=== PATIENT | female | born 1970 | race Caucasian/White ===

== ENCOUNTER 2016-06-16 21:54 | Emergency (ER) | payer OTHER ==
[2016-06-16 22:30] VITALS: BP 103/74
--- NOTE | 2016-06-17 00:24 | EDM.PDOC ---
ED HPI EYE COMPLAINT - General Chief Complaint: Eye Problems Stated Complaint: POSS EYE INFECTION Time Seen by Provider: 06/16/16 23:54 Source: Reports: Patient History Limitations: Reports: No limitations - History of Present Illness INITIAL COMMENTS - FREE TEXT/NARRATIVE: Patient presents for evaluation and treatment of bilateral eye pain, headaches and abnormal pupils. Patient reports the pain started in the right eye one week ago. Patient was seen by optometry on Saturday this week. She was started on several eye drops for the symptoms. She was told she has infection of the eye. Patient report today she noticed that her right pupil was now irregularly shaped. Today, she also developed severe decreased vision in the right eye. She states she is nearly blind in the right eye. Her left eye has now also become painful and the left pupil is dilated. Patient reports both eyes are painful to touch. She reports associated symptoms of photophobia, headaches and nausea. Denies any vomiting. She is unsure if she has had any fevers. No contacts. Patient wears bifocals on occasion. Patient has a past medial history of MS. She wsa previous on medication for the MS bit is no longer on meds. Patient also reports about 1 year ago she fractured her right orbit. Patient is a resident of the [facility]. Timing/Duration: Reports: Getting worse Location: both - Related Data Allergies/ADRs: Allergies acyclovir Allergy (Verified 06/16/16 22:36) Other codeine Allergy (Verified 06/16/16 22:36) Other morphine Allergy (Verified 06/16/16 22:36) Nausea Home Meds: Ambulatory Orders Medication Instructions Recorded Confirmed Dubxetine 90 mg PO DAILY 06/16/16 06/16/16 Homatropine HBr [Homatropaire] 1 drop TOP BID 06/16/16 06/16/16 Hydrochlorothiazide 25 mg PO DAILY 06/16/16 06/16/16 Iron 325 mg PO DAILY 06/16/16 06/16/16 Metoprolol Succinate 200 mg PO DAILY 06/16/16 06/16/16 Montelukast Sodium [Singulair] 10 mg PO DAILY 06/16/16 06/16/16 Naproxen 500 mg PO BID 06/16/16 06/16/16 Pramipexole [Mirapex] 0.125 mg PO BEDTIME 06/16/16 06/16/16 Prednisolone Eye Gtt 1 drop TOP ASDIRECTED 06/16/16 06/16/16 Ranitidine [Zantac] 75 mg PO BID 06/16/16 06/16/16 hydrOXYzine HCl [Atarax] 25 mg PO BID 06/16/16 06/16/16 levETIRAcetam [Levetiracetam] 500 mg PO DAILY 06/16/16 06/16/16 Past Medical History Cardiovascular History: Reports: Hypertension Neurological History: Reports: Migraines, MS Psychiatric History: Reports: Mood swings - Infectious Disease History Infectious Disease History: Reports: Hepatitis C - Past Surgical History HEENT Surgical History: Reports: Other (see below) Other HEENT Surgeries/Procedures: infection in eye Social & Family History - Tobacco Use Smoking Status *Q: Former Smoker - Caffeine Use Caffeine Use: Reports: Coffee - Recreational Drug Use Recreational Drug Type: Reports: Methamphetamine Other Recreational Drug Type: last used december 2015 ED ROS GENERAL - Review of Systems Review Of Systems: See Below HEENT: Reports: Eye pain. Denies: Eye discharge GI/Abdominal: Reports: Nausea. Denies: Vomiting Neurological: Reports: Headache ED EXAM GENERAL W FULL EYE - Physical Exam Exam: See Below Exam Limited By: No limitations General Appearance: alert, WD/WN, no apparent distress Visual acuity (R) 20/: 200 Visual acuity (L) 20/: 40 With Correction: No IOP (R) in mmH IOP (L) in mmH IOP measure with (equipment): Tonopen Eyelids: bilateral: normal appearance, lid everted for exam Conjunctiva & Sclera: bilateral: normal appearance Cornea Exam: bilateral: normal appearance Extraocular Movements: bilateral: intact Pupils: irregular (right), unequal, mydriatic (left) Pupillary Size: right: 5 mm, left: 9 mm Pupillary Reaction: bilateral: absent Anterior Chamber: bilateral: narrow angle Ears: normal external exam Throat/Mouth: Normal inspection, Normal voice, No airway compromise Respiratory/Chest: no respiratory distress, lungs clear, normal breath sounds Cardiovascular: normal peripheral pulses, regular rate, rhythm, no murmur Neurological: alert, oriented, normal cognition Psychiatric: normal affect, normal mood Skin Exam: Warm, Dry Course - Vital Signs Last Recorded V/S: Last Vital Signs Temp 37.1 C 06/16/16 22:28 Pulse 49 L 06/16/16 22:28 Resp 20 06/16/16 22:28 BP 103/74 06/16/16 22:28 Pulse Ox 100 06/16/16 22:28 - Orders/Labs/Meds Meds: Medications Discontinued Medications Generic Name Dose Route Start Last Admin Trade Name Phil PRN Reason Stop Dose Admin Ketorolac Tromethamine 60 mg 06/17/16 00:40 06/17/16 01:12 Toradol IM 06/17/16 00:41 60 mg ONETIME ONE Administration - Re-Assessments/Exams Free Text/Narrative Re-Assessment/Exam: 06/17/16 01:36 Pain improved slightly after proparacaie eye drops. Examined with slit lamp. No additional abnormalities were found. Called Irwin Gus. Gave phone number for [facility], . I was able to get ahold of Dr. Fonseca, postpartum nurse. Discussed case with him. Unlikely glaumcoma with normal IOPs. Lane she likely had iritis in the right eye. He felt she likely got some of the homoatropire drop in the left eye. This medication can cause pupillary dilation up to one week. Recommended increasing prednisone gtts to 4xs a day and follow-up with optometry this week. Departure - Departure Time of Disposition: 01:44 Disposition: Home, Self-Care 01 Condition: fair Clinical Impression: Iritis Instructions: Uveitis, [id number] Referrals: Mayra Ornelas PA-C [Primary Care Provider] - Forms: ED Department Discharge Additional Instructions: Increase the prednisone eyedrops to 4 times a day while awake. Followup with Dr. Boswell next week. If you are unable to see Dr. Boswell. You may see the providers at [facility] in [place]. I spoke with Dr. fonseca regarding her case. Call [phone] to schedule with [facility]. OTC ibuprofen 600mg every 8 hours for headache and pain relief. Continue with current eye drops. Please return to the ER should your symptoms change or worsen.
[2016-06-17] MEDS ORDERED: Ketorolac 60 MG/2 ML SDV IM ONE (00:40)
== END 2016-06-17 02:03 | disposition home or self-care (01) ==
LOC: EEVIPCON 21:54 → MERGE 21:54 → SUPCPDRO 21:54 → JD.ED 21:54
DX: H20.9 Unspecified iridocyclitis (principal); I10 Essential (primary) hypertension; G35 Multiple sclerosis; Z87.891 Personal history of nicotine dependence; Z79.899 Other long term (current) drug therapy; Z88.5 Allergy status to narcotic agent; Z88.8 Allergy status to other drugs, medicaments and biological substances
CPT/HCPCS: 96372; 99282; J1885; 99283; 99283-25

== ENCOUNTER 2018-12-06 19:42 | Emergency (ER) | payer MEDICAID, OTHER ==
[2018-12-06 20:02] VITALS: BP 134/96; PULSE 85
[2018-12-06] MEDS ORDERED: Proparacaine 0.5% Ophth Soln 15 ML Bottle EYEBOTH STA (20:22)
[2018-12-06] MEDS ORDERED: Erythromycin Base 0.5% Ophth Oint 1 GM Tube EYELF STA (20:22)
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
== END 2018-12-06 20:42 | disposition home or self-care (01) ==
LOC: JD.ED 19:42
DX: B30.9 Viral conjunctivitis, unspecified (principal); I10 Essential (primary) hypertension; F17.210 Nicotine dependence, cigarettes, uncomplicated; Z88.8 Allergy status to other drugs, medicaments and biological substances; Z88.5 Allergy status to narcotic agent; Z79.899 Other long term (current) drug therapy
CPT/HCPCS: 99282; A9270; 99283

== ENCOUNTER 2019-02-07 09:42 | Emergency (ER) | payer MEDICAID ==
[2019-02-07 09:54] VITALS: BP 139/96; PULSE 81
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
[2019-02-07] MEDS ORDERED: Lactated Ringers 1,000 ML IV ONE ×2 (10:07→11:46)
[2019-02-07] MEDS ORDERED: Ondansetron 4 MG/2 ML SDV IVPUSH ONE ×2 (10:08→12:46)
[2019-02-07] MEDS ORDERED: FLU Vacc QS2019-20(6MOS+)/PF 60 MCG/0.5 ML SYRINGE IM ONE (10:15)
[2019-02-07] MEDS ORDERED: Lactated Ringers 1,000 ML IV SCH (10:15)
[2019-02-07] MEDS ORDERED: fentaNYL 100 MCG/2 ML SDV IVPUSH ONE (11:05)
[2019-02-07] MEDS ORDERED: HYDROmorphone 0.5 MG/0.5 ML Syringe IVPUSH ONE ×2 (11:44→12:45)
[2019-02-07] MEDS ORDERED: Diatrizoate Meglumine/Diatrizoate Sodium 37% 120 ML Bottle PO ONE (13:36)
[2019-02-07] MEDS ORDERED: Iopamidol 612 MG/ML 100 ML Bottle IVPUSH ONE (13:36)
[2019-02-07] MEDS ORDERED: Sodium Chloride 0.9% 10 ML Syringe FLUSH ONE (13:36)
--- NOTE | 2019-02-07 14:36 | CT ---
CT abdomen and pelvis Technique: Multiple axial sections were obtained from above the dome of the diaphragm inferiorly through the pubic symphysis. Intravenous and oral contrast was given. Delayed images were also obtained through the bladder. Visualized lung bases show nothing acute. Partially visualized bilateral breast prosthesis are incidentally noted. Liver contains no focal parenchymal abnormality. Stomach shows evidence of prior surgery. Spleen appears within normal limits. Adrenal glands show no nodule. Previous cholecystectomy is noted. Common bile duct mildly prominent in size most likely residual from previous cholecystectomy. Pancreas shows no discrete abnormality. Kidneys show symmetric contrast enhancement without hydronephrosis or mass. Inferior right kidney shows a cyst measuring 1.4 cm. Aorta shows no aneurysm. No retroperitoneal adenopathy or mesenteric abnormalities are seen. Delayed images shows contrast within the bladder. Diffuse bowel wall thickening is noted within the colon most prominent within the descending and sigmoid regions. Appendix is not definitely visualized. No free fluid or inflammatory change is seen. Bone window settings were reviewed which appear within normal limits for the patient's age. Impression: 1. Diffuse bowel wall thickening within the colon. Findings are compatible with a nonspecific colitis. 2. No other acute abnormality is appreciated CT study of the abdomen and pelvis. Diagnostic code #3
--- NOTE | 2019-02-08 16:01 | CR ---
Abdomen: Supine and upright views of the abdomen were obtained. Comparison: No previous study. Surgical clips are seen within the upper abdomen. Scattered gas within small bowel and colon is seen which appears within normal limits. Calcifications are noted within the pelvis which are most likely due to phleboliths. No free air is seen. Bony structures are within normal limits for the patient's age. Impression: 1. Nothing acute is appreciated on two-view abdominal x-ray. Diagnostic code #2
== END 2019-02-07 16:45 | disposition home or self-care (01) ==
LOC: JD.ED 09:42
DX: K52.9 Noninfective gastroenteritis and colitis, unspecified (principal); I10 Essential (primary) hypertension; Z88.3 Allergy status to other anti-infective agents; Z88.5 Allergy status to narcotic agent; Z79.899 Other long term (current) drug therapy
CPT/HCPCS: 36415; 74019; 74177; 80053; 81001; 83690; 85007; 85027; 90471; 90686; 96361; 96374; 96375; 96376; 99285; J1170; J2405; J3010; J7120; Q9963; Q9967

== ENCOUNTER 2019-02-27 10:41 | Observation (INO) | payer MEDICAID ==
[2019-02-27] MEDS ORDERED: Ondansetron 4 MG/2 ML SDV IVPUSH ONE (11:06)
[2019-02-27] MEDS ORDERED: Sodium Chloride 0.9% 1,000 ML IV STA (11:06)
[2019-02-27] MEDS ORDERED: HYDROmorphone 1 MG/ML Syringe IVPUSH ONE ×2 (11:07→12:53)
[2019-02-27] MEDS: Sodium Chloride 0.9% 10 ML Syringe FLUSH PRN ×2 (11:18→12:46)
--- NOTE | 2019-02-27 11:21 | EDM.PDOC ---
ED HPI GENERAL MEDICAL PROBLEM - General Chief Complaint: Gastrointestinal Problem Stated Complaint: [facility] Time Seen by Provider: 02/27/19 10:56 Source of Information: Reports: Patient, EMS, Family History Limitations: Reports: No Limitations - History of Present Illness INITIAL COMMENTS - FREE TEXT/NARRATIVE: The patient presents with abdominal pain, nausea, vomiting and diarrhea. This has been going for about 3 days. She was seen here on 02/07 and had labs and a CT done. She was put on antibiotics. She was seen again on 02/16 and found to have a UTI. She was put on antibiotics again. She got better and not for the past 3 days she has more abdominal pain, nausea, vomiting and diarrhea. She has no fever but she has chills. She has generalized abdominal pain. She has no dysuria. She says back in 1999 she had gastric bypass for weight loss by Dr Goldsmith. She has had no troubles with that. She has no chest pain or shortness of breath. Onset: Gradual Duration: Day(s): (3) Location: Reports: Abdomen Quality: Reports: Sharp Severity: Moderate Improves with: Reports: None Worsens with: Reports: None Associated Symptoms: Reports: Fever/Chills, Nausea/Vomiting. Denies: Chest Pain , Cough, Headaches, Shortness of Breath Lower Abdomen Pain Score (Numeric/FACES): 8 - Related Data Allergies Allergy/AdvReac Type Severity Reaction Status Date / Time acyclovir Allergy Other Verified 02/27/19 10:47 codeine Allergy Other Verified 02/27/19 10:47 morphine Allergy Nausea Verified 02/27/19 10:47 Home Meds: Home Meds Hydrochlorothiazide 25 mg PO DAILY 06/16/16 [History] Iron 325 mg PO DAILY 06/16/16 [History] Metoprolol Succinate 200 mg PO DAILY 06/16/16 [History] Montelukast Sodium [Singulair] 10 mg PO DAILY 06/16/16 [History] Pramipexole [Mirapex] 0.125 mg PO BEDTIME 06/16/16 [History] Ranitidine [Zantac] 75 mg PO BID 06/16/16 [History] hydrOXYzine HCl [Atarax] 25 mg PO BID 06/16/16 [History] levETIRAcetam [Levetiracetam] 500 mg PO DAILY 06/16/16 [History] DULoxetine [Cymbalta] 90 mg PO DAILY 02/07/19 [History] Gabapentin [Neurontin] 100 mg PO TID 02/07/19 [History] Ondansetron [Zofran ODT] 4 mg PO Q6H PRN #10 tab.dis 02/07/19 [Rx] QUEtiapine [SEROquel] 100 mg PO BEDTIME 02/07/19 [History] Promethazine [Phenergan] 25 mg PO Q4H PRN #8 tab 02/16/19 [Rx] QUEtiapine [SEROquel] 25 mg PO DAILY 02/27/19 [History] Past Medical History Cardiovascular History: Reports: Hypertension Respiratory History: Reports: Asthma Gastrointestinal History: Reports: Pancreatitis, Other (See Below) Other Gastrointestinal History: collitis Genitourinary History: Reports: Urinary Incontinence [employer]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: Other (See Below) Musculoskeletal History: Reports: Arthritis, Fracture Neurological History: Reports: Migraines, MS, Seizure Psychiatric History: Reports: Depression, Mood Swings, PTSD - Infectious Disease History Infectious Disease History: Reports: Chicken Pox, Hepatitis A, Hepatitis C - Past Surgical History HEENT Surgical History: Reports: Oral Surgery, Tonsillectomy GI Surgical History: Reports: Appendectomy, Bariatric Procedure, Cholecystectomy , Hernia, Abdominal Female Surgical History: Reports: Breast Reduction, Section, Hysterectomy, Other (See Below) Dermatological Surgical History: Reports: Plastic Surgical Reconstruction/Repair Social & Family History - Family History Family Medical History: Noncontributory - Tobacco Use Smoking Status *Q: Current Every Day Smoker Years of Tobacco use: 10 Packs/Tins Daily: 0.3 - Caffeine Use Caffeine Use: Reports: Soda - Recreational Drug Use Recreational Drug Use: No - Living Situation & Occupation Living situation: Reports: , with Significant Other (Boyfriend) Occupation: Unemployed ED ROS GENERAL - Review of Systems Review Of Systems: See Below Constitutional: Reports: Chills. Denies: Fever HEENT: Reports: No Symptoms Respiratory: Reports: No Symptoms Cardiovascular: Reports: No Symptoms Endocrine: Reports: No Symptoms GI/Abdominal: Reports: Abdominal Pain, Diarrhea, Nausea, Vomiting : Reports: No Symptoms Musculoskeletal: Reports: No Symptoms ED EXAM, GI/ABD - Physical Exam Exam: See Below Exam Limited By: No Limitations General Appearance: Alert, No Apparent Distress Ears: Normal External Exam Nose: Normal Inspection Head: Atraumatic, Normocephalic Neck: Normal Inspection Respiratory/Chest: No Respiratory Distress, Lungs Clear, Normal Breath Sounds Cardiovascular: Regular Rate, Rhythm, No Edema, No Murmur GI/Abdominal Exam: Soft, No Organomegaly, No Mass, Tender (Moderate generalized tenderness) Course - Vital Signs Last Recorded V/S: Last Vital Signs Temp 98.0 F 02/27/19 10:47 Pulse 140 H 02/27/19 10:47 Resp 18 02/27/19 10:47 BP 133/99 H 02/27/19 10:47 Pulse Ox 100 02/27/19 10:47 - Orders/Labs/Meds Orders: Active Orders 24 hr Category Date Time Status Peripheral IV Care [RC] . DIRECTED Care 02/27/19 11:06 Active C DIFFICILE PCR W/REFLEX [MOLEC] Stat Lab 02/27/19 11:08 Ordered CULTURE STOOL + SHIGATOX [RM] Stat Lab 02/27/19 11:08 Ordered MAGNESIUM [CHEM] Stat Lab 02/27/19 14:46 Ordered PHOSPHORUS [CHEM] Stat Lab 02/27/19 14:46 Ordered WBC, STOOL [OP] Stat Lab 02/27/19 11:08 Ordered Lactated Ringers [Ringers, Lactated] 1,000 ml Med 02/27/19 13:45 Active IV ASDIRECTED Potassium Chloride [KCl 10 MEQ in Water 100 ML] 10 meq Med 02/27/19 12:15 Active Premix Bag 1 bag IV ASDIRECTED Sodium Chloride 0.9% [Saline Flush] Med 02/27/19 11:06 Active 10 ml FLUSH ASDIRECTED PRN Sodium Chloride 0.9% [Saline Flush] Med 02/27/19 11:25 Active 10 ml FLUSH ONETIME PRN ED Antiemetic Medication Reflex [OM.PC] Stat Oth 02/27/19 11:06 Ordered Peripheral IV Insertion Adult [OM.PC] Stat Oth 02/27/19 11:06 Ordered Medication Orders Potassium Chloride 10 meq/ (Premix) 100 mls @ 100 mls/hr IV ASDIRECTED EDILIA Last Admin: 02/27/19 12:12 Dose: 100 mls/hr Lactated Ringer's (Ringers, Lactated) 1,000 mls @ 150 mls/hr IV ASDIRECTED EDILIA Last Admin: 02/27/19 14:39 Dose: 150 mls/hr Sodium Chloride (Saline Flush) 10 ml FLUSH ASDIRECTED PRN PRN Reason: Keep Vein Open Last Admin: 02/27/19 12:46 Dose: 10 ml Admin: 02/27/19 11:18 Dose: 10 ml Sodium Chloride (Saline Flush) 10 ml FLUSH ONETIME PRN PRN Reason: IV FLUSH Last Admin: 02/27/19 13:02 Dose: 10 ml Labs: Laboratory Tests 02/27/19 02/27/19 02/27/19 Range/Units 11:22 11:22 13:30 WBC 6.04 (3.98-10.04) K/mm3 RBC 4.84 (3.98-5.22) M/mm3 Hgb 15.3 D (11.2-15.7) gm/dl Hct 44.1 (34.1-44.9) % MCV 91.1 (79.4-94.8) fl MCH 31.6 (25.6-32.2) pg MCHC 34.7 (32.2-35.5) g/dl RDW Std Deviation 49.4 H (36.4-46.3) fL Plt Count 418 H (182-369) K/mm3 MPV 9.3 L (9.4-12.3) fl Neut % (Auto) 52.6 (34.0-71.1) % Lymph % (Auto) 37.3 (19.3-51.7) % [place] % (Auto) 8.6 (4.7-12.5) % Eos % (Auto) 0.8 (0.7-5.8) Baso % (Auto) 0.5 (0.1-1.2) % Neut # (Auto) 3.18 (1.56-6.13) K/mm3 Lymph # (Auto) 2.25 (1.18-3.74) K/mm3 [place] # (Auto) 0.52 H (0.24-0.36) K/mm3 Eos # (Auto) 0.05 (0.04-0.36) K/mm3 Baso # (Auto) 0.03 (0.01-0.08) K/mm3 Sodium 138 (136-145) mEq/L Potassium 2.5 L (3.5-5.1) mEq/L Chloride 100 (98-107) mEq/L Carbon Dioxide 15 L (21-32) mEq/L Anion Gap 25.5 H (5-15) BUN 4 L (7-18) mg/dL Creatinine 1.1 H (0.55-1.02) mg/dL Est Cr Clr Drug Dosing 52.84 mL/min Estimated GFR (MDRD) 53 (>60) mL/min BUN/Creatinine Ratio 3.6 L (14-18) Glucose 159 H (74-106) mg/dL Calcium 9.3 (8.5-10.1) mg/dL Total Bilirubin 0.3 (0.2-1.0) mg/dL AST 87 H (15-37) U/L ALT 47 (14-59) U/L Alkaline Phosphatase 166 H (46-116) U/L Total Protein 8.2 (6.4-8.2) g/dl Albumin 3.9 (3.4-5.0) g/dl Globulin 4.3 gm/dL Albumin/Globulin Ratio 0.9 L (1-2) Lipase 1230 H (73-393) U/L Urine Color Yellow (Yellow) Urine Appearance Clear (Clear) Urine pH 7.0 (5.0-8.0) Ur Specific [place] 1.015 (1.005-1.030) Urine Protein 1+ H (Negative) Urine Glucose (UA) Negative (Negative) Urine Ketones Negative (Negative) Urine Occult Blood Negative (Negative) Urine Nitrite Negative (Negative) Urine Bilirubin Negative (Negative) Urine Urobilinogen 0.2 (0.2-1.0) Ur Leukocyte Esterase Negative (Negative) Urine RBC Not seen (0-5) /hpf Urine WBC Not seen (0-5) /hpf Ur Epithelial Cells 5-10 H (0-5) /hpf Urine Bacteria Few (FEW) /hpf Urine Mucus Not seen (FEW) /hpf Meds: Medications Generic Name Dose Route Start Last Admin Trade Name Freq PRN Reason Stop Dose Admin Potassium Chloride 10 meq/ 100 mls @ 100 mls/hr 02/27/19 12:15 02/27/19 12:12 Premix IV 100 mls/hr ASDIRECTED EDILIA Administration Lactated Ringer's 1,000 mls @ 150 mls/hr 02/27/19 13:45 02/27/19 14:39 Ringers, Lactated IV 150 mls/hr ASDIRECTED EDILIA Administration Sodium Chloride 10 ml 02/27/19 11:06 02/27/19 12:46 Saline Flush FLUSH 10 ml ASDIRECTED PRN Administration Keep Vein Open Sodium Chloride 10 ml 02/27/19 11:25 02/27/19 13:02 Saline Flush FLUSH 10 ml ONETIME PRN Administration IV FLUSH Discontinued Medications Generic Name Dose Route Start Last Admin Trade Name Freq PRN Reason Stop Dose Admin Diatrizoate Meglum/Diatrizoate Sod 120 ml 02/27/19 11:25 02/27/19 12:45 Gastrografin 37% PO 02/27/19 11:26 90 ml ONETIME ONE Administration Hydromorphone HCl 1 mg 02/27/19 11:07 02/27/19 11:23 Dilaudid IVPUSH 02/27/19 11:08 1 mg ONETIME ONE Administration Hydromorphone HCl 1 mg 02/27/19 12:53 02/27/19 13:01 Dilaudid IVPUSH 02/27/19 12:54 1 mg ONETIME ONE Administration Sodium Chloride 1,000 mls @ 1,000 mls/hr 02/27/19 11:06 02/27/19 11:26 Normal Saline IV 02/27/19 12:05 1,000 mls/hr .BOLUS STA Administration Iopamidol 100 ml 02/27/19 11:25 02/27/19 12:46 Isovue-300 (61%) IVPUSH 02/27/19 11:26 100 ml ONETIME ONE Administration Metoclopramide HCl 10 mg 02/27/19 12:53 02/27/19 13:01 Reglan IVPUSH 02/27/19 12:54 10 mg ONETIME ONE Administration Ondansetron HCl 4 mg 02/27/19 11:06 02/27/19 11:19 Zofran IVPUSH 02/27/19 11:07 4 mg ONETIME ONE Administration - Re-Assessments/Exams Free Text/Narrative Re-Assessment/Exam: 02/27/19 11:21 I ordered an IV NS 1L bolus, zofran 4mg IV, dilaudid 1mg IV, labs, UA, CT of her abdomen and pelvis and stool for C-dif, culture and WBCs. 02/27/19 14:49 Her CBC looks good. Her K is low at 2.5. I have ordered a potassium rider. Her anion gap is elevated at 25.5. Her creatinine is elevated at 1.1. Her glucose is elevated at 159. His AST is elevated at 87. Her alk phos is elevated at 166. Her lipase is elevated at 1230. Her CT shows diffuse bowel wall thickening throughout this colon. Findings are compatible with nonspecific colitis. Prior gastric surgery and other findings believed to be incidental as noted above. She had more vomiting and pain. I ordered more dilaudid 1mg IV and reglan 10mg IV. I feel she needs to be admitted. I am worried she has colitis c-dif but she cannot give me a stool sample yet. I feel she needs to be admitted. I called Dr Chu and she agreed to the admission. Departure - Departure Time of Disposition: 15:00 Disposition: Admitted As Inpatient 65 Condition: Fair Clinical Impression: Colitis, Hypokalemia, Dehydration Pancreatitis Qualifiers: Chronicity: acute Pancreatitis type: other Acute pancreatitis complication: no infection or necrosis Qualified Code(s): K85.80 - Other acute pancreatitis without necrosis or infection - Discharge Information Forms: ED Department Discharge - My Orders Last 24 Hours: My Active Orders 02/27/19 11:06 Peripheral IV Care [RC] . DIRECTED Sodium Chloride 0.9% [Saline Flush] 10 ml FLUSH ASDIRECTED PRN ED Antiemetic Medication Reflex [OM.PC] Stat Peripheral IV Insertion Adult [OM.PC] Stat 02/27/19 11:08 C DIFFICILE PCR W/REFLEX [MOLEC] Stat CULTURE STOOL + SHIGATOX [RM] Stat WBC, STOOL [OP] Stat 02/27/19 11:25 Sodium Chloride 0.9% [Saline Flush] 10 ml FLUSH ONETIME PRN 02/27/19 12:15 Potassium Chloride [KCl 10 MEQ in Water 100 ML] 10 meq Premix Bag 1 bag IV ASDIRECTED 02/27/19 13:45 Lactated Ringers [Ringers, Lactated] 1,000 ml IV ASDIRECTED 02/27/19 14:46 MAGNESIUM [CHEM] Stat PHOSPHORUS [CHEM] Stat - Assessment/Plan Last 24 Hours: My Active Orders 02/27/19 11:06 Peripheral IV Care [RC] . DIRECTED Sodium Chloride 0.9% [Saline Flush] 10 ml FLUSH ASDIRECTED PRN ED Antiemetic Medication Reflex [OM.PC] Stat Peripheral IV Insertion Adult [OM.PC] Stat 02/27/19 11:08 C DIFFICILE PCR W/REFLEX [MOLEC] Stat CULTURE STOOL + SHIGATOX [RM] Stat WBC, STOOL [OP] Stat 02/27/19 11:25 Sodium Chloride 0.9% [Saline Flush] 10 ml FLUSH ONETIME PRN 02/27/19 12:15 Potassium Chloride [KCl 10 MEQ in Water 100 ML] 10 meq Premix Bag 1 bag IV ASDIRECTED 02/27/19 13:45 Lactated Ringers [Ringers, Lactated] 1,000 ml IV ASDIRECTED 02/27/19 14:46 MAGNESIUM [CHEM] Stat PHOSPHORUS [CHEM] Stat
[2019-02-27] MEDS ORDERED: Iopamidol 612 MG/ML 100 ML Bottle IVPUSH ONE (11:25)
[2019-02-27] MEDS ORDERED: Diatrizoate Meglumine/Diatrizoate Sodium 37% 120 ML Bottle PO ONE (11:25)
[2019-02-27] MEDS ORDERED: Sodium Chloride 0.9% 10 ML Syringe FLUSH PRN (11:25)
[2019-02-27] MEDS: Potassium Chloride 10 MEQ in Premix Bag 1 BAG IV SCH ×2 (12:12→15:05)
[2019-02-27] MEDS ORDERED: Metoclopramide 10 MG/2 ML SDV IVPUSH ONE (12:53)
--- NOTE | 2019-02-27 13:21 | CT ---
CT abdomen and pelvis Technique: Multiple axial sections were obtained from above the dome of the diaphragm inferiorly through the pubic symphysis. Intravenous contrast was utilized. There is some oral contrast also being seen. Findings: Diffuse bowel wall thickening is seen throughout the colon. Visualized lung bases showed nothing acute. Liver contains no focal abnormality. Spleen appears within normal limits. Previous gastric surgery is noted. Adrenal glands show no nodule. Kidneys show symmetric contrast enhancement. 3 cortical cysts are seen within the right kidney. Largest cyst measures approximately 1.4 cm. Left kidney is unremarkable. Pancreas appears within normal limits. Common bile duct is mildly prominent which is most likely due to residual change from previous cholecystectomy. Aorta shows no aneurysm. No retroperitoneal adenopathy or mesenteric abnormalities are seen. No pelvic mass or adenopathy is seen. No free fluid or inflammatory change is seen. Appendix not seen with certainty. Delayed images shows contrast within the distal ureters and within the bladder. Bone window settings were reviewed which appear within normal limits for the patient's age. Impression: 1. Diffuse bowel wall thickening throughout this colon. Findings are compatible with nonspecific colitis. 2. Prior gastric surgery and other findings believed to be incidental as noted above. Diagnostic code #3 This report was dictated in [place] Standard Time
[2019-02-27] MEDS: Lactated Ringers 1,000 ML IV SCH ×2 (14:39→20:06)
[2019-02-27] MEDS ORDERED: Ondansetron 4 MG Tab.DIS PO PRN (15:16)
[2019-02-27] MEDS ORDERED: Ketorolac 30 MG/ML SDV IV PRN (15:16)
[2019-02-27] MEDS ORDERED: Promethazine 12.5 MG in Sodium Chloride 0.9% 50 ML IV PRN (15:16)
[2019-02-27] MEDS ORDERED: Nicotine 7 MG/24 Hr Patch TRDERM PRN (15:16)
--- NOTE | 2019-02-27 15:31 | PCM.HP.2 ---
H&P History of Present Illness - General Date of Service: 02/27/19 Admit Problem/Dx: Admission Diagnosis/Problem Admission Diagnosis/Problem Colitis - History of Present Illness Initial Comments - Free Text/Narative: This is a 49 year old female with past medical history of hypertension and PTSD who comes to the ED complaining of worsening abdominal pain, diarrhea and vomiting for the past 3 days. As per patient symptoms have been intermittent for the past month without any clear resolution. She came to the ED on the of this month and was diagnosed with colitis and discharged of ciprofloxacin and flagyl. She came back in on 02/16 with similar complaints, at that time they found a pathologic UA for which she was prescribed ciprofloxacin upon discharge. She returns today complaining of worsening nausea, vomiting, diarrhea and abdominal pain x 3 days. Pain is located in lower abdomen without radiation, graded 8/10 at its peak, described as crampy. Associated with bloating, diarrhea x3-4/day and vomiting x3-4/day, fevers, chills, dizziness, fatigue, malaise, weakness with minimal avail when taking pepto bismol. She denies any palpitations, shortness of breath, chest pain, headaches, urinary symptoms. Once she noted she was unable to tolerate oral intake, she decided to come in to the ED for further evaluation. Of note she denies any sick contacts or recent travel, nobody else sick at home. Lower Abdomen Pain Score (Numeric/FACES): 8 - Related Data Allergies/Adverse Reactions: Allergies Allergy/AdvReac Type Severity Reaction Status Date / Time acyclovir Allergy Other Verified 02/27/19 10:47 codeine Allergy Other Verified 02/27/19 10:47 morphine Allergy Nausea Verified 02/27/19 10:47 Home Medications: Home Meds Hydrochlorothiazide 25 mg PO DAILY 06/16/16 [History] Iron 325 mg PO DAILY 06/16/16 [History] Metoprolol Succinate 200 mg PO DAILY 06/16/16 [History] Montelukast Sodium [Singulair] 10 mg PO DAILY 06/16/16 [History] Pramipexole [Mirapex] 0.125 mg PO BEDTIME 06/16/16 [History] Ranitidine [Zantac] 75 mg PO BID 06/16/16 [History] hydrOXYzine HCl [Atarax] 25 mg PO BID 06/16/16 [History] levETIRAcetam [Levetiracetam] 500 mg PO DAILY 06/16/16 [History] DULoxetine [Cymbalta] 90 mg PO DAILY 02/07/19 [History] Gabapentin [Neurontin] 100 mg PO TID 02/07/19 [History] Ondansetron [Zofran ODT] 4 mg PO Q6H PRN #10 tab.dis 02/07/19 [Rx] QUEtiapine [SEROquel] 100 mg PO BEDTIME 02/07/19 [History] Promethazine [Phenergan] 25 mg PO Q4H PRN #8 tab 02/16/19 [Rx] QUEtiapine [SEROquel] 25 mg PO DAILY 02/27/19 [History] Past Medical History Cardiovascular History: Reports: Hypertension Respiratory History: Reports: Asthma Gastrointestinal History: Reports: Pancreatitis, Other (See Below) Other Gastrointestinal History: collitis Genitourinary History: Reports: Urinary 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) Musculoskeletal History: Reports: Arthritis, Fracture Neurological History: Reports: Migraines, MS, Seizure Psychiatric History: Reports: Depression, Mood Swings, PTSD - Infectious Disease History Infectious Disease History: Reports: Chicken Pox, Hepatitis A, Hepatitis C - Past Surgical History HEENT Surgical History: Reports: Oral Surgery, Tonsillectomy GI Surgical History: Reports: Appendectomy, Bariatric Procedure, Cholecystectomy , Hernia, Abdominal Female Surgical History: Reports: Breast Reduction, Section, Hysterectomy, Other (See Below) Dermatological Surgical History: Reports: Plastic Surgical Reconstruction/Repair Social & Family History - Family History Family Medical History: Noncontributory - Tobacco Use Smoking Status *Q: Current Every Day Smoker Years of Tobacco use: 10 Packs/Tins Daily: 0.3 - Caffeine Use Caffeine Use: Reports: Soda - Recreational Drug Use Recreational Drug Use: No - Living Situation & Occupation Living situation: Reports: , with Significant Other (Boyfriend) Occupation: Unemployed H&P Review of Systems - Review of Systems: Review Of Systems: See Below General: Reports: Fever, Chills, Malaise, Weakness, Fatigue, Decreased Appetite. Denies: Night Sweats, Diaphoresis HEENT: Denies: Ear Pain, Headaches, Rhinitis, Post Nasal Drip, Sinus Congestion , Sore Throat, Vertigo, Visual Changes Pulmonary: Denies: Shortness of Breath, Wheezing, Pleuritic Chest Pain, Cough, Sputum, Hemoptysis Cardiovascular: Reports: Lightheadedness. Denies: Chest Pain, Palpitations, Dyspnea on Exertion, Orthopnea, PND, Edema, Syncope, Claudication Gastrointestinal: Reports: Abdominal Pain, Anorexia, Diarrhea, Decreased Appetite, Distension, Nausea, Vomiting. Denies: Black Stool, Bloody Stool, Constipation, Difficulty Swallowing, Flatus, Hematemesis, Hematochezia, Melena, Mucous in Stool, Stool Incontinence Genitourinary: Denies: Dysuria, Frequency, Burning, Pain, Urgency, Incontinence , Hematuria, Retention, Discharge Musculoskeletal: Denies: Joint Pain, Joint Swelling, Muscle Pain, Muscle Stiffness Skin: Denies: Cyanosis, Jaundice, Mottled, Pallor, Diaphoresis, Dryness Psychiatric: Denies: Confusion, Depression, Mood Lability, Anxiety Neurological: Denies: Confusion, Dizziness, Headache, Numbness Exam - Exam Exam: See Below - Vital Signs Vital Signs: Last Vital Signs Temp 98.0 F 02/27/19 10:47 Pulse 140 H 02/27/19 10:47 Resp 18 02/27/19 10:47 BP 133/99 H 02/27/19 10:47 Pulse Ox 100 02/27/19 10:47 Orthostatic Blood Pressure [ 117/100 Standing] Orthostatic Blood Pressure [ 129/89 Supine] Weight: 65.771 kg - Exam General: Alert, Oriented, Cooperative, Mild Distress HEENT: Conjunctiva Clear, EACs Clear, EOMI, Pupils Equal, Pupils Reactive. No: Mucosa Moist & [place] (oral mucosa is dry) Neck: Supple, Trachea Midline, Full Range of Motion. No: Lymphadenopathy Lungs: Clear to Auscultation, Normal Respiratory Effort. No: Crackles, Rales, Rhonchi, Rub, Wheezing Cardiovascular: Regular Rhythm, Tachycardia. No: Systolic Murmur, Diastolic Murmur, Rubs, Gallop/S3, Gallop/S4 GI/Abdominal Exam: Normal Bowel Sounds, Soft, No Organomegaly, Tender. No: Distended, Guarding, Rigid, Rebound Back Exam: Normal Inspection Extremities: Normal Inspection, Non-Tender, No Pedal Edema Skin: Warm, Dry Neuro Extensive - Mental Status: Alert, Oriented x3, Normal Cognition Psychiatric: Alert, Anxious - Patient Data Result Diagrams: 02/27/19 11:22 02/27/19 11:22 *Q Meaningful Use (ADM) - VTE Risk Assess *Q Each Risk Factor Represents 1 Point: Age 41 - 59 years Total Score 1 Point Risk Factors: 1 - Problem List (1) Volume depletion, gastrointestinal loss SNOMED Code(s): 90841669 ICD Code: E86.9 - VOLUME DEPLETION, UNSPECIFIED Status: Acute Current Visit: Yes (2) Metabolic acidosis SNOMED Code(s): 04953083 ICD Code: E87.2 - ACIDOSIS Status: Acute Current Visit: Yes (3) High anion gap metabolic acidosis SNOMED Code(s): 03844741 ICD Code: E87.2 - ACIDOSIS Status: Acute Current Visit: Yes (4) Tachycardia SNOMED Code(s): 1689123 ICD Code: R00.0 - TACHYCARDIA, UNSPECIFIED Status: Acute Current Visit: Yes (5) Multiple sclerosis SNOMED Code(s): 36356327 ICD Code: G35 - MULTIPLE SCLEROSIS Status: Acute Current Visit: Yes (6) Hypertension SNOMED Code(s): 47247717 ICD Code: I10 - ESSENTIAL (PRIMARY) HYPERTENSION Status: Acute Current Visit: Yes (7) Post traumatic stress disorder SNOMED Code(s): 19940298 ICD Code: F43.10 - POST-TRAUMATIC STRESS DISORDER, UNSPECIFIED Status: Acute Current Visit: Yes (8) Colitis SNOMED Code(s): 32824375 ICD Code: K52.9 - NONINFECTIVE GASTROENTERITIS AND COLITIS, UNSPECIFIED Status: Acute Current Visit: Yes (9) Hypokalemia SNOMED Code(s): 59902260 ICD Code: E87.6 - HYPOKALEMIA Status: Acute Current Visit: Yes (10) Smoker SNOMED Code(s): 30941834 ICD Code: F17.200 - NICOTINE DEPENDENCE, UNSPECIFIED, UNCOMPLICATED Status : Acute Current Visit: Yes Problem List Initiated/Reviewed/Updated: Yes Orders Last 24hrs: Colitis Volume depletion, gastrointestinal loss with tachycardia High anion gap metabolic acidosis, AG-23 Hypokalemia Patient came in complaining of vomiting and diarrhea as well as inability to tolerate PO 2 full antibiotic courses in the past month-->Worsening symptoms Concern for c. diff colitis Labs compatible with GI loss PLAN - Orthostatic vital signs - Lactic acid - ABG - IV fluid repletion with LR at 250ml/hr - NPO for now advance diet as requested by patient when symptom free - Scheduled Zofran Hypertension Unknown home trend BP on admission, 133/90, 125/90 upon my evaluation Unknown home meds PLAN - Hold home medications Post traumatic stress disorder No acute issues No current SI or HI Home management pending to reconcile PLAN - Continue home medications once available Multiple sclerosis Working on disability social security penit[facility] management PLAN - Ambulate with assistance Active smoker 1/ ppd x 10 years Does not want Nicotine patch PLAN - Nicotine patch ordered PRN - Smoking cessation counseling during admission PROPHYLAXIS DVT- encourage ambulation GI- not indicated CODE STATUS: FULL CODE DISPOSITION: Patient will be admitted under observation for IV fluid repletion and monitorization as well as symptomatic treatment and work up for diarrhea.
[2019-02-27 15:39] LABS: HEMOGLOBIN A1C 4.9 % (4.50-6.20)
[2019-02-27] MEDS: Ondansetron 4 MG/2 ML SDV IV SCH ×2 (16:57→23:31)
[2019-02-27] MEDS: Ketorolac 15 MG/ML SDV IVPUSH PRN (17:10)
[2019-02-27] MEDS: Morphine 2 MG/ML Syringe IVPUSH PRN (20:35)
[2019-02-27] MEDS: Pramipexole 0.25 MG Tab PO SCH (20:50)
[2019-02-27] MEDS: Gabapentin 100 MG Cap PO SCH (20:50)
[2019-02-27] MEDS: QUEtiapine 100 MG Tab PO SCH (20:52)
[2019-02-27] MEDS: hydrOXYzine HCl 25 MG Tab PO SCH (20:52)
[2019-02-28] MEDS: Lactated Ringers 1,000 ML IV SCH ×5 (00:10→20:49)
[2019-02-28] MEDS: Ketorolac 15 MG/ML SDV IVPUSH PRN ×3 (00:11→14:55)
[2019-02-28] MEDS: Morphine 2 MG/ML Syringe IVPUSH PRN ×3 (03:35→18:11)
[2019-02-28] MEDS: Ondansetron 4 MG/2 ML SDV IV SCH ×5 (03:39→20:40)
[2019-02-28] MEDS: QUEtiapine 25 MG Tab PO SCH (08:33)
[2019-02-28] MEDS: levETIRAcetam 500 MG Tab PO SCH (08:33)
[2019-02-28] MEDS: Gabapentin 100 MG Cap PO SCH ×3 (08:33→20:38)
[2019-02-28] MEDS: hydrOXYzine HCl 25 MG Tab PO SCH ×2 (08:33→20:38)
[2019-02-28] MEDS: DULoxetine 30 MG Cap PO SCH (08:33)
[2019-02-28] MEDS: Potassium Chloride 10 MEQ in Premix Bag 1 BAG IV SCH ×5 (11:22→14:55)
[2019-02-28] MEDS ORDERED: Magnesium Sulfate/Water 50 ML IV ONE (13:30)
[2019-02-28] MEDS: QUEtiapine 100 MG Tab PO SCH (20:38)
[2019-03-01] MEDS: Pramipexole 0.25 MG Tab PO SCH (00:16)
[2019-03-01] MEDS: Morphine 2 MG/ML Syringe IVPUSH PRN ×2 (00:22→04:47)
[2019-03-01] MEDS: Lactated Ringers 1,000 ML IV SCH ×2 (00:45→04:46)
[2019-03-01] MEDS: Ketorolac 15 MG/ML SDV IVPUSH PRN (02:22)
[2019-03-01] MEDS: Ondansetron 4 MG/2 ML SDV IV SCH ×2 (02:30→08:34)
[2019-03-01] MEDS ORDERED: Acetaminophen 325 MG Tab PO PRN (06:09)
[2019-03-01 08:11] VITALS: BP 137/91; PULSE 75
[2019-03-01] MEDS: hydrOXYzine HCl 25 MG Tab PO SCH (08:35)
[2019-03-01] MEDS: DULoxetine 30 MG Cap PO SCH (08:35)
[2019-03-01] MEDS: QUEtiapine 25 MG Tab PO SCH (08:35)
[2019-03-01] MEDS: Gabapentin 100 MG Cap PO SCH (08:35)
[2019-03-01] MEDS: levETIRAcetam 500 MG Tab PO SCH (08:35)
[2019-03-01] MEDS: Acetaminophen/Codeine 300-30 MG Tab PO PRN ×2 (08:35→12:43)
--- NOTE | 2019-03-01 11:18 | PCM.PN ---
- General Info Date of Service: 02/28/19 Subjective Update: Still having abdominal pain and nausea No fever Slept ok - Patient Data Weight - Most Recent: 71.35 kg - Exam Physical Findings Comments:: General: Alert, Oriented, Cooperative, Mild Distress HEENT: Conjunctiva Clear, EACs Clear, EOMI, Pupils Equal, Pupils Reactive. No: Mucosa Moist & [place] (oral mucosa is dry) Neck: Supple, Trachea Midline, Full Range of Motion. No: Lymphadenopathy Lungs: Clear to Auscultation, Normal Respiratory Effort. No: Crackles, Rales, Rhonchi, Rub, Wheezing Cardiovascular: Regular Rhythm, Tachycardia. No: Systolic Murmur, Diastolic Murmur, Rubs, Gallop/S3, Gallop/S4 GI/Abdominal Exam: Normal Bowel Sounds, Soft, No Organomegaly, Tender. No: Distended, Guarding, Rigid, Rebound Back Exam: Normal Inspection Extremities: Normal Inspection, Non-Tender, No Pedal Edema Skin: Warm, Dry Neuro Extensive - Mental Status: Alert, Oriented x3, Normal Cognition Psychiatric: Alert, Anxious - Problem List & Annotations (1) Volume depletion, gastrointestinal loss SNOMED Code(s): 82986494 Code(s): E86.9 - VOLUME DEPLETION, UNSPECIFIED Status: Acute Current Visit: Yes (2) Metabolic acidosis SNOMED Code(s): 96394514 Code(s): E87.2 - ACIDOSIS Status: Resolved Current Visit: Yes (3) High anion gap metabolic acidosis SNOMED Code(s): 57711404 Code(s): E87.2 - ACIDOSIS Status: Resolved Current Visit: Yes (4) Tachycardia SNOMED Code(s): 5855319 Code(s): R00.0 - TACHYCARDIA, UNSPECIFIED Status: Resolved Current Visit : Yes (5) Multiple sclerosis SNOMED Code(s): 56614864 Code(s): G35 - MULTIPLE SCLEROSIS Status: Acute Current Visit: Yes (6) Hypertension SNOMED Code(s): 95369070 Code(s): I10 - ESSENTIAL (PRIMARY) HYPERTENSION Status: Acute Current Visit: Yes (7) Post traumatic stress disorder SNOMED Code(s): 49645212 Code(s): F43.10 - POST-TRAUMATIC STRESS DISORDER, UNSPECIFIED Status: Acute Current Visit: Yes (8) Colitis SNOMED Code(s): 74909413 Code(s): K52.9 - NONINFECTIVE GASTROENTERITIS AND COLITIS, UNSPECIFIED Status: Resolved Current Visit: Yes (9) Hypokalemia SNOMED Code(s): 32442581 Code(s): E87.6 - HYPOKALEMIA Status: Acute Current Visit: Yes (10) Smoker SNOMED Code(s): 83636683 Code(s): F17.200 - NICOTINE DEPENDENCE, UNSPECIFIED, UNCOMPLICATED Status: Acute Current Visit: Yes - Problem List Review Problem List Initiated/Reviewed/Updated: Yes - Plan Plan:: Colitis Volume depletion, gastrointestinal loss with tachycardia High anion gap metabolic acidosis, AG-23 Hypokalemia Patient came in complaining of vomiting and diarrhea as well as inability to tolerate PO 2 full antibiotic courses in the past month-->Worsening symptoms Concern for c. diff colitis Labs compatible with GI loss Lactic acid continues to be elevated will continue IV fluids until negative PLAN - IV fluid repletion with LR at 250ml/hr - Advance diet as requested by patient when symptom free - Scheduled Zofran Hypertension Unknown home trend BP on admission, 133/90, 125/90 upon my evaluation Unknown home meds PLAN - Hold home medications Post traumatic stress disorder No acute issues No current SI or HI Home management pending to reconcile PLAN - Continue home medications once available Multiple sclerosis Working on disability social security prison management PLAN - Ambulate with assistance Active smoker 1/4 ppd x 10 years Does not want Nicotine patch PLAN - Nicotine patch ordered PRN - Smoking cessation counseling during admission PROPHYLAXIS DVT- encourage ambulation GI- not indicated CODE STATUS: FULL CODE DISPOSITION: Patient admitted under observation for IV fluid repletion and monitorization, no etiology for GI symptoms but they are improving with symptomatic management. Patient will remain admitted for IV fluid repletion until she tolerates diet.
--- NOTE | 2019-03-01 11:23 | PCM.DCSUM1 ---
Discharge Summary - Hospital Course HPI Initial Comments: This is a 49 year old female with past medical history of hypertension and PTSD who comes to the ED complaining of worsening abdominal pain, diarrhea and vomiting for the past 3 days. As per patient symptoms have been intermittent for the past month without any clear resolution. She came to the ED on the of this month and was diagnosed with colitis and discharged of ciprofloxacin and flagyl. She came back in on 02/16 with similar complaints, at that time they found a pathologic UA for which she was prescribed ciprofloxacin upon discharge. She returns today complaining of worsening nausea, vomiting, diarrhea and abdominal pain x 3 days. Pain is located in lower abdomen without radiation, graded 8/10 at its peak, described as crampy. Associated with bloating, diarrhea x3-4/day and vomiting x3-4/day, fevers, chills, dizziness, fatigue, malaise, weakness with minimal avail when taking Pepto Bismol. She denies any palpitations, shortness of breath, chest pain, headaches, urinary symptoms. Once she noted she was unable to tolerate oral intake, she decided to come in to the ED for further evaluation. Of note she denies any sick contacts or recent travel, nobody else sick at home. Diagnosis: Stroke: No - Discharge Data Discharge Date: 03/01/19 Discharge Disposition: Home, Self-Care 01 Condition: Good - Referral to Home Health Primary Care Physician: Lopez Hood MD - Discharge Diagnosis/Problem(s) (1) Volume depletion, gastrointestinal loss SNOMED Code(s): 66309274 ICD Code: E86.9 - VOLUME DEPLETION, UNSPECIFIED Status: Acute Current Visit: Yes (2) Metabolic acidosis SNOMED Code(s): 63517427 ICD Code: E87.2 - ACIDOSIS Status: Resolved Current Visit: Yes (3) High anion gap metabolic acidosis SNOMED Code(s): 93784332 ICD Code: E87.2 - ACIDOSIS Status: Resolved Current Visit: Yes (4) Tachycardia SNOMED Code(s): 6758630 ICD Code: R00.0 - TACHYCARDIA, UNSPECIFIED Status: Resolved Current Visit : Yes (5) Multiple sclerosis SNOMED Code(s): 39204748 ICD Code: G35 - MULTIPLE SCLEROSIS Status: Acute Current Visit: Yes (6) Hypertension SNOMED Code(s): 94803405 ICD Code: I10 - ESSENTIAL (PRIMARY) HYPERTENSION Status: Acute Current Visit: Yes (7) Post traumatic stress disorder SNOMED Code(s): 60066736 ICD Code: F43.10 - POST-TRAUMATIC STRESS DISORDER, UNSPECIFIED Status: Acute Current Visit: Yes (8) Colitis SNOMED Code(s): 36354476 ICD Code: K52.9 - NONINFECTIVE GASTROENTERITIS AND COLITIS, UNSPECIFIED Status: Resolved Current Visit: Yes (9) Hypokalemia SNOMED Code(s): 83721977 ICD Code: E87.6 - HYPOKALEMIA Status: Acute Current Visit: Yes (10) Smoker SNOMED Code(s): 39881917 ICD Code: F17.200 - NICOTINE DEPENDENCE, UNSPECIFIED, UNCOMPLICATED Status : Acute Current Visit: Yes - Patient Instructions Diet: Clear Liquid Diet ([place] diet) Activity: As Tolerated Driving: May Drive Today Notify Provider of: Fever - Discharge Plan Prescriptions/Med Rec: Acetaminophen/Codeine [Tylenol with Codeine No.3 300MG/30MG] 1 tab PO Q8HR PRN # 9 tablet PRN Reason: Pain (Severe 7-10) Bismuth Subsalicylate [Pepto-Bismol] 262 mg PO Q6H #12 tab.chew DULoxetine [Cymbalta] 90 mg PO DAILY #21 cap Gabapentin [Neurontin] 100 mg PO TID #21 cap levETIRAcetam [Levetiracetam] 500 mg PO DAILY #14 tablet Ondansetron [Zofran ODT] 4 mg PO Q12H PRN #6 tab.dis PRN Reason: nausea, able to take PO QUEtiapine [SEROquel] 100 mg PO BEDTIME #7 tablet QUEtiapine [SEROquel] 25 mg PO DAILY #7 tablet Home Medications: Home Meds Interferon Beta-1a [Avonex] 1 injection SQ WEEKLY 02/27/19 [History] Acetaminophen/Codeine [Tylenol with Codeine No.3 300MG/30MG] 1 tab PO Q8HR PRN # 9 tablet 03/01/19 [Rx] Bismuth Subsalicylate [Pepto-Bismol] 262 mg PO Q6H #12 tab.chew 03/01/19 [Rx] DULoxetine [Cymbalta] 90 mg PO DAILY #21 cap 03/01/19 [Rx] Gabapentin [Neurontin] 100 mg PO TID #21 cap 03/01/19 [Rx] Ondansetron [Zofran ODT] 4 mg PO Q12H PRN #6 tab.dis 03/01/19 [Rx] QUEtiapine [SEROquel] 25 mg PO DAILY #7 tablet 03/01/19 [Rx] QUEtiapine [SEROquel] 100 mg PO BEDTIME #7 tablet 03/01/19 [Rx] levETIRAcetam [Levetiracetam] 500 mg PO DAILY #14 tablet 03/01/19 [Rx] Forms: ED Department Discharge Referrals: Lopez Hood MD [Primary Care Provider] - - Discharge Summary/Plan Comment DC Time >30 min.: Yes - General Info Date of Service: 03/01/19 Subjective Update: Feeling ok Ambulating Voiding urine ok 1 BM in past 24h - Patient Data Vitals - Most Recent: Last Vital Signs Temp 98.2 F 03/01/19 08:04 Pulse 75 03/01/19 08:04 Resp 20 03/01/19 08:04 BP 137/91 H 03/01/19 08:04 Pulse Ox 96 03/01/19 08:04 Orthostatic Blood Pressure [ 147/100 Sitting] Orthostatic Blood Pressure [ 136/99 Standing] Orthostatic Blood Pressure [ 136/95 Supine] Weight - Most Recent: 71.35 kg - Exam General: Reports: Alert, Oriented, Cooperative, No Acute Distress HEENT: Reports: Pupils Equal, Pupils Reactive, EOMI, Mucous Membr. Moist/[place] Neck: Reports: Supple, Trachea Midline, No JVD, No Thyromegaly Lungs: Reports: Clear to Auscultation, Normal Respiratory Effort. Denies: Crackles, Rales, Rhonchi, Rub, Wheezing Cardiovascular: Reports: Regular Rate, Regular Rhythm. Denies: Murmurs, Gallops , Rubs GI/Abdominal Exam: Normal Bowel Sounds, Soft, Non-Tender. No: Distended, Guarding, Rigid, Rebound Back Exam: Reports: Normal Inspection Extremities: Normal Inspection, Normal Range of Motion Skin: Reports: Warm, Dry, Intact Neurological: Reports: No New Focal Deficit Psy/Mental Status: Reports: Alert, Normal Affect, Normal Mood
== END 2019-03-01 12:30 | disposition home or self-care (01) ==
LOC: JD.ED 10:41 → JD.MS 15:16
PROVIDERS: ADMIT Internal Medicine; ATTEND Internal Medicine
DX: E86.9 Volume depletion, unspecified (principal); E87.2 Acidosis; E87.6 Hypokalemia; G35 Multiple sclerosis; I10 Essential (primary) hypertension; F43.10 Post-traumatic stress disorder, unspecified; F32.9 Major depressive disorder, single episode, unspecified; K52.9 Noninfective gastroenteritis and colitis, unspecified; J45.909 Unspecified asthma, uncomplicated; G43.909 Migraine, unspecified, not intractable, without status migrainosus; M19.90 Unspecified osteoarthritis, unspecified site; F17.210 Nicotine dependence, cigarettes, uncomplicated; Z88.8 Allergy status to other drugs, medicaments and biological substances; Z88.5 Allergy status to narcotic agent; Z79.899 Other long term (current) drug therapy; Z98.84 Bariatric surgery status
CPT/HCPCS: 36415; 36600; 74177; 80048; 80053; 81001; 82803; 83036; 83605; 83690; 83735; 84075; 84100; 85025; 87046; 87427; 87493; 89055; 96361; 96374; 96375; 96376; 99285; A9270; J1170; J1885; J2270; J2405; J2765; J3475; J3480; J7040; J7120; Q9963; Q9967; 99284; J7030

== ENCOUNTER 2019-03-13 06:33 | Emergency (ER) | payer MEDICAID ==
[2019-03-13 06:51] VITALS: BP 157/106; PULSE 102
[2019-03-13] MEDS ORDERED: Ondansetron 4 MG/2 ML SDV IVPUSH ONE (07:09)
[2019-03-13] MEDS ORDERED: Famotidine 20 MG/2 ML SDV IVPUSH ONE (07:09)
[2019-03-13] MEDS ORDERED: Sodium Chloride 0.9% 10 ML Syringe FLUSH PRN (07:09)
[2019-03-13] MEDS ORDERED: Sodium Chloride 0.9% 1,000 ML IV SCH ×2 (07:15→09:00)
[2019-03-13] MEDS ORDERED: HYDROmorphone 1 MG/ML Syringe IVPUSH ONE (07:19)
--- NOTE | 2019-03-13 07:21 | EDM.PDOC ---
ED HPI GENERAL MEDICAL PROBLEM - General Chief Complaint: Abdominal Pain Stated Complaint: COLITIS FLARE UP Time Seen by Provider: 03/13/19 06:58 Source of Information: Reports: Patient, RN Notes Reviewed - History of Present Illness INITIAL COMMENTS - FREE TEXT/NARRATIVE: 49 yr old female comes in with abd pain, nausea, vomiting and diarrhea. This started 3 days ago. Eating and drinking makes it all worse. Hx of colitis and pancreatitis. Has had chills, no obvious fever. Mouth feels very dry, also weak and dizzy. Appendix and GB are gone. Abdomen Pain Score (Numeric/FACES): 9 - Related Data Allergies Allergy/AdvReac Type Severity Reaction Status Date / Time acyclovir Allergy Other Verified 03/13/19 06:51 Home Meds: Home Meds Interferon Beta-1a [Avonex] 1 injection SQ WEEKLY 02/27/19 [History] Acetaminophen/Codeine [Tylenol with Codeine No.3 300MG/30MG] 1 tab PO Q8HR PRN # 9 tablet 03/01/19 [Rx] Bismuth Subsalicylate [Pepto-Bismol] 262 mg PO Q6H #12 tab.chew 03/01/19 [Rx] DULoxetine [Cymbalta] 90 mg PO DAILY #21 cap 03/01/19 [Rx] Gabapentin [Neurontin] 100 mg PO TID #21 cap 03/01/19 [Rx] Ondansetron [Zofran ODT] 4 mg PO Q12H PRN #6 tab.dis 03/01/19 [Rx] QUEtiapine [SEROquel] 25 mg PO DAILY #7 tablet 03/01/19 [Rx] QUEtiapine [SEROquel] 100 mg PO BEDTIME #7 tablet 03/01/19 [Rx] levETIRAcetam [Levetiracetam] 500 mg PO DAILY #14 tablet 03/01/19 [Rx] Hydrocodone/Acetaminophen [[place] 5-325 Tablet] 1 each PO Q6HR PRN #10 tablet [Rx] Ondansetron [Zofran ODT] 4 mg PO Q6H PRN #7 tab.dis 03/13/19 [Rx] Past Medical History Other HEENT History: cornea transplant L eye Cardiovascular History: Reports: Hypertension Other Cardiovascular History: heart murmur Respiratory History: Reports: None Gastrointestinal History: Reports: Pancreatitis, Other (See Below) Other Gastrointestinal History: collitis Genitourinary History: Reports: Urinary Incontinence 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 [employer]CHER History: Reports: Other (See Below) Musculoskeletal History: Reports: Arthritis, Fracture Other Musculoskeletal History: Neck and back- Neurological History: Reports: Migraines, MS, Seizure Psychiatric History: Reports: Anxiety, Depression, Mood Swings, PTSD - Infectious Disease History Infectious Disease History: Reports: Chicken Pox, Hepatitis A, Hepatitis C - Past Surgical History HEENT Surgical History: Reports: Oral Surgery, Tonsillectomy GI Surgical History: Reports: Appendectomy, Bariatric Procedure, Cholecystectomy , Hernia, Abdominal Female Surgical History: Reports: Section, Hysterectomy, Other (See Below) Other Female Surgeries/Procedures: Breast implants Dermatological Surgical History: Reports: Plastic Surgical Reconstruction/Repair Social & Family History - Family History Family Medical History: Noncontributory - Tobacco Use Smoking Status *Q: Current Every Day Smoker Years of Tobacco use: 30 Packs/Tins Daily: 1 - Caffeine Use Caffeine Use: Reports: None Other Caffeine Use: 3/day - Living Situation & Occupation Living situation: Reports: , with Significant Other (Boyfriend) Occupation: Unemployed ED ROS GENERAL - Review of Systems Review Of Systems: See Below Constitutional: Reports: Chills. Denies: Fever HEENT: Reports: No Symptoms Respiratory: Denies: Shortness of Breath Cardiovascular: Denies: Chest Pain GI/Abdominal: Reports: Abdominal Pain, Diarrhea (watery, frequent), Nausea, Vomiting. Denies: Hematemesis, Hematochezia, Melena : Reports: No Symptoms Musculoskeletal: Reports: No Symptoms Skin: Reports: No Symptoms Neurological: Reports: Dizziness ED EXAM, GI/ABD - Physical Exam Exam: See Below General Appearance: Alert, Moderate Distress Throat/Mouth: Other (oral mucosa is moist) Head: Atraumatic Neck: Supple Respiratory/Chest: No Respiratory Distress, Lungs Clear, Normal Breath Sounds Cardiovascular: Regular Rate, Rhythm GI/Abdominal Exam: Soft, Tender (moderate tenderness lower abd diffusely) Back Exam: No: CVA Tenderness (L), CVA Tenderness (R) Extremities: Normal Inspection, Normal Range of Motion Neurological: Alert, Oriented, No Motor/Sensory Deficits Skin Exam: Warm, Dry, Normal Color Course - Vital Signs Last Recorded V/S: Last Vital Signs Temp 96.0 F 03/13/19 06:48 Pulse 102 H 03/13/19 06:48 Resp 16 03/13/19 06:48 BP 157/106 H 03/13/19 06:48 Pulse Ox 100 03/13/19 06:48 - Orders/Labs/Meds Orders: Active Orders 24 hr Category Date Time Status Peripheral IV Care [RC] . DIRECTED Care 03/13/19 07:09 Active Peripheral IV Insertion Adult [OM.PC] Stat Oth 03/13/19 07:09 Ordered Labs: Laboratory Tests 03/13/19 03/13/19 Range/Units 07:40 07:40 WBC 4.85 (3.98-10.04) K/mm3 RBC 4.27 (3.98-5.22) M/mm3 Hgb 13.5 D (11.2-15.7) gm/dl Hct 40.7 (34.1-44.9) % MCV 95.3 H (79.4-94.8) fl MCH 31.6 (25.6-32.2) pg MCHC 33.2 (32.2-35.5) g/dl RDW Std Deviation 55.5 H (36.4-46.3) fL Plt Count 424 H D (182-369) K/mm3 MPV 8.7 L (9.4-12.3) fl Neut % (Auto) 61.1 (34.0-71.1) % Lymph % (Auto) 31.1 (19.3-51.7) % [place] % (Auto) 5.6 (4.7-12.5) % Eos % (Auto) 1.4 (0.7-5.8) Baso % (Auto) 0.6 (0.1-1.2) % Neut # (Auto) 2.96 (1.56-6.13) K/mm3 Lymph # (Auto) 1.51 (1.18-3.74) K/mm3 [place] # (Auto) 0.27 (0.24-0.36) K/mm3 Eos # (Auto) 0.07 (0.04-0.36) K/mm3 Baso # (Auto) 0.03 (0.01-0.08) K/mm3 Manual Slide Review Normal smear Sodium 143 (136-145) mEq/L Potassium 3.1 L (3.5-5.1) mEq/L Chloride 104 (98-107) mEq/L Carbon Dioxide 25 (21-32) mEq/L Anion Gap 17.1 H (5-15) BUN 7 (7-18) mg/dL Creatinine 0.9 (0.55-1.02) mg/dL Est Cr Clr Drug Dosing 64.58 mL/min Estimated GFR (MDRD) > 60 (>60) mL/min BUN/Creatinine Ratio 7.8 L (14-18) Glucose 86 (74-106) mg/dL Calcium 9.2 (8.5-10.1) mg/dL Total Bilirubin 0.3 (0.2-1.0) mg/dL AST 109 H (15-37) U/L ALT 56 (14-59) U/L Alkaline Phosphatase 147 H (46-116) U/L Total Protein 7.7 (6.4-8.2) g/dl Albumin 3.6 (3.4-5.0) g/dl Globulin 4.1 gm/dL Albumin/Globulin Ratio 0.9 L (1-2) Lipase 707 H (73-393) U/L Meds: Medications Discontinued Medications Generic Name Dose Route Start Last Admin Trade Name Freq PRN Reason Stop Dose Admin Famotidine 20 mg 03/13/19 07:09 03/13/19 07:44 Pepcid IVPUSH 03/13/19 07:10 20 mg ONETIME ONE Administration Hydromorphone HCl 1 mg 03/13/19 07:19 03/13/19 07:47 Dilaudid IVPUSH 03/13/19 07:20 1 mg ONETIME ONE Administration Hydromorphone HCl 0.5 mg 03/13/19 08:47 03/13/19 09:01 Dilaudid IVPUSH 03/13/19 08:48 0.5 mg ONETIME ONE Administration Sodium Chloride 1,000 mls @ 999 mls/hr 03/13/19 07:15 03/13/19 07:44 Normal Saline IV 999 mls/hr ONETIME EDILIA Administration Sodium Chloride 1,000 mls @ 999 mls/hr 03/13/19 09:00 03/13/19 09:08 Normal Saline IV 999 mls/hr ONETIME EDILIA Administration Potassium Chloride 10 meq/ 100 mls @ 50 mls/hr 03/13/19 08:47 03/13/19 09:02 Premix IV 03/13/19 10:46 50 mls/hr ASDIRECTED ONE Administration Ondansetron HCl 4 mg 03/13/19 07:09 03/13/19 07:42 Zofran IVPUSH 03/13/19 07:10 4 mg ONETIME ONE Administration Sodium Chloride 10 ml 03/13/19 07:09 03/13/19 07:44 Saline Flush FLUSH 10 ml ASDIRECTED PRN Administration Keep Vein Open - Re-Assessments/Exams Free Text/Narrative Re-Assessment/Exam: 03/13/19 11:08 Feeling much better. Still having some lower abdominal pain. She has had 1-1/2 L of normal saline, Zofran, Dilaudid and Pepcid IV. CO2 was normal, anion gap mildly elevated. White blood count normal, lipase mildly elevated at just over 700. I really do believe this is more of a colitis type problem for her with the symptoms of frequent watery diarrhea more so than flare of her chronic pancreatitis. I'm planning to discharge her after IV fluid and IV potassium has infused on clear liquids. Discharge instructions as documented. Departure - Departure Time of Disposition: 11:10 Disposition: Home, Self-Care 01 Condition: Fair Clinical Impression: Abdominal pain, Diarrhea, Vomiting Pancreatitis Qualifiers: Chronicity: acute Pancreatitis type: other Acute pancreatitis complication: no infection or necrosis Qualified Code(s): K85.80 - Other acute pancreatitis without necrosis or infection - Discharge Information Prescriptions: Hydrocodone/Acetaminophen [[place] 5-325 Tablet] 1 each PO Q6HR PRN #10 tablet PRN Reason: Pain Ondansetron [Zofran ODT] 4 mg PO Q6H PRN #7 tab.dis PRN Reason: Nausea/Vomiting Instructions: Diarrhea, Adult, Abdominal Pain, Adult, [id number], Vomiting, Adult Referrals: Lopez Hood MD [Primary Care Provider] - Forms: ED Department Discharge Additional Instructions: Clear liquids until this evening, than very careful bland diet as tolerated. Zofran if needed for further nausea or cramping. Tylenol every 6-8 hours for mild to moderate discomfort or hydrocodone if needed for severe pain. Do not take Tylenol and hydrocodone at the same time. See one of our [facility] clinic providers early next week for recheck. Call [phone] for appointment. Return to ED as needed if symptoms worsening in any way. Sepsis Event Note - Evaluation Sepsis Screening Result: No Definite Risk - Focused Exam Vital Signs: Vital Signs Temp Pulse Resp BP Pulse Ox 03/13/19 06:48 96.0 F 102 H 16 157/106 H 100 Date Exam was Performed: 03/13/19 Time Exam was Performed: 16:13 - My Orders Last 24 Hours: My Active Orders 03/13/19 07:09 Peripheral IV Care [RC] . DIRECTED Peripheral IV Insertion Adult [OM.PC] Stat - Assessment/Plan Last 24 Hours: My Active Orders 03/13/19 07:09 Peripheral IV Care [RC] . DIRECTED Peripheral IV Insertion Adult [OM.PC] Stat
[2019-03-13] MEDS ORDERED: Potassium Chloride 10 MEQ in Premix Bag 1 BAG IV ONE (08:47)
[2019-03-13] MEDS ORDERED: HYDROmorphone 0.5 MG/0.5 ML Syringe IVPUSH ONE (08:47)
== END 2019-03-13 11:40 | disposition home or self-care (01) ==
LOC: JD.ED 06:33
DX: K85.80 Other acute pancreatitis without necrosis or infection (principal); I10 Essential (primary) hypertension; F32.9 Major depressive disorder, single episode, unspecified; F41.9 Anxiety disorder, unspecified; F17.210 Nicotine dependence, cigarettes, uncomplicated; Z79.899 Other long term (current) drug therapy; Z88.1 Allergy status to other antibiotic agents
CPT/HCPCS: 36415; 80053; 83690; 85025; 96361; 96374; 96375; 96376; 99284; J1170; J2405; J3480; J3490; J7030

== ENCOUNTER 2019-03-15 07:12 | Emergency (ER) | payer MEDICAID ==
[2019-03-15] MEDS ORDERED: Sodium Chloride 0.9% 10 ML Syringe FLUSH PRN (07:58)
[2019-03-15] MEDS ORDERED: Sodium Chloride 0.9% 1,000 ML IV STA (07:58)
[2019-03-15] MEDS ORDERED: Ondansetron 4 MG/2 ML SDV IVPUSH ONE (07:58)
[2019-03-15] MEDS ORDERED: HYDROmorphone 1 MG/ML Syringe IVPUSH ONE ×2 (08:00→09:47)
[2019-03-15] MEDS ORDERED: methylPREDNISolone Sodium Succinate 125 MG/2 ML SDV IVPUSH ONE (08:00)
--- NOTE | 2019-03-15 08:05 | EDM.PDOC ---
ED HPI GENERAL MEDICAL PROBLEM - General Chief Complaint: Gastrointestinal Problem Stated Complaint: DIARRHEA NOT BETTER Time Seen by Provider: 03/15/19 07:53 Source of Information: Reports: Patient History Limitations: Reports: No Limitations - History of Present Illness INITIAL COMMENTS - FREE TEXT/NARRATIVE: The patient presents with nausea, vomiting, diarrhea and abdominal pain. She was here a couple days ago for the same and given fluids and something for nausea and pain. She recently moved her in January and she has been here multiple times. She was admitted to the hospital once. 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 She has no gallbladder or appendix. She has no fever, chills, cough, chest pain or shortness of breath. Onset: Gradual Duration: Day(s): Location: Reports: Abdomen Quality: Reports: Sharp Severity: Severe Improves with: Reports: None Worsens with: Reports: None Associated Symptoms: Reports: Nausea/Vomiting. Denies: Chest Pain, Cough, Fever /Chills, Headaches, Shortness of Breath Abdominal Pain Score (Numeric/FACES): 8 - Related Data Allergies Allergy/AdvReac Type Severity Reaction Status Date / Time acyclovir Allergy Other Verified 03/15/19 11:19 Home Meds: Home Meds Interferon Beta-1a [Avonex] 1 injection SQ WEEKLY 02/27/19 [History] Bismuth Subsalicylate [Pepto-Bismol] 262 mg PO Q6H #12 tab.chew 03/01/19 [Rx] DULoxetine [Cymbalta] 90 mg PO DAILY #21 cap 03/01/19 [Rx] Gabapentin [Neurontin] 100 mg PO TID #21 cap 03/01/19 [Rx] Ondansetron [Zofran ODT] 4 mg PO Q12H PRN #6 tab.dis 03/01/19 [Rx] QUEtiapine [SEROquel] 25 mg PO DAILY #7 tablet 03/01/19 [Rx] QUEtiapine [SEROquel] 100 mg PO BEDTIME #7 tablet 03/01/19 [Rx] levETIRAcetam [Levetiracetam] 500 mg PO DAILY #14 tablet 03/01/19 [Rx] Hydrocodone/Acetaminophen [[place] 5-325 Tablet] 1 each PO Q6HR PRN #10 tablet [Rx] Ondansetron [Zofran ODT] 4 mg PO Q6H PRN #7 tab.dis 03/13/19 [Rx] Hydrocodone/Acetaminophen [Hydrocodon-Acetaminophen 5-325] 1 - 2 each PO Q6HR PRN #20 tablet 03/15/19 [Rx] Hydrocodone/Acetaminophen [Hydrocodon-Acetaminophen 5-325] 1 - 2 each PO Q6HR PRN #20 tablet 03/15/19 [Rx] predniSONE [Prednisone] 40 mg PO DAILY #10 tablet 03/15/19 [Rx] predniSONE [Prednisone] 40 mg PO DAILY #10 tablet 03/15/19 [Rx] Past Medical History Other HEENT History: cornea transplant L eye Cardiovascular History: Reports: Hypertension Other Cardiovascular History: heart murmur Respiratory History: Reports: None Gastrointestinal History: Reports: Pancreatitis, Other (See Below) Other Gastrointestinal History: collitis Genitourinary History: Reports: Urinary Incontinence 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) Musculoskeletal History: Reports: Arthritis, Fracture Other Musculoskeletal History: Neck and back- Neurological History: Reports: Migraines, MS, Seizure Psychiatric History: Reports: Anxiety, Depression, Mood Swings, PTSD - Infectious Disease History Infectious Disease History: Reports: Chicken Pox, Hepatitis A, Hepatitis C - Past Surgical History HEENT Surgical History: Reports: Oral Surgery, Tonsillectomy GI Surgical History: Reports: Appendectomy, Bariatric Procedure, Cholecystectomy , Hernia, Abdominal Female Surgical History: Reports: Section, Hysterectomy, Other (See Below) Other Female Surgeries/Procedures: Breast implants Dermatological Surgical History: Reports: Plastic Surgical Reconstruction/Repair Social & Family History - Family History Family Medical History: Noncontributory - Tobacco Use Smoking Status *Q: Current Every Day Smoker Years of Tobacco use: 10 Packs/Tins Daily: 0.2 - Caffeine Use Caffeine Use: Reports: Soda Other Caffeine Use: 3/day - Recreational Drug Use Recreational Drug Use: No - Living Situation & Occupation Living situation: Reports: , with Significant Other (Boyfriend) Occupation: Unemployed ED ROS GENERAL - Review of Systems Review Of Systems: See Below Constitutional: Reports: No Symptoms HEENT: Reports: No Symptoms Respiratory: Reports: No Symptoms Cardiovascular: Reports: No Symptoms Endocrine: Reports: No Symptoms GI/Abdominal: Reports: Abdominal Pain, Diarrhea, Nausea, Vomiting : Reports: No Symptoms Musculoskeletal: Reports: No Symptoms ED EXAM, GI/ABD - Physical Exam Exam: See Below Exam Limited By: No Limitations General Appearance: Alert, Mild Distress Ears: Normal External Exam Nose: Normal Inspection Head: Atraumatic, Normocephalic Neck: Normal Inspection, Supple, Non-Tender Respiratory/Chest: No Respiratory Distress, Lungs Clear, Normal Breath Sounds Cardiovascular: Regular Rate, Rhythm, No Edema, No Murmur GI/Abdominal Exam: Soft, No Organomegaly, No Mass, Tender (Generalized tenderness) Course - Vital Signs Last Recorded V/S: Last Vital Signs Temp 97.5 F 03/15/19 07:43 Pulse 82 03/15/19 07:43 Resp 18 03/15/19 07:43 BP 144/105 H 03/15/19 07:43 Pulse Ox 100 03/15/19 07:43 - Orders/Labs/Meds Orders: Active Orders 24 hr Category Date Time Status Peripheral IV Care [RC] . DIRECTED Care 03/15/19 07:59 Active Sodium Chloride 0.9% [Saline Flush] Med 03/15/19 07:58 Active 10 ml FLUSH ASDIRECTED PRN ED Antiemetic Medication Reflex [OM.PC] Stat Oth 03/15/19 07:59 Ordered Peripheral IV Insertion Adult [OM.PC] Stat Oth 03/15/19 07:58 Ordered Medication Orders Sodium Chloride (Saline Flush) 10 ml FLUSH ASDIRECTED PRN PRN Reason: Keep Vein Open Last Admin: 03/15/19 08:44 Dose: 10 ml Labs: Laboratory Tests 03/15/19 03/15/19 Range/Units 08:30 08:30 WBC 6.09 (3.98-10.04) K/mm3 RBC 4.39 (3.98-5.22) M/mm3 Hgb 13.9 (11.2-15.7) gm/dl Hct 41.4 (34.1-44.9) % MCV 94.3 (79.4-94.8) fl MCH 31.7 (25.6-32.2) pg MCHC 33.6 (32.2-35.5) g/dl RDW Std Deviation 53.7 H (36.4-46.3) fL Plt Count 438 H (182-369) K/mm3 MPV 8.7 L (9.4-12.3) fl Neut % (Auto) 73.4 H (34.0-71.1) % Lymph % (Auto) 21.5 (19.3-51.7) % [place] % (Auto) 4.3 L (4.7-12.5) % Eos % (Auto) 0.3 L (0.7-5.8) Baso % (Auto) 0.3 (0.1-1.2) % Neut # (Auto) 4.47 (1.56-6.13) K/mm3 Lymph # (Auto) 1.31 (1.18-3.74) K/mm3 [place] # (Auto) 0.26 (0.24-0.36) K/mm3 Eos # (Auto) 0.02 L (0.04-0.36) K/mm3 Baso # (Auto) 0.02 (0.01-0.08) K/mm3 Sodium 139 (136-145) mEq/L Potassium 3.1 L (3.5-5.1) mEq/L Chloride 103 (98-107) mEq/L Carbon Dioxide 22 (21-32) mEq/L Anion Gap 17.1 H (5-15) BUN 7 (7-18) mg/dL Creatinine 0.8 (0.55-1.02) mg/dL Est Cr Clr Drug Dosing 72.65 mL/min Estimated GFR (MDRD) > 60 (>60) mL/min BUN/Creatinine Ratio 8.8 L (14-18) Glucose 114 H (74-106) mg/dL Calcium 8.8 (8.5-10.1) mg/dL Total Bilirubin 0.3 (0.2-1.0) mg/dL AST 109 H (15-37) U/L ALT 59 (14-59) U/L Alkaline Phosphatase 193 H (46-116) U/L Total Protein 7.2 (6.4-8.2) g/dl Albumin 3.4 (3.4-5.0) g/dl Globulin 3.8 gm/dL Albumin/Globulin Ratio 0.9 L (1-2) Lipase 797 H (73-393) U/L Meds: Medications Generic Name Dose Route Start Last Admin Trade Name Freq PRN Reason Stop Dose Admin Sodium Chloride 10 ml 03/15/19 07:58 03/15/19 08:44 Saline Flush FLUSH 10 ml ASDIRECTED PRN Administration Keep Vein Open Discontinued Medications Generic Name Dose Route Start Last Admin Trade Name Phil PRN Reason Stop Dose Admin Fentanyl 100 mcg 03/15/19 10:51 03/15/19 11:11 Sublimaze IVPUSH 03/15/19 10:52 100 mcg ONETIME ONE Administration Hydromorphone HCl 1 mg 03/15/19 08:00 03/15/19 08:45 Dilaudid IVPUSH 03/15/19 08:01 1 mg ONETIME ONE Administration Hydromorphone HCl 1 mg 03/15/19 09:47 03/15/19 09:54 Dilaudid IVPUSH 03/15/19 09:48 1 mg ONETIME ONE Administration Sodium Chloride 1,000 mls @ 1,000 mls/hr 03/15/19 07:58 03/15/19 08:43 Normal Saline IV 03/15/19 08:57 1,000 mls/hr .BOLUS STA Administration Sodium Chloride 1,000 mls @ 1,000 mls/hr 03/15/19 09:46 03/15/19 09:54 Normal Saline IV 03/15/19 10:45 1,000 mls/hr ONETIME ONE Administration Methylprednisolone Sodium Succinate 125 mg 03/15/19 08:00 03/15/19 08:44 Solu-Medrol IVPUSH 03/15/19 08:01 125 mg ONETIME ONE Administration Metoclopramide HCl 10 mg 03/15/19 12:18 03/15/19 12:23 Reglan IVPUSH 03/15/19 12:19 10 mg ONETIME ONE Administration Ondansetron HCl 4 mg 03/15/19 07:58 03/15/19 08:43 Zofran IVPUSH 03/15/19 07:59 4 mg ONETIME ONE Administration - Re-Assessments/Exams Free Text/Narrative Re-Assessment/Exam: 03/15/19 08:05 I ordered an IV NS 1L bolus, zofran 4mg IV, dilaudid 1mg IV, labs and UA. 03/15/19 10:14 Her CBC looks good. Her K was low at 3.1. Her anion gap was elevated at 17.1. Her AST was elevated at 109. Her alk phos is elevated at 193. Her lipase elevated at 797. Her lipase 2 days ago was 707. I have ordered another liter of fluid and some more dilaudid 1mg IV. 03/15/19 12:52 She had more nausea. I gave her some reglan. I will discharge her home. 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 Departure - Departure Time of Disposition: 12:55 Disposition: Home, Self-Care 01 Condition: Good Clinical Impression: Abdominal pain Qualifiers: Abdominal location: generalized Qualified Code(s): R10.84 - Generalized abdominal pain Vomiting Qualifiers: Vomiting type: unspecified Vomiting Intractability: non-intractable Nausea presence: with nausea Qualified Code(s): R11.2 - Nausea with vomiting, unspecified Diarrhea Qualifiers: Diarrhea type: unspecified type Qualified Code(s): R19.7 - Diarrhea, unspecified - Discharge Information *PRESCRIPTION DRUG MONITORING PROGRAM REVIEWED*: No *COPY OF PRESCRIPTION DRUG MONITORING REPORT IN PATIENT JAKOB: No Prescriptions: Hydrocodone/Acetaminophen [Hydrocodon-Acetaminophen 5-325] 1 - 2 each PO Q6HR PRN #20 tablet PRN Reason: Pain Hydrocodone/Acetaminophen [Hydrocodon-Acetaminophen 5-325] 1 - 2 each PO Q6HR PRN #20 tablet PRN Reason: Pain predniSONE [Prednisone] 40 mg PO DAILY #10 tablet predniSONE [Prednisone] 40 mg PO DAILY #10 tablet Referrals: PCP,Not In Area [Primary Care Provider] - Brendan Dejesus MD [Ordering Only Provider] - 1 Week Forms: ED Department Discharge Additional Instructions: Drink plenty of clear fluids and advance your diet as tolerated. Take hydrocodone as needed for pain. Take zofran as needed for nausea and vomiting. Take the prednisone daily for 5 days. Follow up with Dr Dejesus or one of his partners at [facility]. He is a GI specialist. Please return if you are worse. Sepsis Event Note - Evaluation Sepsis Screening Result: No Definite Risk - Focused Exam Vital Signs: Vital Signs Temp Pulse Resp BP Pulse Ox 03/15/19 07:43 97.5 F 82 18 144/105 H 100 Date Exam was Performed: 03/15/19 Time Exam was Performed: 12:52 - My Orders Last 24 Hours: My Active Orders 03/15/19 07:58 Sodium Chloride 0.9% [Saline Flush] 10 ml FLUSH ASDIRECTED PRN Peripheral IV Insertion Adult [OM.PC] Stat 03/15/19 07:59 Peripheral IV Care [RC] . DIRECTED ED Antiemetic Medication Reflex [OM.PC] Stat - Assessment/Plan Last 24 Hours: My Active Orders 03/15/19 07:58 Sodium Chloride 0.9% [Saline Flush] 10 ml FLUSH ASDIRECTED PRN Peripheral IV Insertion Adult [OM.PC] Stat 03/15/19 07:59 Peripheral IV Care [RC] . DIRECTED ED Antiemetic Medication Reflex [OM.PC] Stat
[2019-03-15] MEDS ORDERED: Sodium Chloride 0.9% 1,000 ML IV ONE (09:46)
[2019-03-15] MEDS ORDERED: fentaNYL 100 MCG/2 ML SDV IVPUSH ONE (10:51)
[2019-03-15] MEDS ORDERED: Metoclopramide 10 MG/2 ML SDV IVPUSH ONE (12:18)
[2019-03-15 13:28] VITALS: BP 140/76; PULSE 76
== END 2019-03-15 13:28 | disposition home or self-care (01) ==
LOC: JD.ED 07:12
DX: R19.7 Diarrhea, unspecified (principal); R11.2 Nausea with vomiting, unspecified; R10.84 Generalized abdominal pain; I10 Essential (primary) hypertension; F32.9 Major depressive disorder, single episode, unspecified; G40.909 Epilepsy, unspecified, not intractable, without status epilepticus; F17.210 Nicotine dependence, cigarettes, uncomplicated; Z79.899 Other long term (current) drug therapy
CPT/HCPCS: 36415; 80053; 83690; 85025; 96361; 96374; 96375; 96376; 99284; J1170; J2405; J2765; J2930; J3010; J7030

== ENCOUNTER 2019-03-16 11:13 | Emergency (ER) | payer MEDICAID ==
[2019-03-16] MEDS ORDERED: Ondansetron 4 MG/2 ML SDV IVPUSH ONE (11:24)
[2019-03-16] MEDS ORDERED: Sodium Chloride 0.9% 1,000 ML IV ONE (11:24)
[2019-03-16] MEDS ORDERED: Morphine 4 MG/ML Syringe IVPUSH ONE (11:24)
[2019-03-16] MEDS ORDERED: Sodium Chloride 0.9% 10 ML Syringe FLUSH PRN (11:24)
--- NOTE | 2019-03-16 11:29 | EDM.PDOC ---
ED HPI GENERAL MEDICAL PROBLEM - General Chief Complaint: Abdominal Pain Stated Complaint: STILL HAVING ABODOMEN PAIN Time Seen by Provider: 03/16/19 11:19 Source of Information: Reports: Patient History Limitations: Reports: No Limitations - History of Present Illness INITIAL COMMENTS - FREE TEXT/NARRATIVE: She has unfortunate 49-year-old female who presents emergency Department today with complaint of epigastric abdominal pain. Patient reports she was seen here yesterday diagnosed with pancreatitis and was sent home. At that time She had labs yesterday which showed a lipase at 797, AST 109, alkaline phosphatase 193. Patient is an alcoholic and has known alcoholic pancreatitis. Patient reports that when she was home today she was hurting so she went to a neighbor's house and got a fifth of vodka and drank it and since that time she's having increasing epigastric pain. Positive nausea no vomiting no fevers no chills no shortness of breath Lower Abdomen Pain Score (Numeric/FACES): 8 - Related Data Allergies Allergy/AdvReac Type Severity Reaction Status Date / Time acyclovir Allergy Other Verified 03/15/19 11:19 Home Meds: Home Meds Interferon Beta-1a [Avonex] 1 injection SQ WEEKLY 02/27/19 [History] Bismuth Subsalicylate [Pepto-Bismol] 262 mg PO Q6H #12 tab.chew 03/01/19 [Rx] DULoxetine [Cymbalta] 90 mg PO DAILY #21 cap 03/01/19 [Rx] Gabapentin [Neurontin] 100 mg PO TID #21 cap 03/01/19 [Rx] QUEtiapine [SEROquel] 25 mg PO DAILY #7 tablet 03/01/19 [Rx] QUEtiapine [SEROquel] 100 mg PO BEDTIME #7 tablet 03/01/19 [Rx] levETIRAcetam [Levetiracetam] 500 mg PO DAILY #14 tablet 03/01/19 [Rx] Ondansetron [Zofran ODT] 4 mg PO Q6H PRN #7 tab.dis 03/13/19 [Rx] Hydrocodone/Acetaminophen [Hydrocodon-Acetaminophen 5-325] 1 - 2 each PO Q6HR PRN #20 tablet 03/15/19 [Rx] predniSONE [Prednisone] 40 mg PO DAILY #10 tablet 03/15/19 [Rx] Metoprolol Succinate 200 mg PO DAILY 03/16/19 [History] cephALEXin [Keflex] 500 mg PO QID #28 cap 03/16/19 [Rx] Past Medical History Other HEENT History: cornea transplant L eye Cardiovascular History: Reports: Hypertension Other Cardiovascular History: heart murmur Respiratory History: Reports: None Gastrointestinal History: Reports: Pancreatitis, Other (See Below) Other Gastrointestinal History: collitis Genitourinary History: Reports: Urinary Incontinence 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) Musculoskeletal History: Reports: Arthritis, Fracture Other Musculoskeletal History: Neck and back- Neurological History: Reports: Migraines, MS, Seizure Psychiatric History: Reports: Anxiety, Depression, Mood Swings, PTSD - Infectious Disease History Infectious Disease History: Reports: Chicken Pox, Hepatitis A, Hepatitis C - Past Surgical History HEENT Surgical History: Reports: Oral Surgery, Tonsillectomy GI Surgical History: Reports: Appendectomy, Bariatric Procedure, Cholecystectomy , Hernia, Abdominal Female Surgical History: Reports: Section, Hysterectomy, Other (See Below) Other Female Surgeries/Procedures: Breast implants Dermatological Surgical History: Reports: Plastic Surgical Reconstruction/Repair Social & Family History - Family History Family Medical History: Noncontributory - Caffeine Use Caffeine Use: Reports: Soda Other Caffeine Use: 3/day - Living Situation & Occupation Living situation: Reports: , with Significant Other (Boyfriend) Occupation: Unemployed ED ROS GENERAL - Review of Systems Review Of Systems: See Below Constitutional: Denies: Fever, Chills GI/Abdominal: Reports: Abdominal Pain, Nausea. Denies: Hematemesis, Hematochezia, Melena, Vomiting ED EXAM, GI/ABD - Physical Exam Exam: See Below Exam Limited By: No Limitations General Appearance: Alert, WD/WN, Moderate Distress Throat/Mouth: Normal Inspection, Normal Lips, Normal Teeth, Normal Gums, Normal Oropharynx, Normal Voice, No Airway Compromise Head: Atraumatic, Normocephalic Neck: Normal Inspection, Supple, Non-Tender, Full Range of Motion Respiratory/Chest: No Respiratory Distress, Lungs Clear, Normal Breath Sounds, No Accessory Muscle Use, Chest Non-Tender Cardiovascular: Normal Peripheral Pulses, Regular Rate, Rhythm, No Edema, No Gallop, No JVD, No Murmur, No Rub GI/Abdominal Exam: Normal Bowel Sounds, Soft, Tender (Epigastrium and left lower quadrant moderate tenderness) Extremities: Normal Inspection, Normal Range of Motion, Non-Tender, Normal Capillary Refill, No Pedal Edema Neurological: Alert, Oriented Skin Exam: Warm, Dry, No Rash Course - Vital Signs Last Recorded V/S: Last Vital Signs Temp 98.3 F 03/16/19 11:32 Pulse 114 H 03/16/19 11:32 Resp 20 03/16/19 11:32 BP 135/109 H 03/16/19 11:32 Pulse Ox 100 03/16/19 11:32 - Orders/Labs/Meds Orders: Active Orders 24 hr Category Date Time Status CULTURE URINE [RM] Stat Lab 03/16/19 13:30 Received Sodium Chloride 0.9% [Saline Flush] Med 03/16/19 11:24 Active 10 ml FLUSH ASDIRECTED PRN Saline Lock Insert [OM.PC] Stat Oth 03/16/19 11:23 Ordered Medication Orders Sodium Chloride (Saline Flush) 10 ml FLUSH ASDIRECTED PRN PRN Reason: Keep Vein Open Last Admin: 03/16/19 12:43 Dose: 10 ml Labs: Laboratory Tests 03/16/19 03/16/19 03/16/19 Range/Units 12:15 12:15 13:30 WBC 9.30 (3.98-10.04) K/mm3 RBC 4.33 (3.98-5.22) M/mm3 Hgb 13.6 (11.2-15.7) gm/dl Hct 41.2 (34.1-44.9) % MCV 95.2 H (79.4-94.8) fl MCH 31.4 (25.6-32.2) pg MCHC 33.0 (32.2-35.5) g/dl RDW Std Deviation 54.7 H (36.4-46.3) fL Plt Count 445 H (182-369) K/mm3 MPV 8.7 L (9.4-12.3) fl Neut % (Auto) 80.2 H (34.0-71.1) % Lymph % (Auto) 14.9 L (19.3-51.7) % [place] % (Auto) 4.8 (4.7-12.5) % Eos % (Auto) 0 L (0.7-5.8) Baso % (Auto) 0.0 L (0.1-1.2) % Neut # (Auto) 7.45 H (1.56-6.13) K/mm3 Lymph # (Auto) 1.39 (1.18-3.74) K/mm3 [place] # (Auto) 0.45 H (0.24-0.36) K/mm3 Eos # (Auto) 0.00 L (0.04-0.36) K/mm3 Baso # (Auto) 0.00 L (0.01-0.08) K/mm3 Sodium 144 (136-145) mEq/L Potassium 3.4 L (3.5-5.1) mEq/L Chloride 106 (98-107) mEq/L Carbon Dioxide 22 (21-32) mEq/L Anion Gap 19.4 H (5-15) BUN 10 (7-18) mg/dL Creatinine 1.0 (0.55-1.02) mg/dL Est Cr Clr Drug Dosing 58.12 mL/min Estimated GFR (MDRD) 59 (>60) mL/min BUN/Creatinine Ratio 10.0 L (14-18) Glucose 108 H (74-106) mg/dL Calcium 8.8 (8.5-10.1) mg/dL Total Bilirubin 0.3 (0.2-1.0) mg/dL AST 96 H (15-37) U/L ALT 57 (14-59) U/L Alkaline Phosphatase 205 H (46-116) U/L Total Protein 7.4 (6.4-8.2) g/dl Albumin 3.5 (3.4-5.0) g/dl Globulin 3.9 gm/dL Albumin/Globulin Ratio 0.9 L (1-2) Lipase 884 H (73-393) U/L Urine Color Light yellow (Yellow) Urine Appearance Slt cloudy H (Clear) Urine pH 7.0 (5.0-8.0) Ur Specific [place] 1.020 (1.005-1.030) Urine Protein Negative (Negative) Urine Glucose (UA) Negative (Negative) Urine Ketones Negative (Negative) Urine Occult Blood Negative (Negative) Urine Nitrite Negative (Negative) Urine Bilirubin Negative (Negative) Urine Urobilinogen 0.2 (0.2-1.0) Ur Leukocyte Esterase Trace H (Negative) Urine RBC 0-5 (0-5) /hpf Urine WBC 10-20 H (0-5) /hpf Ur Squamous Epith Cells 0-5 (0-5) /hpf Amorphous Sediment Few H (NOT SEEN) /hpf Urine Bacteria Many H (FEW) /hpf Urine Mucus Rare (FEW) /hpf Ethyl Alcohol 0.23 (0.00) gm% Meds: Medications Generic Name Dose Route Start Last Admin Trade Name Freq PRN Reason Stop Dose Admin Sodium Chloride 10 ml 03/16/19 11:24 03/16/19 12:43 Saline Flush FLUSH 10 ml ASDIRECTED PRN Administration Keep Vein Open Discontinued Medications Generic Name Dose Route Start Last Admin Trade Name Freq PRN Reason Stop Dose Admin Al Hydroxide/Mg Hydroxide 30 0 ml 03/16/19 13:02 03/16/19 13:10 ml/ Lidocaine HCl 15 ml PO 03/16/19 13:03 45 ml ONETIME ONE Administration Sodium Chloride 1,000 mls @ 1,000 mls/hr 03/16/19 11:24 03/16/19 12:17 Normal Saline IV 03/16/19 12:23 1,000 mls/hr ONETIME ONE Administration Morphine Sulfate 4 mg 03/16/19 11:24 03/16/19 12:19 Morphine IVPUSH 03/16/19 11:25 4 mg ONETIME ONE Administration Ondansetron HCl 4 mg 03/16/19 11:24 03/16/19 12:15 Zofran IVPUSH 03/16/19 11:25 4 mg ONETIME ONE Administration - Re-Assessments/Exams Free Text/Narrative Re-Assessment/Exam: 03/16/19 13:11 Lipase 884 alcohol 230, patient is in no vomiting no indication for admission for alcoholic pancreatitis at this time we will recommend stop drinking and clear liquid diet for the next 24 hours and outpatient follow-up with PCP as an outpatient Departure - Departure Time of Disposition: 14:13 Disposition: Home, Self-Care 01 Clinical Impression: Alcoholic pancreatitis Qualifiers: Chronicity: acute Acute pancreatitis complication: unspecified Qualified Code(s ): K85.20 - Alcohol induced acute pancreatitis without necrosis or infection UTI (urinary tract infection) Qualifiers: Urinary tract infection type: site unspecified Hematuria presence: without hematuria Qualified Code(s): N39.0 - Urinary tract infection, site not specified - Discharge Information Prescriptions: cephALEXin [Keflex] 500 mg PO QID #28 cap Instructions: Urinary Tract Infection, Adult, [id number] Referrals: Lopez Hood MD [Primary Care Provider] - Forms: ED Department Discharge Additional Instructions: Home, rest, adequate fluids, clear liquid diet for 24 hours, you need to stop abusing alcohol, return as needed for worsening condition Sepsis Event Note - Focused Exam Vital Signs: Vital Signs Temp Pulse Resp BP Pulse Ox 03/16/19 11:32 98.3 F 114 H 20 135/109 H 100 Date Exam was Performed: 03/16/19 Time Exam was Performed: 14:12 - My Orders Last 24 Hours: My Active Orders 03/16/19 11:23 Saline Lock Insert [OM.PC] Stat 03/16/19 11:24 Sodium Chloride 0.9% [Saline Flush] 10 ml FLUSH ASDIRECTED PRN 03/16/19 13:30 CULTURE URINE [RM] Stat - Assessment/Plan Last 24 Hours: My Active Orders 03/16/19 11:23 Saline Lock Insert [OM.PC] Stat 03/16/19 11:24 Sodium Chloride 0.9% [Saline Flush] 10 ml FLUSH ASDIRECTED PRN 03/16/19 13:30 CULTURE URINE [RM] Stat
[2019-03-16] MEDS ORDERED: Alum Hydrox/Mag Hydrox/Simeth 30 ML, Lidocaine 2% 15 ML PO ONE ×2 (13:02)
--- NOTE | 2019-03-16 16:31 | PCM.HP.2 ---
H&P History of Present Illness - General Date of Service: 03/16/19 - History of Present Illness Initial Comments - Free Text/Narative: This is a 49 year old female who comes to the Ed complaining of severe abdominal pain and alcohol intoxication. As per patient she started having abdominal pain yesterday and [facility] so she decided to go across the street to neighbors asked for a bottle of vodka and drank it. After that she started having intractable nausea and vomiting for which she decided to come in to be evaluated. Lower Abdomen Pain Score (Numeric/FACES): 8 - Related Data Allergies/Adverse Reactions: Allergies Allergy/AdvReac Type Severity Reaction Status Date / Time acyclovir Allergy Other Verified 03/15/19 11:19 Home Medications: Home Meds Interferon Beta-1a [Avonex] 1 injection SQ WEEKLY 02/27/19 [History] Bismuth Subsalicylate [Pepto-Bismol] 262 mg PO Q6H #12 tab.chew 03/01/19 [Rx] DULoxetine [Cymbalta] 90 mg PO DAILY #21 cap 03/01/19 [Rx] Gabapentin [Neurontin] 100 mg PO TID #21 cap 03/01/19 [Rx] QUEtiapine [SEROquel] 25 mg PO DAILY #7 tablet 03/01/19 [Rx] QUEtiapine [SEROquel] 100 mg PO BEDTIME #7 tablet 03/01/19 [Rx] levETIRAcetam [Levetiracetam] 500 mg PO DAILY #14 tablet 03/01/19 [Rx] Ondansetron [Zofran ODT] 4 mg PO Q6H PRN #7 tab.dis 03/13/19 [Rx] Hydrocodone/Acetaminophen [Hydrocodon-Acetaminophen 5-325] 1 - 2 each PO Q6HR PRN #20 tablet 03/15/19 [Rx] predniSONE [Prednisone] 40 mg PO DAILY #10 tablet 03/15/19 [Rx] Metoprolol Succinate 200 mg PO DAILY 03/16/19 [History] cephALEXin [Keflex] 500 mg PO QID #28 cap 03/16/19 [Rx] Past Medical History Other HEENT History: cornea transplant L eye Cardiovascular History: Reports: Hypertension Other Cardiovascular History: heart murmur Respiratory History: Reports: None Gastrointestinal History: Reports: Pancreatitis, Other (See Below) Other Gastrointestinal History: collitis Genitourinary History: Reports: Urinary Incontinence 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) Musculoskeletal History: Reports: Arthritis, Fracture Other Musculoskeletal History: Neck and back- Neurological History: Reports: Migraines, MS, Seizure Psychiatric History: Reports: Anxiety, Depression, Mood Swings, PTSD - Infectious Disease History Infectious Disease History: Reports: Chicken Pox, Hepatitis A, Hepatitis C - Past Surgical History HEENT Surgical History: Reports: Oral Surgery, Tonsillectomy GI Surgical History: Reports: Appendectomy, Bariatric Procedure, Cholecystectomy , Hernia, Abdominal Female Surgical History: Reports: Section, Hysterectomy, Other (See Below) Other Female Surgeries/Procedures: Breast implants Dermatological Surgical History: Reports: Plastic Surgical Reconstruction/Repair Social & Family History - Family History Family Medical History: Noncontributory - Tobacco Use Smoking Status *Q: Current Every Day Smoker Years of Tobacco use: 10 Packs/Tins Daily: 0.1 - Caffeine Use Caffeine Use: Reports: Soda Other Caffeine Use: 3/day - Recreational Drug Use Recreational Drug Type: Reports: Methamphetamine Other Recreational Drug Type: clean for 6 years - Living Situation & Occupation Living situation: Reports: , with Significant Other (Boyfriend) Occupation: Unemployed H&P Review of Systems - Review of Systems: Review Of Systems: See Below General: Denies: Fever, Chills, Malaise, Weakness, Fatigue, Night Sweats, Diaphoresis, Decreased Appetite, Weight Loss, Weight Gain HEENT: Denies: Headaches, Rhinitis, Sinus Congestion, Sore Throat, Vertigo, Visual Changes Pulmonary: Denies: Shortness of Breath, Wheezing, Pleuritic Chest Pain, Cough, Sputum Cardiovascular: Denies: Chest Pain, Palpitations, Dyspnea on Exertion, Orthopnea , PND, Edema, Lightheadedness, Syncope, Claudication Gastrointestinal: Reports: Abdominal Pain, Anorexia, Diarrhea, Decreased Appetite, Nausea, Vomiting. Denies: Black Stool, Constipation, Difficulty Swallowing, Distension, Flatus, Hematemesis Genitourinary: Denies: Dysuria, Frequency, Burning, Pain, Urgency Musculoskeletal: Denies: Joint Pain, Joint Swelling, Muscle Pain, Muscle Stiffness Skin: Denies: Cyanosis, Jaundice, Mottled, Pallor, Diaphoresis, Rash, Erythema, Wound, Burn(s) Exam - Exam Exam: See Below - Vital Signs Vital Signs: Last Vital Signs Temp 98.9 F 03/16/19 15:10 Pulse 109 H 03/16/19 15:10 Resp 18 03/16/19 15:10 BP 145/107 H 03/16/19 15:10 Pulse Ox 100 03/16/19 15:10 Weight: 63.503 kg - Exam General: Alert, Oriented, Cooperative, Mild Distress HEENT: Conjunctiva Clear, EACs Clear, EOMI. No: Mucosa Moist & [place] Neck: Supple, Trachea Midline, +2 Carotid Pulse wo Bruit, Full Range of Motion Lungs: Clear to Auscultation, Normal Respiratory Effort. No: Crackles, Rales, Rub, Stridor, Wheezing Cardiovascular: Regular Rate, Regular Rhythm. No: Systolic Murmur, Diastolic Murmur, Rubs, Gallop/S3, Gallop/S4 GI/Abdominal Exam: Normal Bowel Sounds, Soft, No Organomegaly, Distended, Tender Back Exam: Normal Inspection Psychiatric: Alert, Normal Affect, Normal Mood - Patient Data Result Diagrams: 03/16/19 12:15 03/16/19 12:15 Sepsis Event Note - Evaluation Sepsis Screening Result: No Definite Risk - Focused Exam Vital Signs: Vital Signs Temp Pulse Resp BP Pulse Ox 03/16/19 15:10 98.9 F 109 H 18 145/107 H 100 03/16/19 11:32 98.3 F 114 H 20 135/109 H 100 Date Exam was Performed: 03/16/19 Time Exam was Performed: 16:54 - Problem List (1) Volume depletion SNOMED Code(s): 05003143 ICD Code: E86.9 - VOLUME DEPLETION, UNSPECIFIED Status: Acute Current Visit: Yes (2) Intractable nausea and vomiting SNOMED Code(s): 120924190 ICD Code: R11.2 - NAUSEA WITH VOMITING, UNSPECIFIED Status: Acute Current Visit: Yes (3) Alcohol abuse SNOMED Code(s): 89745473 ICD Code: F10.10 - ALCOHOL ABUSE, UNCOMPLICATED Status: Acute Current Visit: Yes (4) Abdominal pain SNOMED Code(s): 80062181 ICD Code: R10.9 - UNSPECIFIED ABDOMINAL PAIN Status: Acute Current Visit : No Qualifiers: Abdominal location: generalized Qualified Code(s): R10.84 - Generalized abdominal pain (5) Post traumatic stress disorder SNOMED Code(s): 17893572 ICD Code: F43.10 - POST-TRAUMATIC STRESS DISORDER, UNSPECIFIED Status: Acute Current Visit: No (6) Smoker SNOMED Code(s): 32298504 ICD Code: F17.200 - NICOTINE DEPENDENCE, UNSPECIFIED, UNCOMPLICATED Status : Acute Current Visit: No (7) Depression SNOMED Code(s): 93256703 ICD Code: F32.9 - MAJOR DEPRESSIVE DISORDER, SINGLE EPISODE, UNSPECIFIED Status: Acute Current Visit: Yes (8) Anxiety SNOMED Code(s): 66772024 ICD Code: F41.9 - ANXIETY DISORDER, UNSPECIFIED Status: Acute Current Visit: Yes (9) Hypertension SNOMED Code(s): 86597180 ICD Code: I10 - ESSENTIAL (PRIMARY) HYPERTENSION Status: Acute Current Visit: No (10) Hypokalemia SNOMED Code(s): 66428668 ICD Code: E87.6 - HYPOKALEMIA Status: Acute Current Visit: No (11) Multiple sclerosis SNOMED Code(s): 99073525 ICD Code: G35 - MULTIPLE SCLEROSIS Status: Acute Current Visit: No Problem List Initiated/Reviewed/Updated: Yes Assessment/Plan Comment:: Volume depletion Intractable nausea and vomiting Abdominal pain Hypokalemia Chronic abdominal pain acutely worsened yesterday Intractable nausea and vomiting for a couple of days Lipase x2 upper limit PLAN - NPO - Scheduled Zofran - LR at 150 - Replace potassium with 40 mEq IV Alcohol abuse disorder Last drink this morning at 8AM PLAN - IVF - Banana bag - CIWA protocol - Transfer to [facility] once stable Hypertension Home management with metoprolol BP 134/97 PLAN - Hold home metoprolol - Start lisinopril once able to tolerate po Multiple sclerosis Weekly Avonex + daily gabapentin PLAN - Continue gabapentin once able to tolerate po Smoker Smoked for 10 years, 1ppd currently down to 1 cigarette a day PLAN - Nicotine patch - Smoking cessation counseling Depression Anxiety Post traumatic stress disorder Home management with Cymbalta, hydroxyzine, clonopin, Seroquel PLAN - Continue home meds once able to tolerate po PROPHYLAXIS DVT- Lovenox GI- Pantoprazole CODE STATUS: FULL CODE DISPOSITION: Patient will be admitted for observation with IV fluids and symptomatic treatment. Will transfer to [facility] once stable. Case management is Liliam Nuno for F[facility] ([phone]) - Mortality Measure Prognosis:: Good
[2019-03-16] MEDS ORDERED: LORazepam 2 MG/ML SDV IVPUSH PRN ×2 (16:46→18:21)
[2019-03-16] MEDS ORDERED: Thiamine 200 MG/2 ML MDV PO PRN (16:46)
[2019-03-16] MEDS ORDERED: Lactated Ringers 1,000 ML IV SCH (17:00)
[2019-03-16] MEDS ORDERED: Ondansetron 4 MG/2 ML SDV IV SCH (17:00)
[2019-03-16] MEDS ORDERED: Thiamine 1,000 MG, Magnesium Sulfate 4 GM, Folic Acid 1 MG in Dextrose 5%-0.9% NaCl 1,0... IV SCH (17:00)
[2019-03-16] MEDS ORDERED: Nicotine 14 MG/24 Hr Patch TRDERM SCH (17:00)
[2019-03-16] MEDS: Thiamine 1,000 MG, Magnesium Sulfate 4 GM, Folic Acid 1 MG in Dextrose 5%-0.9% NaCl 1,0... IV SCH ×2 (17:40→17:46)
[2019-03-16] MEDS ORDERED: Morphine 4 MG/ML Syringe IVPUSH PRN (18:22)
[2019-03-16] MEDS ORDERED: Pantoprazole 40 MG Vial IVPUSH ONE (18:23)
[2019-03-16] MEDS: Ondansetron 4 MG/2 ML SDV IVPUSH PRN (23:20)
[2019-03-17] MEDS ORDERED: Calcium Carbonate 500 MG Tab.Chew PO ONE (06:41)
[2019-03-17] MEDS: Ondansetron 4 MG/2 ML SDV IVPUSH PRN (07:23)
[2019-03-17 08:12] VITALS: BP 161/119; PULSE 119
== END 2019-03-17 08:15 | disposition home or self-care (01) ==
LOC: JD.ED 11:13
DX: K85.20 Alcohol induced acute pancreatitis without necrosis or infection (principal); N39.0 Urinary tract infection, site not specified; I10 Essential (primary) hypertension; Z88.8 Allergy status to other drugs, medicaments and biological substances; Z79.899 Other long term (current) drug therapy
CPT/HCPCS: 36415; 80053; 80320; 81001; 83690; 85025; 87086; 87186; 96361; 96365; 96366; 96375; 96376; 99284; A9270; C9113; J2270; J2405; J3411; J7030; J7042; 99283; G0480; J3475

== ENCOUNTER 2019-04-07 13:17 | Emergency (ER) | payer MEDICAID ==
[2019-04-07 13:43] VITALS: BP 144/98; PULSE 68
[2019-04-07] MEDS ORDERED: Sodium Chloride 0.9% 10 ML Syringe FLUSH PRN (14:14)
[2019-04-07] MEDS ORDERED: Sodium Chloride 0.9% 1,000 ML IV STA (14:14)
[2019-04-07] MEDS ORDERED: Ondansetron 4 MG/2 ML SDV IVPUSH ONE (14:14)
[2019-04-07] MEDS ORDERED: HYDROmorphone 1 MG/ML Syringe IVPUSH ONE ×2 (14:16→17:19)
--- NOTE | 2019-04-07 14:55 | EDM.PDOC ---
<Maggie Eaton - Last Filed: 04/07/19 14:42> ED HPI GENERAL MEDICAL PROBLEM - General Chief Complaint: Gastrointestinal Problem Stated Complaint: Nausea, Vomiting, Diarrhea Time Seen by Provider: 04/07/19 13:40 Source of Information: Reports: Patient History Limitations: Reports: No Limitations - History of Present Illness INITIAL COMMENTS - FREE TEXT/NARRATIVE: 49-year-old female presents with nausea, vomiting, and diarrhea that started at midnight last night. She states that she has had over 10 boughts of vomiting and diarrhea since the onset of symptoms. She has tried drinking water and eating red popsicles but has had difficulty keeping them down, as well as difficulty keeping down zofran for nausea. She denies blood in her emesis and stool, although she notes it has been a bit darker and maybe a bit red but felt that may be due to the popsicle. She has a regular history of colitis with her last episode being approximately one month ago. The last episode of colitis was triggered by alcohol use but she states she has not used alcohol since that episode. She does not recall eating any spoiled food or being exposed to anyone else with similar symptoms. The patient also has pain located throughout below her umbilicus. She describes this pain as an 8/10 and also notes a bloated sensation. She denies any chest pain or respiratory symptoms, but does state she has had fever, chills, and diaphoresis. During her past episode of colitis, she notes she was treated with fluids, zofran, and pain medication. She also thinks she was treated with prednisone. She tried completing a colonoscopy years ago but they were unable to obtain clear pictures as her bowels were not properly cleaned out. 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(s) (Zofran (may not have been able to get into her system)) Lower Abdomen Pain Score (Numeric/FACES): 8 - Related Data Allergies Allergy/AdvReac Type Severity Reaction Status Date / Time acyclovir Allergy Other Verified 03/15/19 11:19 Home Meds: Home Meds Interferon Beta-1a [Avonex] 1 injection SQ WEEKLY 02/27/19 [History] Bismuth Subsalicylate [Pepto-Bismol] 262 mg PO Q6H #12 tab.chew 03/01/19 [Rx] DULoxetine [Cymbalta] 90 mg PO DAILY #21 cap 03/01/19 [Rx] Gabapentin [Neurontin] 100 mg PO TID #21 cap 03/01/19 [Rx] QUEtiapine [SEROquel] 25 mg PO DAILY #7 tablet 03/01/19 [Rx] QUEtiapine [SEROquel] 100 mg PO BEDTIME #7 tablet 03/01/19 [Rx] levETIRAcetam [Levetiracetam] 500 mg PO DAILY #14 tablet 03/01/19 [Rx] Ondansetron [Zofran ODT] 4 mg PO Q6H PRN #7 tab.dis 03/13/19 [Rx] Metoprolol Succinate 200 mg PO DAILY 03/16/19 [History] Hydrocodone/Acetaminophen [Hydrocodon-Acetaminophen 5-325] 1 - 2 each PO Q6HR PRN #20 tablet 04/07/19 [Rx] Ondansetron [Zofran ODT] 4 mg PO Q6H PRN #20 tab.dis 04/07/19 [Rx] Potassium Chloride 20 meq PO DAILY #30 tablet.er 04/07/19 [Rx] Past Medical History Other HEENT History: cornea transplant L eye Cardiovascular History: Reports: Hypertension Other Cardiovascular History: heart murmur Respiratory History: Reports: None Gastrointestinal History: Reports: Pancreatitis, Other (See Below) Other Gastrointestinal History: collitis Genitourinary History: Reports: Urinary Incontinence 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) Musculoskeletal History: Reports: Arthritis, Fracture Other Musculoskeletal History: Neck and back- Neurological History: Reports: Migraines, MS, Seizure Psychiatric History: Reports: Anxiety, Depression, Mood Swings, PTSD - Infectious Disease History Infectious Disease History: Reports: Chicken Pox, Hepatitis A, Hepatitis C - Past Surgical History HEENT Surgical History: Reports: Oral Surgery, Tonsillectomy GI Surgical History: Reports: Appendectomy, Bariatric Procedure, Cholecystectomy , Hernia, Abdominal Female Surgical History: Reports: Section, Hysterectomy, Other (See Below) Other Female Surgeries/Procedures: Breast implants Dermatological Surgical History: Reports: Plastic Surgical Reconstruction/Repair Social & Family History - Family History Family Medical History: Noncontributory - Tobacco Use Smoking Status *Q: Current Every Day Smoker Years of Tobacco use: 10 Packs/Tins Daily: 0.1 - Caffeine Use Caffeine Use: Reports: Soda Other Caffeine Use: 3/day - Recreational Drug Use Recreational Drug Use: No - Living Situation & Occupation Living situation: Reports: , with Significant Other (Boyfriend) Occupation: Unemployed ED ROS GENERAL - Review of Systems Review Of Systems: See Below Constitutional: Reports: Fever, Chills, Fatigue, Diaphoresis HEENT: Reports: No Symptoms Respiratory: Reports: No Symptoms Cardiovascular: Reports: No Symptoms Endocrine: Reports: No Symptoms GI/Abdominal: Reports: Abdominal Pain (generalized throughout pelvic region and lower abdomen), Diarrhea, Nausea, Vomiting, Other (bloated sensation). Denies: Bloody Stool : Reports: No Symptoms Musculoskeletal: Reports: No Symptoms Skin: Reports: No Symptoms Neurological: Reports: No Symptoms ED EXAM, GI/ABD - Physical Exam Exam: See Below Exam Limited By: No Limitations General Appearance: Alert, Mild Distress Respiratory/Chest: No Respiratory Distress, Lungs Clear, Normal Breath Sounds, No Accessory Muscle Use, Chest Non-Tender Cardiovascular: Regular Rate, Rhythm, No Murmur GI/Abdominal Exam: Normal Bowel Sounds, Soft, No Organomegaly, No Distention, No Mass, Tender (RLQ and LLQ) Neurological: Alert, Oriented, Normal Cognition Psychiatric: Normal Affect, Normal Mood, Other (rushed speech) Skin Exam: Warm, Dry, Intact, Normal Color, No Rash Course - Vital Signs Last Recorded V/S: Last Vital Signs Temp 98.1 F 04/07/19 13:40 Pulse 68 04/07/19 13:40 Resp 20 04/07/19 13:40 BP 144/98 H 04/07/19 13:40 Pulse Ox 100 04/07/19 13:40 - Orders/Labs/Meds Orders: Active Orders 24 hr Category Date Time Status Peripheral IV Care [RC] . DIRECTED Care 04/07/19 14:15 Active UA W/MICROSCOPIC [URIN] Stat Lab 04/07/19 14:14 Ordered HYDROmorphone [Dilaudid] Med 04/07/19 17:19 Once 1 mg IVPUSH ONETIME ONE Potassium Chloride [KCl 10 MEQ in Water 100 ML] 10 meq Med 04/07/19 15:15 Active Premix Bag 1 bag IV ASDIRECTED Potassium Chloride [KCl 10 MEQ in Water 100 ML] 10 meq Med 04/07/19 17:18 Active Premix Bag 1 bag IV ONETIME Sodium Chloride 0.9% [Normal Saline] 1,000 ml Med 04/07/19 15:45 Active IV ASDIRECTED Sodium Chloride 0.9% [Saline Flush] Med 04/07/19 14:14 Active 10 ml FLUSH ASDIRECTED PRN ED Antiemetic Medication Reflex [OM.PC] Stat Oth 04/07/19 14:15 Ordered Peripheral IV Insertion Adult [OM.PC] Stat Oth 04/07/19 14:14 Ordered Medication Orders Hydromorphone HCl (Dilaudid) 1 mg IVPUSH ONETIME ONE Stop: 04/07/19 17:20 Potassium Chloride 10 meq/ (Premix) 100 mls @ 100 mls/hr IV ASDIRECTED EDILIA Last Admin: 04/07/19 15:39 Dose: 100 mls/hr Sodium Chloride (Normal Saline) 1,000 mls @ 125 mls/hr IV ASDIRECTED EDILIA Last Admin: 04/07/19 15:39 Dose: 125 mls/hr Potassium Chloride 10 meq/ (Premix) 100 mls @ 100 mls/hr IV ONETIME ONE Stop: 04/07/19 18:17 Sodium Chloride (Saline Flush) 10 ml FLUSH ASDIRECTED PRN PRN Reason: Keep Vein Open Last Admin: 04/07/19 14:23 Dose: 10 ml Labs: Laboratory Tests 04/07/19 04/07/19 Range/Units 13:50 13:50 WBC 11.58 H (3.98-10.04) K/mm3 RBC 4.22 (3.98-5.22) M/mm3 Hgb 13.3 (11.2-15.7) gm/dl Hct 40.7 (34.1-44.9) % MCV 96.4 H (79.4-94.8) fl MCH 31.5 (25.6-32.2) pg MCHC 32.7 (32.2-35.5) g/dl RDW Std Deviation 49.4 H (36.4-46.3) fL Plt Count 472 H (182-369) K/mm3 MPV 10.0 (9.4-12.3) fl Neut % (Auto) 71.8 H (34.0-71.1) % Lymph % (Auto) 21.5 (19.3-51.7) % [place] % (Auto) 6.0 (4.7-12.5) % Eos % (Auto) 0.3 L (0.7-5.8) Baso % (Auto) 0.2 (0.1-1.2) % Neut # (Auto) 8.33 H (1.56-6.13) K/mm3 Lymph # (Auto) 2.49 (1.18-3.74) K/mm3 [place] # (Auto) 0.69 H (0.24-0.36) K/mm3 Eos # (Auto) 0.03 L (0.04-0.36) K/mm3 Baso # (Auto) 0.02 (0.01-0.08) K/mm3 Manual Slide Review Abnormal smear Sodium 139 (136-145) mEq/L Potassium 2.5 L (3.5-5.1) mEq/L Chloride 99 (98-107) mEq/L Carbon Dioxide 22 (21-32) mEq/L Anion Gap 20.5 H (5-15) BUN 4 L (7-18) mg/dL Creatinine 0.9 (0.55-1.02) mg/dL Est Cr Clr Drug Dosing 64.58 mL/min Estimated GFR (MDRD) > 60 (>60) mL/min BUN/Creatinine Ratio 4.4 L (14-18) Glucose 94 (74-106) mg/dL Calcium 9.2 (8.5-10.1) mg/dL Total Bilirubin 0.7 (0.2-1.0) mg/dL AST 41 H (15-37) U/L ALT 32 (14-59) U/L Alkaline Phosphatase 178 H (46-116) U/L Total Protein 8.1 (6.4-8.2) g/dl Albumin 3.8 (3.4-5.0) g/dl Globulin 4.3 gm/dL Albumin/Globulin Ratio 0.9 L (1-2) Lipase 1523 H (73-393) U/L Meds: Medications Generic Name Dose Route Start Last Admin Trade Name Freq PRN Reason Stop Dose Admin Hydromorphone HCl 1 mg 04/07/19 17:19 Dilaudid IVPUSH 04/07/19 17:20 ONETIME ONE Potassium Chloride 10 meq/ 100 mls @ 100 mls/hr 04/07/19 15:15 04/07/19 15:39 Premix IV 100 mls/hr ASDIRECTED EDILIA Administration Sodium Chloride 1,000 mls @ 125 mls/hr 04/07/19 15:45 04/07/19 15:39 Normal Saline IV 125 mls/hr ASDIRECTED EDILIA Administration Potassium Chloride 10 meq/ 100 mls @ 100 mls/hr 04/07/19 17:18 Premix IV 04/07/19 18:17 ONETIME ONE Sodium Chloride 10 ml 04/07/19 14:14 04/07/19 14:23 Saline Flush FLUSH 10 ml ASDIRECTED PRN Administration Keep Vein Open Discontinued Medications Generic Name Dose Route Start Last Admin Trade Name Freq PRN Reason Stop Dose Admin Hydromorphone HCl 1 mg 04/07/19 14:16 04/07/19 14:23 Dilaudid IVPUSH 04/07/19 14:17 1 mg ONETIME ONE Administration Sodium Chloride 1,000 mls @ 1,000 mls/hr 04/07/19 14:14 04/07/19 14:22 Normal Saline IV 04/07/19 15:13 1,000 mls/hr .BOLUS STA Administration Ondansetron HCl 4 mg 04/07/19 14:14 04/07/19 14:22 Zofran IVPUSH 04/07/19 14:15 4 mg ONETIME ONE Administration Departure - Departure Disposition: Home, Self-Care 01 Clinical Impression: Hypokalemia Pancreatitis Qualifiers: Chronicity: acute Pancreatitis type: other Acute pancreatitis complication: no infection or necrosis Qualified Code(s): K85.80 - Other acute pancreatitis without necrosis or infection - Discharge Information Prescriptions: Hydrocodone/Acetaminophen [Hydrocodon-Acetaminophen 5-325] 1 - 2 each PO Q6HR PRN #20 tablet PRN Reason: Pain Ondansetron [Zofran ODT] 4 mg PO Q6H PRN #20 tab.dis PRN Reason: Nausea\vomiting Potassium Chloride 20 meq PO DAILY #30 tablet.er Referrals: Lopez Hood MD [Primary Care Provider] - 1 Week John Bradshaw MD [Ordering Only Provider] - Forms: ED Department Discharge Additional Instructions: Drink only clear liquids for 24 hours and advance your diet as tolerated. Take the hydrocodone as needed for pain. Take the zofran as needed for nausea and vomiting. Take the potassium daily. Please return if you are worse. Sepsis Event Note - Evaluation Sepsis Screening Result: No Definite Risk - Focused Exam Vital Signs: Vital Signs Temp Pulse Resp BP Pulse Ox 04/07/19 13:40 98.1 F 68 20 144/98 H 100 Date Exam was Performed: 04/07/19 Time Exam was Performed: 14:42 - My Orders Last 24 Hours: My Active Orders 04/07/19 14:14 UA W/MICROSCOPIC [URIN] Stat Sodium Chloride 0.9% [Saline Flush] 10 ml FLUSH ASDIRECTED PRN Peripheral IV Insertion Adult [OM.PC] Stat 04/07/19 14:15 Peripheral IV Care [RC] . DIRECTED ED Antiemetic Medication Reflex [OM.PC] Stat 04/07/19 15:15 Potassium Chloride [KCl 10 MEQ in Water 100 ML] 10 meq Premix Bag 1 bag IV ASDIRECTED 04/07/19 15:45 Sodium Chloride 0.9% [Normal Saline] 1,000 ml IV ASDIRECTED 04/07/19 17:18 Potassium Chloride [KCl 10 MEQ in Water 100 ML] 10 meq Premix Bag 1 bag IV ONETIME 04/07/19 17:19 HYDROmorphone [Dilaudid] 1 mg IVPUSH ONETIME ONE - Assessment/Plan Last 24 Hours: My Active Orders 04/07/19 14:14 UA W/MICROSCOPIC [URIN] Stat Sodium Chloride 0.9% [Saline Flush] 10 ml FLUSH ASDIRECTED PRN Peripheral IV Insertion Adult [OM.PC] Stat 04/07/19 14:15 Peripheral IV Care [RC] . DIRECTED ED Antiemetic Medication Reflex [OM.PC] Stat 04/07/19 15:15 Potassium Chloride [KCl 10 MEQ in Water 100 ML] 10 meq Premix Bag 1 bag IV ASDIRECTED 04/07/19 15:45 Sodium Chloride 0.9% [Normal Saline] 1,000 ml IV ASDIRECTED 04/07/19 17:18 Potassium Chloride [KCl 10 MEQ in Water 100 ML] 10 meq Premix Bag 1 bag IV ONETIME 04/07/19 17:19 HYDROmorphone [Dilaudid] 1 mg IVPUSH ONETIME ONE <Delano Ko - Last Filed: 04/07/19 17:27> Course - Re-Assessments/Exams Free Text/Narrative Re-Assessment/Exam: 04/07/19 17:20 I examined the patient myself and I agree with Maggie's assessment and plan. I ordered an IV NS 1L bolus, zofran 4mg IV, dilaudid 1mg IV, labs and UA. Her WBC was slightly elevated at 11.58. Her K was low at 2.5. I ordered 20meq of potassium. Her anion gap is elevated at 20.5. Her AST is elevated at 41. Her alk phos is elevated at 176. Her lipase is elevated at 1523. She feels better. The pain is starting to come back. I ordered dilaudid 1mg IV. She wants to try this at home. I will discharge her home. Departure - Departure Time of Disposition: 17:25 Condition: Good - Discharge Information *PRESCRIPTION DRUG MONITORING PROGRAM REVIEWED*: No *COPY OF PRESCRIPTION DRUG MONITORING REPORT IN PATIENT JAKOB: No Sepsis Event Note - Focused Exam Date Exam was Performed: 04/07/19 Time Exam was Performed: 17:20
[2019-04-07] MEDS ORDERED: Potassium Chloride 10 MEQ in Premix Bag 1 BAG IV SCH (15:15)
[2019-04-07] MEDS ORDERED: Sodium Chloride 0.9% 1,000 ML IV SCH (15:45)
[2019-04-07] MEDS ORDERED: Potassium Chloride 10 MEQ in Premix Bag 1 BAG IV ONE (17:18)
== END 2019-04-07 18:45 | disposition home or self-care (01) ==
LOC: JD.ED 13:17 → SUPCPDRO 13:17 → JD.ED 18:45
DX: K85.80 Other acute pancreatitis without necrosis or infection (principal); E87.6 Hypokalemia; F17.210 Nicotine dependence, cigarettes, uncomplicated; Z88.8 Allergy status to other drugs, medicaments and biological substances; Z79.899 Other long term (current) drug therapy
CPT/HCPCS: 36415; 80053; 83690; 85025; 96361; 96365; 96366; 96375; 96376; 99284; J1170; J2405; J3480; J7030

== ENCOUNTER 2019-04-13 06:28 | Emergency (ER) | payer MEDICAID ==
[2019-04-13 06:35] VITALS: BP 118/78; PULSE 89
[2019-04-13] MEDS ORDERED: Sodium Chloride 0.9% 10 ML Syringe FLUSH PRN (07:03)
[2019-04-13] MEDS ORDERED: Ondansetron 4 MG/2 ML SDV IVPUSH ONE (07:03)
[2019-04-13] MEDS ORDERED: Sodium Chloride 0.9% 1,000 ML IV STA (07:03)
[2019-04-13] MEDS ORDERED: HYDROmorphone 1 MG/ML Syringe IVPUSH ONE ×2 (07:04→08:54)
[2019-04-13] MEDS ORDERED: Potassium Chloride 10 MEQ in Premix Bag 1 BAG IV SCH (08:30)
--- NOTE | 2019-04-13 09:04 | EDM.PDOC ---
ED HPI GENERAL MEDICAL PROBLEM - General Chief Complaint: Gastrointestinal Problem Stated Complaint: [facility] Time Seen by Provider: 04/13/19 06:54 Source of Information: Reports: Patient History Limitations: Reports: No Limitations - History of Present Illness INITIAL COMMENTS - FREE TEXT/NARRATIVE: The patient returns with nausea, vomiting, and abdominal pain. She was seen here last week for the same and diagnosed with pancreatitis and hypokalemia. She went home with something for pain and nausea. She still has the pain and vomiting and now she has some diarrhea. She has a history of colitis and pancreatitis. She has never got in to see a GI specialist. She has no fever, chills, cough, chest pain or shortness of breath. Onset: Gradual Duration: Day(s): Location: Reports: Abdomen Quality: Reports: Sharp Severity: Severe Improves with: Reports: None Worsens with: Reports: None Associated Symptoms: Reports: Nausea/Vomiting. Denies: Chest Pain, Cough, Fever /Chills, Headaches, Shortness of Breath Lower Abdominal Pain Score (Numeric/FACES): 6 - Related Data Allergies Allergy/AdvReac Type Severity Reaction Status Date / Time acyclovir Allergy Other Verified 04/13/19 06:34 Home Meds: Home Meds Interferon Beta-1a [Avonex] 1 injection SQ WEEKLY 02/27/19 [History] Bismuth Subsalicylate [Pepto-Bismol] 262 mg PO Q6H #12 tab.chew 03/01/19 [Rx] DULoxetine [Cymbalta] 90 mg PO DAILY #21 cap 03/01/19 [Rx] Gabapentin [Neurontin] 100 mg PO TID #21 cap 03/01/19 [Rx] QUEtiapine [SEROquel] 25 mg PO DAILY #7 tablet 03/01/19 [Rx] QUEtiapine [SEROquel] 100 mg PO BEDTIME #7 tablet 03/01/19 [Rx] levETIRAcetam [Levetiracetam] 500 mg PO DAILY #14 tablet 03/01/19 [Rx] Metoprolol Succinate 200 mg PO DAILY 03/16/19 [History] Hydrocodone/Acetaminophen [Hydrocodon-Acetaminophen 5-325] 1 - 2 each PO Q6HR PRN #20 tablet 04/07/19 [Rx] Ondansetron [Zofran ODT] 4 mg PO Q6H PRN #20 tab.dis 04/07/19 [Rx] Potassium Chloride 20 meq PO DAILY #30 tablet.er 04/07/19 [Rx] Hydrocodone/Acetaminophen [Hydrocodon-Acetaminophen 5-325] 1 - 2 each PO Q6HR PRN #20 tablet 04/13/19 [Rx] Ondansetron [Zofran ODT] 4 mg PO Q6H PRN #20 tab.dis 04/13/19 [Rx] Past Medical History Other HEENT History: cornea transplant L eye Cardiovascular History: Reports: Hypertension Other Cardiovascular History: heart murmur Respiratory History: Reports: None Gastrointestinal History: Reports: Pancreatitis, Other (See Below) Other Gastrointestinal History: collitis Genitourinary History: Reports: Urinary Incontinence [employer]ST CONTROL 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: Other (See Below) Musculoskeletal History: Reports: Arthritis, Fracture Other Musculoskeletal History: Neck and back- Neurological History: Reports: Migraines, MS, Seizure Psychiatric History: Reports: Anxiety, Depression, Mood Swings, PTSD - Infectious Disease History Infectious Disease History: Reports: Chicken Pox, Hepatitis A, Hepatitis C - Past Surgical History HEENT Surgical History: Reports: Oral Surgery, Tonsillectomy GI Surgical History: Reports: Appendectomy, Bariatric Procedure, Cholecystectomy , Hernia, Abdominal Female Surgical History: Reports: Section, Hysterectomy, Other (See Below) Other Female Surgeries/Procedures: Breast implants Dermatological Surgical History: Reports: Plastic Surgical Reconstruction/Repair Social & Family History - Family History Family Medical History: Noncontributory - Tobacco Use Smoking Status *Q: Current Status Unknown - Caffeine Use Caffeine Use: Reports: Soda Other Caffeine Use: 3/day - Living Situation & Occupation Living situation: Reports: , with Significant Other (Boyfriend) Occupation: Unemployed ED ROS GENERAL - Review of Systems Review Of Systems: See Below Constitutional: Reports: No Symptoms HEENT: Reports: No Symptoms Respiratory: Reports: No Symptoms Cardiovascular: Reports: No Symptoms Endocrine: Reports: No Symptoms GI/Abdominal: Reports: Abdominal Pain, Diarrhea, Nausea, Vomiting : Reports: No Symptoms Musculoskeletal: Reports: No Symptoms ED EXAM, GI/ABD - Physical Exam Exam: See Below Exam Limited By: No Limitations General Appearance: Alert, No Apparent Distress Eyes: Right: Nystagmus Ears: Normal External Exam Nose: Normal Inspection Head: Atraumatic, Normocephalic Neck: Normal Inspection Respiratory/Chest: No Respiratory Distress, Lungs Clear, Normal Breath Sounds Cardiovascular: Regular Rate, Rhythm, No Edema, No Murmur GI/Abdominal Exam: Soft, No Organomegaly, No Mass, Tender (Moderate generalized tenderness) Course - Vital Signs Last Recorded V/S: Last Vital Signs Temp 98.8 F 04/13/19 06:32 Pulse 89 04/13/19 06:32 Resp 16 04/13/19 06:32 BP 118/78 04/13/19 06:32 Pulse Ox 99 04/13/19 06:32 - Orders/Labs/Meds Orders: Active Orders 24 hr Category Date Time Status Peripheral IV Care [RC] . DIRECTED Care 04/13/19 07:03 Active UA W/MICROSCOPIC [URIN] Stat Lab 04/13/19 07:03 Ordered Potassium Chloride [KCl 10 MEQ in Water 100 ML] 10 meq Med 04/13/19 08:30 Active Premix Bag 1 bag IV ASDIRECTED Sodium Chloride 0.9% [Saline Flush] Med 04/13/19 07:03 Active 10 ml FLUSH ASDIRECTED PRN ED Antiemetic Medication Reflex [OM.PC] Stat Oth 04/13/19 07:03 Ordered Peripheral IV Insertion Adult [OM.PC] Stat Oth 04/13/19 07:03 Ordered Medication Orders Potassium Chloride 10 meq/ (Premix) 100 mls @ 100 mls/hr IV ASDIRECTED EDILIA Last Admin: 04/13/19 08:43 Dose: 100 mls/hr Sodium Chloride (Saline Flush) 10 ml FLUSH ASDIRECTED PRN PRN Reason: Keep Vein Open Last Admin: 04/13/19 07:30 Dose: 10 ml Labs: Laboratory Tests 04/13/19 04/13/19 Range/Units 07:28 07:28 WBC 8.45 (3.98-10.04) K/mm3 RBC 3.42 L (3.98-5.22) M/mm3 Hgb 11.1 L D (11.2-15.7) gm/dl Hct 33.8 L (34.1-44.9) % MCV 98.8 H (79.4-94.8) fl MCH 32.5 H (25.6-32.2) pg MCHC 32.8 (32.2-35.5) g/dl RDW Std Deviation 53.7 H (36.4-46.3) fL Plt Count 300 D (182-369) K/mm3 MPV 9.4 (9.4-12.3) fl Neut % (Auto) 64.3 (34.0-71.1) % Lymph % (Auto) 27.3 (19.3-51.7) % [place] % (Auto) 7.6 (4.7-12.5) % Eos % (Auto) 0.5 L (0.7-5.8) Baso % (Auto) 0.2 (0.1-1.2) % Neut # (Auto) 5.43 (1.56-6.13) K/mm3 Lymph # (Auto) 2.31 (1.18-3.74) K/mm3 [place] # (Auto) 0.64 H (0.24-0.36) K/mm3 Eos # (Auto) 0.04 (0.04-0.36) K/mm3 Baso # (Auto) 0.02 (0.01-0.08) K/mm3 Manual Slide Review Normal smear Sodium 145 (136-145) mEq/L Potassium 2.5 L (3.5-5.1) mEq/L Chloride 110 H (98-107) mEq/L Carbon Dioxide 21 (21-32) mEq/L Anion Gap 16.5 H (5-15) BUN 6 L (7-18) mg/dL Creatinine 0.8 (0.55-1.02) mg/dL Est Cr Clr Drug Dosing TNP Estimated GFR (MDRD) > 60 (>60) mL/min BUN/Creatinine Ratio 7.5 L (14-18) Glucose 104 (74-106) mg/dL Calcium 7.8 L (8.5-10.1) mg/dL Total Bilirubin 0.3 (0.2-1.0) mg/dL AST 28 (15-37) U/L ALT 19 (14-59) U/L Alkaline Phosphatase 136 H (46-116) U/L Total Protein 6.1 L (6.4-8.2) g/dl Albumin 3.1 L (3.4-5.0) g/dl Globulin 3.0 gm/dL Albumin/Globulin Ratio 1.0 (1-2) Lipase 1200 H (73-393) U/L Meds: Medications Generic Name Dose Route Start Last Admin Trade Name Freq PRN Reason Stop Dose Admin Potassium Chloride 10 meq/ 100 mls @ 100 mls/hr 04/13/19 08:30 04/13/19 08:43 Premix IV 100 mls/hr ASDIRECTED EDILIA Administration Sodium Chloride 10 ml 04/13/19 07:03 04/13/19 07:30 Saline Flush FLUSH 10 ml ASDIRECTED PRN Administration Keep Vein Open Discontinued Medications Generic Name Dose Route Start Last Admin Trade Name Freq PRN Reason Stop Dose Admin Hydromorphone HCl 1 mg 04/13/19 07:04 04/13/19 07:28 Dilaudid IVPUSH 04/13/19 07:05 1 mg ONETIME ONE Administration Hydromorphone HCl 1 mg 04/13/19 08:54 Dilaudid IVPUSH 04/13/19 08:55 ONETIME ONE Sodium Chloride 1,000 mls @ 1,000 mls/hr 04/13/19 07:03 04/13/19 07:28 Normal Saline IV 04/13/19 08:02 1,000 mls/hr .BOLUS STA Administration Ondansetron HCl 4 mg 04/13/19 07:03 04/13/19 07:29 Zofran IVPUSH 04/13/19 07:04 4 mg ONETIME ONE Administration - Re-Assessments/Exams Free Text/Narrative Re-Assessment/Exam: 04/13/19 09:01 I ordered an IV NS 1L bolus, zofran 4mg IV, dilaudid 1mg IV, labs and UA. Her WBC was normal today at 8.45. Her Hgb was low at 11.1. Her K was low at 2.5. That was where she was at last week. Her anion gap has improved to 16.5. Her alk phos is elevated at 136. Her lipase has improved to 1200. She feels a little better and she did get an appointment to see a GI specialist. I will give her some more dilaudid before she goes and some potassium IV. Departure - Departure Time of Disposition: 09:20 Disposition: Home, Self-Care 01 Condition: Good Clinical Impression: Hypokalemia Pancreatitis Qualifiers: Chronicity: acute Pancreatitis type: other Acute pancreatitis complication: no infection or necrosis Qualified Code(s): K85.80 - Other acute pancreatitis without necrosis or infection - Discharge Information *PRESCRIPTION DRUG MONITORING PROGRAM REVIEWED*: No *COPY OF PRESCRIPTION DRUG MONITORING REPORT IN PATIENT JAKOB: No Prescriptions: Hydrocodone/Acetaminophen [Hydrocodon-Acetaminophen 5-325] 1 - 2 each PO Q6HR PRN #20 tablet PRN Reason: Pain Ondansetron [Zofran ODT] 4 mg PO Q6H PRN #20 tab.dis PRN Reason: Nausea\vomiting Referrals: Lopez Hood MD [Primary Care Provider] - 1 Week Forms: ED Department Discharge Additional Instructions: Drink plenty of fluids. Advance your diet as tolerated. Follow up with your doctor and the pediatrician managing partner. Take the medication as prescribed. Please return if you are worse. Sepsis Event Note - Evaluation Sepsis Screening Result: No Definite Risk - Focused Exam Vital Signs: Vital Signs Temp Pulse Resp BP Pulse Ox 04/13/19 06:32 98.8 F 89 16 118/78 99 Date Exam was Performed: 04/13/19 Time Exam was Performed: 09:05 - My Orders Last 24 Hours: My Active Orders 04/13/19 07:03 Peripheral IV Care [RC] . DIRECTED UA W/MICROSCOPIC [URIN] Stat Sodium Chloride 0.9% [Saline Flush] 10 ml FLUSH ASDIRECTED PRN ED Antiemetic Medication Reflex [OM.PC] Stat Peripheral IV Insertion Adult [OM.PC] Stat 04/13/19 08:30 Potassium Chloride [KCl 10 MEQ in Water 100 ML] 10 meq Premix Bag 1 bag IV ASDIRECTED - Assessment/Plan Last 24 Hours: My Active Orders 04/13/19 07:03 Peripheral IV Care [RC] . DIRECTED UA W/MICROSCOPIC [URIN] Stat Sodium Chloride 0.9% [Saline Flush] 10 ml FLUSH ASDIRECTED PRN ED Antiemetic Medication Reflex [OM.PC] Stat Peripheral IV Insertion Adult [OM.PC] Stat 04/13/19 08:30 Potassium Chloride [KCl 10 MEQ in Water 100 ML] 10 meq Premix Bag 1 bag IV ASDIRECTED
== END 2019-04-13 10:23 | disposition home or self-care (01) ==
LOC: JD.ED 06:28
DX: K85.80 Other acute pancreatitis without necrosis or infection (principal); E87.6 Hypokalemia; I10 Essential (primary) hypertension; F41.9 Anxiety disorder, unspecified; F32.9 Major depressive disorder, single episode, unspecified; M19.90 Unspecified osteoarthritis, unspecified site; Z88.8 Allergy status to other drugs, medicaments and biological substances; Z79.899 Other long term (current) drug therapy
CPT/HCPCS: 36415; 80053; 83690; 85025; 96361; 96365; 96366; 96375; 96376; 99284; J1170; J2405; J3480; J7030; 99283

== ENCOUNTER 2019-04-16 08:15 | Inpatient (IN) | payer MEDICAID ==
[2019-04-16] MEDS ORDERED: Famotidine 20 MG/2 ML SDV IVPUSH ONE (08:46)
[2019-04-16] MEDS ORDERED: Ondansetron 4 MG/2 ML SDV IVPUSH ONE (08:46)
[2019-04-16] MEDS ORDERED: Sodium Chloride 0.9% 10 ML Syringe FLUSH PRN (08:46)
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
[2019-04-16] MEDS ORDERED: HYDROmorphone 1 MG/ML Syringe IVPUSH ONE (08:52)
[2019-04-16] MEDS ORDERED: Sodium Chloride 0.9% 1,000 ML IV SCH (09:00)
[2019-04-16] MEDS ORDERED: Potassium Chloride 10 MEQ in Premix Bag 1 BAG IV ONE ×2 (09:35→11:26)
[2019-04-16] MEDS ORDERED: HYDROmorphone 0.5 MG/0.5 ML Syringe IVPUSH ONE (11:26)
[2019-04-16] MEDS ORDERED: Lactated Ringers 1,000 ML IV ONE (11:30)
[2019-04-16] MEDS ORDERED: LORazepam 2 MG/ML SDV IVPUSH ONE (11:30)
[2019-04-16] MEDS ORDERED: Ondansetron 4 MG/2 ML SDV IV PRN (13:50)
[2019-04-16] MEDS ORDERED: Ketorolac 30 MG/ML SDV IM PRN (13:50)
[2019-04-16] MEDS ORDERED: LORazepam 1 MG Tab PO PRN (13:58)
[2019-04-16] MEDS: Potassium Chloride 10 MEQ in Premix Bag 1 BAG IV SCH ×4 (14:22→17:48)
[2019-04-16] MEDS: Enoxaparin 40 MG/0.4 ML Syringe SUBCUT SCH (14:23)
[2019-04-16] MEDS: Thiamine 200 MG/2 ML MDV IVPUSH SCH ×2 (14:23→22:07)
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
[2019-04-16] MEDS: Folic Acid 1 MG Tab PO SCH (14:24)
[2019-04-16] MEDS: Gabapentin 100 MG Cap PO SCH ×2 (14:24→20:55)
[2019-04-16] MEDS: HYDROmorphone 0.5 MG/0.5 ML Syringe IVPUSH PRN ×4 (14:25→20:56)
[2019-04-16] MEDS: Pantoprazole 40 MG Vial IVPUSH SCH (16:08)
[2019-04-16] MEDS: Lactated Ringers 1,000 ML IV SCH ×2 (16:45→23:20)
[2019-04-16] MEDS ORDERED: Magnesium Sulfate/Water 4 GM in Premix Bag 1 BAG IV ONE (20:29)
[2019-04-16] MEDS: LORazepam 2 MG/ML SDV IVPUSH PRN (20:55)
[2019-04-16] MEDS: Metoprolol Succinate 50 MG Tab.ER PO SCH (20:55)
[2019-04-16] MEDS ORDERED: QUEtiapine 100 MG Tab PO SCH (21:00)
[2019-04-17] MEDS: Pantoprazole 40 MG Vial IVPUSH SCH (03:57)
[2019-04-17] MEDS: Lactated Ringers 1,000 ML IV SCH ×4 (03:58→23:11)
[2019-04-17] MEDS: HYDROmorphone 0.5 MG/0.5 ML Syringe IVPUSH PRN ×2 (06:03→09:11)
[2019-04-17] MEDS: Thiamine 200 MG/2 ML MDV IVPUSH SCH ×2 (06:03→14:38)
[2019-04-17] MEDS: Potassium Chloride 10 MEQ in Premix Bag 1 BAG IV SCH ×2 (08:57→10:05)
[2019-04-17] MEDS: levETIRAcetam 500 MG Tab PO SCH (08:58)
[2019-04-17] MEDS: QUEtiapine 25 MG Tab PO SCH (08:58)
[2019-04-17] MEDS: DULoxetine 30 MG Cap PO SCH (08:58)
[2019-04-17] MEDS: Potassium Chloride 20 MEQ Tab.ER PO SCH (08:58)
[2019-04-17] MEDS: Folic Acid 1 MG Tab PO SCH (08:59)
[2019-04-17] MEDS: Gabapentin 100 MG Cap PO SCH ×4 (08:59→19:59)
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
[2019-04-17] MEDS ORDERED: QUEtiapine 100 MG Tab PO SCH (10:56)
[2019-04-17] MEDS: Enoxaparin 40 MG/0.4 ML Syringe SUBCUT SCH (14:38)
[2019-04-17] MEDS: Pantoprazole 40 MG Tab.CR PO SCH (19:59)
[2019-04-17] MEDS: QUEtiapine 100 MG Tab PO SCH (19:59)
[2019-04-17] MEDS: Metoprolol Succinate 50 MG Tab.ER PO SCH (19:59)
[2019-04-18] MEDS: Lactated Ringers 1,000 ML IV SCH (07:53)
[2019-04-18] MEDS: DULoxetine 30 MG Cap PO SCH (07:59)
[2019-04-18] MEDS: Folic Acid 1 MG Tab PO SCH (07:59)
[2019-04-18] MEDS: Potassium Chloride 20 MEQ Tab.ER PO SCH (07:59)
[2019-04-18] MEDS: Thiamine 100 MG Tab PO SCH (07:59)
[2019-04-18] MEDS: Pantoprazole 40 MG Tab.CR PO SCH ×2 (07:59→19:59)
[2019-04-18] MEDS: levETIRAcetam 500 MG Tab PO SCH (08:00)
[2019-04-18] MEDS: Gabapentin 100 MG Cap PO SCH ×3 (08:00→19:59)
[2019-04-18] MEDS: QUEtiapine 25 MG Tab PO SCH ×2 (08:01→08:18)
[2019-04-18] MEDS ORDERED: hydrOXYzine HCl 25 MG Tab PO ONE (08:49)
[2019-04-18] MEDS: LORazepam 2 MG/ML SDV IVPUSH PRN ×6 (08:56→23:11)
[2019-04-18] MEDS ORDERED: Magnesium Sulfate/Water 4 GM in Premix Bag 1 BAG IV ONE (09:02)
[2019-04-18] MEDS ORDERED: Sodium Chloride 0.9% 250 ML IV SCH (11:37)
[2019-04-18] MEDS ORDERED: Sodium Chloride 0.9% 250 ML ONE (11:37)
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
[2019-04-18] MEDS: Nicotine 7 MG/24 Hr Patch TRDERM SCH (13:16)
[2019-04-18] MEDS ORDERED: chlordiazePOXIDE 25 MG Cap PO ONE (14:14)
[2019-04-18] MEDS: Enoxaparin 40 MG/0.4 ML Syringe SUBCUT SCH (14:25)
[2019-04-18] MEDS: chlordiazePOXIDE 25 MG Cap PO SCH ×4 (17:04→20:48)
[2019-04-18] MEDS ORDERED: chlordiazePOXIDE 25 MG Cap PO PRN (18:30)
[2019-04-18] MEDS: Metoprolol Succinate 50 MG Tab.ER PO SCH (19:59)
[2019-04-18] MEDS: QUEtiapine 100 MG Tab PO SCH (20:01)
[2019-04-18] MEDS ORDERED: LORazepam 2 MG/ML SDV IVPUSH PRN (20:34)
[2019-04-18] MEDS ORDERED: QUEtiapine 100 MG Tab PO ONE (20:34)
[2019-04-19] MEDS: chlordiazePOXIDE 25 MG Cap PO SCH ×6 (01:12→21:59)
[2019-04-19] MEDS: LORazepam 2 MG/ML SDV IVPUSH PRN ×2 (03:58→11:43)
[2019-04-19] MEDS: DULoxetine 30 MG Cap PO SCH (08:03)
[2019-04-19] MEDS: levETIRAcetam 500 MG Tab PO SCH (08:04)
[2019-04-19] MEDS: Gabapentin 100 MG Cap PO SCH ×3 (08:04→20:01)
[2019-04-19] MEDS: Thiamine 100 MG Tab PO SCH (08:04)
[2019-04-19] MEDS: QUEtiapine 25 MG Tab PO SCH (08:04)
[2019-04-19] MEDS: Potassium Chloride 20 MEQ Tab.ER PO SCH (08:04)
[2019-04-19] MEDS: Nicotine 7 MG/24 Hr Patch TRDERM SCH (08:04)
[2019-04-19] MEDS: Folic Acid 1 MG Tab PO SCH (08:04)
[2019-04-19] MEDS: Remove Patch*NICOTINE TRDERM SCH (08:05)
[2019-04-19] MEDS: Pantoprazole 40 MG Tab.CR PO SCH ×2 (08:05→20:01)
[2019-04-19] MEDS ORDERED: Sodium Chloride 0.9% 1,000 ML IV SCH (12:30)
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
[2019-04-19] MEDS: Acetaminophen/HYDROcodone 325-5 MG Tab PO PRN (14:24)
[2019-04-19] MEDS: Enoxaparin 40 MG/0.4 ML Syringe SUBCUT SCH (14:24)
[2019-04-19] MEDS ORDERED: Sodium Chloride 0.9% 1,000 ML IV ONE (16:15)
[2019-04-19] MEDS ORDERED: oxyCODONE 5 MG Tab PO ONE (17:26)
[2019-04-19] MEDS: Lactated Ringers 1,000 ML IV SCH ×2 (18:06→23:04)
[2019-04-19] MEDS: Metoprolol Succinate 50 MG Tab.ER PO SCH (20:00)
[2019-04-19] MEDS: QUEtiapine 100 MG Tab PO SCH (20:01)
[2019-04-20] MEDS: chlordiazePOXIDE 25 MG Cap PO SCH ×4 (03:59→20:01)
[2019-04-20] MEDS: Lactated Ringers 1,000 ML IV SCH ×3 (03:59→20:04)
[2019-04-20] MEDS: Folic Acid 1 MG Tab PO SCH (08:13)
[2019-04-20] MEDS: Potassium Chloride 20 MEQ Tab.ER PO SCH (08:13)
[2019-04-20] MEDS: levETIRAcetam 500 MG Tab PO SCH (08:13)
[2019-04-20] MEDS: Gabapentin 100 MG Cap PO SCH ×3 (08:14→20:01)
[2019-04-20] MEDS: DULoxetine 30 MG Cap PO SCH (08:14)
[2019-04-20] MEDS: Thiamine 100 MG Tab PO SCH (08:14)
[2019-04-20] MEDS: QUEtiapine 25 MG Tab PO SCH (08:14)
[2019-04-20] MEDS: Pantoprazole 40 MG Tab.CR PO SCH ×2 (08:14→20:01)
[2019-04-20] MEDS: Nicotine 7 MG/24 Hr Patch TRDERM SCH (08:16)
[2019-04-20] MEDS: Acetaminophen/HYDROcodone 325-5 MG Tab PO PRN ×3 (08:20→20:00)
[2019-04-20] MEDS: Remove Patch*NICOTINE TRDERM SCH (09:16)
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
[2019-04-20] MEDS: Enoxaparin 40 MG/0.4 ML Syringe SUBCUT SCH (14:29)
[2019-04-20] MEDS ORDERED: Acetaminophen 325 MG Tab PO ONE (16:30)
[2019-04-20] MEDS: QUEtiapine 100 MG Tab PO SCH (20:01)
[2019-04-20] MEDS: Metoprolol Succinate 50 MG Tab.ER PO SCH ×3 (20:01→21:08)
[2019-04-21] MEDS: chlordiazePOXIDE 25 MG Cap PO SCH ×5 (00:13→12:58)
[2019-04-21] MEDS: Acetaminophen/HYDROcodone 325-5 MG Tab PO PRN ×2 (00:13→08:50)
[2019-04-21] MEDS: Lactated Ringers 1,000 ML IV SCH (02:59)
[2019-04-21] MEDS: QUEtiapine 25 MG Tab PO SCH (08:42)
[2019-04-21] MEDS: Pantoprazole 40 MG Tab.CR PO SCH ×2 (08:42→20:12)
[2019-04-21] MEDS: Nicotine 7 MG/24 Hr Patch TRDERM SCH (08:42)
[2019-04-21] MEDS: levETIRAcetam 500 MG Tab PO SCH (08:42)
[2019-04-21] MEDS: Gabapentin 100 MG Cap PO SCH ×3 (08:42→20:20)
[2019-04-21] MEDS: Thiamine 100 MG Tab PO SCH (08:42)
[2019-04-21] MEDS: Potassium Chloride 20 MEQ Tab.ER PO SCH (08:42)
[2019-04-21] MEDS: DULoxetine 30 MG Cap PO SCH (08:42)
[2019-04-21] MEDS: Folic Acid 1 MG Tab PO SCH (08:42)
[2019-04-21] MEDS: Remove Patch*NICOTINE TRDERM SCH (08:43)
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
[2019-04-21] MEDS ORDERED: Magnesium Sulfate/Water 2 GM in Premix Bag 1 BAG IV ONE (13:30)
[2019-04-21] MEDS ORDERED: Iopamidol 612 MG/ML 100 ML Bottle IVPUSH ONE (13:51)
[2019-04-21] MEDS ORDERED: Sodium Chloride 0.9% 10 ML Syringe FLUSH ONE (13:51)
[2019-04-21] MEDS ORDERED: Diatrizoate Meglumine/Diatrizoate Sodium 37% 120 ML Bottle PO ONE (13:51)
--- NOTE | 2019-04-21 15:11 | CT ---
CT abdomen and pelvis Technique: Multiple axial sections were obtained from above the dome of the diaphragm inferiorly through the pubic symphysis. Intravenous contrast was utilized. There is oral contrast also being seen. Delayed images were also obtained through the abdomen and pelvis. Comparison: Prior CT abdomen and pelvis exam of 02/27/19. Findings: Very minimal pleural effusions are seen bilaterally. Bibasilar atelectasis is also noted. Liver contains no focal abnormality. Previous cholecystectomy is seen. Common bile duct remains dilated up to 1.3 cm. This appears similar to previous exam and most likely is residual from prior cholecystectomy. Pancreas appears within normal limits. No inflammatory change is seen around the pancreas. Prior gastric surgery is noted. Adrenal glands show no nodule. Kidneys show symmetric contrast enhancement. Two small cortical cysts noted within the right kidney. Delayed images show contrast excretion into both ureters. Small amount of air is noted within the bladder. This presumably is from previous instrumentation, please correlate. Aorta shows no aneurysm. No retroperitoneal adenopathy is seen. No mesenteric abnormalities are noted. No pelvic mass or adenopathy is seen. No free fluid or inflammatory change is seen. Mild bowel wall thickening is seen within the sigmoid colon. Other bowel wall thickening seen on previous study within the colon has resolved. There is a small amount of fluid within the pelvis which is most likely physiologic. Incidental finding of bilateral breast prosthesis. Appendix not seen with certainty. Bone window settings were reviewed which appear within normal limits for the patient's age. Previous hysterectomy is noted. Impression: 1. Dilated CBD of 1.3 cm which is stable from prior exam and most likely residual from prior cholecystectomy. 2. Pancreas has a normal CT appearance. No findings on CT exam to indicate pancreatitis. 3. Small amount of free fluid within the pelvis most likely physiologic. 4. Bowel wall thickening within the sigmoid colon, bowel wall thickening seen on prior study has resolved within other portions of the colon. 5. Small bilateral pleural effusions and bibasilar atelectasis. 6. Other findings as noted above believed to be incidental. Diagnostic code #3 This report was dictated in [place] Standard Time
[2019-04-21] MEDS: Enoxaparin 40 MG/0.4 ML Syringe SUBCUT SCH (15:13)
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
[2019-04-21] MEDS: metroNIDAZOLE/Normal Saline 500 MG in Premix Bag 1 BAG IV SCH (16:14)
[2019-04-21] MEDS ORDERED: chlordiazePOXIDE 25 MG Cap PO SCH (17:00)
[2019-04-21] MEDS: QUEtiapine 100 MG Tab PO SCH (20:12)
[2019-04-21] MEDS: Metoprolol Succinate 50 MG Tab.ER PO SCH (20:12)
[2019-04-21] MEDS: amLODIPine 5 MG Tab PO SCH (20:20)
[2019-04-22] MEDS: metroNIDAZOLE/Normal Saline 500 MG in Premix Bag 1 BAG IV SCH ×2 (01:10→07:59)
[2019-04-22] MEDS: DULoxetine 30 MG Cap PO SCH (08:31)
[2019-04-22] MEDS: Potassium Chloride 20 MEQ Tab.ER PO SCH (08:31)
[2019-04-22] MEDS: QUEtiapine 25 MG Tab PO SCH (08:31)
[2019-04-22] MEDS: Pantoprazole 40 MG Tab.CR PO SCH ×2 (08:31→20:03)
[2019-04-22] MEDS: Folic Acid 1 MG Tab PO SCH (08:31)
[2019-04-22] MEDS: Thiamine 100 MG Tab PO SCH (08:31)
[2019-04-22] MEDS: Nicotine 7 MG/24 Hr Patch TRDERM SCH (08:31)
[2019-04-22] MEDS: Gabapentin 100 MG Cap PO SCH ×3 (08:31→20:03)
[2019-04-22] MEDS: levETIRAcetam 500 MG Tab PO SCH (08:31)
[2019-04-22] MEDS: Remove Patch*NICOTINE TRDERM SCH (08:32)
[2019-04-22] MEDS ORDERED: QUEtiapine 100 MG Tab PO SCH (13:06)
[2019-04-22] MEDS: Enoxaparin 40 MG/0.4 ML Syringe SUBCUT SCH (15:08)
[2019-04-22] MEDS: Metoprolol Succinate 50 MG Tab.ER PO SCH (20:06)
[2019-04-22] MEDS: amLODIPine 5 MG Tab PO SCH (20:06)
[2019-04-22] MEDS ORDERED: hydrOXYzine HCl 50 MG Tab PO SCH (21:00)
[2019-04-23] MEDS ORDERED: Acetaminophen 325 MG Tab PO PRN (02:16)
[2019-04-23 05:27] VITALS: PULSE 57
[2019-04-23] MEDS: Potassium Chloride 20 MEQ Tab.ER PO SCH (08:00)
[2019-04-23] MEDS: QUEtiapine 25 MG Tab PO SCH (08:01)
[2019-04-23] MEDS: Gabapentin 100 MG Cap PO SCH ×2 (08:01→15:44)
[2019-04-23] MEDS: Folic Acid 1 MG Tab PO SCH (08:01)
[2019-04-23] MEDS: Thiamine 100 MG Tab PO SCH (08:01)
[2019-04-23] MEDS: Pantoprazole 40 MG Tab.CR PO SCH (08:01)
[2019-04-23] MEDS: levETIRAcetam 500 MG Tab PO SCH (08:01)
[2019-04-23] MEDS: DULoxetine 30 MG Cap PO SCH (08:02)
[2019-04-23] MEDS: Nicotine 7 MG/24 Hr Patch TRDERM SCH (08:02)
[2019-04-23] MEDS: Remove Patch*NICOTINE TRDERM SCH (08:08)
[2019-04-23] MEDS: Enoxaparin 40 MG/0.4 ML Syringe SUBCUT SCH (15:44)
[2019-04-23 16:33] VITALS: BP 136/82
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
== END 2019-04-23 17:52 | disposition home or self-care (01) | DRG 439 ==
LOC: JD.ED 08:15 → JD.ICU 12:32
PROVIDERS: ADMIT Family Medicine; ATTEND Family Medicine
DX: K86.1 Other chronic pancreatitis (principal); F10.288 Alcohol dependence with other alcohol-induced disorder; F10.239 Alcohol dependence with withdrawal, unspecified; N17.9 Acute kidney failure, unspecified; F31.9 Bipolar disorder, unspecified; Y90.8 Blood alcohol level of 240 mg/100 ml or more; E87.6 Hypokalemia; G35 Multiple sclerosis; G89.29 Other chronic pain; R74.8 Abnormal levels of other serum enzymes; M54.9 Dorsalgia, unspecified; G43.909 Migraine, unspecified, not intractable, without status migrainosus; F41.9 Anxiety disorder, unspecified; F43.10 Post-traumatic stress disorder, unspecified; Z79.899 Other long term (current) drug therapy; Z88.1 Allergy status to other antibiotic agents
CPT/HCPCS: 36415; 51702; 51798; 74177; 74177-26; 80053; 80306; 82607; 82746; 83690; 83735; 84443; 85025; 85610; 85730; 96361; 96365; 96366; 96375; 96376; 99222; 99231; 99239; 99284; 99285-25; A9270-GY; C9113; G0480; J1170; J1650; J1885; J2060; J2405; J3411; J3475; J3480; J3490; J7030; J7050; J7120; Q3014; Q9967

== ENCOUNTER 2019-05-22 19:17 | Emergency (ER) | payer MEDICAID ==
[2019-05-22 19:36] VITALS: BP 130/95; PULSE 62
[2019-05-22] MEDS ORDERED: Lactated Ringers 1,000 ML IV SCH (20:45)
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
[2019-05-22] MEDS ORDERED: Potassium Chloride 20 MEQ Tab.ER PO ONE (22:29)
[2019-05-23] MEDS ORDERED: Ibuprofen 600 MG Tab PO ONE (03:25)
[2019-05-23] MEDS ORDERED: Potassium Chloride 20 MEQ Tab.ER PO ONE (03:26)
[2019-05-23] MEDS ORDERED: Nitrofurantoin Monohydrate/Macrocrystalline 100 MG Cap PO STA (07:18)
== END 2019-05-23 07:39 | disposition home or self-care (01) ==
LOC: JD.ED 19:17 → SUPCPDRO 19:17 → JD.ED 05-23 07:39
DX: S00.33XA Contusion of nose, initial encounter (principal); S80.01XA Contusion of right knee, initial encounter; F10.220 Alcohol dependence with intoxication, uncomplicated; F15.10 Other stimulant abuse, uncomplicated; I10 Essential (primary) hypertension; F32.9 Major depressive disorder, single episode, unspecified; F17.210 Nicotine dependence, cigarettes, uncomplicated; G40.909 Epilepsy, unspecified, not intractable, without status epilepticus; Y90.7 Blood alcohol level of 200-239 mg/100 ml; Z88.8 Allergy status to other drugs, medicaments and biological substances; Z79.899 Other long term (current) drug therapy; Y04.2XXA Assault by strike against or bumped into by another person, initial encounter
CPT/HCPCS: 36415; 80053; 80306; 80307; 81001; 81025; 83690; 83735; 85007; 85027; 87086; 87088; 87186; 96360; 96361; 99284; A9270; J7120; 99283

== ENCOUNTER 2019-05-23 08:54 | Emergency (ER) | payer MEDICAID ==
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
[2019-05-23 09:05] VITALS: BP 140/107; PULSE 80
[2019-05-23] MEDS ORDERED: Lactated Ringers 1,000 ML IV ONE (09:20)
[2019-05-23] MEDS ORDERED: Magnesium Sulfate/Water 2 GM in Premix Bag 1 BAG IV ONE (09:22)
[2019-05-23] MEDS ORDERED: Acetaminophen/HYDROcodone 325-5 MG Tab PO ONE (13:28)
== END 2019-05-23 17:38 | disposition home or self-care (01) ==
LOC: JD.ED 08:54
DX: K52.9 Noninfective gastroenteritis and colitis, unspecified (principal); I10 Essential (primary) hypertension; F32.9 Major depressive disorder, single episode, unspecified; R56.9 Unspecified convulsions; Z88.8 Allergy status to other drugs, medicaments and biological substances; Z79.899 Other long term (current) drug therapy
CPT/HCPCS: 36415; 80048; 83690; 85025; 96365; 96366; 99284; A9270; J3475; J7120; 99283

== ENCOUNTER 2019-07-10 14:44 | Emergency (ER) | payer OTHER ==
[2019-07-10] MEDS ORDERED: Sodium Chloride 0.9% 10 ML Syringe FLUSH PRN (15:04)
[2019-07-10] MEDS ORDERED: HYDROmorphone 0.5 MG/0.5 ML Syringe IVPUSH ONE (15:04)
[2019-07-10] MEDS ORDERED: Sodium Chloride 0.9% 1,000 ML IV SCH (15:15)
--- NOTE | 2019-07-10 15:43 | EDM.PDOCBH ---
ED HPI GENERAL MEDICAL PROBLEM - General Chief Complaint: Drug or Alcohol Abuse Stated Complaint: [facility] Time Seen by Provider: 07/10/19 14:51 Source of Information: Reports: Patient History Limitations: Reports: No Limitations - History of Present Illness INITIAL COMMENTS - FREE TEXT/NARRATIVE: The patient presents by [facility] for alcohol intoxication, abdominal pain, nausea and vomiting. She has a history of alcoholism, pancreatitis and colitis. She was getting outpatient help by [facility] but with the COVID 19 pandemic they have suspended services. She says her step daughter was killed 2 weeks ago in [place]. She is having a hard time dealing with the grief and she has been drinking very heavy the past 3 days. She has been drinking mostly vodka. Onset: Gradual Duration: Day(s): Location: Reports: Abdomen Quality: Reports: Sharp Severity: Moderate Improves with: Reports: None Worsens with: Reports: None Associated Symptoms: Reports: Nausea/Vomiting. Denies: Chest Pain, Cough, Fever /Chills, Headaches, Shortness of Breath Abdomen Pain Score (Numeric/FACES): 7 - Related Data Allergies Allergy/AdvReac Type Severity Reaction Status Date / Time acyclovir Allergy Other Verified 04/16/19 13:38 Home Meds: Home Meds Interferon Beta-1a [Avonex] 1 injection SQ WEEKLY 02/27/19 [History] QUEtiapine [SEROquel] 25 mg PO DAILY #7 tablet 03/01/19 [Rx] levETIRAcetam [Levetiracetam] 500 mg PO DAILY #14 tablet 03/01/19 [Rx] Metoprolol Succinate 200 mg PO DAILY 03/16/19 [History] Potassium Chloride 20 meq PO DAILY #30 tablet.er 04/07/19 [Rx] QUEtiapine [SEROquel] 200 mg PO BEDTIME 04/16/19 [History] Gabapentin [Neurontin] 300 mg PO TID 04/22/19 [History] Omeprazole 20 mg PO QAM 04/22/19 [History] hydrOXYzine pamoate [Hydroxyzine Pamoate] 50 mg PO BEDTIME 04/22/19 [History] Ondansetron [Zofran ODT] 4 mg PO Q6H PRN #8 tab.dis 05/23/19 [Rx] DULoxetine [Cymbalta] 30 mg PO BEDTIME 07/10/19 [History] DULoxetine [Cymbalta] 60 mg PO DAILY 07/10/19 [History] LORazepam [Ativan] 1 mg PO DAILY #18 tablet 07/10/19 [Rx] Ondansetron [Zofran ODT] 4 mg PO Q6H PRN #20 tab.dis 07/10/19 [Rx] Past Medical History HEENT History: Reports: Impaired Vision Other HEENT History: cornea transplant L eye Cardiovascular History: Reports: Hypertension Other Cardiovascular History: heart murmur Respiratory History: Reports: None Gastrointestinal History: Reports: Pancreatitis Other Gastrointestinal History: collitis Genitourinary History: Reports: Urinary Incontinence Other Genitourinary History: straight caths at times from [place] [employer] History: Reports: Fibroids Musculoskeletal History: Reports: Arthritis, Fracture Other Musculoskeletal History: Neck and back- Neurological History: Reports: Migraines, MS, Seizure Psychiatric History: Reports: Addiction, Depression, Mood Swings, PTSD Hematologic History: Reports: Other (See Below) Other Hematologic History: Hep A and C Oncologic (Cancer) History: Reports: None - Infectious Disease History Infectious Disease History: Reports: Chicken Pox, Hepatitis A, Hepatitis C - Past Surgical History Head Surgeries/Procedures: Reports: None HEENT Surgical History: Reports: Eye Surgery, Oral Surgery, Tonsillectomy, Other (See Below) GI Surgical History: Reports: Appendectomy, Bariatric Procedure, Cholecystectomy , Hernia, Abdominal Female Surgical History: Reports: Breast Reduction, Section, Hysterectomy, Other (See Below) Musculoskeletal Surgical History: Reports: Other (See Below) Dermatological Surgical History: Reports: Plastic Surgical Reconstruction/Repair Social & Family History - Family History Family Medical History: Noncontributory Cardiac: Reports: Hypertension Neurological: Reports: MS Psychiatric: Reports: Anxiety, Depression Endocrine/Metabolic: Reports: Diabetes, type II Oncologic: Reports: Breast - Tobacco Use Smoking Status *Q: Current Every Day Smoker Years of Tobacco use: 20 Packs/Tins Daily: 1 - Caffeine Use Caffeine Use: Reports: Coffee Other Caffeine Use: 3/day - Recreational Drug Use Recreational Drug Use: No - Living Situation & Occupation Living situation: Reports: , with Significant Other (Boyfriend) Occupation: Unemployed ED ROS GENERAL - Review of Systems Review Of Systems: See Below Constitutional: Reports: No Symptoms HEENT: Reports: No Symptoms Respiratory: Reports: No Symptoms Cardiovascular: Reports: No Symptoms Endocrine: Reports: No Symptoms GI/Abdominal: Reports: Abdominal Pain, Nausea, Vomiting : Reports: No Symptoms Musculoskeletal: Reports: No Symptoms ED EXAM, BEHAVIORAL HEALTH - Physical Exam Exam: See Below Exam Limited By: No Limitations General Appearance: Alert, No Apparent Distress Ears: Normal External Exam Nose: Normal Inspection Head: Atraumatic, Normocephalic Neck: Normal Inspection Respiratory/Chest: No Respiratory Distress, Lungs Clear, Normal Breath Sounds Cardiovascular: Regular Rate, Rhythm, No Edema, No Murmur GI/Abdominal: Soft, No Organomegaly, No Mass, Tender (Moderate tenderness to the upper abdomen) COURSE, BEHAVIORAL HEALTH COMP - Course Vital Signs: Last Vital Signs Temp 98.2 F 07/10/19 16:29 Pulse 62 07/10/19 16:29 Resp 20 07/10/19 16:29 BP 149/92 H 07/10/19 16:29 Pulse Ox 98 07/10/19 16:29 Orders, Labs, Meds: Active Orders 24 hr Category Date Time Status Cardiac Monitoring [RC] . DIRECTED Care 07/10/19 15:04 Active Peripheral IV Care [RC] . DIRECTED Care 07/10/19 15:04 Active Sodium Chloride 0.9% [Normal Saline] 1,000 ml Med 07/10/19 15:15 Active IV .BOLUS Sodium Chloride 0.9% [Saline Flush] Med 07/10/19 15:04 Active 10 ml FLUSH ASDIRECTED PRN Peripheral IV Insertion Adult [OM.PC] Stat Oth 07/10/19 15:04 Ordered Medication Orders Sodium Chloride (Normal Saline) 1,000 mls @ 1,000 mls/hr IV .BOLUS EDILIA Last Admin: 07/10/19 15:26 Dose: 1,000 mls/hr Sodium Chloride (Saline Flush) 10 ml FLUSH ASDIRECTED PRN PRN Reason: Keep Vein Open Last Admin: 07/10/19 15:23 Dose: 10 ml Laboratory Tests 07/10/19 07/10/19 Range/Units 15:17 15:17 WBC 9.96 (3.98-10.04) K/mm3 RBC 4.22 (3.98-5.22) M/mm3 Hgb 12.6 (11.2-15.7) gm/dl Hct 38.5 (34.1-44.9) % MCV 91.2 D (79.4-94.8) fl MCH 29.9 (25.6-32.2) pg MCHC 32.7 (32.2-35.5) g/dl RDW Std Deviation 45.9 (36.4-46.3) fL Plt Count 453 H D (182-369) K/mm3 MPV 9.3 L (9.4-12.3) fl Neut % (Auto) 66.3 (34.0-71.1) % Lymph % (Auto) 27.3 (19.3-51.7) % [place] % (Auto) 6.0 (4.7-12.5) % Eos % (Auto) 0.2 L (0.7-5.8) Baso % (Auto) 0.1 (0.1-1.2) % Neut # (Auto) 6.60 H (1.56-6.13) K/mm3 Lymph # (Auto) 2.72 (1.18-3.74) K/mm3 [place] # (Auto) 0.60 H (0.24-0.36) K/mm3 Eos # (Auto) 0.02 L (0.04-0.36) K/mm3 Baso # (Auto) 0.01 (0.01-0.08) K/mm3 Sodium 139 (136-145) mEq/L Potassium 3.2 L (3.5-5.1) mEq/L Chloride 102 (98-107) mEq/L Carbon Dioxide 22 (21-32) mEq/L Anion Gap 18.2 H (5-15) BUN 10 (7-18) mg/dL Creatinine 0.9 (0.55-1.02) mg/dL Est Cr Clr Drug Dosing 64.58 mL/min Estimated GFR (MDRD) > 60 (>60) mL/min BUN/Creatinine Ratio 11.1 L (14-18) Glucose 106 (74-106) mg/dL Calcium 8.8 (8.5-10.1) mg/dL Magnesium 1.8 (1.8-2.4) mg/dl Total Bilirubin 0.3 (0.2-1.0) mg/dL AST 49 H (15-37) U/L ALT 61 H (14-59) U/L Alkaline Phosphatase 146 H (46-116) U/L Total Protein 8.5 H (6.4-8.2) g/dl Albumin 3.4 (3.4-5.0) g/dl Globulin 5.1 gm/dL Albumin/Globulin Ratio 0.7 L (1-2) Lipase 443 H (73-393) U/L Ethyl Alcohol 0.12 (0.00) gm% Medications Generic Name Dose Route Start Last Admin Trade Name Freq PRN Reason Stop Dose Admin Sodium Chloride 1,000 mls @ 1,000 mls/hr 07/10/19 15:15 07/10/19 15:26 Normal Saline IV 1,000 mls/hr .BOLUS EDILIA Administration Sodium Chloride 10 ml 07/10/19 15:04 07/10/19 15:23 Saline Flush FLUSH 10 ml ASDIRECTED PRN Administration Keep Vein Open Discontinued Medications Generic Name Dose Route Start Last Admin Trade Name Freq PRN Reason Stop Dose Admin Al Hydroxide/Mg Hydroxide 30 0 ml 07/10/19 17:03 07/10/19 17:08 ml/ Lidocaine HCl 15 ml PO 07/10/19 17:04 45 ml ONETIME ONE Administration Hydromorphone HCl 0.5 mg 07/10/19 15:04 07/10/19 15:24 Dilaudid IVPUSH 07/10/19 15:05 0.5 mg ONETIME ONE Administration Re-Assessment/Re-Exam: I ordered an IV NS 1L bolus, dilaudid 0.5mg IV, and labs. Her CBC looks good. Her potassium is low at 3.2. Her anion gap is elevated at 18.2. Her AST is elevated at 49. Her ALT is elevated at 61. Her alk phos is elevated at 146. Her lipase is elevated slightly at 443. Her ETOH is 0.12. She has some gastritis going on so I ordered a GI cocktail. She feels better. I will discharge her home. Departure - Departure Time of Disposition: 17:30 Disposition: Home, Self-Care 01 Condition: Good Clinical Impression: Abdominal pain Qualifiers: Abdominal location: generalized Qualified Code(s): R10.84 - Generalized abdominal pain Alcohol intoxication Qualifiers: Complication of substance-induced condition: uncomplicated Qualified Code(s): F10.920 - Alcohol use, unspecified with intoxication, uncomplicated - Discharge Information *PRESCRIPTION DRUG MONITORING PROGRAM REVIEWED*: Not Applicable *COPY OF PRESCRIPTION DRUG MONITORING REPORT IN PATIENT JAKOB: Not Applicable Prescriptions: LORazepam [Ativan] 1 mg PO DAILY #18 tablet Ondansetron [Zofran ODT] 4 mg PO Q6H PRN #20 tab.dis PRN Reason: Nausea\vomiting Additional Instructions: Stop drinking alcohol. Drink plenty of water and powerade. Take the zofran every 6 hours as needed for nausea and vomiting. Take the ativan as prescribed for any withdrawal symptoms. Do not take them with alcohol they both can slow down your breathing and stop you from breathing. Take motrin as needed for pain. Please return if you are worse. Sepsis Event Note - Evaluation Sepsis Screening Result: No Definite Risk - Focused Exam Vital Signs: Vital Signs Temp Pulse Resp BP Pulse Ox 07/10/19 16:29 98.2 F 62 20 149/92 H 98 07/10/19 14:56 98.3 F 65 18 125/91 H 96 Date Exam was Performed: 07/10/19 Time Exam was Performed: 17:17 - My Orders Last 24 Hours: My Active Orders 07/10/19 15:04 Cardiac Monitoring [RC] . DIRECTED Peripheral IV Care [RC] . DIRECTED Sodium Chloride 0.9% [Saline Flush] 10 ml FLUSH ASDIRECTED PRN Peripheral IV Insertion Adult [OM.PC] Stat 07/10/19 15:15 Sodium Chloride 0.9% [Normal Saline] 1,000 ml IV .BOLUS - Assessment/Plan Last 24 Hours: My Active Orders 07/10/19 15:04 Cardiac Monitoring [RC] . DIRECTED Peripheral IV Care [RC] . DIRECTED Sodium Chloride 0.9% [Saline Flush] 10 ml FLUSH ASDIRECTED PRN Peripheral IV Insertion Adult [OM.PC] Stat 07/10/19 15:15 Sodium Chloride 0.9% [Normal Saline] 1,000 ml IV .BOLUS
[2019-07-10] MEDS ORDERED: Alum Hydrox/Mag Hydrox/Simeth 30 ML, Lidocaine 2% 15 ML PO ONE ×2 (17:03)
[2019-07-10 18:10] VITALS: BP 147/62; PULSE 64
== END 2019-07-10 17:45 | disposition home or self-care (01) ==
LOC: JD.ED 14:44
DX: R10.84 Generalized abdominal pain (principal); F10.229 Alcohol dependence with intoxication, unspecified; I10 Essential (primary) hypertension; G35 Multiple sclerosis; R56.9 Unspecified convulsions; F32.9 Major depressive disorder, single episode, unspecified; F17.210 Nicotine dependence, cigarettes, uncomplicated; Z79.899 Other long term (current) drug therapy; Z88.8 Allergy status to other drugs, medicaments and biological substances
CPT/HCPCS: 36415; 80053; 80307; 83690; 83735; 85025; 96361; 96374; 99284; A9270; J1170; J7030

== ENCOUNTER 2019-07-11 19:33 | Emergency (ER) | payer MEDICAID, OTHER ==
[2019-07-11 19:38] VITALS: BP 113/98; PULSE 90
[2019-07-11] MEDS ORDERED: Ondansetron 4 MG/2 ML SDV IVPUSH ONE (19:39)
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
[2019-07-11] MEDS ORDERED: Sodium Chloride 0.9% 1,000 ML IV SCH (19:45)
[2019-07-11 20:33] LABS: ACETAMINOPHEN 0 ug/mL (10-30)
[2019-07-11] MEDS ORDERED: cefTRIAXone 1 GM in Sodium Chloride 0.9% 100 ML IV ONE (21:30)
--- NOTE | 2019-07-12 10:48 | CR ---
Chest and left ribs: Frontal view of the chest was obtained as well as 3 views left ribs. Comparison: No prior chest or rib exam. Heart size is felt to be within normal limits for AP technique. Tortuous thoracic aorta is seen. Lungs are clear with no acute parenchymal change. Surgical clips are seen within the left upper abdomen. No discrete left-sided rib abnormality is appreciated. Nondisplaced fracture could be missed. Impression: 1. Findings as noted above. 2. Nothing acute is definitely appreciated. Diagnostic code #2 Study was dictated in MDT
== END 2019-07-12 02:02 | disposition home or self-care (01) ==
LOC: JD.ED 19:33
DX: S22.32XA Fracture of one rib, left side, initial encounter for closed fracture (principal); S20.212A Contusion of left front wall of thorax, initial encounter; E87.6 Hypokalemia; F10.220 Alcohol dependence with intoxication, uncomplicated; K85.20 Alcohol induced acute pancreatitis without necrosis or infection; K29.20 Alcoholic gastritis without bleeding; I10 Essential (primary) hypertension; G35 Multiple sclerosis; R56.9 Unspecified convulsions; F32.9 Major depressive disorder, single episode, unspecified; Z79.899 Other long term (current) drug therapy; Z88.8 Allergy status to other drugs, medicaments and biological substances; W22.8XXA Striking against or struck by other objects, initial encounter
CPT/HCPCS: 36415; 71101; 80053; 80306; 80307; 81001; 83690; 85025; 96361; 96365; 96375; 99284; J0696; J2405; J7030; J7050

== ENCOUNTER 2019-08-03 08:50 | Emergency (ER) | payer MEDICAID ==
[2019-08-03 08:54] VITALS: BP 145/103
[2019-08-03] MEDS ORDERED: Sodium Chloride 0.9% 10 ML Syringe FLUSH PRN (09:03)
[2019-08-03] MEDS ORDERED: Ondansetron 4 MG/2 ML SDV IVPUSH ONE (09:04)
[2019-08-03] MEDS ORDERED: Famotidine 20 MG/2 ML SDV IVPUSH ONE (09:04)
[2019-08-03] MEDS ORDERED: Sodium Chloride 0.9% 1,000 ML IV SCH ×2 (09:15→10:30)
[2019-08-03] MEDS ORDERED: HYDROmorphone 0.5 MG/0.5 ML Syringe IVPUSH ONE ×2 (09:22→12:03)
--- NOTE | 2019-08-03 09:23 | EDM.PDOC ---
ED HPI GENERAL MEDICAL PROBLEM - General Chief Complaint: Drug or Alcohol Abuse Stated Complaint: [facility] Time Seen by Provider: 08/03/19 08:59 Source of Information: Reports: Patient, EMS, RN Notes Reviewed - History of Present Illness INITIAL COMMENTS - FREE TEXT/NARRATIVE: 49 yr old female comes in with generalized abd pain that became worse last evening, had some vomiting last evening. Feels weak, lightheaded, dizzy. No chest pain, cough, fever or chills. Hx of chronic alcohol abuse, pancreatitis, last vodka ingestion several hrs ago. Abdomen Pain Score (Numeric/FACES): 9 - Related Data Allergies Allergy/AdvReac Type Severity Reaction Status Date / Time acyclovir Allergy Severe Other Verified 08/03/19 08:54 Home Meds: Home Meds Interferon Beta-1a [Avonex] 1 injection SQ FR 02/27/19 [History] QUEtiapine [SEROquel] 25 mg PO DAILY #7 tablet 03/01/19 [Rx] levETIRAcetam [Levetiracetam] 500 mg PO DAILY #14 tablet 03/01/19 [Rx] Metoprolol Succinate 200 mg PO DAILY 03/16/19 [History] Potassium Chloride 20 meq PO DAILY #30 tablet.er 04/07/19 [Rx] QUEtiapine [SEROquel] 200 mg PO BEDTIME 04/16/19 [History] Gabapentin [Neurontin] 300 mg PO TID 04/22/19 [History] Omeprazole 20 mg PO QAM 04/22/19 [History] hydrOXYzine pamoate [Hydroxyzine Pamoate] 50 mg PO BEDTIME 04/22/19 [History] DULoxetine [Cymbalta] 30 mg PO BEDTIME 07/10/19 [History] DULoxetine [Cymbalta] 60 mg PO DAILY 07/10/19 [History] LORazepam [Ativan] 1 mg PO DAILY #18 tablet 07/10/19 [Rx] Ondansetron [Zofran ODT] 4 mg PO Q6H PRN #20 tab.dis 07/10/19 [Rx] Past Medical History HEENT History: Reports: Impaired Vision Other HEENT History: cornea transplant L eye Cardiovascular History: Reports: Hypertension Other Cardiovascular History: heart murmur Respiratory History: Reports: None Gastrointestinal History: Reports: Pancreatitis Other Gastrointestinal History: collitis Genitourinary History: Reports: Urinary Incontinence Other Genitourinary History: straight caths at times from [place] [employer] History: Reports: Fibroids Musculoskeletal History: Reports: Arthritis, Fracture Other Musculoskeletal History: Neck and back- Neurological History: Reports: Migraines, MS, Seizure Psychiatric History: Reports: Addiction, Depression, Mood Swings, PTSD Hematologic History: Reports: Other (See Below) Other Hematologic History: Hep A and C Oncologic (Cancer) History: Reports: None - Infectious Disease History Infectious Disease History: Reports: Chicken Pox, Hepatitis A, Hepatitis C - Past Surgical History Head Surgeries/Procedures: Reports: None HEENT Surgical History: Reports: Eye Surgery, Oral Surgery, Tonsillectomy, Other (See Below) GI Surgical History: Reports: Appendectomy, Bariatric Procedure, Cholecystectomy , Hernia, Abdominal Female Surgical History: Reports: Breast Reduction, Section, Hysterectomy, Other (See Below) Musculoskeletal Surgical History: Reports: Other (See Below) Dermatological Surgical History: Reports: Plastic Surgical Reconstruction/Repair Social & Family History - Family History Family Medical History: Noncontributory Cardiac: Reports: Hypertension Neurological: Reports: MS Psychiatric: Reports: Anxiety, Depression Endocrine/Metabolic: Reports: Diabetes, type II Oncologic: Reports: Breast - Tobacco Use Smoking Status *Q: Current Every Day Smoker Years of Tobacco use: 25 Packs/Tins Daily: 0.2 - Caffeine Use Caffeine Use: Reports: Coffee Other Caffeine Use: 3/day - Recreational Drug Use Recreational Drug Use: No - Living Situation & Occupation Living situation: Reports: , with Significant Other (Boyfriend) Occupation: Unemployed ED ROS GENERAL - Review of Systems Review Of Systems: See Below Constitutional: Denies: Fever, Chills, Diaphoresis HEENT: Reports: Other (mouth feels dry). Denies: Throat Pain Respiratory: Denies: Shortness of Breath Cardiovascular: Denies: Chest Pain GI/Abdominal: Reports: Abdominal Pain, Nausea, Vomiting. Denies: Diarrhea Musculoskeletal: Reports: No Symptoms Skin: Reports: No Symptoms Neurological: Reports: Dizziness ED EXAM, GI/ABD - Physical Exam Exam: See Below General Appearance: Alert, Mild Distress Throat/Mouth: Other (oral mucosa dry) Head: Atraumatic Neck: Supple Respiratory/Chest: No Respiratory Distress, Lungs Clear, Normal Breath Sounds Cardiovascular: Tachycardia GI/Abdominal Exam: Tender (mild diffuse). No: Guarding, Rebound Extremities: Normal Inspection, Normal Range of Motion Neurological: Alert, Oriented, No Motor/Sensory Deficits Skin Exam: Warm, Dry, Normal Color Course - Vital Signs Last Recorded V/S: Last Vital Signs Temp 97.6 F 08/03/19 08:52 Pulse 112 H 08/03/19 08:52 Resp 16 08/03/19 08:52 BP 145/103 H 08/03/19 08:52 Pulse Ox 96 08/03/19 08:52 - Orders/Labs/Meds Orders: Active Orders 24 hr Category Date Time Status Peripheral IV Care [RC] . DIRECTED Care 08/03/19 09:03 Active DRUG SCREEN, URINE [URCHEM] Stat Lab 08/03/19 09:02 Ordered Dextrose 5%-Lactated Ringers 1,000 ml Med 08/03/19 11:30 Active IV ASDIRECTED Sodium Chloride 0.9% [Normal Saline] 1,000 ml Med 08/03/19 09:15 Active IV ONETIME Sodium Chloride 0.9% [Normal Saline] 1,000 ml Med 08/03/19 10:30 Active IV ONETIME Sodium Chloride 0.9% [Saline Flush] Med 08/03/19 09:03 Active 10 ml FLUSH ASDIRECTED PRN Peripheral IV Insertion Adult [OM.PC] Stat Oth 08/03/19 09:03 Ordered Medication Orders Sodium Chloride (Normal Saline) 1,000 mls @ 999 mls/hr IV ONETIME EDILIA Last Admin: 08/03/19 09:13 Dose: 999 mls/hr Sodium Chloride (Normal Saline) 1,000 mls @ 999 mls/hr IV ONETIME EDILIA Last Admin: 08/03/19 10:22 Dose: 999 mls/hr Dextrose/Lactated Ringer's (Dextrose 5%-Lactated Ringers) 1,000 mls @ 500 mls/ hr IV ASDIRECTED EDILIA Last Admin: 08/03/19 11:28 Dose: 500 mls/hr Sodium Chloride (Saline Flush) 10 ml FLUSH ASDIRECTED PRN PRN Reason: Keep Vein Open Last Admin: 08/03/19 09:14 Dose: 10 ml Labs: Laboratory Tests 08/03/19 08/03/19 Range/Units 09:10 09:10 WBC 9.87 (3.98-10.04) K/mm3 RBC 4.56 (3.98-5.22) M/mm3 Hgb 13.6 D (11.2-15.7) gm/dl Hct 41.3 (34.1-44.9) % MCV 90.6 (79.4-94.8) fl MCH 29.8 (25.6-32.2) pg MCHC 32.9 (32.2-35.5) g/dl RDW Std Deviation 50.4 H (36.4-46.3) fL Plt Count 417 H (182-369) K/mm3 MPV 8.8 L (9.4-12.3) fl Neut % (Auto) 68.9 (34.0-71.1) % Lymph % (Auto) 25.0 (19.3-51.7) % [place] % (Auto) 5.3 (4.7-12.5) % Eos % (Auto) 0.4 L (0.7-5.8) Baso % (Auto) 0.2 (0.1-1.2) % Neut # (Auto) 6.80 H (1.56-6.13) K/mm3 Lymph # (Auto) 2.47 (1.18-3.74) K/mm3 [place] # (Auto) 0.52 H (0.24-0.36) K/mm3 Eos # (Auto) 0.04 (0.04-0.36) K/mm3 Baso # (Auto) 0.02 (0.01-0.08) K/mm3 Sodium 140 (136-145) mEq/L Potassium 3.5 (3.5-5.1) mEq/L Chloride 102 (98-107) mEq/L Carbon Dioxide 22 (21-32) mEq/L Anion Gap 19.5 H (5-15) BUN 13 (7-18) mg/dL Creatinine 0.9 (0.55-1.02) mg/dL Est Cr Clr Drug Dosing 64.58 mL/min Estimated GFR (MDRD) > 60 (>60) mL/min BUN/Creatinine Ratio 14.4 (14-18) Glucose 106 (74-106) mg/dL Calcium 8.3 L (8.5-10.1) mg/dL Total Bilirubin 0.3 (0.2-1.0) mg/dL AST 153 H (15-37) U/L ALT 64 H (14-59) U/L Alkaline Phosphatase 167 H (46-116) U/L Total Protein 7.3 (6.4-8.2) g/dl Albumin 3.2 L (3.4-5.0) g/dl Globulin 4.1 gm/dL Albumin/Globulin Ratio 0.8 L (1-2) Lipase 884 H (73-393) U/L Ethyl Alcohol 0.23 (0.00) gm% Meds: Medications Generic Name Dose Route Start Last Admin Trade Name Freq PRN Reason Stop Dose Admin Sodium Chloride 1,000 mls @ 999 mls/hr 08/03/19 09:15 08/03/19 09:13 Normal Saline IV 999 mls/hr ONETIME EDILIA Administration Sodium Chloride 1,000 mls @ 999 mls/hr 08/03/19 10:30 08/03/19 10:22 Normal Saline IV 999 mls/hr ONETIME EDILIA Administration Dextrose/Lactated Ringer's 1,000 mls @ 500 mls/hr 08/03/19 11:30 08/03/19 11: 28 Dextrose 5%-Lactated Ringers IV 500 mls/hr ASDIRECTED EDILIA Administration Sodium Chloride 10 ml 08/03/19 09:03 08/03/19 09:14 Saline Flush FLUSH 10 ml ASDIRECTED PRN Administration Keep Vein Open Discontinued Medications Generic Name Dose Route Start Last Admin Trade Name Freq PRN Reason Stop Dose Admin Al Hydroxide/Mg Hydroxide 30 ml 08/03/19 10:18 08/03/19 10:22 Mag-Al Plus PO 08/03/19 10:19 30 ml ONETIME ONE Administration Famotidine 20 mg 08/03/19 09:04 08/03/19 09:14 Pepcid IVPUSH 08/03/19 09:05 20 mg ONETIME ONE Administration Hydromorphone HCl 0.5 mg 08/03/19 09:22 08/03/19 09:26 Dilaudid IVPUSH 08/03/19 09:23 0.5 mg ONETIME ONE Administration Hydromorphone HCl 0.5 mg 08/03/19 12:03 Dilaudid IVPUSH 08/03/19 12:04 ONETIME ONE Lorazepam 0.5 mg 08/03/19 12:03 Ativan IVPUSH 08/03/19 12:04 ONETIME ONE Ondansetron HCl 4 mg 08/03/19 09:04 08/03/19 09:13 Zofran IVPUSH 08/03/19 09:05 4 mg ONETIME ONE Administration Departure - Departure Time of Disposition: 12:40 Disposition: Home, Self-Care 01 Condition: Fair Clinical Impression: Alcohol intoxication Qualifiers: Complication of substance-induced condition: uncomplicated Qualified Code(s): F10.920 - Alcohol use, unspecified with intoxication, uncomplicated Pancreatitis, chronic Qualifiers: Pancreatitis type: alcohol induced Qualified Code(s): K86.0 - Alcohol-induced chronic pancreatitis - Discharge Information Additional Instructions: Try avoid further alcohol. You have been given IV fluids, multiple meds for pain, nausea, and anxiety. Follow up [facility] as needed. See a medical provider at our [facility] medical clinic in about 3 days for follow up or early next week. Call [phone] for appointment. Return to ED as needed if symptoms worsening in any way. Sepsis Event Note - Evaluation Sepsis Screening Result: No Definite Risk - Focused Exam Vital Signs: Vital Signs Temp Pulse Resp BP Pulse Ox 08/03/19 08:52 97.6 F 112 H 16 145/103 H 96 Date Exam was Performed: 08/03/19 Time Exam was Performed: 12:04 - My Orders Last 24 Hours: My Active Orders 08/03/19 09:02 DRUG SCREEN, URINE [URCHEM] Stat 08/03/19 09:03 Peripheral IV Care [RC] . DIRECTED Sodium Chloride 0.9% [Saline Flush] 10 ml FLUSH ASDIRECTED PRN Peripheral IV Insertion Adult [OM.PC] Stat 08/03/19 09:15 Sodium Chloride 0.9% [Normal Saline] 1,000 ml IV ONETIME 08/03/19 10:30 Sodium Chloride 0.9% [Normal Saline] 1,000 ml IV ONETIME 08/03/19 11:30 Dextrose 5%-Lactated Ringers 1,000 ml IV ASDIRECTED - Assessment/Plan Last 24 Hours: My Active Orders 08/03/19 09:02 DRUG SCREEN, URINE [URCHEM] Stat 08/03/19 09:03 Peripheral IV Care [RC] . DIRECTED Sodium Chloride 0.9% [Saline Flush] 10 ml FLUSH ASDIRECTED PRN Peripheral IV Insertion Adult [OM.PC] Stat 08/03/19 09:15 Sodium Chloride 0.9% [Normal Saline] 1,000 ml IV ONETIME 08/03/19 10:30 Sodium Chloride 0.9% [Normal Saline] 1,000 ml IV ONETIME 08/03/19 11:30 Dextrose 5%-Lactated Ringers 1,000 ml IV ASDIRECTED
[2019-08-03] MEDS ORDERED: Aluminum Hydroxide/Magnesium Hydroxide/Simethicone Susp 30 ML Cup PO ONE (10:18)
[2019-08-03] MEDS ORDERED: Dextrose 5%-Lactated Ringers 1,000 ML IV SCH (11:30)
[2019-08-03] MEDS ORDERED: LORazepam 2 MG/ML SDV IVPUSH ONE (12:03)
[2019-08-03 12:53] VITALS: PULSE 80
== END 2019-08-03 12:52 | disposition home or self-care (01) ==
LOC: JD.ED 08:50
DX: K86.0 Alcohol-induced chronic pancreatitis (principal); F10.120 Alcohol abuse with intoxication, uncomplicated; Y90.0 Blood alcohol level of less than 20 mg/100 ml; I10 Essential (primary) hypertension; M19.90 Unspecified osteoarthritis, unspecified site; F32.9 Major depressive disorder, single episode, unspecified; Z79.899 Other long term (current) drug therapy; F17.210 Nicotine dependence, cigarettes, uncomplicated; Z88.8 Allergy status to other drugs, medicaments and biological substances; G35 Multiple sclerosis
CPT/HCPCS: 36415; 80053; 80307; 83690; 85025; 96361; 96374; 96375; 96376; 99284; 99284-25; A9270-GY; J1170; J2060; J2405; J3490; J7030; J7121

== ENCOUNTER 2019-08-05 09:04 | Emergency (ER) | payer MEDICAID ==
[2019-08-05 09:10] VITALS: BP 140/114; PULSE 90
[2019-08-05] MEDS ORDERED: Metoclopramide 10 MG/2 ML SDV IVPUSH ONE (09:21)
[2019-08-05] MEDS ORDERED: diphenhydrAMINE 50 MG/ML SDV IVPUSH ONE (09:21)
[2019-08-05] MEDS ORDERED: LORazepam 2 MG/ML SDV IVPUSH ONE ×3 (09:22→13:34)
[2019-08-05] MEDS ORDERED: HYDROmorphone 0.5 MG/0.5 ML Syringe IVPUSH ONE ×3 (09:22→12:58)
--- NOTE | 2019-08-05 09:26 | EDM.PDOCBH ---
ED HPI GENERAL MEDICAL PROBLEM - General Chief Complaint: Drug or Alcohol Abuse Stated Complaint: [facility] Time Seen by Provider: 08/05/19 09:10 Source of Information: Reports: Patient, EMS History Limitations: Reports: No Limitations - History of Present Illness INITIAL COMMENTS - FREE TEXT/NARRATIVE: 49 year-old female presents to the ED with intractable nausea and vomiting after trying to slow down her alcohol consumption over the last 3 to 4 days. She has been drinking as much as 500 mils of vodka daily. She states she is down to 5 glasses but does not comment on hopeful the glasses or how many ounces this is. She last drank approximately 3 hours before coming to the ED. She is tremulous. She reports vomiting at least 5 times without any blood. She has no known history of cirrhosis of the liver or esophageal varices. She has not eaten for at least 5 days. She has been binge drinking. She has been in treatment in [place] in the past. She denies using any street drugs such as marijuana or ever using intravenous drugs. He has had a complete hysterectomy. Requesting help for alcohol withdrawal treatment. [place] ever having a seizure from alcohol withdrawal patient has had a history of pancreatitis in the past. Onset: Gradual Onset Date: 08/03/19 Duration: Day(s):, Getting Worse Location: Reports: Abdomen (Intractable nausea and vomiting with diffuse upper abdominal pain.) Quality: Reports: Ache, Burning, Other (To baseball) Severity: Moderate (taken this morning but she vomited up.) Improves with: Reports: None Worsens with: Reports: Eating Context: Reports: Other (Tonic alcohol abuse.). Denies: Activity, Exercise, Lifting, Sick Contact, Trauma Associated Symptoms: Reports: Headaches, Loss of Appetite, Malaise, Nausea/ Vomiting. Denies: No Other Symptoms, Confusion, Chest Pain, Cough, cough w sputum, Diaphoresis, Fever/Chills, Rash, Seizure, Shortness of Breath, Syncope, Weakness Treatments HAND UPPER AND BOTTOM LACER: Reports: Other (see below) Abdomen Pain Score (Numeric/FACES): 8 - Related Data Allergies Allergy/AdvReac Type Severity Reaction Status Date / Time acyclovir Allergy Severe Other Verified 08/05/19 09:12 Home Meds: Home Meds Interferon Beta-1a [Avonex] 1 injection SQ FR 02/27/19 [History] QUEtiapine [SEROquel] 25 mg PO DAILY #7 tablet 03/01/19 [Rx] levETIRAcetam [Levetiracetam] 500 mg PO DAILY #14 tablet 03/01/19 [Rx] Metoprolol Succinate 200 mg PO DAILY 03/16/19 [History] Potassium Chloride 20 meq PO DAILY #30 tablet.er 04/07/19 [Rx] QUEtiapine [SEROquel] 200 mg PO BEDTIME 04/16/19 [History] Gabapentin [Neurontin] 300 mg PO TID 04/22/19 [History] Omeprazole 20 mg PO QAM 04/22/19 [History] hydrOXYzine pamoate [Hydroxyzine Pamoate] 50 mg PO BEDTIME 04/22/19 [History] DULoxetine [Cymbalta] 30 mg PO BEDTIME 07/10/19 [History] DULoxetine [Cymbalta] 60 mg PO DAILY 07/10/19 [History] Ondansetron [Zofran ODT] 4 mg PO Q6H PRN #20 tab.dis 07/10/19 [Rx] LORazepam [Ativan] 1 mg PO ASDIRECTED #18 tablet 08/05/19 [Rx] Prochlorperazine Maleate [Compazine] 5 mg PO Q6H PRN #8 tablet 08/05/19 [Rx] oxyCODONE HCl [Roxicodone] 5 mg PO Q4H PRN #20 tablet 08/05/19 [Rx] Past Medical History HEENT History: Reports: Impaired Vision Other HEENT History: cornea transplant L eye Cardiovascular History: Reports: Hypertension Other Cardiovascular History: heart murmur Respiratory History: Reports: None Gastrointestinal History: Reports: Pancreatitis Other Gastrointestinal History: collitis Genitourinary History: Reports: Urinary Incontinence Other Genitourinary History: straight caths at times from MS PLATEN GRINDER History: Reports: Fibroids Musculoskeletal History: Reports: Arthritis, Fracture Other Musculoskeletal History: Neck and back- Neurological History: Reports: Migraines, MS, Seizure Psychiatric History: Reports: Addiction, Depression, Mood Swings, PTSD Hematologic History: Reports: Other (See Below) Other Hematologic History: Hep A and C Oncologic (Cancer) History: Reports: None - Infectious Disease History Infectious Disease History: Reports: Chicken Pox, Hepatitis A, Hepatitis C - Past Surgical History Head Surgeries/Procedures: Reports: None HEENT Surgical History: Reports: Eye Surgery, Oral Surgery, Tonsillectomy, Other (See Below) GI Surgical History: Reports: Appendectomy, Bariatric Procedure, Cholecystectomy , Hernia, Abdominal Female Surgical History: Reports: Breast Reduction, Section, Hysterectomy, Other (See Below) Musculoskeletal Surgical History: Reports: Other (See Below) Dermatological Surgical History: Reports: Plastic Surgical Reconstruction/Repair Social & Family History - Family History Family Medical History: Noncontributory Cardiac: Reports: Hypertension Neurological: Reports: MS Psychiatric: Reports: Anxiety, Depression Endocrine/Metabolic: Reports: Diabetes, type II Oncologic: Reports: Breast - Tobacco Use Smoking Status *Q: Current Every Day Smoker Years of Tobacco use: 20 Packs/Tins Daily: 0.1 - Caffeine Use Caffeine Use: Reports: Soda Other Caffeine Use: 3/day - Alcohol Use Days Per Week of Alcohol Use: 7 Number of Drinks Per Day: 5 Total Drinks Per Week: 35 - Recreational Drug Use Recreational Drug Use: No - Living Situation & Occupation Living situation: Reports: , with Significant Other (Boyfriend) Occupation: Unemployed ED ROS GENERAL - Review of Systems Review Of Systems: See Below Constitutional: Reports: Malaise, Weakness, Fatigue, Decreased Appetite, Weight Loss. Denies: Fever, Chills HEENT: Reports: No Symptoms Respiratory: Reports: Cough (Occasional cough. Smokes 5 cigarettes daily) Cardiovascular: Reports: No Symptoms Endocrine: Reports: Fatigue GI/Abdominal: Reports: Abdominal Pain (See history of present illness), Nausea, Vomiting (Active nausea and vomiting without any hematemesis.). Denies: Diarrhea : Reports: No Symptoms Musculoskeletal: Reports: Other (Fall with contusion to her right shoulder and right lateral head this morning) Skin: Reports: No Symptoms Neurological: Reports: Headache, Difficulty Walking (Due to mild ataxia.) Psychiatric: Reports: Depression Hematologic/Lymphatic: Reports: No Symptoms Immunologic: Reports: No Symptoms ED EXAM, BEHAVIORAL HEALTH - Physical Exam Exam: See Below Exam Limited By: No Limitations General Appearance: Alert, WD/WN, Moderate Distress, Other (Vital signs show temperature 36.9 with a heart rate of 90 respiratory 16 BP elevated 140/114 O2 sats 99% on room air.) Eye Exam: Bilateral Eye: Conjunctival Injection (Mild bilaterally. Part of this is from crying), Nystagmus (Lateral gaze sustained bilaterally), PERRL Ears: Normal TMs Nose: Normal Inspection Throat/Mouth: Other (And tongue is shriveled.) Head: Other (No outward signs of hematoma to the right jade-scalp. Pain over the right temporal scalp.) Neck: Normal Inspection, Supple, Non-Tender, Full Range of Motion. No: Lymphadenopathy (L), Lymphadenopathy (R) Respiratory/Chest: No Respiratory Distress, Lungs Clear, Normal Breath Sounds, No Accessory Muscle Use, Chest Non-Tender Cardiovascular: Normal Peripheral Pulses, Regular Rate, Rhythm, No Edema, No Gallop, No Murmur, No Rub GI/Abdominal: Normal Bowel Sounds, Soft, Tender (In the epigastrium and right upper quadrant of the abdomen along the costal margin.), Other (Total surgical scars. She has had total abdominal hysterectomy with retention of the ovaries. She has had a cholecystectomy and a bariatric procedure gastric bypass.). No : Distended Back Exam: Normal Inspection, Full Range of Motion, Other (Outward signs of trauma to the spine). No: CVA Tenderness (L), CVA Tenderness (R) Extremities: Normal Inspection, Normal Range of Motion, Non-Tender, Other Neurological: Alert (Tenderness on palpation over the deltoid muscles of the right shoulder), CN II-XII Intact (Parents have been anxious), Normal Cognition , Oriented x 3, Ataxia (Atlee ataxic on [id number] assessment.). No: Normal Mood/Affect, Normal Gait (Tested), Disoriented to Person, Disoriented to Place, Disoriented to Time, Inattentive, Memory Loss Remote Events, Memory Loss Recent Events Psychiatric: Alert, Normal Cognition, Oriented, Restless, Tearful. No: Normal Affect, Agitated, Disoriented, Inattentive, Non-Communicative, Poor Eye Contact , Uncooperative, Withdrawn, Flight of Ideas, Homicidal Thoughts, Phobic, Adventism Delusions, Suicidal Plan, Suicidal Thoughts, Tangential Thoughts, Auditory Hallucinations, Visual Hallucinations, Grandiose Thoughts, Pressured Speech, Paranoid Thoughts Skin Exam: Warm, Dry, Intact, Normal color, No rash EKG INTERPRETATION EKG Date: 08/05/19 Time: 09:28 Rhythm: Other Rate (Beats/Min): 106 Girard: Normal P-Wave: Enlarged (Sitter left atrial enlargement) QRS: LBBB (Minimal left axis deviation at -7 degrees) ST-T: Normal QT: Prolonged (TC is mildly prolonged) COURSE, BEHAVIORAL HEALTH COMP - Course Vital Signs: Last Vital Signs Temp 36.9 C 08/05/19 09:05 Pulse 90 08/05/19 09:05 Resp 16 08/05/19 09:05 BP 140/114 H 08/05/19 09:05 Pulse Ox 99 08/05/19 09:05 Orders, Labs, Meds: Active Orders 24 hr Category Date Time Status EKG Documentation Completion [RC] STAT Care 08/05/19 09:23 Active Oxygen Therapy [RC] ASDIRECTED Care 08/05/19 10:09 Active Laboratory Tests 08/05/19 08/05/19 08/05/19 Range/Units 09:10 09:10 09:10 WBC 5.80 (3.98-10.04) K/mm3 RBC 4.95 (3.98-5.22) M/mm3 Hgb 14.6 (11.2-15.7) gm/dl Hct 44.0 (34.1-44.9) % MCV 88.9 (79.4-94.8) fl MCH 29.5 (25.6-32.2) pg MCHC 33.2 (32.2-35.5) g/dl RDW Std Deviation 48.8 H (36.4-46.3) fL Plt Count 377 H (182-369) K/mm3 MPV 9.2 L (9.4-12.3) fl Neut % (Auto) 50.1 (34.0-71.1) % Lymph % (Auto) 41.0 (19.3-51.7) % Woods % (Auto) 8.3 (4.7-12.5) % Eos % (Auto) 0.2 L (0.7-5.8) Baso % (Auto) 0.2 (0.1-1.2) % Neut # (Auto) 2.91 (1.56-6.13) K/mm3 Lymph # (Auto) 2.38 (1.18-3.74) K/mm3 Woods # (Auto) 0.48 H (0.24-0.36) K/mm3 Eos # (Auto) 0.01 L (0.04-0.36) K/mm3 Baso # (Auto) 0.01 (0.01-0.08) K/mm3 PT 11.2 (9.7-12.0) SECONDS INR 1.03 APTT 24 (22-31) SECONDS Sodium 135 L (136-145) mEq/L Potassium 3.0 L (3.5-5.1) mEq/L Chloride 98 (98-107) mEq/L Carbon Dioxide 28 (21-32) mEq/L Anion Gap 12.0 (5-15) BUN 5 L (7-18) mg/dL Creatinine 0.9 (0.55-1.02) mg/dL Est Cr Clr Drug Dosing 64.58 mL/min Estimated GFR (MDRD) > 60 (>60) mL/min BUN/Creatinine Ratio 5.6 L (14-18) Glucose 114 H (74-106) mg/dL Lactic Acid (0.4-2.0) mmol/L Calcium 9.4 (8.5-10.1) mg/dL Magnesium 1.6 L (1.8-2.4) mg/dl Total Bilirubin 0.4 (0.2-1.0) mg/dL AST 182 H (15-37) U/L ALT 91 H (14-59) U/L Alkaline Phosphatase 253 H (46-116) U/L Troponin I < 0.017 (0.00-0.056) ng/mL Total Protein 7.9 (6.4-8.2) g/dl Albumin 3.5 (3.4-5.0) g/dl Globulin 4.4 gm/dL Albumin/Globulin Ratio 0.8 L (1-2) Lipase 1121 H (73-393) U/L Ethyl Alcohol 0.20 (0.00) gm% 08/05/19 Range/Units 09:48 WBC (3.98-10.04) K/mm3 RBC (3.98-5.22) M/mm3 Hgb (11.2-15.7) gm/dl Hct (34.1-44.9) % MCV (79.4-94.8) fl MCH (25.6-32.2) pg MCHC (32.2-35.5) g/dl RDW Std Deviation (36.4-46.3) fL Plt Count (182-369) K/mm3 MPV (9.4-12.3) fl Neut % (Auto) (34.0-71.1) % Lymph % (Auto) (19.3-51.7) % Woods % (Auto) (4.7-12.5) % Eos % (Auto) (0.7-5.8) Baso % (Auto) (0.1-1.2) % Neut # (Auto) (1.56-6.13) K/mm3 Lymph # (Auto) (1.18-3.74) K/mm3 Woods # (Auto) (0.24-0.36) K/mm3 Eos # (Auto) (0.04-0.36) K/mm3 Baso # (Auto) (0.01-0.08) K/mm3 PT (9.7-12.0) SECONDS INR APTT (22-31) SECONDS Sodium (136-145) mEq/L Potassium (3.5-5.1) mEq/L Chloride (98-107) mEq/L Carbon Dioxide (21-32) mEq/L Anion Gap (5-15) BUN (7-18) mg/dL Creatinine (0.55-1.02) mg/dL Est Cr Clr Drug Dosing mL/min Estimated GFR (MDRD) (>60) mL/min BUN/Creatinine Ratio (14-18) Glucose (74-106) mg/dL Lactic Acid 3.3 H* (0.4-2.0) mmol/L Calcium (8.5-10.1) mg/dL Magnesium (1.8-2.4) mg/dl Total Bilirubin (0.2-1.0) mg/dL AST (15-37) U/L ALT (14-59) U/L Alkaline Phosphatase (46-116) U/L Troponin I (0.00-0.056) ng/mL Total Protein (6.4-8.2) g/dl Albumin (3.4-5.0) g/dl Globulin gm/dL Albumin/Globulin Ratio (1-2) Lipase (73-393) U/L Ethyl Alcohol (0.00) gm% Medications Discontinued Medications Generic Name Dose Route Start Last Admin Trade Name Freq PRN Reason Stop Dose Admin Diphenhydramine HCl 25 mg 08/05/19 09:21 08/05/19 09:32 Benadryl IVPUSH 08/05/19 09:22 25 mg ONETIME ONE Administration Hydromorphone HCl 0.5 mg 08/05/19 09:22 08/05/19 09:32 Dilaudid IVPUSH 08/05/19 09:23 0.5 mg ONETIME ONE Administration Hydromorphone HCl 0.5 mg 08/05/19 11:23 08/05/19 11:27 Dilaudid IVPUSH 08/05/19 11:24 0.5 mg ONETIME ONE Administration Hydromorphone HCl 0.5 mg 08/05/19 12:58 08/05/19 13:38 Dilaudid IVPUSH 08/05/19 12:59 0.5 mg ONETIME ONE Administration Dextrose/Sodium Chloride 1,000 mls @ 999 mls/hr 08/05/19 09:30 08/05/19 10:34 Dextrose 5%-Normal Saline IV 999 mls/hr ASDIRECTED EDILIA Administration Potassium Chloride 10 meq/ 100 mls @ 100 mls/hr 08/05/19 10:30 08/05/19 12:35 Premix IV 08/07/19 11:29 100 mls/hr ASDIRECTED EDILIA Administration Lorazepam 1 mg 08/05/19 09:22 08/05/19 09:33 Ativan IVPUSH 08/05/19 09:23 1 mg ONETIME ONE Administration Lorazepam 1 mg 08/05/19 12:38 08/05/19 12:43 Ativan IVPUSH 08/05/19 12:39 1 mg ONETIME ONE Administration Lorazepam 1 mg 08/05/19 13:34 08/05/19 13:42 Ativan IVPUSH 08/05/19 13:35 1 mg ONETIME ONE Administration Metoclopramide HCl 10 mg 08/05/19 09:21 08/05/19 09:32 Reglan IVPUSH 08/05/19 09:22 10 mg ONETIME ONE Administration Re-Assessment/Re-Exam: 49-year-old female presents to the ED after a 5-day history of binge alcohol use primarily that of vodka. Trying to cut down the last few days and has experienced intractable nausea and vomiting and tremors. She found herself lying on the kitchen floor this morning and cannot remember the details of how she got there. Complains of pain right temporal scalp with no palpable hematoma. Mild contusion to her right shoulder. He have lost consciousness for period of time. Strength was approximately 3-1/2 hours ago. And 5 glasses of alcohol yesterday. Plan IV D5 normal saline at open. She is volume depleted. Routine labs including lactic acid and serum ketones to be obtained as well as a blood alcohol and a lipase and a magnesium. Coags as well. Even Reglan 10 mg IV with Benadryl 25 mg IV and Ativan 1 mg IV and Dilaudid 0.5 mg IV for abdominal pain that she may well have pancreatitis. Re-Assessment/Re-Exam Date: 08/05/19 (Labs reveal a normal white count at 5.80 with a normal auto differential at 50% neutrophils. Hemoglobin is 14.6 with hematocrit of 44.0. Platelet count 377,000. I.e. no evidence of bone marrow toxicity from alcoholism. PT is 11.2 with an INR of 1.03 PTT is 24. Sodium 135 with a potassium low at 3.0. Chloride 98 with a bicarb of 28. Anion gap is 12.0 BUN is 5 with a creatinine of 0.9. GFR is greater than 60. Glucose is 114 with a calcium of 9.4 magnesium minimally low at 1.6. Bilirubin 0.4 AST 182 ALT 91 alk phosphatase elevated at 253. Troponin I is less than 0.017. Total protein 7.9 with an albumin fraction of 3.5 lipase is elevated at 1121. Blood alcohol is currently 0.20 g%. Of the head is also within normal limits showing no evidence of intracranial hemorrhage or mass-effect or skull fracture. Will be started on a K rider.) Re-Assessment/Re-Exam Time: 10:21 (Patient states that she is feeling much improved with much less burning in her epigastrium and esophagus. Abdominal pain is controllable. She has a low-grade pancreatitis. Case will be discussed with on-call hospitalist with a view to admission to the hospital. It is my understanding that she was admitted 2 days ago but left AMA.Lactic acid has returned elevated at 3.3 serum ketones are not yet back. Portable chest x-ray is within normal limits showing no pulmonary infiltrates and normal cardiac silhouette.) Medical Clearance: 08/05/19 11:35 the case with on-call hospitalist and she does not feel that repeat current hospitalization is the answer to this lady's problems. On review she has a chronically elevated lipase from chronic alcohol use likely. She does not wish to go back into outpatient treatment program at this time. She prefers to try things at home. She will therefore be given rocks the Cordarone 5 mg tablet 1 or 2 every 6 hours as needed for pain relief from pancreatitis for 2 days. Ativan 1 mg every 6 hours for 2 days then once every 8 hours for 2 days then once every 12 hours for 2 days and off. Will also be given oral Compazine 5 mg to be taken every 6 hours as necessary for nausea relief. She will stick to a clear fluid diet until her abdominal pain resolves. 08/05/19 13:00: She did receive a further dose of Dilaudid 0.5 mg IV for pain relief an hour ago. She has developed a sinus tachycardia in the 130s presumably due to pain response. Ativan 1 mg given IV did not seem to help with the pain or the tachycardia. Therefore Dilaudid 0.5 mg IV repeated. Plan is to discharge her to home on oral narcotics for 2 days. Departure - Departure Time of Disposition: 13:55 Disposition: Home, Self-Care 01 Condition: Fair Clinical Impression: Hypokalemia due to inadequate potassium intake Alcohol dependency Qualifiers: Substance use status: in withdrawal Complication of substance-induced condition : uncomplicated Qualified Code(s): F10.230 - Alcohol dependence with withdrawal , uncomplicated Pancreatitis, alcoholic, acute Qualifiers: Acute pancreatitis complication: no infection or necrosis Qualified Code(s): K85.20 - Alcohol induced acute pancreatitis without necrosis or infection - Discharge Information *PRESCRIPTION DRUG MONITORING PROGRAM REVIEWED*: Not Applicable *COPY OF PRESCRIPTION DRUG MONITORING REPORT IN PATIENT JAKOB: Not Applicable Prescriptions: LORazepam [Ativan] 1 mg PO ASDIRECTED #18 tablet oxyCODONE HCl [Roxicodone] 5 mg PO Q4H PRN #20 tablet PRN Reason: PANCREATITIS Prochlorperazine Maleate [Compazine] 5 mg PO Q6H PRN #8 tablet PRN Reason: Nausea and vomiting Instructions: Alcohol Use Disorder, Pancreatitis Eating Plan, Potassium Content of Foods Referrals: PCP,None [Primary Care Provider] - Additional Instructions: Evaluation in the emergency room today in regards to chronic alcohol use with development of mild pancreatitis and low serum potassium level from not being able to eat. Magnesium level was also found to be slightly low. Tractable nausea and vomiting secondary to gastritis and pancreatitis. Treated in the ER with 2 L of IV fluid to correct metabolic acidosis. Dilaudid IV 0.5 mg 2 doses for pain relief with Reglan IV for nausea relief and Ativan for treatment of early alcohol withdrawal symptoms. Treatment at home is to b clear fluids such as Gatorade or Powerade and soup broths until abdominal pain settles. Must avoid alcohol at all cost. Please follow-up with [facility] on this regard. Compazine 5 mg every 6 hours as needed for nausea relief for the next couple of days. Ativan 1 mg every 6 hours for the next 2 days with the next tablet being due at 1:00 today. Then may use it every 8 hours for 2 days and every 12 hours for 2 more days to get through the worst of the alcohol withdrawal which will prevent seizures etc. This should also allow you to eat. Use Roxicodone 5 mg tablet every 4 hours as needed for relief of abdominal pain secondary to pancreatitis. Is following up with personal care physician or returning to the ED if not markedly improved within the next 48 hours. Sepsis Event Note - Evaluation Sepsis Screening Result: No Definite Risk - Focused Exam Vital Signs: Vital Signs Temp Pulse Resp BP Pulse Ox 08/05/19 09:05 36.9 C 90 16 140/114 H 99 Date Exam was Performed: 08/05/19 Time Exam was Performed: 16:49 - My Orders Last 24 Hours: My Active Orders 08/05/19 09:23 EKG Documentation Completion [RC] STAT 08/05/19 10:09 Oxygen Therapy [RC] ASDIRECTED - Assessment/Plan Last 24 Hours: My Active Orders 08/05/19 09:23 EKG Documentation Completion [RC] STAT 08/05/19 10:09 Oxygen Therapy [RC] ASDIRECTED
[2019-08-05] MEDS: Dextrose 5%-0.9% NaCl 1,000 ML IV SCH ×2 (09:30→10:34)
--- NOTE | 2019-08-05 10:11 | CT ---
Head CT Technique: Multiple axial sections through the brain were obtained. Intravenous contrast was not utilized. Comparison: No prior intracranial imaging is available. Findings: Ventricles along with basal cisterns and sulci over the convexities are mildly prominent. No abnormal parenchymal densities are seen. No evidence of intracranial hemorrhage. No midline shift or mass-effect is seen. Bone window settings were reviewed. No acute calvarial abnormality is appreciated. Visualized mastoid sinuses and paranasal sinuses show nothing acute. Impression: 1. Mild generalized atrophy. 2. No acute intracranial abnormality is appreciated. Diagnostic code #2 This report was dictated in MDT
[2019-08-05] MEDS: Potassium Chloride 10 MEQ in Premix Bag 1 BAG IV SCH ×3 (10:38→12:35)
--- NOTE | 2019-08-05 13:38 | CR ---
Chest: Portable view of the chest was obtained. Comparison: No prior chest x-ray is available. Heart size and mediastinum are normal. Lungs are clear with no acute parenchymal change. Bony structures are grossly intact. Surgical clips are seen within the upper abdomen. Impression: 1. Nothing acute is seen on portable chest x-ray. Diagnostic code #1 This report was dictated in MDT
== END 2019-08-05 14:06 | disposition home or self-care (01) ==
LOC: JD.ED 09:04
DX: K85.20 Alcohol induced acute pancreatitis without necrosis or infection (principal); E87.6 Hypokalemia; F10.230 Alcohol dependence with withdrawal, uncomplicated; I10 Essential (primary) hypertension; F32.9 Major depressive disorder, single episode, unspecified; F43.10 Post-traumatic stress disorder, unspecified; F17.210 Nicotine dependence, cigarettes, uncomplicated; Z88.8 Allergy status to other drugs, medicaments and biological substances; Z79.899 Other long term (current) drug therapy; Z90.49 Acquired absence of other specified parts of digestive tract; Z98.890 Other specified postprocedural states; Z90.710 Acquired absence of both cervix and uterus
CPT/HCPCS: 36415; 70450; 70450-26; 71045; 71045-26; 80053; 80307; 83605; 83690; 83735; 84484; 85025; 85610; 85730; 93005; 96361; 96365; 96366; 96375; 96376; 99285-25; J1170; J1200; J2060; J2765; J3480; J7042

== ENCOUNTER 2019-08-09 13:44 | Emergency (ER) | payer MEDICAID ==
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
[2019-08-09] MEDS ORDERED: Lactated Ringers 1,000 ML IV ONE (14:21)
[2019-08-09] MEDS ORDERED: Ondansetron 4 MG/2 ML SDV IVPUSH ONE (14:21)
[2019-08-09] MEDS ORDERED: Lactated Ringers 1,000 ML IV SCH (14:30)
--- NOTE | 2019-08-09 15:03 | CR ---
Chest: Portable view of the chest was obtained. Comparison: Prior chest x-ray of 08/05/19. Heart size is normal. Tortuous thoracic aorta is seen. Lungs are clear with no acute parenchymal change. Bony structures are grossly intact. Surgical clips are seen within the upper abdomen. Impression: 1. Nothing acute is appreciated on portable chest x-ray. Diagnostic code #2 This report was dictated in MDT
--- NOTE | 2019-08-09 15:17 | CT ---
Head CT Technique: Multiple axial sections through the brain were obtained. Intravenous contrast was not utilized. Comparison: Previous head CT study of 08/05/19. Findings: Ventricles along with basal cisterns and sulci are over the convexities are mildly prominent. No abnormal parenchymal densities are seen. No evidence of intracranial hemorrhage. No midline shift or mass-effect is seen. Bone window settings were reviewed. Visualized paranasal sinuses and mastoid sinuses show nothing acute. No acute calvarial abnormality is appreciated. Impression: 1. Mild generalized atrophy. 2. No acute intracranial abnormality is appreciated. No appreciable change is seen from previous head CT exam. Diagnostic code #2 This report was dictated in MDT
[2019-08-09 15:33] VITALS: BP 129/90; PULSE 110
[2019-08-09] MEDS ORDERED: HYDROmorphone 0.5 MG/0.5 ML Syringe IVPUSH ONE ×2 (16:33→17:23)
== END 2019-08-09 18:32 | disposition home or self-care (01) ==
LOC: JD.ED 13:44
DX: K86.0 Alcohol-induced chronic pancreatitis (principal); F10.120 Alcohol abuse with intoxication, uncomplicated; I10 Essential (primary) hypertension; G43.909 Migraine, unspecified, not intractable, without status migrainosus; F32.9 Major depressive disorder, single episode, unspecified; F43.10 Post-traumatic stress disorder, unspecified; Z88.8 Allergy status to other drugs, medicaments and biological substances; Z79.899 Other long term (current) drug therapy
CPT/HCPCS: 36415; 70450; 71045; 80053; 80306; 80307; 81001; 83690; 83735; 85025; 85610; 87086; 87088; 87186; 96374; 96375; 96376; 99285; J1170; J2405; J7120; 99284

== ENCOUNTER 2019-08-22 11:33 | Emergency (ER) | payer MEDICAID ==
[2019-08-22 11:52] VITALS: BP 125/95; PULSE 96
[2019-08-22] MEDS ORDERED: HYDROmorphone 0.5 MG/0.5 ML Syringe IVPUSH ONE ×2 (12:04→13:12)
[2019-08-22] MEDS ORDERED: Ondansetron 4 MG/2 ML SDV IVPUSH ONE ×2 (12:04→13:50)
[2019-08-22] MEDS ORDERED: Sodium Chloride 0.9% 10 ML Syringe FLUSH PRN (12:04)
--- NOTE | 2019-08-22 12:12 | EDM.PDOC ---
ED HPI GENERAL MEDICAL PROBLEM - General Chief Complaint: Drug or Alcohol Abuse Stated Complaint: [facility] Time Seen by Provider: 08/22/19 11:38 Source of Information: Reports: Patient History Limitations: Reports: No Limitations - History of Present Illness INITIAL COMMENTS - FREE TEXT/NARRATIVE: Patient is a 49-year-old female who presents to the emergency department with complaints of lower abdominal pain and wanting to quit drinking. She is a chronic alcoholic with a history of chronic pancreatitis. Patient states that she has been drinking half of a 0.75 L of vodka per day for the last 5 days. Yesterday she had developed lower abdominal pain. She states today that she had a bowel movement and there was danitza red blood in the stool which she feels is likely related to hemorrhoids. She has also been vomiting. Denies hematemesis. She has a history of appendectomy and cholecystectomy. She states her last drink was around 2:00 this morning. She does not have a history of seizures with alcohol withdrawal. She did undergo treatment "a long time ago "and maintain sobriety for 6 years but relapsed. She is set up to do day treatment through [facility], however she does not like the new online platform they are using due to the COVID pandemic and has not been active in her treatment. Patient is well-known to this emergency department and has been admitted in the past for her chronic pancreatitis only to leave [facility]. Middle Abdomen Pain Score (Numeric/FACES): 8 - Related Data Allergies Allergy/AdvReac Type Severity Reaction Status Date / Time acyclovir Allergy Severe Other Verified 08/22/19 11:40 Home Meds: Home Meds Interferon Beta-1a [Avonex] 1 injection SQ FR 02/27/19 [History] QUEtiapine [SEROquel] 25 mg PO DAILY #7 tablet 03/01/19 [Rx] levETIRAcetam [Levetiracetam] 500 mg PO DAILY #14 tablet 03/01/19 [Rx] Metoprolol Succinate 200 mg PO DAILY 03/16/19 [History] Potassium Chloride 20 meq PO DAILY #30 tablet.er 04/07/19 [Rx] QUEtiapine [SEROquel] 200 mg PO BEDTIME 04/16/19 [History] Gabapentin [Neurontin] 300 mg PO TID 04/22/19 [History] Omeprazole 20 mg PO QAM 04/22/19 [History] hydrOXYzine pamoate [Hydroxyzine Pamoate] 50 mg PO BEDTIME 04/22/19 [History] DULoxetine [Cymbalta] 30 mg PO BEDTIME 07/10/19 [History] DULoxetine [Cymbalta] 60 mg PO DAILY 07/10/19 [History] LORazepam [Ativan] 1 mg PO ASDIRECTED #18 tablet 08/22/19 [Rx] Ondansetron [Zofran ODT] 4 mg PO Q6H PRN #10 tab.dis 08/22/19 [Rx] Past Medical History HEENT History: Reports: Impaired Vision Other HEENT History: cornea transplant L eye Cardiovascular History: Reports: Hypertension Other Cardiovascular History: heart murmur Respiratory History: Reports: None Gastrointestinal History: Reports: Pancreatitis Other Gastrointestinal History: collitis Genitourinary History: Reports: Urinary Incontinence Other Genitourinary History: straight caths at times from [place] [employer] History: Reports: Fibroids Musculoskeletal History: Reports: Arthritis, Fracture Other Musculoskeletal History: Neck and back- Neurological History: Reports: Migraines, MS, Seizure Psychiatric History: Reports: Addiction, Depression, Mood Swings, PTSD Hematologic History: Reports: Other (See Below) Other Hematologic History: Hep A and C Oncologic (Cancer) History: Reports: None - Infectious Disease History Infectious Disease History: Reports: Chicken Pox, Hepatitis A, Hepatitis C - Past Surgical History Head Surgeries/Procedures: Reports: None HEENT Surgical History: Reports: Eye Surgery, Oral Surgery, Tonsillectomy, Other (See Below) GI Surgical History: Reports: Appendectomy, Bariatric Procedure, Cholecystectomy , Hernia, Abdominal Female Surgical History: Reports: Breast Reduction, Section, Hysterectomy, Other (See Below) Musculoskeletal Surgical History: Reports: Other (See Below) Dermatological Surgical History: Reports: Plastic Surgical Reconstruction/Repair Social & Family History - Family History Family Medical History: Noncontributory Cardiac: Reports: Hypertension Neurological: Reports: MS Psychiatric: Reports: Anxiety, Depression Endocrine/Metabolic: Reports: Diabetes, type II Oncologic: Reports: Breast - Tobacco Use Smoking Status *Q: Current Every Day Smoker Years of Tobacco use: 20 Packs/Tins Daily: 0.2 - Caffeine Use Caffeine Use: Reports: None Other Caffeine Use: 3/day - Alcohol Use Days Per Week of Alcohol Use: 7 Number of Drinks Per Day: 7 Total Drinks Per Week: 49 - Recreational Drug Use Recreational Drug Use: No - Living Situation & Occupation Living situation: Reports: , with Significant Other (Boyfriend) Occupation: Unemployed ED ROS GENERAL - Review of Systems Review Of Systems: Comprehensive ROS is negative, except as noted in HPI. ED EXAM, GENERAL - Physical Exam Exam: See Below Exam Limited By: No Limitations General Appearance: Alert, WD/WN, No Apparent Distress Respiratory/Chest: No Respiratory Distress, Lungs Clear, Normal Breath Sounds, No Accessory Muscle Use, Chest Non-Tender Cardiovascular: Normal Peripheral Pulses, Regular Rate, Rhythm, No Edema, No Gallop, No JVD, No Murmur, No Rub GI/Abdominal: Normal Bowel Sounds, Soft, No Organomegaly, No Distention, No Abnormal Bruit, No Mass, Tender (Right lower and left lower quadrant) Rectal (Female) Exam: Normal Exam, Normal Rectal Tone, Heme - Stool. No: Black Stool, Bloody Stool, Hemorrhoids, Rectal Fissure Neurological: Alert, Oriented, CN II-XII Intact, Normal Cognition, Normal Gait, Normal Reflexes, No Motor/Sensory Deficits Psychiatric: Normal Affect, Tearful Skin Exam: Warm, Dry, Intact, Normal Color, No Rash Course - Vital Signs Last Recorded V/S: Last Vital Signs Temp 97.5 F 08/22/19 11:44 Pulse 96 08/22/19 11:44 Resp 16 08/22/19 11:44 BP 125/95 H 08/22/19 11:44 Pulse Ox 97 08/22/19 11:44 - Orders/Labs/Meds Orders: Active Orders 24 hr Category Date Time Status Peripheral IV Care [RC] . DIRECTED Care 08/22/19 12:04 Active CULTURE URINE [RM] Stat Lab 08/22/19 12:15 Received Peripheral IV Insertion Adult [OM.PC] Stat Oth 08/22/19 12:04 Ordered Labs: Laboratory Tests 08/22/19 08/22/19 08/22/19 Range/Units 12:17 12:17 12:25 WBC 7.57 (3.98-10.04) K/mm3 RBC 4.67 (3.98-5.22) M/mm3 Hgb 14.0 D (11.2-15.7) gm/dl Hct 43.3 (34.1-44.9) % MCV 92.7 (79.4-94.8) fl MCH 30.0 (25.6-32.2) pg MCHC 32.3 (32.2-35.5) g/dl RDW Std Deviation 58.6 H (36.4-46.3) fL Plt Count 651 H D (182-369) K/mm3 MPV 9.3 L (9.4-12.3) fl Neut % (Auto) 59.2 (34.0-71.1) % Lymph % (Auto) 34.1 (19.3-51.7) % Cataño % (Auto) 5.2 (4.7-12.5) % Eos % (Auto) 0.9 (0.7-5.8) Baso % (Auto) 0.5 (0.1-1.2) % Neut # (Auto) 4.48 (1.56-6.13) K/mm3 Lymph # (Auto) 2.58 (1.18-3.74) K/mm3 Cata[place] # (Auto) 0.39 H (0.24-0.36) K/mm3 Eos # (Auto) 0.07 (0.04-0.36) K/mm3 Baso # (Auto) 0.04 (0.01-0.08) K/mm3 Manual Slide Review Abnormal smear Sodium (136-145) mEq/L Potassium (3.5-5.1) mEq/L Chloride (98-107) mEq/L Carbon Dioxide (21-32) mEq/L Anion Gap (5-15) BUN (7-18) mg/dL Creatinine (0.55-1.02) mg/dL Est Cr Clr Drug Dosing mL/min Estimated GFR (MDRD) (>60) mL/min BUN/Creatinine Ratio (14-18) Glucose (74-106) mg/dL Calcium (8.5-10.1) mg/dL Total Bilirubin (0.2-1.0) mg/dL AST (15-37) U/L ALT (14-59) U/L Alkaline Phosphatase (46-116) U/L C-Reactive Protein (<1.0) mg/dL Total Protein (6.4-8.2) g/dl Albumin (3.4-5.0) g/dl Globulin gm/dL Albumin/Globulin Ratio (1-2) Lipase (73-393) U/L Urine Color Yellow (Yellow) Urine Appearance Clear (Clear) Urine pH 6.5 (5.0-8.0) Ur Specific Bruce 1.020 (1.005-1.030) Urine Protein Negative (Negative) Urine Glucose (UA) Negative (Negative) Urine Ketones Negative (Negative) Urine Occult Blood Trace-intact H (Negative) Urine Nitrite Negative (Negative) Urine Bilirubin Negative (Negative) Urine Urobilinogen 0.2 (0.2-1.0) Ur Leukocyte Esterase 1+ H (Negative) Urine RBC 0-5 (0-5) /hpf Urine WBC 10-20 H (0-5) /hpf Ur Squamous Epith Cells 10-20 H (0-5) /hpf Urine Bacteria Moderate H (FEW) /hpf Urine Mucus Few (FEW) /hpf Urine Opiates Screen Negative (ILEHFB=194) Ur Buprenorphine Scrn Negative (CUTOFF=10) Ur Oxycodone Screen Negative (ASQ4TM=845) Urine Methadone Screen Negative (UXMQRS=016) Ur Propoxyphene Screen Negative (LYRWTK=179) Ur Barbiturates Screen Negative (LDDNOS=804) Ur Tricyclics Screen Negative (TIFWPQ=976) Ur Phencyclidine Scrn Negative (CUTOFF=25) Ur Amphetamine Screen Presumptive positive H (OFJOSF=355) U Methamphetamines Scrn Presumptive positive H (CQCQFL=854) U Benzodiazepines Scrn Negative (WXXTUU=821) U Cocaine Metab Screen Negative (DKZWZF=488) U Marijuana (THC) Screen Negative (CUTOFF=50) Ethyl Alcohol (0.00) gm% 08/22/19 Range/Units 12:25 WBC (3.98-10.04) K/mm3 RBC (3.98-5.22) M/mm3 Hgb (11.2-15.7) gm/dl Hct (34.1-44.9) % MCV (79.4-94.8) fl MCH (25.6-32.2) pg MCHC (32.2-35.5) g/dl RDW Std Deviation (36.4-46.3) fL Plt Count (182-369) K/mm3 MPV (9.4-12.3) fl Neut % (Auto) (34.0-71.1) % Lymph % (Auto) (19.3-51.7) % Cata[place] % (Auto) (4.7-12.5) % Eos % (Auto) (0.7-5.8) Baso % (Auto) (0.1-1.2) % Neut # (Auto) (1.56-6.13) K/mm3 Lymph # (Auto) (1.18-3.74) K/mm3 [place]ata[place] # (Auto) (0.24-0.36) K/mm3 Eos # (Auto) (0.04-0.36) K/mm3 Baso # (Auto) (0.01-0.08) K/mm3 Manual Slide Review Sodium 141 (136-145) mEq/L Potassium 3.9 (3.5-5.1) mEq/L Chloride 106 (98-107) mEq/L Carbon Dioxide 21 (21-32) mEq/L Anion Gap 17.9 H (5-15) BUN 9 (7-18) mg/dL Creatinine 1.1 H (0.55-1.02) mg/dL Est Cr Clr Drug Dosing 52.84 mL/min Estimated GFR (MDRD) 53 (>60) mL/min BUN/Creatinine Ratio 8.2 L (14-18) Glucose 112 H (74-106) mg/dL Calcium 8.7 (8.5-10.1) mg/dL Total Bilirubin 0.3 (0.2-1.0) mg/dL AST 227 H (15-37) U/L ALT 103 H (14-59) U/L Alkaline Phosphatase 186 H (46-116) U/L C-Reactive Protein <0.2 (<1.0) mg/dL Total Protein 7.9 (6.4-8.2) g/dl Albumin 3.5 (3.4-5.0) g/dl Globulin 4.4 gm/dL Albumin/Globulin Ratio 0.8 L (1-2) Lipase 799 H (73-393) U/L Urine Color (Yellow) Urine Appearance (Clear) Urine pH (5.0-8.0) Ur Specific Bruce (1.005-1.030) Urine Protein (Negative) Urine Glucose (UA) (Negative) Urine Ketones (Negative) Urine Occult Blood (Negative) Urine Nitrite (Negative) Urine Bilirubin (Negative) Urine Urobilinogen (0.2-1.0) Ur Leukocyte Esterase (Negative) Urine RBC (0-5) /hpf Urine WBC (0-5) /hpf Ur Squamous Epith Cells (0-5) /hpf Urine Bacteria (FEW) /hpf Urine Mucus (FEW) /hpf Urine Opiates Screen (QDICMC=641) Ur Buprenorphine Scrn (CUTOFF=10) Ur Oxycodone Screen (FKF8ZJ=826) Urine Methadone Screen (XHILAD=075) Ur Propoxyphene Screen (DSQRZI=239) Ur Barbiturates Screen (DOTGXM=011) Ur Tricyclics Screen (NNZZGM=724) Ur Phencyclidine Scrn (CUTOFF=25) Ur Amphetamine Screen (MUPFLP=092) U Methamphetamines Scrn (UJTOIH=165) U Benzodiazepines Scrn (BXPAID=244) U Cocaine Metab Screen (FIFBMR=077) U Marijuana (THC) Screen (CUTOFF=50) Ethyl Alcohol 0.18 (0.00) gm% Meds: Medications Discontinued Medications Generic Name Dose Route Start Last Admin Trade Name Freq PRN Reason Stop Dose Admin Hydromorphone HCl 0.5 mg 08/22/19 12:04 08/22/19 12:25 Dilaudid IVPUSH 08/22/19 12:05 0.5 mg ONETIME ONE Administration Hydromorphone HCl 0.5 mg 08/22/19 13:12 08/22/19 13:48 Dilaudid IVPUSH 08/22/19 13:13 0.5 mg ONETIME ONE Administration Sodium Chloride 1,000 mls @ 999 mls/hr 08/22/19 12:15 08/22/19 12:23 Normal Saline IV 999 mls/hr ASDIRECTED EDILIA Administration Sodium Chloride 1,000 mls @ 999 mls/hr 08/22/19 13:15 08/22/19 13:47 Normal Saline IV 999 mls/hr ASDIRECTED EDILIA Administration Ondansetron HCl 4 mg 08/22/19 12:04 08/22/19 12:24 Zofran IVPUSH 08/22/19 12:05 4 mg ONETIME ONE Administration Ondansetron HCl 4 mg 08/22/19 13:50 08/22/19 13:59 Zofran IVPUSH 08/22/19 13:51 4 mg ONETIME ONE Administration Sodium Chloride 10 ml 08/22/19 12:04 08/22/19 12:25 Saline Flush FLUSH 10 ml ASDIRECTED PRN Administration Keep Vein Open - Re-Assessments/Exams Free Text/Narrative Re-Assessment/Exam: On exam, patient has tenderness to the bilateral lower quadrants. She has a history of appendectomy and cholecystectomy. She stated that she had some blood in her stool. Rectal exam was performed and stool was occult negative. She has had no vomiting in the ER. States she is nauseous. She verbalizes that she would like to quit drinking. I have ordered a CBC, CMP, lipase, urinalysis, EtOH, urine drug screen. 08/22/19 13:28 Hematology was significant for an anion gap elevated at 17.9, creatinine 1.1, AST 227, ALT 103, alk phos 186, lipase 799. CRP was negative at less than 0.2. Analysis was significant for trace occult blood, 1+ leukocyte, 10-20 WBCs, 10- 20 squamous epithelial cells, and moderate bacteria suggestive of likely contamination. We will send a urine culture to check for infection. Urine drug screen was positive for amphetamines and methamphetamines. Blood alcohol 0.18. Bedside occult stool was negative for blood. Patient has not been vomiting while in the ER. She states that her nausea is resolved. Pain is improved but still slightly present. I have ordered another dose of Dilaudid 0.5 mg and a second liter of IV fluids. Discussed with patient her options with regards to treatment. Initially she requested to go to the [facility]. I was in the process of arranging placement to the [facility] when she notified me that her boyfriend said he would dump out all the alcohol in the house and that she would like to go home. Plan will be to finish the second liter of IV fluids and then discharge home. 08/22/19 14:04 Nursing reported that patient was starting to feel nauseous again. I have ordered a second dose of Zofran 4 mg IV. 08/22/19 1455 Patient second liter of fluids are complete and she is feeling better. We will discharge her home with a tapering dose Ativan prescription and Zofran for nausea. Discharge instructions as documented. Departure - Departure Time of Disposition: 14:55 Disposition: Home, Self-Care 01 Condition: Good Clinical Impression: Alcohol dependence syndrome Qualifiers: Substance use status: in withdrawal Complication of substance-induced condition : uncomplicated Qualified Code(s): F10.230 - Alcohol dependence with withdrawal , uncomplicated Abdominal pain Qualifiers: Abdominal location: generalized Qualified Code(s): R10.84 - Generalized abdominal pain Pancreatitis, chronic Qualifiers: Pancreatitis type: alcohol induced Qualified Code(s): K86.0 - Alcohol-induced chronic pancreatitis - Discharge Information *PRESCRIPTION DRUG MONITORING PROGRAM REVIEWED*: Yes *COPY OF PRESCRIPTION DRUG MONITORING REPORT IN PATIENT JAKOB: No Prescriptions: LORazepam [Ativan] 1 mg PO ASDIRECTED #18 tablet Ondansetron [Zofran ODT] 4 mg PO Q6H PRN #10 tab.dis PRN Reason: Nausea/Vomiting Instructions: Alcohol Use Disorder, Chronic Pancreatitis Referrals: PCP,None [Primary Care Provider] - Additional Instructions: You were seen in the emergency department today with request to stop drinking and abdominal pain. Your work-up included blood work, urinalysis, blood alcohol , and a urine drug screen. Your work-up indicated that you were dehydrated. Your lipase was elevated similar to your previous visits to the ER. Urinalysis indicated likely contamination, however this has been sent for culture. If your urine should grow out a bacteria that requires antibiotics, you will be notified. Your urine drug screen was positive for amphetamine and methamphetamine. Blood alcohol level was 0.18 indicating that you are still over twice the legal limit of intoxication. The offer was made for you to go to the [facility] bed, however you declined. You will be discharged home with a tapering dose of Ativan to help with your detox and Zofran as needed for nausea. Take these medications as prescribed. Do no drink any alcohol. If you decide over the weekend that you need help stopping drinking, you may contact the [facility] emergency crisis line at [phone]. Return to the ER as needed. Sepsis Event Note - Evaluation Sepsis Screening Result: No Definite Risk - Focused Exam Vital Signs: Vital Signs Temp Pulse Resp BP Pulse Ox 08/22/19 11:44 97.5 F 96 16 125/95 H 97 Date Exam was Performed: 08/22/19 Time Exam was Performed: 19:55 - My Orders Last 24 Hours: My Active Orders 08/22/19 12:04 Peripheral IV Care [RC] . DIRECTED Peripheral IV Insertion Adult [OM.PC] Stat 08/22/19 12:15 CULTURE URINE [RM] Stat - Assessment/Plan Last 24 Hours: My Active Orders 08/22/19 12:04 Peripheral IV Care [RC] . DIRECTED Peripheral IV Insertion Adult [OM.PC] Stat 08/22/19 12:15 CULTURE URINE [RM] Stat
[2019-08-22] MEDS ORDERED: Sodium Chloride 0.9% 1,000 ML IV SCH ×2 (12:15→13:15)
== END 2019-08-22 15:15 | disposition home or self-care (01) ==
LOC: JD.ED 11:33
DX: K86.0 Alcohol-induced chronic pancreatitis (principal); F10.239 Alcohol dependence with withdrawal, unspecified; I10 Essential (primary) hypertension; G43.909 Migraine, unspecified, not intractable, without status migrainosus; F32.9 Major depressive disorder, single episode, unspecified; F17.210 Nicotine dependence, cigarettes, uncomplicated; Z88.8 Allergy status to other drugs, medicaments and biological substances; Z79.899 Other long term (current) drug therapy
CPT/HCPCS: 36415; 80053; 80306; 80307; 81001; 83690; 85025; 86140; 87086; 87088; 87186; 96361; 96374; 96375; 96376; 99284; J1170; J2405; J7030

== ENCOUNTER 2019-09-29 16:22 | Emergency (ER) | payer MEDICAID ==
[2019-09-29 16:28] VITALS: BP 151/89; PULSE 68
[2019-09-29] MEDS ORDERED: Sodium Chloride 0.9% 10 ML Syringe FLUSH PRN ×2 (16:38→16:58)
[2019-09-29] MEDS ORDERED: HYDROmorphone 0.5 MG/0.5 ML Syringe IVPUSH ONE ×2 (16:39→18:17)
[2019-09-29] MEDS ORDERED: Iopamidol 612 MG/ML 100 ML Bottle IVPUSH ONE ×2 (16:42→16:58)
[2019-09-29] MEDS ORDERED: Sodium Chloride 0.9% 1,000 ML IV SCH (16:45)
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
[2019-09-29] MEDS ORDERED: Metoclopramide 10 MG/2 ML SDV IVPUSH ONE (18:17)
--- NOTE | 2019-09-29 18:19 | CT ---
CT abdomen and pelvis Technique: Multiple axial sections were obtained from above the dome of the diaphragm inferiorly through the pubic symphysis. Intravenous contrast was utilized. No oral contrast has been given. Delayed images were also obtained through the bladder. Comparison: Prior CT abdomen and pelvis study of 04/21/19. Findings: Bilateral breast prosthesis are noted. Minimal atelectasis within the right lung base. Liver shows no focal abnormality other than fatty infiltration. Spleen appears normal. Adrenal glands show no nodule. Common bile duct is mildly prominent which appears as a chronic finding and is felt to be residual from prior cholecystectomy. Prior gastric surgery is also noted. Small cysts are noted within the right kidney. Left kidney appears unremarkable. Pancreas shows no focal abnormality. Aorta shows no aneurysm. No retroperitoneal adenopathy or mesenteric abnormalities are seen. Very short appendix is seen which appears within normal limits. No pelvic mass or adenopathy is seen. No free fluid or inflammatory change is seen. Delayed images shows contrast within the distal ureters and within the bladder. Bone window settings were reviewed which shows no acute osseous finding. Impression: 1. Findings as described above. 2. Nothing acute is appreciated on CT study of the abdomen and pelvis. Diagnostic code #2 This report was dictated in MDT
--- NOTE | 2019-09-29 18:20 | CT ---
Head CT Technique: Multiple axial sections through the brain were obtained. Intravenous contrast was not utilized. Comparison: Prior head CT study of 08/09/19. Findings: Ventricles along with basal cisterns and sulci over the convexities are mildly prominent. No abnormal parenchymal densities are seen. No evidence of intracranial hemorrhage. No midline shift or mass-effect is seen. Bone window settings were reviewed. No acute calvarial abnormality is seen. Visualized mastoid sinuses and visualized paranasal sinuses show nothing acute. Impression: 1. Mild generalized atrophy. 2. No acute intracranial abnormality is appreciated. Diagnostic code #2 This report was dictated in MDT
== END 2019-09-29 19:00 | disposition home or self-care (01) ==
LOC: JD.ED 16:22
DX: S00.03XA Contusion of scalp, initial encounter (principal); S30.1XXA Contusion of abdominal wall, initial encounter; F10.120 Alcohol abuse with intoxication, uncomplicated; I10 Essential (primary) hypertension; F41.9 Anxiety disorder, unspecified; F32.9 Major depressive disorder, single episode, unspecified; F17.210 Nicotine dependence, cigarettes, uncomplicated; Z91.048 Other nonmedicinal substance allergy status; Z79.899 Other long term (current) drug therapy; Z88.3 Allergy status to other anti-infective agents; Y04.0XXA Assault by unarmed brawl or fight, initial encounter
CPT/HCPCS: 36415; 70450; 74177; 80053; 80307; 83690; 85025; 96374; 96375; 96376; 99285; J1170; J2765; J7030; Q9967

== ENCOUNTER 2019-10-09 09:51 | Inpatient (IN) | payer MEDICAID ==
[2019-10-09] MEDS ORDERED: Thiamine 100 MG in Sodium Chloride 0.9% 100 ML IV ONE (10:10)
[2019-10-09] MEDS ORDERED: Dextrose 5%-Lactated Ringers 1,000 ML IV SCH (10:15)
[2019-10-09] MEDS ORDERED: Thiamine 200 MG/2 ML MDV ONE (10:23)
[2019-10-09] MEDS ORDERED: Metoclopramide 10 MG/2 ML SDV IVPUSH ONE (10:37)
[2019-10-09] MEDS ORDERED: Thiamine 200 MG/2 ML MDV IVPUSH ONE (10:45)
[2019-10-09] MEDS: Potassium Chloride 10 MEQ in Premix Bag 1 BAG IV SCH ×6 (10:53→16:34)
[2019-10-09] MEDS ORDERED: HYDROmorphone 0.5 MG/0.5 ML Syringe IVPUSH ONE (10:57)
--- NOTE | 2019-10-09 11:25 | EDM.PDOC ---
<Froilan Simms - Last Filed: 10/09/19 11:29> ED HPI GENERAL MEDICAL PROBLEM - General Chief Complaint: Drug or Alcohol Abuse Stated Complaint: [facility] Time Seen by Provider: 10/09/19 10:47 - Related Data Allergies Allergy/AdvReac Type Severity Reaction Status Date / Time acyclovir Allergy Intermediate Other Verified 10/09/19 16:50 Home Meds: Home Meds Interferon Beta-1a [Avonex] 1 injection SQ FR 02/27/19 [History] QUEtiapine [SEROquel] 25 mg PO DAILY #7 tablet 03/01/19 [Rx] levETIRAcetam [Levetiracetam] 500 mg PO DAILY #14 tablet 03/01/19 [Rx] Metoprolol Succinate 200 mg PO DAILY 03/16/19 [History] Potassium Chloride 20 meq PO DAILY #30 tablet.er 04/07/19 [Rx] QUEtiapine [SEROquel] 200 mg PO BEDTIME 04/16/19 [History] Gabapentin [Neurontin] 300 mg PO TID 04/22/19 [History] Omeprazole 20 mg PO QAM 04/22/19 [History] hydrOXYzine pamoate [Hydroxyzine Pamoate] 50 mg PO BEDTIME 04/22/19 [History] DULoxetine [Cymbalta] 30 mg PO BEDTIME 07/10/19 [History] DULoxetine [Cymbalta] 60 mg PO DAILY 07/10/19 [History] LORazepam [Ativan] 1 mg PO ASDIRECTED #18 tablet 08/22/19 [Rx] Ondansetron [Zofran ODT] 4 mg PO Q6H PRN #20 tab.dis 09/29/19 [Rx] Course - Re-Assessments/Exams Free Text/Narrative Re-Assessment/Exam: 10/09/19 11:29 Hematology reveals a normal white count at 5.93. The auto differential shows 42.7% neutrophils. Hemoglobin is 13.8 with hematocrit of 42.7. MCV is slightly elevated 95.3. Platelet count is markedly elevated at 549,000. PT is 9.8 with a INR of less than 0.93. PTT is 22. Sodium 141 with a potassium of 2.5. Chloride is 102 with a bicarb of 24. Anion gap is elevated at 17.5. BUN is 5 with a creatinine of 1.2. Glucose is 151. Calcium is 9.0 total bilirubin is 0.3. AST is elevated at 399 with an ALT of 160. Alk phos stays elevated to 19 likely from alcohol chronic use. Total protein is 8.2 with an albumin fraction of 3.7. Lipase is elevated at 464 i.e. mild pancreatitis. Blood alcohol is 0.26 g% Departure - Departure Disposition: Admitted As Inpatient 65 Clinical Impression: Hypokalemia Alcohol withdrawal syndrome Qualifiers: Complication of substance-induced condition: uncomplicated Qualified Code(s): F10.230 - Alcohol dependence with withdrawal, uncomplicated - Discharge Information <Jackie Marquez - Last Filed: 10/09/19 22:28> ED HPI GENERAL MEDICAL PROBLEM - General Source of Information: Reports: Patient History Limitations: Reports: No Limitations - History of Present Illness INITIAL COMMENTS - FREE TEXT/NARRATIVE: Patient is a 49-year-old female who presents to the emergency department for help stopping drinking. She has a long history of alcoholism and has undergone treatment in the past. She is currently attending online drug and alcohol treatment through [facility] which she states she has been doing for the last couple months. She verbalized that this is not working. She continues to drink approximately a 1.75 L bottle of vodka per day. Her last drink was around 8:00 this morning. This morning she developed vomiting and pain in her "pancreas ". She does have a history of alcoholic pancreatitis. She denies any history of seizures with alcohol withdrawal. Patient verbalized that she is open to inpatient alcohol treatment. Abdominal Pain Score (Numeric/FACES): 8 Past Medical History HEENT History: Reports: Impaired Vision Other HEENT History: cornea transplant L eye Cardiovascular History: Reports: Hypertension Other Cardiovascular History: heart murmur Respiratory History: Reports: None Gastrointestinal History: Reports: Pancreatitis Other Gastrointestinal History: collitis Genitourinary History: Reports: Urinary Incontinence Other Genitourinary History: straight caths at times from [place] [employer] History: Reports: Fibroids Musculoskeletal History: Reports: Arthritis, Fracture Other Musculoskeletal History: Neck and back- Neurological History: Reports: Migraines, MS, Seizure Psychiatric History: Reports: Addiction, Depression, Mood Swings, PTSD Hematologic History: Reports: Other (See Below) Other Hematologic History: Hep A and C Oncologic (Cancer) History: Reports: None - Infectious Disease History Infectious Disease History: Reports: Chicken Pox, Hepatitis A, Hepatitis C - Past Surgical History Head Surgeries/Procedures: Reports: None HEENT Surgical History: Reports: Eye Surgery, Oral Surgery, Tonsillectomy, Other (See Below) GI Surgical History: Reports: Appendectomy, Bariatric Procedure, Cholecystectomy, Hernia, Abdominal Female Surgical History: Reports: Breast Reduction, Section, Hysterectomy, Other (See Below) Musculoskeletal Surgical History: Reports: Other (See Below) Dermatological Surgical History: Reports: Plastic Surgical Reconstruction/Repair Social & Family History - Family History Family Medical History: Noncontributory Cardiac: Reports: Hypertension Neurological: Reports: MS Psychiatric: Reports: Anxiety, Depression Endocrine/Metabolic: Reports: Diabetes, type II Oncologic: Reports: Breast - Tobacco Use Smoking Status *Q: Current Every Day Smoker Years of Tobacco use: 30 Packs/Tins Daily: 0.5 - Caffeine Use Caffeine Use: Reports: None Other Caffeine Use: 3/day - Living Situation & Occupation Living situation: Reports: , with Significant Other (Boyfriend) Occupation: Unemployed ED ROS GENERAL - Review of Systems Review Of Systems: See Below Constitutional: Reports: No Symptoms. Denies: Fever, Chills, Weakness HEENT: Reports: No Symptoms Respiratory: Reports: No Symptoms. Denies: Shortness of Breath, Cough Cardiovascular: Reports: No Symptoms Endocrine: Reports: No Symptoms GI/Abdominal: Reports: Abdominal Pain, Nausea, Vomiting. Denies: Black Stool, Bloody Stool, Diarrhea, Hematemesis, Hematochezia : Reports: No Symptoms. Denies: Dysuria, Flank Pain Musculoskeletal: Reports: No Symptoms Skin: Reports: No Symptoms Neurological: Reports: No Symptoms Psychiatric: Reports: No Symptoms Hematologic/Lymphatic: Reports: No Symptoms Immunologic: Reports: No Symptoms ED EXAM, GENERAL - Physical Exam Exam: See Below Exam Limited By: Intoxication (Patient is coherent and communicating appropriately. Takes time to respond to questions. Speech is somewhat slurred.) General Appearance: Alert, WD/WN, No Apparent Distress Eye Exam: Bilateral Eye: PERRL Respiratory/Chest: No Respiratory Distress, Lungs Clear, Normal Breath Sounds, No Accessory Muscle Use, Chest Non-Tender Cardiovascular: Normal Peripheral Pulses, Regular Rate, Rhythm, No Edema, No Gallop, No JVD, No Murmur, No Rub GI/Abdominal: Normal Bowel Sounds, Soft, No Organomegaly, No Distention, No Abnormal Bruit, No Mass, Tender (mild generalized tenderness to RLQ, LUQ, and LLQ.) Neurological: Alert, Oriented, CN II-XII Intact, Normal Reflexes, No Motor/Sensory Deficits, Slow to Respond Psychiatric: Normal Affect, Normal Mood Skin Exam: Warm, Dry, Intact, Normal Color, No Rash EKG INTERPRETATION EKG Date: 10/09/19 Time: 10:14 Rhythm: NSR Rate (Beats/Min): 101 [place]: Normal P-Wave: Present QRS: Normal ST-T: Normal QT: Prolonged EKG Interpretation Comments: sinus tachycardia at 101 Early R wave transition - consider septal hypertrophy QTc mildy prolonged Repolarization abnormality V3-V6 - consider lt atrial hypertrophy EKG interpreted by Dr. Demi MD. Course - Vital Signs Last Recorded V/S: Last Vital Signs Temp 97.4 F 10/09/19 16:00 Pulse 124 H 10/09/19 20:40 Resp 13 10/09/19 20:40 BP 149/110 H 10/09/19 20:01 Pulse Ox 99 10/09/19 20:40 - Orders/Labs/Meds Orders: Active Orders 24 hr Category Date Time Status Dextrose 5%-Lactated Ringers 1,000 ml Med 10/09/19 10:15 Active IV ASDIRECTED Sodium Chloride 0.9% [Normal Saline] 1,000 ml Med 10/09/19 11:45 Active IV ASDIRECTED Medication Orders Duloxetine HCl (Cymbalta) 30 mg PO BEDTIME [facility] Last Admin: 10/09/19 21:17 Dose: 30 mg Documented by: FIDELIA Duloxetine HCl (Cymbalta) 60 mg PO DAILY [facility] Enoxaparin Sodium (Lovenox) 40 mg SUBCUT Q24H [facility] Last Admin: 10/09/19 14:08 Dose: 40 mg Documented by: SHANTHI Gabapentin (Neurontin) 300 mg PO TID [facility] Last Admin: 10/09/19 21:17 Dose: 300 mg Documented by: FIDELIA Hydroxyzine HCl (Atarax) 50 mg PO BEDTIME [facility] Last Admin: 10/09/19 21:17 Dose: 50 mg Documented by: FIDELIA Dextrose/Lactated Ringer's (Dextrose 5%-Lactated Ringers) 1,000 mls @ 999 mls/hr IV ASDIRECTED EDILIA Last Admin: 10/09/19 10:28 Dose: 999 mls/hr Documented by: SHANTHI Sodium Chloride (Normal Saline) 1,000 mls @ 125 mls/hr IV ASDIRECTED EDILIA Last Admin: 10/09/19 19:26 Dose: 125 mls/hr Documented by: Infusion: 10/09/19 19:26 Dose: 125 mls/hr Documented by: Admin: 10/09/19 12:09 Dose: 125 mls/hr Documented by: [email or web address] Ceftriaxone Sodium 1 gm/ (Sodium Chloride) 100 mls @ 200 mls/hr IV Q24H [facility] Ketorolac Tromethamine (Toradol) 30 mg IVPUSH Q6H PRN PRN Reason: Pain (moderate 4-6) Last Admin: 10/09/19 21:59 Dose: 30 mg Documented by: Admin: 10/09/19 15:00 Dose: 30 mg Documented by: KHUSHBOO Levetiracetam (Keppra) 500 mg PO DAILY [facility] Lorazepam (Ativan) 0 mg IVPUSH Q4H PRN; Protocol PRN Reason: Withdrawal Symptoms Last Admin: 10/09/19 17:34 Dose: 2 mg Documented by: Admin: 10/09/19 15:20 Dose: 1 mg Documented by: KHUSHBOO Metoprolol Succinate (Toprol Xl) 200 mg PO DAILY [facility] Morphine Sulfate (Morphine) 2 mg IVPUSH Q2H PRN PRN Reason: Pain (severe 7-10) Stop: 10/10/19 13:11 Last Admin: 10/09/19 21:18 Dose: 2 mg Documented by: Admin: 10/09/19 16:44 Dose: 2 mg Documented by: Admin: 10/09/19 14:03 Dose: 2 mg Documented by: SHANTHI Nicotine (Habitrol) 21 mg TRDERM Q24H [facility] Last Admin: 10/09/19 14:56 Dose: 21 mg Documented by: KHUSHBOO Non-Formulary Medication (Interferon Beta-1a [Avonex]) 1 injection SQ FR [facility] Ondansetron HCl (Zofran Odt) 8 mg PO Q6H PRN PRN Reason: Nausea/Vomiting Ondansetron HCl (Zofran Odt) 4 mg PO Q6H PRN PRN Reason: Nausea\\vomiting Pantoprazole Sodium (Protonix) 40 mg PO DAILY@0700 [facility] Potassium Chloride (Klor-Con M20) 20 meq PO DAILY [facility] Quetiapine Fumarate (Seroquel) 25 mg PO DAILY [facility] Quetiapine Fumarate (Seroquel) 200 mg PO BEDTIME [facility] Last Admin: 10/09/19 21:17 Dose: 200 mg Documented by: [email or web address] Labs: Laboratory Tests 10/09/19 10/09/19 10/09/19 Range/Units 10:05 10:05 10:05 WBC 5.93 (3.98-10.04) K/mm3 RBC 4.48 (3.98-5.22) M/mm3 Hgb 13.8 (11.2-15.7) gm/dl Hct 42.7 (34.1-44.9) % MCV 95.3 H (79.4-94.8) fl MCH 30.8 (25.6-32.2) pg MCHC 32.3 (32.2-35.5) g/dl RDW Std Deviation 53.5 H (36.4-46.3) fL Plt Count 549 H D (182-369) K/mm3 MPV 8.7 L (9.4-12.3) fl Neut % (Auto) 42.7 (34.0-71.1) % Lymph % (Auto) 49.6 (19.3-51.7) % [place] % (Auto) 6.4 (4.7-12.5) % Eos % (Auto) 0.8 (0.7-5.8) Baso % (Auto) 0.5 (0.1-1.2) % Neut # (Auto) 2.53 (1.56-6.13) K/mm3 Lymph # (Auto) 2.94 (1.18-3.74) K/mm3 [place] # (Auto) 0.38 H (0.24-0.36) K/mm3 Eos # (Auto) 0.05 (0.04-0.36) K/mm3 Baso # (Auto) 0.03 (0.01-0.08) K/mm3 PT 9.8 (9.7-12.0) SECONDS INR < 0.93 APTT 22 (22-31) SECONDS Sodium 141 (136-145) mEq/L Potassium 2.5 L (3.5-5.1) mEq/L Chloride 102 (98-107) mEq/L Carbon Dioxide 24 (21-32) mEq/L Anion Gap 17.5 H (5-15) BUN 5 L (7-18) mg/dL Creatinine 1.2 H (0.55-1.02) mg/dL Est Cr Clr Drug Dosing 48.43 mL/min Estimated GFR (MDRD) 48 (>60) mL/min BUN/Creatinine Ratio 4.2 L (14-18) Glucose 151 H (74-106) mg/dL Calcium 9.0 (8.5-10.1) mg/dL Total Bilirubin 0.3 (0.2-1.0) mg/dL AST 399 H (15-37) U/L ALT 160 H (14-59) U/L Alkaline Phosphatase 219 H (46-116) U/L Total Protein 8.2 (6.4-8.2) g/dl Albumin 3.7 (3.4-5.0) g/dl Globulin 4.5 gm/dL Albumin/Globulin Ratio 0.8 L (1-2) Lipase (73-393) U/L Urine Color (Yellow) Urine Appearance (Clear) Urine pH (5.0-8.0) Ur Specific [place] (1.005-1.030) Urine Protein (Negative) Urine Glucose (UA) (Negative) Urine Ketones (Negative) Urine Occult Blood (Negative) Urine Nitrite (Negative) Urine Bilirubin (Negative) Urine Urobilinogen (0.2-1.0) Ur Leukocyte Esterase (Negative) Urine RBC (0-5) /hpf Urine WBC (0-5) /hpf Ur Squamous Epith Cells (0-5) /hpf Urine Bacteria (FEW) /hpf Urine Mucus (FEW) /hpf Urine Opiates Screen (VYBECH=372) Ur Buprenorphine Scrn (CUTOFF=10) Ur Oxycodone Screen (UPZ0PI=442) Urine Methadone Screen (OZVZCB=302) Ur Propoxyphene Screen (QHBSIQ=521) Ur Barbiturates Screen (QWKRKK=822) Ur Tricyclics Screen (QDJFNK=507) Ur Phencyclidine Scrn (CUTOFF=25) Ur Amphetamine Screen (DGMLGX=058) U Methamphetamines Scrn (MPOKHS=212) U Benzodiazepines Scrn (WDQQIT=469) U Cocaine Metab Screen (MRRPUB=029) U Marijuana (THC) Screen (CUTOFF=50) Ethyl Alcohol 0.26 (0.00) gm% 10/09/19 10/09/19 10/09/19 Range/Units 10:05 11:09 11:09 WBC (3.98-10.04) K/mm3 RBC (3.98-5.22) M/mm3 Hgb (11.2-15.7) gm/dl Hct (34.1-44.9) % MCV (79.4-94.8) fl MCH (25.6-32.2) pg MCHC (32.2-35.5) g/dl RDW Std Deviation (36.4-46.3) fL Plt Count (182-369) K/mm3 MPV (9.4-12.3) fl Neut % (Auto) (34.0-71.1) % Lymph % (Auto) (19.3-51.7) % [place] % (Auto) (4.7-12.5) % Eos % (Auto) (0.7-5.8) Baso % (Auto) (0.1-1.2) % Neut # (Auto) (1.56-6.13) K/mm3 Lymph # (Auto) (1.18-3.74) K/mm3 [place] # (Auto) (0.24-0.36) K/mm3 Eos # (Auto) (0.04-0.36) K/mm3 Baso # (Auto) (0.01-0.08) K/mm3 PT (9.7-12.0) SECONDS INR APTT (22-31) SECONDS Sodium (136-145) mEq/L Potassium (3.5-5.1) mEq/L Chloride (98-107) mEq/L Carbon Dioxide (21-32) mEq/L Anion Gap (5-15) BUN (7-18) mg/dL Creatinine (0.55-1.02) mg/dL Est Cr Clr Drug Dosing mL/min Estimated GFR (MDRD) (>60) mL/min BUN/Creatinine Ratio (14-18) Glucose (74-106) mg/dL Calcium (8.5-10.1) mg/dL Total Bilirubin (0.2-1.0) mg/dL AST (15-37) U/L ALT (14-59) U/L Alkaline Phosphatase (46-116) U/L Total Protein (6.4-8.2) g/dl Albumin (3.4-5.0) g/dl Globulin gm/dL Albumin/Globulin Ratio (1-2) Lipase 464 H (73-393) U/L Urine Color Yellow (Yellow) Urine Appearance Clear (Clear) Urine pH 6.5 (5.0-8.0) Ur Specific [place] 1.015 (1.005-1.030) Urine Protein 1+ H (Negative) Urine Glucose (UA) Negative (Negative) Urine Ketones Negative (Negative) Urine Occult Blood Trace-lysed H (Negative) Urine Nitrite Negative (Negative) Urine Bilirubin Negative (Negative) Urine Urobilinogen 0.2 (0.2-1.0) Ur Leukocyte Esterase 3+ H (Negative) Urine RBC 0-5 (0-5) /hpf Urine WBC >100 H (0-5) /hpf Ur Squamous Epith Cells 10-20 H (0-5) /hpf Urine Bacteria Many H (FEW) /hpf Urine Mucus Not seen (FEW) /hpf Urine Opiates Screen Negative (QFYSDG=649) Ur Buprenorphine Scrn Negative (CUTOFF=10) Ur Oxycodone Screen Negative (CLE9ED=891) Urine Methadone Screen Negative (GYVEBC=168) Ur Propoxyphene Screen Negative (VFWHKW=918) Ur Barbiturates Screen Negative (HSGWHK=748) Ur Tricyclics Screen Negative (AJPVDT=514) Ur Phencyclidine Scrn Negative (CUTOFF=25) Ur Amphetamine Screen Negative (QWTDZD=825) U Methamphetamines Scrn Negative (WOUPCC=760) U Benzodiazepines Scrn Negative (XYSBBG=408) U Cocaine Metab Screen Negative (OYDUAW=487) U Marijuana (THC) Screen Negative (CUTOFF=50) Ethyl Alcohol (0.00) gm% Meds: Medications Generic Name Dose Route Start Last Admin Trade Name Freq PRN Reason Stop Dose Admin Duloxetine HCl 30 mg 10/09/19 21:00 10/09/19 21:17 Cymbalta PO 30 mg BEDTIME EDILIA Administration Duloxetine HCl 60 mg 10/10/19 09:00 Cymbalta PO DAILY [facility] Enoxaparin Sodium 40 mg 10/09/19 14:00 10/09/19 14:08 Lovenox SUBCUT 40 mg Q24H EDILIA Administration Gabapentin 300 mg 10/09/19 21:00 10/09/19 21:17 Neurontin PO 300 mg TID EDIILA Administration Hydroxyzine HCl 50 mg 10/09/19 21:00 10/09/19 21:17 Atarax PO 50 mg BEDTIME EDILIA Administration Dextrose/Lactated Ringer's 1,000 mls @ 999 mls/hr 10/09/19 10:15 10/09/19 10:28 Dextrose 5%-Lactated Ringers IV 999 mls/hr ASDIRECTED EDILIA Administration Sodium Chloride 1,000 mls @ 125 mls/hr 10/09/19 11:45 10/09/19 19:26 Normal Saline IV 125 mls/hr ASDIRECTED EDILIA Administration Ceftriaxone Sodium 1 gm/ 100 mls @ 200 mls/hr 10/10/19 12:00 Sodium Chloride IV Q24H EDILIA Ketorolac Tromethamine 30 mg 10/09/19 13:08 10/09/19 21:59 Toradol IVPUSH 30 mg Q6H PRN Administration Pain (moderate 4-6) Levetiracetam 500 mg 10/10/19 09:00 Keppra PO DAILY [facility] Lorazepam 0 mg 10/09/19 13:25 10/09/19 17:34 Ativan IVPUSH 2 mg Q4H PRN Administration Withdrawal Symptoms Protocol Metoprolol Succinate 200 mg 10/10/19 09:00 Toprol Xl PO DAILY [facility] Morphine Sulfate 2 mg 10/09/19 13:08 10/09/19 21:18 Morphine IVPUSH 10/10/19 13:11 2 mg Q2H PRN Administration Pain (severe 7-10) Nicotine 21 mg 10/09/19 14:00 10/09/19 14:56 Habitrol TRDERM 21 mg Q24H EDILIA Administration Non-Formulary Medication 1 injection 10/09/19 19:00 Interferon Beta-1a [Avonex] SQ FR EDILIA Ondansetron HCl 8 mg 10/09/19 13:08 Zofran Odt PO Q6H PRN Nausea/Vomiting Ondansetron HCl 4 mg 10/09/19 18:48 Zofran Odt PO Q6H PRN Nausea\\vomiting Pantoprazole Sodium 40 mg 10/10/19 07:00 Protonix PO DAILY@0700 EDILIA Potassium Chloride 20 meq 10/10/19 09:00 Klor-Con M20 PO DAILY ED[facility] Quetiapine Fumarate 25 mg 10/10/19 09:00 Seroquel PO DAILY EDILIA Quetiapine Fumarate 200 mg 10/09/19 21:00 10/09/19 21:17 Seroquel PO 200 mg BEDTIME EDILIA Administration Discontinued Medications Generic Name Dose Route Start Last Admin Trade Name Freq PRN Reason Stop Dose Admin Diphenhydramine HCl 50 mg 10/09/19 13:28 10/09/19 14:01 Benadryl IVPUSH 10/09/19 13:29 50 mg ONETIME ONE Administration Enoxaparin Sodium Confirm 10/09/19 13:58 10/09/19 14:07 Lovenox Administered 10/09/19 13:59 Not Given Dose 40 mg .ROUTE .STK-MED ONE Hydromorphone HCl 0.5 mg 10/09/19 10:57 10/09/19 11:20 Dilaudid IVPUSH 10/09/19 10:58 0.5 mg ONETIME ONE Administration Thiamine HCl 100 mg/ Sodium 101 mls @ 202 mls/hr 10/09/19 10:10 10/09/19 10:48 Chloride IV 10/09/19 10:11 Not Given ONETIME ONE Potassium Chloride 10 meq/ 100 mls @ 100 mls/hr 10/09/19 10:45 10/09/19 16:34 Premix IV 10/09/19 16:44 100 mls/hr Q1H EDILIA Administration Ceftriaxone Sodium 1 gm/ 100 mls @ 200 mls/hr 10/09/19 11:28 10/09/19 12:10 Sodium Chloride IV 10/09/19 11:57 200 mls/hr ONETIME ONE Administration Metoclopramide HCl 7.5 mg 10/09/19 10:37 10/09/19 10:44 Reglan IVPUSH 10/09/19 10:38 7.5 mg ONETIME ONE Administration Morphine Sulfate Confirm 10/09/19 13:59 10/09/19 14:07 Morphine Administered 10/09/19 14:00 Not Given Dose 2 mg .ROUTE .STK-MED ONE Thiamine HCl Confirm 10/09/19 10:23 10/09/19 10:26 Vitamin B-1 Administered 10/09/19 10:24 Not Given Dose 200 mg .ROUTE .STK-MED ONE Thiamine HCl 100 mg 10/09/19 10:45 10/09/19 10:46 Vitamin B-1 IVPUSH 10/09/19 10:46 100 mg ONETIME ONE Administration - Re-Assessments/Exams Free Text/Narrative Re-Assessment/Exam: 10/09/19 11:39 Hematology was significant for an MCV high at 95.3, platelets high at 549, potassium significantly low at 2.5, anion gap elevated at 17.5, BUN 5, creatinine 1.2, glucose 151, AST 399, ALT 160, alk phos 219, lipase 464. Urinalysis was positive for urinary tract infection evidenced by 3+ leukocyte esterase, greater than 100 WBCs, and many bacteria. Tox screen was negative. Blood alcohol elevated at 0.26. Patient has received a 1 L bolus of D5 LR and has been started on KCl per IV by Dr. Simms. She has also received Reglan 7.5 mg, thiamine 100 mg as ordered by Dr. Simms. I have ordered Rocephin 1 g for treatment of the urinary tract infection. Called and spoke with the hospitalist on-call, Dr. oY. He will admit the patient to ICU for alcohol detox and hypokalemia. Departure - Departure Time of Disposition: 11:39 Condition: Good Sepsis Event Note (ED) - Evaluation Sepsis Screening Result: No Definite Risk - My Orders Last 24 Hours: My Active Orders 10/09/19 11:45 Sodium Chloride 0.9% [Normal Saline] 1,000 ml IV ASDIRECTED - Assessment/Plan Last 24 Hours: My Active Orders 10/09/19 11:45 Sodium Chloride 0.9% [Normal Saline] 1,000 ml IV ASDIRECTED
[2019-10-09] MEDS ORDERED: cefTRIAXone 1 GM in Sodium Chloride 0.9% 100 ML IV ONE (11:28)
--- NOTE | 2019-10-09 11:45 | CR ---
Chest: AP view of the chest was obtained. Comparison: Previous chest x-ray of 07/11/19. Heart size and mediastinum are normal. Lungs are clear with no acute parenchymal change. Bony structures are grossly intact. Impression: 1. Nothing acute is seen on AP chest x-ray. Diagnostic code #1 This report was dictated in MDT
[2019-10-09] MEDS: Sodium Chloride 0.9% 1,000 ML IV SCH ×2 (12:09→19:26)
[2019-10-09] MEDS ORDERED: Ondansetron 4 MG Tab.DIS PO PRN ×2 (13:08→18:48)
[2019-10-09] MEDS ORDERED: diphenhydrAMINE 50 MG/ML SDV IVPUSH ONE (13:28)
[2019-10-09] MEDS ORDERED: Enoxaparin 40 MG/0.4 ML Syringe ONE (13:58)
[2019-10-09] MEDS ORDERED: Morphine 2 MG/ML SYRINGE ONE (13:59)
[2019-10-09] MEDS: Morphine 2 MG/ML SYRINGE IVPUSH PRN ×3 (14:03→21:18)
[2019-10-09] MEDS: Enoxaparin 40 MG/0.4 ML Syringe SUBCUT SCH (14:08)
[2019-10-09] MEDS: Nicotine 21 MG/24 Hr Patch TRDERM SCH (14:56)
[2019-10-09] MEDS: Ketorolac 30 MG/ML SDV IVPUSH PRN ×2 (15:00→21:59)
[2019-10-09] MEDS: LORazepam 2 MG/ML SDV IVPUSH PRN ×2 (15:20→17:34)
--- NOTE | 2019-10-09 18:34 | PCM.HP.2 ---
H&P History of Present Illness - General Date of Service: 10/09/19 Admit Problem/Dx: Admission Diagnosis/Problem Admission Diagnosis/Problem Alcohol withdrawal syndrome/possible pancreatitis Source of Information: Patient, EMS History Limitations: Reports: Altered Mental Status - History of Present Illness Initial Comments - Free Text/Narative: 49 year old female with hx of epigastric abd pain radiating to back /8-10 who also took last drink 2.5 hours ago . nauseated and c/o skin tingling . denies sweating /vomiting/has anorexia and no loc and no trauma. in [facility]oh treatment with [facility] but relapsed fully drinks 1.75 liter every 2 days. started ?month ago? feels may have flared pancreatitis . no brbr or melana ,syncope ,chest pain . phx m.s on treatment hepatitis a hep c pancreatitis depression anxiety . hypertension p.e. vs shows tachicardia skin normal coloration / no icterus/ lungs clear = cor rrr/no murm. no s3/4 abd soft / mild epigastric tenderness no rebound .bs active. ms appears wnl. neuro alert oriented and anxious . etoh on breathe and slurred speech . no tremors,sweating,claminess. aox4 memory good recall. lab reviewed mild increase lipase. mild lft elavation. rest wnl other than k low . assess: 1 etoh abuse level .23 last drink this am drinking all night . gastritis possible pancreatitis. hx of viral hep s/p treatment . hx of m.s on treatment with avolox hx of depression . hx of anxiety . currently in outpatient treatment program and relapsed . plan admit /icu monitor ciwas rule out pancreatitis flare start ativan per protocol start protocol thiamie and vit b complex. pain control . etoh consult with tiffanie . see DR Veras for depression Onset of Symptoms: Reports: Today Duration of Symptoms: Reports: Hour(s): Location: Reports: Abdomen Quality: Reports: Ache Severity: Moderate Improves with: Reports: None Worsens with: Reports: Movement Context: Reports: Other (alcohol binging) Associated Symptoms: Reports: Headaches, Malaise Abdominal Pain Score (Numeric/FACES): 7 - Related Data Allergies/Adverse Reactions: Allergies Allergy/AdvReac Type Severity Reaction Status Date / Time acyclovir Allergy Intermediate Other Verified 10/09/19 16:50 Home Medications: Home Meds Interferon Beta-1a [Avonex] 1 injection SQ FR 02/27/19 [History] QUEtiapine [SEROquel] 25 mg PO DAILY #7 tablet 03/01/19 [Rx] levETIRAcetam [Levetiracetam] 500 mg PO DAILY #14 tablet 03/01/19 [Rx] Metoprolol Succinate 200 mg PO DAILY 03/16/19 [History] Potassium Chloride 20 meq PO DAILY #30 tablet.er 04/07/19 [Rx] QUEtiapine [SEROquel] 200 mg PO BEDTIME 04/16/19 [History] Gabapentin [Neurontin] 300 mg PO TID 04/22/19 [History] Omeprazole 20 mg PO QAM 04/22/19 [History] hydrOXYzine pamoate [Hydroxyzine Pamoate] 50 mg PO BEDTIME 04/22/19 [History] DULoxetine [Cymbalta] 30 mg PO BEDTIME 07/10/19 [History] DULoxetine [Cymbalta] 60 mg PO DAILY 07/10/19 [History] LORazepam [Ativan] 1 mg PO ASDIRECTED #18 tablet 08/22/19 [Rx] Ondansetron [Zofran ODT] 4 mg PO Q6H PRN #20 tab.dis 09/29/19 [Rx] Past Medical History HEENT History: Reports: Impaired Vision Other HEENT History: cornea transplant L eye Cardiovascular History: Reports: Hypertension Other Cardiovascular History: heart murmur Respiratory History: Reports: None Gastrointestinal History: Reports: Pancreatitis Other Gastrointestinal History: collitis Genitourinary History: Reports: Urinary Incontinence Other Genitourinary History: straight caths at times from [place] [employer] History: Reports: Fibroids Musculoskeletal History: Reports: Arthritis, Fracture Other Musculoskeletal History: Neck and back- Neurological History: Reports: Migraines, MS, Seizure Psychiatric History: Reports: Addiction, Depression, Mood Swings, PTSD Hematologic History: Reports: Other (See Below) Other Hematologic History: Hep A and C Oncologic (Cancer) History: Reports: None - Infectious Disease History Infectious Disease History: Reports: Chicken Pox, Hepatitis A, Hepatitis C - Past Surgical History Head Surgeries/Procedures: Reports: None HEENT Surgical History: Reports: Eye Surgery, Oral Surgery, Tonsillectomy, Other (See Below) GI Surgical History: Reports: Appendectomy, Bariatric Procedure, Cholecystectomy, Hernia, Abdominal Female Surgical History: Reports: Breast Reduction, Section, Hysterectomy, Other (See Below) Musculoskeletal Surgical History: Reports: Other (See Below) Dermatological Surgical History: Reports: Plastic Surgical Reconstruction/Repair Social & Family History - Family History Family Medical History: Noncontributory Cardiac: Reports: Hypertension Neurological: Reports: MS Psychiatric: Reports: Anxiety, Depression Endocrine/Metabolic: Reports: Diabetes, type II Oncologic: Reports: Breast - Tobacco Use Smoking Status *Q: Current Every Day Smoker Years of Tobacco use: 30 Packs/Tins Daily: 0.5 - Caffeine Use Caffeine Use: Reports: None Other Caffeine Use: 3/day - Living Situation & Occupation Living situation: Reports: , with Significant Other (Boyfriend) Occupation: Unemployed H&P Review of Systems - Review of Systems: Review Of Systems: See Below General: Reports: Malaise, Decreased Appetite HEENT: Reports: No Symptoms Pulmonary: Reports: No Symptoms Cardiovascular: Reports: No Symptoms Gastrointestinal: Reports: No Symptoms, Abdominal Pain Genitourinary: Reports: No Symptoms Musculoskeletal: Reports: No Symptoms Skin: Reports: No Symptoms Psychiatric: Reports: Depression, Mood Lability, Anxiety, Agitation, Cravings. Denies: Confusion, Hallucinations, Hallucinations (Auditory), Hallucinations (Visual) Neurological: Reports: No Symptoms Hematologic/Lymphatic: Reports: No Symptoms Immunologic: Reports: No Symptoms Exam - Exam Exam: See Below - Vital Signs Vital Signs: Last Vital Signs Temp 36.3 C 10/09/19 16:00 Pulse 108 H 10/09/19 14:10 Resp 20 10/09/19 16:00 BP 153/104 H 10/09/19 16:00 Pulse Ox 95 10/09/19 16:00 Weight: 67.132 kg - Exam General: Alert, Oriented, 4 HEENT: PERRLA, Hearing Intact, Mucosa Moist & [place], Nares Patent, Normal Nasal Septum, Posterior Pharynx Clear, Conjunctiva Clear, EOMI, EACs Clear, TMs Clear Neck: Supple, Trachea Midline, 2 Lungs: Clear to Auscultation, Normal Respiratory Effort Cardiovascular: Regular Rate, Regular Rhythm GI/Abdominal Exam: Normal Bowel Sounds, Soft, Non-Tender, No Organomegaly, No Distention, No Abnormal Bruit, No Mass, Pelvis Stable, Tender (Female) Exam: Normal External Exam, Normal Speculum Exam, Normal Bimanual Exam Rectal (Female) Exam: Normal Exam, Normal Rectal Tone Back Exam: Normal Inspection, Full Range of Motion, NT Extremities: Normal Inspection, Normal Range of Motion, Non-Tender, No Pedal Edema, Normal Capillary Refill Skin: Warm, Dry, Intact Neurological: Cranial Nerves Intact, Reflexes Equal Bilateral Neuro Extensive - Mental Status: Alert, Oriented x3, Normal Mood/Affect, Normal Cognition Neuro Extensive - Motor, Sensory, Reflexes: CN II-XII Intact, Normal Gait, Normal Reflexes Psychiatric: Alert, Normal Affect, Normal Mood - Patient Data Lab Results Last 24 hrs: Laboratory Results - last 24 hr 10/09/19 10/09/19 10/09/19 Range/Units 10:05 10:05 10:05 WBC 5.93 (3.98-10.04) K/mm3 RBC 4.48 (3.98-5.22) M/mm3 Hgb 13.8 (11.2-15.7) gm/dl Hct 42.7 (34.1-44.9) % MCV 95.3 H (79.4-94.8) fl MCH 30.8 (25.6-32.2) pg MCHC 32.3 (32.2-35.5) g/dl RDW Std Deviation 53.5 H (36.4-46.3) fL Plt Count 549 H D (182-369) K/mm3 MPV 8.7 L (9.4-12.3) fl Neut % (Auto) 42.7 (34.0-71.1) % Lymph % (Auto) 49.6 (19.3-51.7) % [place] % (Auto) 6.4 (4.7-12.5) % Eos % (Auto) 0.8 (0.7-5.8) Baso % (Auto) 0.5 (0.1-1.2) % Neut # (Auto) 2.53 (1.56-6.13) K/mm3 Lymph # (Auto) 2.94 (1.18-3.74) K/mm3 [place] # (Auto) 0.38 H (0.24-0.36) K/mm3 Eos # (Auto) 0.05 (0.04-0.36) K/mm3 Baso # (Auto) 0.03 (0.01-0.08) K/mm3 PT 9.8 (9.7-12.0) SECONDS INR < 0.93 APTT 22 (22-31) SECONDS Sodium 141 (136-145) mEq/L Potassium 2.5 L (3.5-5.1) mEq/L Chloride 102 (98-107) mEq/L Carbon Dioxide 24 (21-32) mEq/L Anion Gap 17.5 H (5-15) BUN 5 L (7-18) mg/dL Creatinine 1.2 H (0.55-1.02) mg/dL Est Cr Clr Drug Dosing 48.43 mL/min Estimated GFR (MDRD) 48 (>60) mL/min BUN/Creatinine Ratio 4.2 L (14-18) Glucose 151 H (74-106) mg/dL Calcium 9.0 (8.5-10.1) mg/dL Magnesium (1.8-2.4) mg/dl Total Bilirubin 0.3 (0.2-1.0) mg/dL AST 399 H (15-37) U/L ALT 160 H (14-59) U/L Alkaline Phosphatase 219 H (46-116) U/L C-Reactive Protein (<1.0) mg/dL Total Protein 8.2 (6.4-8.2) g/dl Albumin 3.7 (3.4-5.0) g/dl Globulin 4.5 gm/dL Albumin/Globulin Ratio 0.8 L (1-2) Lipase (73-393) U/L Urine Color (Yellow) Urine Appearance (Clear) Urine pH (5.0-8.0) Ur Specific [place] (1.005-1.030) Urine Protein (Negative) Urine Glucose (UA) (Negative) Urine Ketones (Negative) Urine Occult Blood (Negative) Urine Nitrite (Negative) Urine Bilirubin (Negative) Urine Urobilinogen (0.2-1.0) Ur Leukocyte Esterase (Negative) Urine RBC (0-5) /hpf Urine WBC (0-5) /hpf Ur Squamous Epith Cells (0-5) /hpf Urine Bacteria (FEW) /hpf Urine Mucus (FEW) /hpf Urine Opiates Screen (NOGSOV=071) Ur Buprenorphine Scrn (CUTOFF=10) Ur Oxycodone Screen (PWS1OX=057) Urine Methadone Screen (UEFIVU=680) Ur Propoxyphene Screen (HECEGA=543) Ur Barbiturates Screen (WMYWER=284) Ur Tricyclics Screen (WWUUWA=059) Ur Phencyclidine Scrn (CUTOFF=25) Ur Amphetamine Screen (TWNOLR=651) U Methamphetamines Scrn (CQJUOR=615) U Benzodiazepines Scrn (KOUXNN=488) U Cocaine Metab Screen (RPTSDR=062) U Marijuana (THC) Screen (CUTOFF=50) Ethyl Alcohol 0.26 (0.00) gm% COVID-19 (ROSAURA) (NEGATIVE) 10/09/19 10/09/19 10/09/19 Range/Units 10:05 11:09 11:09 WBC (3.98-10.04) K/mm3 RBC (3.98-5.22) M/mm3 Hgb (11.2-15.7) gm/dl Hct (34.1-44.9) % MCV (79.4-94.8) fl MCH (25.6-32.2) pg MCHC (32.2-35.5) g/dl RDW Std Deviation (36.4-46.3) fL Plt Count (182-369) K/mm3 MPV (9.4-12.3) fl Neut % (Auto) (34.0-71.1) % Lymph % (Auto) (19.3-51.7) % [place] % (Auto) (4.7-12.5) % Eos % (Auto) (0.7-5.8) Baso % (Auto) (0.1-1.2) % Neut # (Auto) (1.56-6.13) K/mm3 Lymph # (Auto) (1.18-3.74) K/mm3 [place] # (Auto) (0.24-0.36) K/mm3 Eos # (Auto) (0.04-0.36) K/mm3 Baso # (Auto) (0.01-0.08) K/mm3 PT (9.7-12.0) SECONDS INR APTT (22-31) SECONDS Sodium (136-145) mEq/L Potassium (3.5-5.1) mEq/L Chloride (98-107) mEq/L Carbon Dioxide (21-32) mEq/L Anion Gap (5-15) BUN (7-18) mg/dL Creatinine (0.55-1.02) mg/dL Est Cr Clr Drug Dosing mL/min Estimated GFR (MDRD) (>60) mL/min BUN/Creatinine Ratio (14-18) Glucose (74-106) mg/dL Calcium (8.5-10.1) mg/dL Magnesium (1.8-2.4) mg/dl Total Bilirubin (0.2-1.0) mg/dL AST (15-37) U/L ALT (14-59) U/L Alkaline Phosphatase (46-116) U/L C-Reactive Protein (<1.0) mg/dL Total Protein (6.4-8.2) g/dl Albumin (3.4-5.0) g/dl Globulin gm/dL Albumin/Globulin Ratio (1-2) Lipase 464 H (73-393) U/L Urine Color Yellow (Yellow) Urine Appearance Clear (Clear) Urine pH 6.5 (5.0-8.0) Ur Specific [place] 1.015 (1.005-1.030) Urine Protein 1+ H (Negative) Urine Glucose (UA) Negative (Negative) Urine Ketones Negative (Negative) Urine Occult Blood Trace-lysed H (Negative) Urine Nitrite Negative (Negative) Urine Bilirubin Negative (Negative) Urine Urobilinogen 0.2 (0.2-1.0) Ur Leukocyte Esterase 3+ H (Negative) Urine RBC 0-5 (0-5) /hpf Urine WBC >100 H (0-5) /hpf Ur Squamous Epith Cells 10-20 H (0-5) /hpf Urine Bacteria Many H (FEW) /hpf Urine Mucus Not seen (FEW) /hpf Urine Opiates Screen Negative (BAXGIK=259) Ur Buprenorphine Scrn Negative (CUTOFF=10) Ur Oxycodone Screen Negative (XBU3ZL=707) Urine Methadone Screen Negative (OEDHAQ=609) Ur Propoxyphene Screen Negative (JOIKBF=471) Ur Barbiturates Screen Negative (PFKDST=531) Ur Tricyclics Screen Negative (VWOVXS=213) Ur Phencyclidine Scrn Negative (CUTOFF=25) Ur Amphetamine Screen Negative (VKZGAQ=291) U Methamphetamines Scrn Negative (BDWJAY=026) U Benzodiazepines Scrn Negative (JFNKAE=181) U Cocaine Metab Screen Negative (RLXXIJ=760) U Marijuana (THC) Screen Negative (CUTOFF=50) Ethyl Alcohol (0.00) gm% COVID-19 (ROSAURA) (NEGATIVE) 10/09/19 10/09/19 Range/Units 12:08 15:00 WBC (3.98-10.04) K/mm3 RBC (3.98-5.22) M/mm3 Hgb (11.2-15.7) gm/dl Hct (34.1-44.9) % MCV (79.4-94.8) fl MCH (25.6-32.2) pg MCHC (32.2-35.5) g/dl RDW Std Deviation (36.4-46.3) fL Plt Count (182-369) K/mm3 MPV (9.4-12.3) fl Neut % (Auto) (34.0-71.1) % Lymph % (Auto) (19.3-51.7) % [place] % (Auto) (4.7-12.5) % Eos % (Auto) (0.7-5.8) Baso % (Auto) (0.1-1.2) % Neut # (Auto) (1.56-6.13) K/mm3 Lymph # (Auto) (1.18-3.74) K/mm3 [place] # (Auto) (0.24-0.36) K/mm3 Eos # (Auto) (0.04-0.36) K/mm3 Baso # (Auto) (0.01-0.08) K/mm3 PT (9.7-12.0) SECONDS INR APTT (22-31) SECONDS Sodium (136-145) mEq/L Potassium 2.5 L (3.5-5.1) mEq/L Chloride (98-107) mEq/L Carbon Dioxide (21-32) mEq/L Anion Gap (5-15) BUN (7-18) mg/dL Creatinine (0.55-1.02) mg/dL Est Cr Clr Drug Dosing mL/min Estimated GFR (MDRD) (>60) mL/min BUN/Creatinine Ratio (14-18) Glucose (74-106) mg/dL Calcium (8.5-10.1) mg/dL Magnesium 2.1 (1.8-2.4) mg/dl Total Bilirubin (0.2-1.0) mg/dL AST (15-37) U/L ALT (14-59) U/L Alkaline Phosphatase (46-116) U/L C-Reactive Protein <0.2 (<1.0) mg/dL Total Protein (6.4-8.2) g/dl Albumin (3.4-5.0) g/dl Globulin gm/dL Albumin/Globulin Ratio (1-2) Lipase (73-393) U/L Urine Color (Yellow) Urine Appearance (Clear) Urine pH (5.0-8.0) Ur Specific [place] (1.005-1.030) Urine Protein (Negative) Urine Glucose (UA) (Negative) Urine Ketones (Negative) Urine Occult Blood (Negative) Urine Nitrite (Negative) Urine Bilirubin (Negative) Urine Urobilinogen (0.2-1.0) Ur Leukocyte Esterase (Negative) Urine RBC (0-5) /hpf Urine WBC (0-5) /hpf Ur Squamous Epith Cells (0-5) /hpf Urine Bacteria (FEW) /hpf Urine Mucus (FEW) /hpf Urine Opiates Screen (JTIZBJ=198) Ur Buprenorphine Scrn (CUTOFF=10) Ur Oxycodone Screen (AFA2LF=692) Urine Methadone Screen (UVVTAQ=042) Ur Propoxyphene Screen (RKZOHV=734) Ur Barbiturates Screen (FFLHXK=458) Ur Tricyclics Screen (RELVHD=025) Ur Phencyclidine Scrn (CUTOFF=25) Ur Amphetamine Screen (SPIQQY=203) U Methamphetamines Scrn (UCLILS=272) U Benzodiazepines Scrn (NIGXKA=902) U Cocaine Metab Screen (UMYGIZ=720) U Marijuana (THC) Screen (CUTOFF=50) Ethyl Alcohol (0.00) gm% COVID-19 (ROSAURA) Negative (NEGATIVE) Result Diagrams: 10/09/19 10:05 10/09/19 15:00 Sepsis Event Note - Evaluation Sepsis Screening Result: No Definite Risk - Focused Exam Vital Signs: Vital Signs Temp Pulse Resp BP BP Pulse Ox Pulse Ox 10/09/19 16:00 36.3 C 20 153/104 H 95 10/09/19 15:00 95 10/09/19 14:45 36.4 C 15 147/110 H 95 10/09/19 14:10 36.3 C 108 H 16 156/113 H 100 10/09/19 09:55 36.4 C 115 H 20 139/111 H 95 Date Exam was Performed: 10/09/19 Time Exam was Performed: 18:21 - Problem List (1) Alcohol withdrawal syndrome SNOMED Code(s): 284191963 ICD Code: F10.239 - ALCOHOL DEPENDENCE WITH WITHDRAWAL, UNSPECIFIED Status: Acute Priority: Medium Current Visit: Yes Onset Date: ~10/09/19 Qualifiers: Complication of substance-induced condition: uncomplicated Qualified Code(s): F10.230 - Alcohol dependence with withdrawal, uncomplicated (2) Hypokalemia SNOMED Code(s): 98587326 ICD Code: E87.6 - HYPOKALEMIA Status: Acute Priority: Medium Current Visit: Yes Onset Date: ~10/09/19 (3) Abdominal pain SNOMED Code(s): 37164538 ICD Code: R10.9 - UNSPECIFIED ABDOMINAL PAIN Status: Acute Priority: Medium Current Visit: No Onset Date: ~10/09/19 Qualifiers: Abdominal location: generalized Qualified Code(s): R10.84 - Generalized abdominal pain (4) Acute alcohol intoxication SNOMED Code(s): 25194891, 09650194 ICD Code: F10.929 - ALCOHOL USE, UNSPECIFIED WITH INTOXICATION, UNSPECIFIED Status: Acute Priority: High Current Visit: No Onset Date: ~10/09/19 Qualifiers: Complication of substance-induced condition: uncomplicated Qualified Code(s): F10.920 - Alcohol use, unspecified with intoxication, uncomplicated (5) Alcohol abuse SNOMED Code(s): 84327124 ICD Code: F10.10 - ALCOHOL ABUSE, UNCOMPLICATED Status: Acute Priority: High Current Visit: No Onset Date: ~10/09/19 (6) Alcohol dependence syndrome SNOMED Code(s): 72331158 ICD Code: F10.20 - ALCOHOL DEPENDENCE, UNCOMPLICATED Status: Acute Priority: High Current Visit: No Qualifiers: Substance use status: in withdrawal Complication of substance-induced condition: uncomplicated Qualified Code(s): F10.230 - Alcohol dependence with withdrawal, uncomplicated (7) Alcoholic gastritis SNOMED Code(s): 5712563 ICD Code: K29.20 - ALCOHOLIC GASTRITIS WITHOUT BLEEDING Status: Acute Priority: Medium Current Visit: No Onset Date: ~10/09/19 Qualifiers: Chronicity: chronic Gastritis bleeding: without bleeding Qualified Code(s): K29.20 - Alcoholic gastritis without bleeding (8) Anxiety SNOMED Code(s): 04817318 ICD Code: F41.9 - ANXIETY DISORDER, UNSPECIFIED Status: Acute Priority: High Current Visit: No Onset Date: ~10/09/19 (9) Depression SNOMED Code(s): 93124372 ICD Code: F32.9 - MAJOR DEPRESSIVE DISORDER, SINGLE EPISODE, UNSPECIFIED Status: Acute Priority: Medium Current Visit: No Onset Date: ~10/09/19 Qualifiers: Depression Type: major depressive disorder Major depression recurrence: recurrent Active/Remission status: in remission of unspecified degree Qualified Code(s): F33.40 - Major depressive disorder, recurrent, in remission, unspecified (10) Multiple sclerosis SNOMED Code(s): 22184728 ICD Code: G35 - MULTIPLE SCLEROSIS Status: Acute Current Visit: No (11) Pancreatitis SNOMED Code(s): 09723452 ICD Code: K85.90 - ACUTE PANCREATITIS WITHOUT NECROSIS OR INFECTION, UNSP Status: Acute Current Visit: No Qualifiers: Chronicity: acute Pancreatitis type: other Acute pancreatitis complication: no infection or necrosis Qualified Code(s): K85.80 - Other acute pancreatitis without necrosis or infection Problem List Initiated/Reviewed/Updated: Yes Orders Last 24hrs: Active Orders 24 hr Category Date Time Status Patient Status [ADT] Routine ADT 10/09/19 11:40 Active Patient Status [ADT] Routine ADT 10/09/19 13:08 Active CIWAA Assessment [RC] Q1H Care 10/09/19 13:25 Active Cardiac Monitoring [RC] CONTINUOUS Care 10/09/19 13:09 Active EKG Documentation Completion [RC] ROUTINE Care 10/09/19 13:08 Active EKG Documentation Completion [RC] STAT Care 10/09/19 10:11 Active Height and Weight [RC] 0400 Care 10/09/19 13:08 Active Oxygen Therapy [RC] PRN Care 10/09/19 13:08 Active Up With Assistance [RC] ASDIRECTED Care 10/09/19 13:08 Active VTE/DVT Education [RC] ,21 Care 10/09/19 13:08 Active Vital Signs [RC] Q4HR Care 10/09/19 13:08 Active Consult to Case Management/Garment Patternmaker [CONS] Cons 10/09/19 13:08 Active Routine OT Evaluation and Treatment [CONS] Routine Cons 10/09/19 13:08 Active PT Evaluation and Treatment [CONS] Routine Cons 10/09/19 13:08 Active Nothing per Oral Now Diet [DIET] Diet 10/09/19 Dinner Active AMYLASE [CHEM] Routine Lab 10/10/19 13:17 Ordered CBC W/O DIFF,HEMOGRAM [HEME] AM Lab 10/10/19 05:11 Ordered CBC W/O DIFF,HEMOGRAM [HEME] AM Lab 10/11/19 05:11 Ordered CBC W/O DIFF,HEMOGRAM [HEME] AM Lab 10/12/19 05:11 Ordered COMPREHENSIVE METABOLIC PN,CMP [CHEM] Timed Lab 10/10/19 13:08 Ordered LIPASE [CHEM] Routine Lab 10/10/19 13:18 Ordered SEDIMENTATION RATE AUTO [HEME] Timed Lab 10/10/19 13:08 Ordered Dextrose 5%-Lactated Ringers 1,000 ml Med 10/09/19 10:15 Active IV ASDIRECTED Enoxaparin [Lovenox] Med 10/09/19 14:00 Active 40 mg SUBCUT Q24H Ketorolac [Toradol] Med 10/09/19 13:08 Active 30 mg IVPUSH Q6H PRN LORazepam [Ativan] Med 10/09/19 13:25 Active See Protocol IVPUSH Q4H PRN Morphine Med 10/09/19 13:08 Active 2 mg IVPUSH Q2H PRN Nicotine [Habitrol] Med 10/09/19 14:00 Active 21 mg TRDERM Q24H Ondansetron [Zofran ODT] Med 10/09/19 13:08 Active 8 mg PO Q6H PRN Sodium Chloride 0.9% [Normal Saline] 1,000 ml Med 10/09/19 11:45 Active IV ASDIRECTED cefTRIAXone [Rocephin] 1 gm Med 10/10/19 12:00 Active Sodium Chloride 0.9% [Normal Saline] 100 ml IV Q24H Resuscitation Status Routine Resus Stat 10/09/19 13:08 Ordered Medication Orders Enoxaparin Sodium (Lovenox) 40 mg SUBCUT Q24H [facility] Last Admin: 10/09/19 14:08 Dose: 40 mg Documented by: SHANTHI Dextrose/Lactated Ringer's (Dextrose 5%-Lactated Ringers) 1,000 mls @ 999 mls/hr IV ASDIRECTED [facility] Last Admin: 10/09/19 10:28 Dose: 999 mls/hr Documented by: SHANTHI Sodium Chloride (Normal Saline) 1,000 mls @ 125 mls/hr IV ASDIRECTED [facility] Last Admin: 10/09/19 12:09 Dose: 125 mls/hr Documented by: PRIYANKA Ceftriaxone Sodium 1 gm/ (Sodium Chloride) 100 mls @ 200 mls/hr IV Q24H [facility] Ketorolac Tromethamine (Toradol) 30 mg IVPUSH Q6H PRN PRN Reason: Pain (moderate 4-6) Last Admin: 10/09/19 15:00 Dose: 30 mg Documented by: KHUSHBOO Lorazepam (Ativan) 0 mg IVPUSH Q4H PRN; Protocol PRN Reason: Withdrawal Symptoms Last Admin: 10/09/19 17:34 Dose: 2 mg Documented by: Admin: 10/09/19 15:20 Dose: 1 mg Documented by: KHUSHBOO Morphine Sulfate (Morphine) 2 mg IVPUSH Q2H PRN PRN Reason: Pain (severe 7-10) Stop: 10/10/19 13:11 Last Admin: 10/09/19 16:44 Dose: 2 mg Documented by: Admin: 10/09/19 14:03 Dose: 2 mg Documented by: SHANTHI Nicotine (Habitrol) 21 mg TRDERM Q24H [facility] Last Admin: 10/09/19 14:56 Dose: 21 mg Documented by: KHUSHBOO Ondansetron HCl (Zofran Odt) 8 mg PO Q6H PRN PRN Reason: Nausea/Vomiting Assessment/Plan Comment:: 49 year old female with hx of epigastric abd pain radiating to back /10 who also took last drink 2.5 hours ago . nauseated and c/o skin tingling . denies sweating /vomiting/has anorexia and no loc and no trauma. in [facility]oh treatment with [facility] but relapsed fully drinks 1.75 liter every 2 days. started ?month ago? feels may have flared pancreatitis . no brbr or melana ,syncope ,chest pain . phx m.s on treatment hepatitis a hep c pancreatitis depression anxiety . hypertension p.e. vs shows tachicardia skin normal coloration / no icterus/ lungs clear = cor rrr/no murm. no s3/4 abd soft / mild epigastric tenderness no rebound .bs active. ms appears wnl. neuro alert oriented and anxious . etoh on breathe and slurred speech . no tremors,sweating,claminess. aox4 memory good recall. lab reviewed mild increase lipase. mild lft elavation. rest wnl other than k low . assess: 1 etoh abuse level .23 last drink this am drinking all night . gastritis possible pancreatitis. hx of viral hep s/p treatment . hx of m.s on treatment with avolox hx of depression . hx of anxiety . currently in outpatient treatment program and relapsed . plan admit /icu monitor ciwas rule out pancreatitis flare start ativan per protocol start protocol thiamie and vit b complex. pain control . etoh consult with tiffanie . see DR Veras for depression - Mortality Measure Prognosis:: Good
[2019-10-09] MEDS ORDERED: INTERFERON BETA SQ SCH (19:00)
[2019-10-09] MEDS: DULoxetine 30 MG Cap PO SCH (21:17)
[2019-10-09] MEDS: QUEtiapine 100 MG Tab PO SCH (21:17)
[2019-10-09] MEDS: Gabapentin 300 MG Cap PO SCH (21:17)
[2019-10-09] MEDS: hydrOXYzine HCl 50 MG Tab PO SCH (21:17)
[2019-10-10] MEDS ORDERED: Labetalol 100 MG/20 ML MDV IVPUSH ONE (01:23)
[2019-10-10] MEDS ORDERED: Labetalol 100 MG Tab PO ONE ×2 (01:29→01:38)
[2019-10-10] MEDS ORDERED: Metoprolol Succinate 50 MG Tab.ER PO ONE (01:41)
[2019-10-10] MEDS: amLODIPine 5 MG Tab PO PRN (02:16)
[2019-10-10] MEDS: Morphine 2 MG/ML SYRINGE IVPUSH PRN ×3 (02:18→10:00)
[2019-10-10] MEDS: Sodium Chloride 0.9% 1,000 ML IV SCH (02:36)
[2019-10-10] MEDS: LORazepam 2 MG/ML SDV IVPUSH PRN (06:01)
[2019-10-10] MEDS: Pantoprazole 40 MG Tab.CR PO SCH (06:05)
[2019-10-10] MEDS ORDERED: Metoprolol Succinate 50 MG Tab.ER PO SCH ×2 (09:00)
[2019-10-10] MEDS: QUEtiapine 25 MG Tab PO SCH (09:58)
[2019-10-10] MEDS: levETIRAcetam 500 MG Tab PO SCH (09:58)
[2019-10-10] MEDS: DULoxetine 30 MG Cap PO SCH ×2 (09:58→20:59)
[2019-10-10] MEDS: Gabapentin 300 MG Cap PO SCH ×3 (09:58→20:59)
[2019-10-10] MEDS: Potassium Chloride 20 MEQ Tab.ER PO SCH (09:58)
[2019-10-10] MEDS: D5 1/2 NS w/ 20 mEq/L KCl 1,000 ML IV SCH ×2 (10:04→22:56)
[2019-10-10] MEDS ORDERED: Magnesium Sulfate/Water 4 GM in Premix Bag 1 BAG IV ONE (11:30)
[2019-10-10] MEDS ORDERED: cefTRIAXone 1 GM in Sodium Chloride 0.9% 100 ML IV SCH (12:00)
[2019-10-10] MEDS: Metoprolol Succinate 50 MG Tab.ER PO SCH (12:21)
[2019-10-10] MEDS: Ketorolac 30 MG/ML SDV IVPUSH PRN ×2 (12:25→21:32)
--- NOTE | 2019-10-10 13:28 | PCM.PN ---
- General Info Date of Service: 10/10/19 Admission Dx/Problem (Free Text): Admission Diagnosis/Problem Admission Diagnosis/Problem Alcohol withdrawal syndrome/possible pancreatitis Subjective Update: 10/10/19 afebrile/ vss but b.p high last night and started metoprolol and other meds i.v.. also ciwas stable 3-5 no withdrawal signs and abd pain very minimal . i.v 75 cc hour labs show mild elvation of lipase and elavated lfts and t.b . cbc stable k low and mag pending. p.e. clear lungs . cor rrr without murm or s3/s4 abd mild tenderness on deep palp. cva normal ext: wnl . assess/plan acute etoh widthdrawal stable on meds monitor ciwas . pancreatitis ? keep npo today and monitor clinical status . liver disease hx of hep a and hep c and unknown treatment status and known chronic etoh abuse. needs treatment . depression seeing Dr Veras. cont meds as alowed by pancreatitis. . darien pending . boh Functional Status: Reports: Pain Controlled - Review of Systems General: Reports: No Symptoms HEENT: Reports: No Symptoms Pulmonary: Reports: No Symptoms Cardiovascular: Reports: No Symptoms Gastrointestinal: Reports: No Symptoms Genitourinary: Reports: No Symptoms Musculoskeletal: Reports: No Symptoms Skin: Reports: No Symptoms Neurological: Reports: No Symptoms. Denies: Confusion, Dizziness, Paresthesia, Seizure, Tingling, Tremors, Trouble Speaking, Difficulty Walking, Weakness Psychiatric: Reports: No Symptoms. Denies: Hallucinations - Patient Data Vitals - Most Recent: Last Vital Signs Temp 36.4 C 10/10/19 12:00 Pulse 64 10/10/19 12:21 Resp 14 10/10/19 12:00 BP 129/86 10/10/19 12:21 Pulse Ox 94 L 10/10/19 12:00 Weight - Most Recent: 67.232 kg I&O - Last 24 Hours: Intake & Output 10/09/19 10/10/19 10/10/19 22:59 06:59 14:59 Intake Total 2100 1200 1936 Output Total 400 900 Balance 1700 1200 1036 Lab Results Last 24 Hours: Laboratory Results - last 24 hr 10/09/19 10/10/19 10/10/19 Range/Units 15:00 04:25 04:35 WBC 5.44 (3.98-10.04) K/mm3 RBC 3.37 L (3.98-5.22) M/mm3 Hgb 10.7 L D (11.2-15.7) gm/dl Hct 32.3 L (34.1-44.9) % MCV 95.8 H (79.4-94.8) fl MCH 31.8 (25.6-32.2) pg MCHC 33.1 (32.2-35.5) g/dl RDW Std Deviation 52.5 H (36.4-46.3) fL Plt Count 336 D (182-369) K/mm3 MPV 9.0 L (9.4-12.3) fl ESR 82 H (0-20) mm/hr Sodium (136-145) mEq/L Potassium 2.5 L (3.5-5.1) mEq/L Chloride (98-107) mEq/L Carbon Dioxide (21-32) mEq/L Anion Gap (5-15) BUN (7-18) mg/dL Creatinine (0.55-1.02) mg/dL Est Cr Clr Drug Dosing mL/min Estimated GFR (MDRD) (>60) mL/min BUN/Creatinine Ratio (14-18) Glucose (74-106) mg/dL Calcium (8.5-10.1) mg/dL Magnesium 2.1 (1.8-2.4) mg/dl Total Bilirubin (0.2-1.0) mg/dL AST (15-37) U/L ALT (14-59) U/L Alkaline Phosphatase (46-116) U/L C-Reactive Protein <0.2 (<1.0) mg/dL Total Protein (6.4-8.2) g/dl Albumin (3.4-5.0) g/dl Globulin gm/dL Albumin/Globulin Ratio (1-2) Amylase (25-115) U/L Lipase (73-393) U/L 10/10/19 10/10/19 10/10/19 Range/Units 04:35 04:35 04:35 WBC (3.98-10.04) K/mm3 RBC (3.98-5.22) M/mm3 Hgb (11.2-15.7) gm/dl Hct (34.1-44.9) % MCV (79.4-94.8) fl MCH (25.6-32.2) pg MCHC (32.2-35.5) g/dl RDW Std Deviation (36.4-46.3) fL Plt Count (182-369) K/mm3 MPV (9.4-12.3) fl ESR (0-20) mm/hr Sodium 139 (136-145) mEq/L Potassium 4.0 D (3.5-5.1) mEq/L Chloride 104 (98-107) mEq/L Carbon Dioxide 27 (21-32) mEq/L Anion Gap 12.0 (5-15) BUN 7 (7-18) mg/dL Creatinine 1.0 (0.55-1.02) mg/dL Est Cr Clr Drug Dosing 58.12 mL/min Estimated GFR (MDRD) 59 (>60) mL/min BUN/Creatinine Ratio 7.0 L (14-18) Glucose 94 (74-106) mg/dL Calcium 8.0 L (8.5-10.1) mg/dL Magnesium 1.5 L (1.8-2.4) mg/dl Total Bilirubin 0.5 (0.2-1.0) mg/dL AST 250 H (15-37) U/L ALT 114 H (14-59) U/L Alkaline Phosphatase 175 H (46-116) U/L C-Reactive Protein (<1.0) mg/dL Total Protein 6.1 L (6.4-8.2) g/dl Albumin 2.8 L (3.4-5.0) g/dl Globulin 3.3 gm/dL Albumin/Globulin Ratio 0.9 L (1-2) Amylase 40 (25-115) U/L Lipase 349 (73-393) U/L Med Orders - Current: Current Medications Amlodipine Besylate (Norvasc) 5 mg PO Q12HR PRN PRN Reason: Hypertension Last Admin: 10/10/19 02:16 Dose: 5 mg Documented by: Duloxetine HCl (Cymbalta) 30 mg PO BEDTIME [facility] Last Admin: 10/09/19 21:17 Dose: 30 mg Documented by: Duloxetine HCl (Cymbalta) 60 mg PO DAILY [facility] Last Admin: 10/10/19 09:58 Dose: 60 mg Documented by: Enoxaparin Sodium (Lovenox) 40 mg SUBCUT Q24H [facility] Last Admin: 10/09/19 14:08 Dose: 40 mg Documented by: Gabapentin (Neurontin) 300 mg PO TID [facility] Last Admin: 10/10/19 09:58 Dose: 300 mg Documented by: Hydroxyzine HCl (Atarax) 50 mg PO BEDTIME [facility] Last Admin: 10/09/19 21:17 Dose: 50 mg Documented by: Dextrose/Lactated Ringer's (Dextrose 5%-Lactated Ringers) 1,000 mls @ 999 mls/hr IV ASDIRECTED [facility] Last Admin: 10/09/19 10:28 Dose: 999 mls/hr Documented by: Ceftriaxone Sodium 1 gm/ (Sodium Chloride) 100 mls @ 200 mls/hr IV Q24H [facility] Last Admin: 10/10/19 12:22 Dose: 200 mls/hr Documented by: Potassium Chloride/Dextrose/Sod Cl (D5 1/2 Ns W/ 20 Meq/L Kcl) 1,000 mls @ 75 mls/hr IV ASDIRECTED [facility] Last Admin: 10/10/19 10:04 Dose: 75 mls/hr Documented by: Magnesium Sulfate 4 gm/ Premix 50 mls @ 12.5 mls/hr IV ONETIME ONE Stop: 10/10/19 15:29 Last Admin: 10/10/19 11:24 Dose: 12.5 mls/hr Documented by: Ketorolac Tromethamine (Toradol) 30 mg IVPUSH Q6H PRN PRN Reason: Pain (moderate 4-6) Last Admin: 10/10/19 12:25 Dose: 30 mg Documented by: Levetiracetam (Keppra) 500 mg PO DAILY [facility] Last Admin: 10/10/19 09:58 Dose: 500 mg Documented by: Lorazepam (Ativan) 0 mg IVPUSH Q4H PRN; Protocol PRN Reason: Withdrawal Symptoms Last Admin: 10/10/19 06:01 Dose: 1 mg Documented by: Metoprolol Succinate (Toprol Xl) 200 mg PO DAILY [facility] Last Admin: 10/10/19 12:21 Dose: 200 mg Documented by: Nicotine (Habitrol) 21 mg TRDERM Q24H [facility] Last Admin: 10/09/19 14:56 Dose: 21 mg Documented by: Non-Formulary Medication (Interferon Beta-1a [Avonex]) 1 injection SQ FR [facility] Ondansetron HCl (Zofran Odt) 8 mg PO Q6H PRN PRN Reason: Nausea/Vomiting Ondansetron HCl (Zofran Odt) 4 mg PO Q6H PRN PRN Reason: Nausea\vomiting Pantoprazole Sodium (Protonix) 40 mg PO DAILY@0700 [facility] Last Admin: 10/10/19 06:05 Dose: 40 mg Documented by: Potassium Chloride (Klor-Con M20) 20 meq PO DAILY [facility] Last Admin: 10/10/19 09:58 Dose: 20 meq Documented by: Quetiapine Fumarate (Seroquel) 25 mg PO DAILY [facility] Last Admin: 10/10/19 09:58 Dose: 25 mg Documented by: Quetiapine Fumarate (Seroquel) 200 mg PO BEDTIME [facility] Last Admin: 10/09/19 21:17 Dose: 200 mg Documented by: Discontinued Medications Diphenhydramine HCl (Benadryl) 50 mg IVPUSH ONETIME ONE Stop: 10/09/19 13:29 Last Admin: 10/09/19 14:01 Dose: 50 mg Documented by: Enoxaparin Sodium (Lovenox) Confirm Administered Dose 40 mg .ROUTE .STK-MED ONE Stop: 10/09/19 13:59 Last Admin: 10/09/19 14:07 Dose: Not Given Documented by: Hydromorphone HCl (Dilaudid) 0.5 mg IVPUSH ONETIME ONE Stop: 10/09/19 10:58 Last Admin: 10/09/19 11:20 Dose: 0.5 mg Documented by: Thiamine HCl 100 mg/ Sodium (Chloride) 101 mls @ 202 mls/hr IV ONETIME ONE Stop: 10/09/19 10:11 Last Admin: 10/09/19 10:48 Dose: Not Given Documented by: Potassium Chloride 10 meq/ (Premix) 100 mls @ 100 mls/hr IV Q1H [facility] Stop: 10/09/19 16:44 Last Admin: 10/09/19 16:34 Dose: 100 mls/hr Documented by: Ceftriaxone Sodium 1 gm/ (Sodium Chloride) 100 mls @ 200 mls/hr IV ONETIME ONE Stop: 10/09/19 11:57 Last Admin: 10/09/19 12:10 Dose: 200 mls/hr Documented by: Sodium Chloride (Normal Saline) 1,000 mls @ 125 mls/hr IV ASDIRECTED [facility] Last Admin: 10/10/19 02:36 Dose: 125 mls/hr Documented by: Labetalol HCl (Normodyne) 150 mg PO ONETIME ONE Stop: 10/10/19 01:30 Last Admin: 10/10/19 02:45 Dose: Not Given Documented by: Labetalol HCl (Normodyne) 200 mg PO ONETIME ONE Stop: 10/10/19 01:39 Last Admin: 10/10/19 02:45 Dose: Not Given Documented by: Metoclopramide HCl (Reglan) 7.5 mg IVPUSH ONETIME ONE Stop: 10/09/19 10:38 Last Admin: 10/09/19 10:44 Dose: 7.5 mg Documented by: Metoprolol Succinate (Toprol Xl) 200 mg PO DAILY [facility] Metoprolol Succinate (Toprol Xl) 200 mg PO ONETIME ONE Stop: 10/10/19 01:42 Last Admin: 10/10/19 02:17 Dose: 200 mg Documented by: Morphine Sulfate (Morphine) 2 mg IVPUSH Q2H PRN PRN Reason: Pain (severe 7-10) Stop: 10/10/19 13:11 Last Admin: 10/10/19 10:00 Dose: 2 mg Documented by: Morphine Sulfate (Morphine) Confirm Administered Dose 2 mg .ROUTE .STK-MED ONE Stop: 10/09/19 14:00 Last Admin: 10/09/19 14:07 Dose: Not Given Documented by: Thiamine HCl (Vitamin B-1) Confirm Administered Dose 200 mg .ROUTE .STK-MED ONE Stop: 10/09/19 10:24 Last Admin: 10/09/19 10:26 Dose: Not Given Documented by: Thiamine HCl (Vitamin B-1) 100 mg IVPUSH ONETIME ONE Stop: 10/09/19 10:46 Last Admin: 10/09/19 10:46 Dose: 100 mg Documented by: - Exam General: Alert, Oriented HEENT: Pupils Equal, Pupils Reactive, EOMI, Mucous Membr. Moist/[place] Neck: Supple Lungs: Clear to Auscultation, Normal Respiratory Effort Cardiovascular: Regular Rate, Regular Rhythm GI/Abdominal Exam: Normal Bowel Sounds, Soft, Non-Tender, No Organomegaly, No Distention, No Abnormal Bruit, No Mass, Pelvis Stable (Female) Exam: Normal External Exam, Normal Speculum Exam, Normal Bimanual Exam Back Exam: Normal Inspection, Full Range of Motion Extremities: Normal Inspection, Normal Range of Motion, Non-Tender, No Pedal Edema, Normal Capillary Refill Skin: Warm, Dry, Intact Wound/Incisions: Healing Well Neurological: No New Focal Deficit Psy/Mental Status: Alert, Normal Affect, Normal Mood Sepsis Event Note - Evaluation Sepsis Screening Result: No Definite Risk - Focused Exam Vital Signs: Vital Signs Temp Pulse Resp BP BP Pulse Ox 10/10/19 12:21 64 129/86 10/10/19 12:00 36.4 C 14 122/93 H 94 L 10/10/19 10:00 73 14 99 10/10/19 09:40 66 13 96 10/10/19 09:10 65 13 97 10/10/19 08:00 35.9 C L 14 123/91 H 96 10/10/19 06:40 65 13 96 10/10/19 06:30 65 12 96 10/10/19 06:20 66 14 95 10/10/19 06:10 69 14 96 10/10/19 06:00 64 12 97 10/10/19 05:50 66 11 L 96 10/10/19 05:40 66 11 L 96 10/10/19 05:30 69 13 97 10/10/19 05:23 73 13 134/102 H 95 10/10/19 05:22 67 16 96 10/10/19 05:20 66 12 97 10/10/19 05:10 67 12 97 10/10/19 05:00 71 13 97 10/10/19 04:50 68 12 97 10/10/19 04:40 69 12 97 10/10/19 04:30 71 14 99 10/10/19 04:20 71 12 97 10/10/19 04:10 78 11 L 96 10/10/19 04:01 78 13 133/100 H 97 10/10/19 04:00 76 13 97 10/10/19 03:50 77 12 95 10/10/19 03:40 80 12 97 10/10/19 03:30 82 13 97 10/10/19 03:20 81 12 98 10/10/19 03:13 78 12 155/102 H 99 10/10/19 03:12 81 13 99 10/10/19 03:10 80 15 99 10/10/19 03:00 84 12 97 10/10/19 02:50 87 13 97 10/10/19 02:40 91 12 97 10/10/19 02:30 91 14 97 10/10/19 02:20 96 12 97 10/10/19 02:17 93 139/106 H 10/10/19 02:16 139/106 H 10/10/19 02:10 93 19 98 10/10/19 02:00 95 14 97 10/10/19 01:50 102 H 13 96 10/10/19 01:40 98 14 97 10/10/19 01:30 102 H 13 97 Date Exam was Performed: 10/10/19 Time Exam was Performed: 13:22 - Problem List & Annotations (1) Alcohol withdrawal syndrome SNOMED Code(s): 510690830 Code(s): F10.239 - ALCOHOL DEPENDENCE WITH WITHDRAWAL, UNSPECIFIED Status: Acute Priority: Medium Current Visit: Yes Onset Date: ~10/09/19 Qualifiers: Complication of substance-induced condition: uncomplicated Qualified C ode(s): F10.230 - Alcohol dependence with withdrawal, uncomplicated (2) Hypokalemia SNOMED Code(s): 77056890 Code(s): E87.6 - HYPOKALEMIA Status: Acute Priority: Medium Current Visit: Yes Onset Date: ~10/09/19 (3) Abdominal pain SNOMED Code(s): 72748119 Code(s): R10.9 - UNSPECIFIED ABDOMINAL PAIN Status: Acute Priority: Medium Current Visit: No Onset Date: ~10/09/19 Qualifiers: Abdominal location: generalized Qualified Code(s): R10.84 - Generalized abdominal pain (4) Acute alcohol intoxication SNOMED Code(s): 24500567, 96005286 Code(s): F10.929 - ALCOHOL USE, UNSPECIFIED WITH INTOXICATION, UNSPECIFIED Status: Acute Priority: High Current Visit: No Onset Date: ~10/09/19 Qualifiers: Complication of substance-induced condition: uncomplicated Qualified Code(s): F10.920 - Alcohol use, unspecified with intoxication, uncomplicated (5) Alcohol abuse SNOMED Code(s): 60976743 Code(s): F10.10 - ALCOHOL ABUSE, UNCOMPLICATED Status: Acute Priority: High Current Visit: No Onset Date: ~10/09/19 (6) Alcohol dependence syndrome SNOMED Code(s): 15467867 Code(s): F10.20 - ALCOHOL DEPENDENCE, UNCOMPLICATED Status: Acute Priority: High Current Visit: No Qualifiers: Substance use status: in withdrawal Complication of substance-induced condition: uncomplicated Qualified Code(s): F10.230 - Alcohol dependence with withdrawal, uncomplicated (7) Alcoholic gastritis SNOMED Code(s): 2211303 Code(s): K29.20 - ALCOHOLIC GASTRITIS WITHOUT BLEEDING Status: Acute Priority: Medium Current Visit: No Onset Date: ~10/09/19 Qualifiers: Chronicity: chronic Gastritis bleeding: without bleeding Qualified Code(s): K29.20 - Alcoholic gastritis without bleeding (8) Anxiety SNOMED Code(s): 04565554 Code(s): F41.9 - ANXIETY DISORDER, UNSPECIFIED Status: Acute Priority: High Current Visit: No Onset Date: ~10/09/19 (9) Depression SNOMED Code(s): 41744850 Code(s): F32.9 - MAJOR DEPRESSIVE DISORDER, SINGLE EPISODE, UNSPECIFIED Status: Acute Priority: Medium Current Visit: No Onset Date: ~10/09/19 Qualifiers: Depression Type: major depressive disorder Major depression recurrence: recurrent Active/Remission status: in remission of unspecified degree Qualified Code(s): F33.40 - Major depressive disorder, recurrent, in remission, unspecified (10) Multiple sclerosis SNOMED Code(s): 45871540 Code(s): G35 - MULTIPLE SCLEROSIS Status: Acute Priority: Medium Current Visit: No Onset Date: ~10/09/19 (11) Pancreatitis SNOMED Code(s): 40162550 Code(s): K85.90 - ACUTE PANCREATITIS WITHOUT NECROSIS OR INFECTION, UNSP Status: Acute Priority: High Current Visit: No Qualifiers: Chronicity: acute Pancreatitis type: alcohol induced Acute pancreatitis complication: no infection or necrosis Qualified Code(s): K85.20 - Alcohol induced acute pancreatitis without necrosis or infection - Problem List Review Problem List Initiated/Reviewed/Updated: Yes - My Orders Last 24 Hours: My Active Orders 10/09/19 13:08 Patient Status [ADT] Routine EKG Documentation Completion [RC] AM Height and Weight [RC] 0400 Oxygen Therapy [RC] PRN Up With Assistance [RC] ASDIRECTED VTE/DVT Education [RC] Vital Signs [RC] Q4HR Consult to Case Management/[employer] [CONS] Routine OT Evaluation and Treatment [CONS] Routine PT Evaluation and Treatment [CONS] Routine Ketorolac [Toradol] 30 mg IVPUSH Q6H PRN Ondansetron [Zofran ODT] 8 mg PO Q6H PRN Resuscitation Status Routine 10/09/19 13:09 Cardiac Monitoring [RC] CONTINUOUS 10/09/19 13:25 CIWAA Assessment [RC] Q1H LORazepam [Ativan] See Protocol IVPUSH Q4H PRN 10/09/19 14:00 Enoxaparin [Lovenox] 40 mg SUBCUT Q24H Nicotine [Habitrol] 21 mg TRDERM Q24H 10/09/19 Dinner Nothing per Oral Now Diet [DIET] 10/09/19 18:48 Ondansetron [Zofran ODT] 4 mg PO Q6H PRN 10/09/19 19:00 Interferon Beta-1a [Avonex] 1 injection SQ FR 10/09/19 21:00 DULoxetine [Cymbalta] 30 mg PO BEDTIME Gabapentin [Neurontin] 300 mg PO TID QUEtiapine [SEROqueL] 200 mg PO BEDTIME hydrOXYzine HCL [Atarax] 50 mg PO BEDTIME 10/10/19 01:43 amLODIPine [Norvasc] 5 mg PO Q12HR PRN 10/10/19 07:00 Pantoprazole [ProTONIX] 40 mg PO DAILY@0710/10/19 09:00 D5 1/2 NS w/ 20 mEq/L KCl 1,000 ml IV ASDIRECTED DULoxetine [Cymbalta] 60 mg PO DAILY Potassium Chloride [Klor-Con M20] 20 meq PO DAILY QUEtiapine [SEROqueL] 25 mg PO DAILY levETIRAcetam [Keppra] 500 mg PO DAILY 10/10/19 11:30 Magnesium Sulfate/Water [Magnesium Sulfate in Water Premix] 4 gm Premix Bag 1 bag IV ONETIME 10/10/19 12:00 Metoprolol Succinate [Toprol XL] 200 mg PO DAILY cefTRIAXone [Rocephin] 1 gm Sodium Chloride 0.9% [Normal Saline] 100 ml IV Q24H 10/11/19 05:11 CBC W/O DIFF,HEMOGRAM [HEME] AM 10/12/19 05:11 CBC W/O DIFF,HEMOGRAM [HEME] AM - Assessment Assessment:: 10/10/19 afebrile/ vss but b.p high last night and started metoprolol and other meds i.v.. also ciwas stable 3-5 no withdrawal signs and abd pain very minimal . i.v 75 cc hour labs show mild elvation of lipase and elavated lfts and t.b . cbc stable k low and mag pending. p.e. clear lungs . cor rrr without murm or s3/s4 abd mild tenderness on deep palp. cva normal ext: wnl . assess/plan acute etoh widthdrawal stable on meds monitor ciwas . pancreatitis ? keep npo today and monitor clinical status . liver disease hx of hep a and hep c and unknown treatment status and known chronic etoh abuse. needs treatment . depression seeing Dr Veras. cont meds as alowed by pancreatitis. . lytes pending . boh - Plan Plan:: 49 year old female with hx of epigastric abd pain radiating to back /8-10 who also took last drink 2.5 hours ago . nauseated and c/o skin tingling . denies sweating /vomiting/has anorexia and no loc and no trauma. in etoh treatment with [facility] but relapsed fully drinks 1.75 liter every 2 days. started ?month ago? feels may have flared pancreatitis . no brbr or melana ,syncope ,chest pain . phx m.s on treatment hepatitis a hep c pancreatitis depression anxiety . hypertension p.e. vs shows tachicardia skin normal coloration / no icterus/ lungs clear = cor rrr/no murm. no s3/4 abd soft / mild epigastric tenderness no rebound .bs active. ms appears wnl. neuro alert oriented and anxious . etoh on breathe and slurred speech . no tremors,sweating,claminess. aox4 memory good recall. lab reviewed mild increase lipase. mild lft elavation. rest wnl other than k low . assess: 1 etoh abuse level .23 last drink this am drinking all night . gastritis possible pancreatitis. hx of viral hep s/p treatment . hx of m.s on treatment with avolox hx of depression . hx of anxiety . currently in outpatient treatment program and relapsed . plan admit /icu monitor ciwas rule out pancreatitis flare start ativan per protocol start protocol thiamie and vit b complex. pain control . etoh consult with tiffanie . see DR Veras for depression . afebrile/ vss but b.p high last night and started metoprolol and other meds i.v.. also ciwas stable 3-5 no withdrawal signs and abd pain very minimal . i.v 75 cc hour labs show mild elvation of lipase and elavated lfts and t.b . cbc stable k low and mag pending. p.e. clear lungs . cor rrr without murm or s3/s4 abd mild tenderness on deep palp. cva normal ext: wnl . assess/plan acute etoh widthdrawal stable on meds monitor ciwas . pancreatitis ? keep npo today and monitor clinical status . liver disease hx of hep a and hep c and unknown treatment status and known chronic etoh abuse. needs treatment . depression seeing Dr Veras. cont meds as alowed by pancreatitis. . lytes pending . boh
[2019-10-10] MEDS: Nicotine 21 MG/24 Hr Patch TRDERM SCH ×2 (15:29→16:57)
[2019-10-10] MEDS: Enoxaparin 40 MG/0.4 ML Syringe SUBCUT SCH (15:30)
[2019-10-10] MEDS: hydrOXYzine HCl 50 MG Tab PO SCH (20:59)
[2019-10-10] MEDS: QUEtiapine 100 MG Tab PO SCH (21:00)
[2019-10-11] MEDS: Ketorolac 30 MG/ML SDV IVPUSH PRN ×2 (04:11→15:15)
[2019-10-11] MEDS: Pantoprazole 40 MG Tab.CR PO SCH (08:13)
[2019-10-11] MEDS: QUEtiapine 25 MG Tab PO SCH (08:19)
[2019-10-11] MEDS: levETIRAcetam 500 MG Tab PO SCH (08:19)
[2019-10-11] MEDS: Metoprolol Succinate 50 MG Tab.ER PO SCH (08:19)
[2019-10-11] MEDS: DULoxetine 30 MG Cap PO SCH (08:19)
[2019-10-11] MEDS: Potassium Chloride 20 MEQ Tab.ER PO SCH (08:19)
[2019-10-11] MEDS: Gabapentin 300 MG Cap PO SCH ×2 (08:19→15:12)
[2019-10-11 08:20] VITALS: PULSE 75
[2019-10-11] MEDS ORDERED: diphenhydrAMINE 50 MG Cap PO PRN (09:54)
[2019-10-11] MEDS ORDERED: Sulfamethoxazole/Trimethoprim 800-160 MG Tab PO SCH (10:00)
--- NOTE | 2019-10-11 13:53 | PCM.PN ---
- General Info Date of Service: 10/11/19 Admission Dx/Problem (Free Text): Admission Diagnosis/Problem Admission Diagnosis/Problem Alcohol withdrawal syndrome/possible pancreatitis Subjective Update: 10/10/19 afebrile/ vss but b.p high last night and started metoprolol and other meds i.v.. also ciwas stable 3-5 no withdrawal signs and abd pain very minimal . i.v 75 cc hour labs show mild elvation of lipase and elavated lfts and t.b . cbc stable k low and mag pending. p.e. clear lungs . cor rrr without murm or s3/s4 abd mild tenderness on deep palp. cva normal ext: wnl . assess/plan acute etoh widthdrawal stable on meds monitor ciwas . pancreatitis ? keep npo today and monitor clinical status . liver disease hx of hep a and hep c and unknown treatment status and known chronic etoh abuse. needs treatment . depression seeing Dr Steinberg. cont meds as alowed by pancreatitis. . lytes pending . boh 10/11/19 afebrile/vss/ up ambulating with staff doing well / still sleeping alot. ///eating fair. c/o headache no abd pain and tolerated full liquids . b.p controlled . resp normal /p.e normal today . neuro alert / ox4 and appropriate. no tremors ciwas normal and dced. no seizure like episodes. taking po meds starting yest for seizure/cardiac meds lab lipase 540 . reat okay lfts coming down. discussed with her not to advance diet in light of mild elevation lipase , despite no abd pain and she is agreeable to proceeding slowly . Dr Steinberg to see her assess./plan. etoh widthdrawal mild and toerating well with support ativan weaned down yesterday . seizure disorder stable so far/ no encephalopathic features so far. pancreatitis mild / recommend repeat lipasea nd consider abd u.s or ct . etoh abuse / needs to re establish with [facility] but is in online course and prob needs daytreatment or other form and cont to treat depression with psyche. Functional Status: Reports: Pain Controlled - Review of Systems General: Reports: No Symptoms, Fatigue HEENT: Reports: No Symptoms Pulmonary: Reports: No Symptoms Cardiovascular: Reports: No Symptoms Gastrointestinal: Reports: No Symptoms Genitourinary: Reports: No Symptoms Musculoskeletal: Reports: No Symptoms Skin: Reports: No Symptoms Neurological: Reports: No Symptoms Psychiatric: Reports: No Symptoms - Patient Data Vitals - Most Recent: Last Vital Signs Temp 36.4 C 10/11/19 12:00 Pulse 75 10/11/19 08:19 Resp 16 10/11/19 12:00 BP 137/105 H 10/11/19 12:00 Pulse Ox 98 10/11/19 12:00 Weight - Most Recent: 68.771 kg I&O - Last 24 Hours: Intake & Output 10/10/19 10/11/19 10/11/19 22:59 06:59 14:59 Intake Total 1412 918 554 Output Total 300 600 Balance 1112 318 554 Lab Results Last 24 Hours: Laboratory Results - last 24 hr 10/11/19 10/11/19 Range/Units 05:04 08:28 WBC 5.10 (3.98-10.04) K/mm3 RBC 3.21 L (3.98-5.22) M/mm3 Hgb 10.1 L (11.2-15.7) gm/dl Hct 31.8 L (34.1-44.9) % MCV 99.1 H (79.4-94.8) fl MCH 31.5 (25.6-32.2) pg MCHC 31.8 L (32.2-35.5) g/dl RDW Std Deviation 53.6 H (36.4-46.3) fL Plt Count 364 (182-369) K/mm3 MPV 9.0 L (9.4-12.3) fl Sodium 139 (136-145) mEq/L Potassium 4.4 (3.5-5.1) mEq/L Chloride 107 (98-107) mEq/L Carbon Dioxide 23 (21-32) mEq/L Anion Gap 13.4 (5-15) BUN 12 (7-18) mg/dL Creatinine 1.1 H (0.55-1.02) mg/dL Est Cr Clr Drug Dosing 52.84 mL/min Estimated GFR (MDRD) 53 (>60) mL/min BUN/Creatinine Ratio 10.9 L (14-18) Glucose 71 L (74-106) mg/dL Calcium 8.5 (8.5-10.1) mg/dL Magnesium 2.0 (1.8-2.4) mg/dl Amylase 54 (25-115) U/L Lipase 510 H (73-393) U/L Med Orders - Current: Current Medications Amlodipine Besylate (Norvasc) 5 mg PO Q12HR PRN PRN Reason: Hypertension Last Admin: 10/10/19 02:16 Dose: 5 mg Documented by: Diphenhydramine HCl (Benadryl) 50 mg PO BEDTIME PRN PRN Reason: Sleep Duloxetine HCl (Cymbalta) 30 mg PO BEDTIME [facility] Last Admin: 10/10/19 20:59 Dose: 30 mg Documented by: Duloxetine HCl (Cymbalta) 60 mg PO DAILY [facility] Last Admin: 10/11/19 08:19 Dose: 60 mg Documented by: Enoxaparin Sodium (Lovenox) 40 mg SUBCUT Q24H [facility] Last Admin: 10/10/19 15:30 Dose: 40 mg Documented by: Gabapentin (Neurontin) 300 mg PO TID [facility] Last Admin: 10/11/19 08:19 Dose: 300 mg Documented by: Hydroxyzine HCl (Atarax) 50 mg PO BEDTIME [facility] Last Admin: 10/10/19 20:59 Dose: 50 mg Documented by: Dextrose/Lactated Ringer's (Dextrose 5%-Lactated Ringers) 1,000 mls @ 999 mls/hr IV ASDIRECTED [facility] Last Admin: 10/09/19 10:28 Dose: 999 mls/hr Documented by: Ketorolac Tromethamine (Toradol) 30 mg IVPUSH Q6H PRN PRN Reason: Pain (moderate 4-6) Last Admin: 10/11/19 04:11 Dose: 30 mg Documented by: Levetiracetam (Keppra) 500 mg PO DAILY [facility] Last Admin: 10/11/19 08:19 Dose: 500 mg Documented by: Lorazepam (Ativan) 0 mg IVPUSH Q4H PRN; Protocol PRN Reason: Withdrawal Symptoms Last Admin: 10/10/19 06:01 Dose: 1 mg Documented by: Metoprolol Succinate (Toprol Xl) 200 mg PO DAILY [facility] Last Admin: 10/11/19 08:19 Dose: 200 mg Documented by: Nicotine (Habitrol) 21 mg TRDERM Q24H [facility] Last Admin: 10/10/19 16:57 Dose: 21 mg Documented by: Ondansetron HCl (Zofran Odt) 8 mg PO Q6H PRN PRN Reason: Nausea/Vomiting Ondansetron HCl (Zofran Odt) 4 mg PO Q6H PRN PRN Reason: Nausea\vomiting Pantoprazole Sodium (Protonix) 40 mg PO DAILY@0700 [facility] Last Admin: 10/11/19 08:13 Dose: 40 mg Documented by: Potassium Chloride (Klor-Con M20) 20 meq PO DAILY [facility] Last Admin: 10/11/19 08:19 Dose: 20 meq Documented by: Quetiapine Fumarate (Seroquel) 25 mg PO DAILY [facility] Last Admin: 10/11/19 08:19 Dose: 25 mg Documented by: Quetiapine Fumarate (Seroquel) 200 mg PO BEDTIME [facility] Last Admin: 10/10/19 21:00 Dose: 200 mg Documented by: Trimethoprim/Sulfamethoxazole (Septra Ds) 1 tab PO BID [facility] Stop: 10/12/19 21:01 Last Admin: 10/11/19 10:37 Dose: 1 tab Documented by: Discontinued Medications Diphenhydramine HCl (Benadryl) 50 mg IVPUSH ONETIME ONE Stop: 10/09/19 13:29 Last Admin: 10/09/19 14:01 Dose: 50 mg Documented by: Enoxaparin Sodium (Lovenox) Confirm Administered Dose 40 mg .ROUTE .STK-MED ONE Stop: 10/09/19 13:59 Last Admin: 10/09/19 14:07 Dose: Not Given Documented by: Hydromorphone HCl (Dilaudid) 0.5 mg IVPUSH ONETIME ONE Stop: 10/09/19 10:58 Last Admin: 10/09/19 11:20 Dose: 0.5 mg Documented by: Thiamine HCl 100 mg/ Sodium (Chloride) 101 mls @ 202 mls/hr IV ONETIME ONE Stop: 10/09/19 10:11 Last Admin: 10/09/19 10:48 Dose: Not Given Documented by: Potassium Chloride 10 meq/ (Premix) 100 mls @ 100 mls/hr IV Q1H [facility] Stop: 10/09/19 16:44 Last Admin: 10/09/19 16:34 Dose: 100 mls/hr Documented by: Ceftriaxone Sodium 1 gm/ (Sodium Chloride) 100 mls @ 200 mls/hr IV ONETIME ONE Stop: 10/09/19 11:57 Last Admin: 10/09/19 12:10 Dose: 200 mls/hr Documented by: Sodium Chloride (Normal Saline) 1,000 mls @ 125 mls/hr IV ASDIRECTED [facility] Last Admin: 10/10/19 02:36 Dose: 125 mls/hr Documented by: Ceftriaxone Sodium 1 gm/ (Sodium Chloride) 100 mls @ 200 mls/hr IV Q24H [facility] Last Admin: 10/10/19 12:22 Dose: 200 mls/hr Documented by: Potassium Chloride/Dextrose/Sod Cl (D5 1/2 Ns W/ 20 Meq/L Kcl) 1,000 mls @ 75 mls/hr IV ASDIRECTED [facility] Last Admin: 10/10/19 22:56 Dose: 75 mls/hr Documented by: Magnesium Sulfate 4 gm/ Premix 50 mls @ 12.5 mls/hr IV ONETIME ONE Stop: 10/10/19 15:29 Last Admin: 10/10/19 11:24 Dose: 12.5 mls/hr Documented by: Labetalol HCl (Normodyne) 150 mg PO ONETIME ONE Stop: 10/10/19 01:30 Last Admin: 10/10/19 02:45 Dose: Not Given Documented by: Labetalol HCl (Normodyne) 200 mg PO ONETIME ONE Stop: 10/10/19 01:39 Last Admin: 10/10/19 02:45 Dose: Not Given Documented by: Metoclopramide HCl (Reglan) 7.5 mg IVPUSH ONETIME ONE Stop: 10/09/19 10:38 Last Admin: 10/09/19 10:44 Dose: 7.5 mg Documented by: Metoprolol Succinate (Toprol Xl) 200 mg PO DAILY [facility] Metoprolol Succinate (Toprol Xl) 200 mg PO ONETIME ONE Stop: 10/10/19 01:42 Last Admin: 10/10/19 02:17 Dose: 200 mg Documented by: Morphine Sulfate (Morphine) 2 mg IVPUSH Q2H PRN PRN Reason: Pain (severe 7-10) Stop: 10/10/19 13:11 Last Admin: 10/10/19 10:00 Dose: 2 mg Documented by: Morphine Sulfate (Morphine) Confirm Administered Dose 2 mg .ROUTE .STK-MED ONE Stop: 10/09/19 14:00 Last Admin: 10/09/19 14:07 Dose: Not Given Documented by: Non-Formulary Medication (Interferon Beta-1a [Avonex]) 1 injection SQ FR EDILIA Thiamine HCl (Vitamin B-1) Confirm Administered Dose 200 mg .ROUTE .STK-MED ONE Stop: 10/09/19 10:24 Last Admin: 10/09/19 10:26 Dose: Not Given Documented by: Thiamine HCl (Vitamin B-1) 100 mg IVPUSH ONETIME ONE Stop: 10/09/19 10:46 Last Admin: 10/09/19 10:46 Dose: 100 mg Documented by: - Exam General: Alert, Oriented HEENT: Pupils Equal, Pupils Reactive, EOMI, Mucous Membr. Moist/[place] Neck: Supple Lungs: Clear to Auscultation, Normal Respiratory Effort Cardiovascular: Regular Rate, Regular Rhythm GI/Abdominal Exam: Normal Bowel Sounds, Soft, Non-Tender, No Organomegaly, No Distention, No Abnormal Bruit, No Mass, Pelvis Stable (Female) Exam: Normal External Exam, Normal Speculum Exam, Normal Bimanual Exam Back Exam: Normal Inspection, Full Range of Motion Extremities: Normal Inspection, Normal Range of Motion, Non-Tender, No Pedal Edema, Normal Capillary Refill Skin: Warm, Dry, Intact Wound/Incisions: Healing Well Neurological: No New Focal Deficit Psy/Mental Status: Alert, Normal Affect, Normal Mood Sepsis Event Note - Evaluation Sepsis Screening Result: No Definite Risk - Focused Exam Vital Signs: Vital Signs Temp Pulse Pulse Resp BP BP Pulse Ox 10/11/19 12:00 36.4 C 16 137/105 H 98 10/11/19 08:19 75 110/79 10/11/19 08:00 35.9 C L 16 110/79 97 10/11/19 04:26 117/81 10/11/19 04:03 117/81 10/11/19 04:02 67 97 10/11/19 04:00 60 Date Exam was Performed: 10/11/19 Time Exam was Performed: 13:40 - Problem List & Annotations (1) Alcohol withdrawal syndrome SNOMED Code(s): 499382269 Code(s): F10.239 - ALCOHOL DEPENDENCE WITH WITHDRAWAL, UNSPECIFIED Status: Acute Priority: Medium Current Visit: Yes Onset Date: ~10/09/19 Qualifiers: Complication of substance-induced condition: uncomplicated Qualified Code(s): F10.230 - Alcohol dependence with withdrawal, uncomplicated (2) Hypokalemia SNOMED Code(s): 38873753 Code(s): E87.6 - HYPOKALEMIA Status: Acute Priority: Medium Current Visit: Yes Onset Date: ~10/09/19 (3) Abdominal pain SNOMED Code(s): 71224117 Code(s): R10.9 - UNSPECIFIED ABDOMINAL PAIN Status: Acute Priority: Medium Current Visit: No Onset Date: ~10/09/19 Qualifiers: Abdominal location: generalized Qualified Code(s): R10.84 - Generalized abdominal pain (4) Acute alcohol intoxication SNOMED Code(s): 31121185, 03194408 Code(s): F10.929 - ALCOHOL USE, UNSPECIFIED WITH INTOXICATION, UNSPECIFIED Status: Acute Priority: High Current Visit: No Onset Date: ~10/09/19 Qualifiers: Complication of substance-induced condition: uncomplicated Qualified Code(s): F10.920 - Alcohol use, unspecified with intoxication, uncomplicated Annotation/Comment:: no further signs of width drawal symptoms (5) Alcohol abuse SNOMED Code(s): 51384888 Code(s): F10.10 - ALCOHOL ABUSE, UNCOMPLICATED Status: Acute Priority: High Current Visit: No Onset Date: ~10/09/19 (6) Alcohol dependence syndrome SNOMED Code(s): 50144330 Code(s): F10.20 - ALCOHOL DEPENDENCE, UNCOMPLICATED Status: Acute Priority: High Current Visit: No Onset Date: ~10/09/19 Qualifiers: Substance use status: in withdrawal Complication of substance-induced condition: uncomplicated Qualified Code(s): F10.230 - Alcohol dependence with withdrawal, uncomplicated (7) Alcoholic gastritis SNOMED Code(s): 4116598 Code(s): K29.20 - ALCOHOLIC GASTRITIS WITHOUT BLEEDING Status: Acute Priority: Medium Current Visit: No Onset Date: ~10/09/19 Qualifiers: Chronicity: chronic Gastritis bleeding: without bleeding Qualified Code(s): K29.20 - Alcoholic gastritis without bleeding (8) Anxiety SNOMED Code(s): 10147127 Code(s): F41.9 - ANXIETY DISORDER, UNSPECIFIED Status: Acute Priority: High Current Visit: No Onset Date: ~10/09/19 (9) Depression SNOMED Code(s): 40375200 Code(s): F32.9 - MAJOR DEPRESSIVE DISORDER, SINGLE EPISODE, UNSPECIFIED Status: Acute Priority: Medium Current Visit: No Onset Date: ~10/09/19 Qualifiers: Depression Type: major depressive disorder Major depression recurrence: recurrent Active/Remission status: in remission of unspecified degree Qualified Code(s): F33.40 - Major depressive disorder, recurrent, in remission, unspecified (10) Multiple sclerosis SNOMED Code(s): 54355186 Code(s): G35 - MULTIPLE SCLEROSIS Status: Acute Priority: Medium Current Visit: No Onset Date: ~10/09/19 Annotation/Comment:: on her home meds (11) Pancreatitis SNOMED Code(s): 23352097 Code(s): K85.90 - ACUTE PANCREATITIS WITHOUT NECROSIS OR INFECTION, UNSP Status: Acute Priority: High Current Visit: No Onset Date: ~10/09/19 Qualifiers: Chronicity: acute Pancreatitis type: alcohol induced Acute pancreatitis complication: no infection or necrosis Qualified Code(s): K85.20 - Alcohol induced acute pancreatitis without necrosis or infection - Problem List Review Problem List Initiated/Reviewed/Updated: Yes - My Orders Last 24 Hours: My Active Orders 10/11/19 09:54 diphenhydrAMINE [Benadryl] 50 mg PO BEDTIME PRN 10/11/19 09:55 Consult to Physician [CONS] Routine 10/11/19 09:59 Notify Provider Consults [RC] ASDIRECTED 10/11/19 10:00 Sulfamethoxazole/Trimethoprim [Septra DS] 1 tab PO BID 10/11/19 Lunch Soft Diet [DIET] 10/12/19 05:11 CBC W/O DIFF,HEMOGRAM [HEME] AM - Assessment Assessment:: 10/10/19 afebrile/ vss but b.p high last night and started metoprolol and other meds i.v.. also ciwas stable 3-5 no withdrawal signs and abd pain very minimal . i.v 75 cc hour labs show mild elvation of lipase and elavated lfts and t.b . cbc stable k low and mag pending. p.e. clear lungs . cor rrr without murm or s3/s4 abd mild tenderness on deep palp. cva normal ext: wnl . assess/plan acute etoh widthdrawal stable on meds monitor ciwas . pancreatitis ? keep npo today and monitor clinical status . liver disease hx of hep a and hep c and unknown treatment status and known chronic etoh abuse. needs treatment . depression seeing Dr Steinberg. cont meds as alowed by pancreatitis. . lytes pending . boh - Plan Plan:: 10/09/19 49 year old female with hx of epigastric abd pain radiating to back /8-10 who also took last drink 2.5 hours ago . nauseated and c/o skin tingling . denies sweating /vomiting/has anorexia and no loc and no trauma. in etoh treatment with [facility] but relapsed fully drinks 1.75 liter every 2 days. started ?month ago? feels may have flared pancreatitis . no brbr or melana ,syncope ,chest pain . phx m.s on treatment hepatitis a hep c pancreatitis depression anxiety . hypertension p.e. vs shows tachicardia skin normal coloration / no icterus/ lungs clear = cor rrr/no murm. no s3/4 abd soft / mild epigastric tenderness no rebound .bs active. ms appears wnl. neuro alert oriented and anxious . etoh on breathe and slurred speech . no tremors,sweating,claminess. aox4 memory good recall. lab reviewed mild increase lipase. mild lft elavation. rest wnl other than k low . assess: 1 etoh abuse level .23 last drink this am drinking all night . gastritis possible pancreatitis. hx of viral hep s/p treatment . hx of m.s on treatment with avolox hx of depression . hx of anxiety . currently in outpatient treatment program and relapsed . plan admit /icu monitor ciwas rule out pancreatitis flare start ativan per protocol start protocol thiamie and vit b complex. pain control . etoh consult with [facility] . see DR Steinberg for depression . 10/10/19 afebrile/ vss but b.p high last night and started metoprolol and other meds i.v.. also ciwas stable 3-5 no withdrawal signs and abd pain very minimal . i.v 75 cc hour labs show mild elvation of lipase and elavated lfts and t.b . cbc stable k low and mag pending. p.e. clear lungs . cor rrr without murm or s3/s4 abd mild tenderness on deep palp. cva normal ext: wnl . assess/plan acute etoh widthdrawal stable on meds monitor ciwas . pancreatitis ? keep npo today and monitor clinical status . liver disease hx of hep a and hep c and unknown treatment status and known chronic etoh abuse. needs treatment . depression seeing Dr Steinberg. cont meds as alowed by pancreatitis. . lytes pending . boh 10/11/19 afebrile/vss/ up ambulating with staff doing well / still sleeping alot. ///eating fair. c/o headache no abd pain and tolerated full liquids . b.p controlled . resp normal /p.e normal today . neuro alert / ox4 and appropriate. no tremors ciwas normal and dced. no seizure like episodes. taking po meds starting yest for seizure/cardiac meds lab lipase 540 . reat okay lfts coming down. discussed with her not to advance diet in light of mild elevation lipase , despite no abd pain and she is agreeable to proceeding slowly . Dr Steinberg to see her assess./plan. etoh widthdrawal mild and toerating well with support ativan weaned down yesterday . seizure disorder stable so far/ no encephalopathic features so far. pancreatitis mild / recommend repeat lipasea nd consider abd u.s or ct . etoh abuse / needs to re establish with [facility] but is in online course and prob needs daytreatment or other form and cont to treat depression with psyche. boh
[2019-10-11] MEDS: Enoxaparin 40 MG/0.4 ML Syringe SUBCUT SCH (15:12)
[2019-10-11] MEDS: Nicotine 21 MG/24 Hr Patch TRDERM SCH (15:13)
[2019-10-11] MEDS: amLODIPine 5 MG Tab PO PRN (16:17)
[2019-10-11 17:34] VITALS: BP 130/98
--- NOTE | 2019-10-13 18:44 | PCM.DCSUM1 ---
Discharge Summary - Hospital Course Free Text/Narrative:: Admission History & Physical Patient Name: KIMBERLY LOZANO Date of : 1970 Patient Status: Inpatient Attending Provider: Ubaldo Baer Date: 10/09/19 18:21 Initialization Date: 10/09/19 18:21 H&P History of Present Illness - General Date of Service: 10/09/19 Admit Problem/Dx: Admission Diagnosis/Problem Admission Diagnosis/Problem Alcohol withdrawal syndrome/possible pancreatitis Source of Information: Patient, EMS History Limitations: Reports: Altered Mental Status - History of Present Illness Initial Comments - Free Text/Narative: 49 year old female with hx of epigastric abd pain radiating to back /10 who also took last drink 2.5 hours ago . nauseated and c/o skin tingling . denies sweating /vomiting/has anorexia and no loc and no trauma. in etoh treatment with tiffanie but relapsed fully drinks 1.75 liter every 2 days. started ?month ago? feels may have flared pancreatitis . no brbr or melana ,syncope ,chest pain . phx m.s on treatment hepatitis a hep c pancreatitis depression anxiety . hypertension p.e. vs shows tachicardia skin normal coloration / no icterus/ lungs clear = cor rrr/no murm. no s3/4 abd soft / mild epigastric tenderness no rebound .bs active. ms appears wnl. neuro alert oriented and anxious . etoh on breathe and slurred speech . no tremors,sweating,claminess. aox4 memory good recall. lab reviewed mild increase lipase. mild lft elavation. rest wnl other than k low . assess: 1 etoh abuse level .23 last drink this am drinking all night . gastritis possible pancreatitis. hx of viral hep s/p treatment . hx of m.s on treatment with avolox hx of depression . hx of anxiety . currently in outpatient treatment program and relapsed . plan admit /icu monitor ciwas rule out pancreatitis flare start ativan per protocol start protocol thiamie and vit b complex. pain control . etoh consult with tiffanie . see DR Steinberg for depression Onset of Symptoms: Reports: Today Duration of Symptoms: Reports: Hour(s): Location: Reports: Abdomen Quality: Reports: Ache Severity: Moderate Improves with: Reports: None Worsens with: Reports: Movement Context: Reports: Other (alcohol binging) Associated Symptoms: Reports: Headaches, Malaise Abdominal Pain Score (Numeric/FACES): 7 - Related Data Allergies/Adverse Reactions: Allergies Allergy/AdvReac Type Severity Reaction Status Date / Time acyclovir Allergy Intermediate Other Verified 10/09/19 16:50 Home Medications: Home Meds Interferon Beta-1a [Avonex] 1 injection SQ FR 02/27/19 [History] QUEtiapine [SEROquel] 25 mg PO DAILY #7 tablet 03/01/19 [Rx] levETIRAcetam [Levetiracetam] 500 mg PO DAILY #14 tablet 03/01/19 [Rx] Metoprolol Succinate 200 mg PO DAILY 03/16/19 [History] Potassium Chloride 20 meq PO DAILY #30 tablet.er 04/07/19 [Rx] QUEtiapine [SEROquel] 200 mg PO BEDTIME 04/16/19 [History] Gabapentin [Neurontin] 300 mg PO TID 04/22/19 [History] Omeprazole 20 mg PO QAM 04/22/19 [History] hydrOXYzine pamoate [Hydroxyzine Pamoate] 50 mg PO BEDTIME 04/22/19 [History] DULoxetine [Cymbalta] 30 mg PO BEDTIME 07/10/19 [History] DULoxetine [Cymbalta] 60 mg PO DAILY 07/10/19 [History] LORazepam [Ativan] 1 mg PO ASDIRECTED #18 tablet 08/22/19 [Rx] Ondansetron [Zofran ODT] 4 mg PO Q6H PRN #20 tab.dis 09/29/19 [Rx] Past Medical History HEENT History: Reports: Impaired Vision Other HEENT History: cornea transplant L eye Cardiovascular History: Reports: Hypertension Other Cardiovascular History: heart murmur Respiratory History: Reports: None Gastrointestinal History: Reports: Pancreatitis Other Gastrointestinal History: collitis Genitourinary History: Reports: Urinary Incontinence Other Genitourinary History: straight caths at times from [place] 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: Reports: Fibroids Musculoskeletal History: Reports: Arthritis, Fracture Other Musculoskeletal History: Neck and back- Neurological History: Reports: Migraines, MS, Seizure Psychiatric History: Reports: Addiction, Depression, Mood Swings, PTSD Hematologic History: Reports: Other (See Below) Other Hematologic History: Hep A and C Oncologic (Cancer) History: Reports: None - Infectious Disease History Infectious Disease History: Reports: Chicken Pox, Hepatitis A, Hepatitis C - Past Surgical History Head Surgeries/Procedures: Reports: None HEENT Surgical History: Reports: Eye Surgery, Oral Surgery, Tonsillectomy, Other (See Below) GI Surgical History: Reports: Appendectomy, Bariatric Procedure, Cholecystectomy, Hernia, Abdominal Female Surgical History: Reports: Breast Reduction, Section, Hysterectomy, Other (See Below) Musculoskeletal Surgical History: Reports: Other (See Below) Dermatological Surgical History: Reports: Plastic Surgical Reconstruction/Repair Social & Family History - Family History Family Medical History: Noncontributory Cardiac: Reports: Hypertension Neurological: Reports: MS Psychiatric: Reports: Anxiety, Depression Endocrine/Metabolic: Reports: Diabetes, type II Oncologic: Reports: Breast - Tobacco Use Smoking Status *Q: Current Every Day Smoker Years of Tobacco use: 30 Packs/Tins Daily: 0.5 - Caffeine Use Caffeine Use: Reports: None Other Caffeine Use: 3/day - Living Situation & Occupation Living situation: Reports: , with Significant Other (Boyfriend) Occupation: Unemployed H&P Review of Systems - Review of Systems: Review Of Systems: See Below General: Reports: Malaise, Decreased Appetite HEENT: Reports: No Symptoms Pulmonary: Reports: No Symptoms Cardiovascular: Reports: No Symptoms Gastrointestinal: Reports: No Symptoms, Abdominal Pain Genitourinary: Reports: No Symptoms Musculoskeletal: Reports: No Symptoms Skin: Reports: No Symptoms Psychiatric: Reports: Depression, Mood Lability, Anxiety, Agitation, Cravings. Denies: Confusion, Hallucinations, Hallucinations (Auditory), Hallucinations (Visual) Neurological: Reports: No Symptoms Hematologic/Lymphatic: Reports: No Symptoms Immunologic: Reports: No Symptoms Exam - Exam Exam: See Below - Vital Signs Vital Signs: Last Vital Signs Temp 36.3 C 10/09/19 16:00 Pulse 108 H 10/09/19 14:10 Resp 20 10/09/19 16:00 BP 153/104 H 10/09/19 16:00 Pulse Ox 95 10/09/19 16:00 Weight: 67.132 kg - Exam General: Alert, Oriented, 4 HEENT: PERRLA, Hearing Intact, Mucosa Moist & [place], Nares Patent, Normal Nasal Septum, Posterior Pharynx Clear, Conjunctiva Clear, EOMI, EACs Clear, TMs Clear Neck: Supple, Trachea Midline, 2 Lungs: Clear to Auscultation, Normal Respiratory Effort Cardiovascular: Regular Rate, Regular Rhythm GI/Abdominal Exam: Normal Bowel Sounds, Soft, Non-Tender, No Organomegaly, No Distention, No Abnormal Bruit, No Mass, Pelvis Stable, Tender (Female) Exam: Normal External Exam, Normal Speculum Exam, Normal Bimanual Exam Rectal (Female) Exam: Normal Exam, Normal Rectal Tone Back Exam: Normal Inspection, Full Range of Motion, NT Extremities: Normal Inspection, Normal Range of Motion, Non-Tender, No Pedal Edema, Normal Capillary Refill Skin: Warm, Dry, Intact Neurological: Cranial Nerves Intact, Reflexes Equal Bilateral Neuro Extensive - Mental Status: Alert, Oriented x3, Normal Mood/Affect, Normal Cognition Neuro Extensive - Motor, Sensory, Reflexes: CN II-XII Intact, Normal Gait, Normal Reflexes Psychiatric: Alert, Normal Affect, Normal Mood - Patient Data Lab Results Last 24 hrs: HPI Initial Comments: patient coming out of sedation well and walking and stable . patients son involved in serious [facility] and patient requests urgant dc and would sign out ama. dc home for o.p etoh follow up . doubt she had pancreatitis but more likely gastritis - Discharge Data Discharge Date: 10/11/19 Discharge Disposition: Home, Self-Care 01 Condition: Fair - Referral to Home Health Date of Face to Face Encounter: 10/11/19 Primary Care Physician: PCP None - Discharge Diagnosis/Problem(s) (1) Alcohol withdrawal syndrome SNOMED Code(s): 879232429 ICD Code: F10.239 - ALCOHOL DEPENDENCE WITH WITHDRAWAL, UNSPECIFIED Status: Acute Priority: Low Onset Date: ~10/09/19 Qualifiers: Complication of substance-induced condition: uncomplicated Qualified Co de(s): F10.230 - Alcohol dependence with withdrawal, uncomplicated (2) Hypokalemia SNOMED Code(s): 71627777 ICD Code: E87.6 - HYPOKALEMIA Status: Acute Priority: Low Onset Date: ~10/09/19 (3) Abdominal pain SNOMED Code(s): 53444646 ICD Code: R10.9 - UNSPECIFIED ABDOMINAL PAIN Status: Acute Priority: Low Onset Date: ~10/09/19 Problem Details: patient admitted wanting helpa nd having abd pain . pain resolved ad lipase mildly elavated but did not s eem to have pancreatitis. prob related to gastritis and or etoh effects. noo nause and vomiting while hosp. patient treted for withdrawal and then asked for dc sec to son in serious auto accident in [facility]. could not be verified and patient allowed to dc under somewhat dubious circomstances but story verified by otehr family members. Qualifiers: Abdominal location: generalized Qualified Code(s): R10.84 - Generalized abdominal pain (4) Acute alcohol intoxication SNOMED Code(s): 27985407, 23634501 ICD Code: F10.929 - ALCOHOL USE, UNSPECIFIED WITH INTOXICATION, UNSPECIFIED Status: Acute Priority: Low Onset Date: ~10/09/19 Problem Details: no further signs of width drawal symptoms Qualifiers: Complication of substance-induced condition: uncomplicated Qualified Code(s): F10.920 - Alcohol use, unspecified with intoxication, uncomplicated (5) Alcohol abuse SNOMED Code(s): 26470869 ICD Code: F10.10 - ALCOHOL ABUSE, UNCOMPLICATED Status: Acute Priority: Low Onset Date: ~10/09/19 (6) Alcohol dependence syndrome SNOMED Code(s): 33891754 ICD Code: F10.20 - ALCOHOL DEPENDENCE, UNCOMPLICATED Status: Acute Priority: High Onset Date: ~10/09/19 Qualifiers: Substance use status: in withdrawal Complication of substance-induced condition: uncomplicated Qualified Code(s): F10.230 - Alcohol dependence with withdrawal, uncomplicated (7) Alcoholic gastritis SNOMED Code(s): 3412446 ICD Code: K29.20 - ALCOHOLIC GASTRITIS WITHOUT BLEEDING Status: Acute Priority: Low Onset Date: ~10/09/19 Qualifiers: Chronicity: chronic Gastritis bleeding: without bleeding Qualified Code(s): K29.20 - Alcoholic gastritis without bleeding (8) Anxiety SNOMED Code(s): 87426544 ICD Code: F41.9 - ANXIETY DISORDER, UNSPECIFIED Status: Acute Priority: Medium Onset Date: ~10/09/19 (9) Depression SNOMED Code(s): 95759779 ICD Code: F32.9 - MAJOR DEPRESSIVE DISORDER, SINGLE EPISODE, UNSPECIFIED Status: Acute Priority: Medium Onset Date: ~10/09/19 Qualifiers: Depression Type: major depressive disorder Major depression recurrence: recurrent Active/Remission status: in remission of unspecified degree Qualified Code(s): F33.40 - Major depressive disorder, recurrent, in remission, unspecified (10) Multiple sclerosis SNOMED Code(s): 66329165 ICD Code: G35 - MULTIPLE SCLEROSIS Status: Acute Priority: Low Onset Date: ~10/09/19 Problem Details: on her home meds / walking and gait normal (11) Pancreatitis SNOMED Code(s): 88911930 ICD Code: K85.90 - ACUTE PANCREATITIS WITHOUT NECROSIS OR INFECTION, UNSP Status: Acute Priority: Low Onset Date: ~10/09/19 Qualifiers: Chronicity: acute Pancreatitis type: alcohol induced Acute pancreatitis complication: no infection or necrosis Qualified Code(s): K85.20 - Alcohol induced acute pancreatitis without necrosis or infection - Patient Summary/Data Consults: Consultations 10/09/19 13:08 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 [CONS] Routine OT Evaluation and Treatment [CONS] Routine PT Evaluation and Treatment [CONS] Routine 10/11/19 09:55 Consult to Physician [CONS] Routine - Patient Instructions Diet: Regular Diet as Tolerated Driving: Do Not Drive Showering/Bathing: May Shower Notify Provider of: Fever, Increased Pain, Nausea and/or Vomiting - Discharge Plan *PRESCRIPTION DRUG MONITORING PROGRAM REVIEWED*: Yes *COPY OF PRESCRIPTION DRUG MONITORING REPORT IN PATIENT JAKOB: No Home Medications: Home Meds Interferon Beta-1a [Avonex] 1 injection SQ FR 02/27/19 [History] QUEtiapine [SEROquel] 25 mg PO DAILY #7 tablet 03/01/19 [Rx] levETIRAcetam [Levetiracetam] 500 mg PO DAILY #14 tablet 03/01/19 [Rx] Metoprolol Succinate 200 mg PO DAILY 03/16/19 [History] Potassium Chloride 20 meq PO DAILY #30 tablet.er 04/07/19 [Rx] QUEtiapine [SEROquel] 200 mg PO BEDTIME 04/16/19 [History] Gabapentin [Neurontin] 300 mg PO TID 04/22/19 [History] Omeprazole 20 mg PO QAM 04/22/19 [History] hydrOXYzine pamoate [Hydroxyzine Pamoate] 50 mg PO BEDTIME 04/22/19 [History] DULoxetine [Cymbalta] 30 mg PO BEDTIME 07/10/19 [History] DULoxetine [Cymbalta] 60 mg PO DAILY 07/10/19 [History] LORazepam [Ativan] 1 mg PO ASDIRECTED #18 tablet 08/22/19 [Rx] Ondansetron [Zofran ODT] 4 mg PO Q6H PRN #20 tab.dis 09/29/19 [Rx] Oxygen Therapy Mode: Room Air Referrals: PCP,None [Primary Care Provider] - - Discharge Summary/Plan Comment DC Time >30 min.: Yes - General Info Date of Service: 10/11/19 Admission Dx/Problem (Free Text: Admission Diagnosis/Problem Admission Diagnosis/Problem Alcohol withdrawal syndrome/possible pancreatitis Subjective Update: 10/10/19 afebrile/ vss but b.p high last night and started metoprolol and other meds i.v.. also ciwas stable 3-5 no withdrawal signs and abd pain very minimal . i.v 75 cc hour labs show mild elvation of lipase and elavated lfts and t.b . cbc stable k low and mag pending. p.e. clear lungs . cor rrr without murm or s3/s4 abd mild tenderness on deep palp. cva normal ext: wnl . assess/plan acute etoh widthdrawal stable on meds monitor ciwas . pancreatitis ? keep npo today and monitor clinical status . liver disease hx of hep a and hep c and unknown treatment status and known chronic etoh abuse. needs treatment . depression seeing Dr Steinberg. cont meds as alowed by pancreatitis. . lytes pending . boh 10/11/19 afebrile/vss/ up ambulating with staff doing well / still sleeping alot. ///eating fair. c/o headache no abd pain and tolerated full liquids . b.p controlled . resp normal /p.e normal today . neuro alert / ox4 and appropriate. no tremors ciwas normal and dced. no seizure like episodes. taking po meds starting yest for seizure/cardiac meds lab lipase 540 . reat okay lfts coming down. discussed with her not to advance diet in light of mild elevation lipase , despite no abd pain and she is agreeable to proceeding slowly . Dr Setinberg to see her assess./plan. etoh widthdrawal mild and toerating well with support ativan weaned down yesterday . seizure disorder stable so far/ no encephalopathic features so far. pancreatitis mild / recommend repeat lipasea nd consider abd u.s or ct . etoh abuse / needs to re establish with tiffanie but is in online course and prob needs daytreatment or other form and cont to treat depression with psyche. Functional Status: Reports: Pain Controlled - Review of Systems General: Reports: No Symptoms HEENT: Reports: No Symptoms Pulmonary: Reports: No Symptoms Cardiovascular: Reports: No Symptoms Gastrointestinal: Reports: No Symptoms Genitourinary: Reports: No Symptoms Musculoskeletal: Reports: No Symptoms Skin: Reports: No Symptoms Neurological: Reports: No Symptoms Psychiatric: Reports: No Symptoms - Patient Data Vitals - Most Recent: Last Vital Signs Temp 36.2 C 10/11/19 16:00 Pulse 75 10/11/19 08:19 Resp 16 10/11/19 16:00 BP 130/98 H 10/11/19 17:29 Pulse Ox 98 10/11/19 16:00 Weight - Most Recent: 68.771 kg Med Orders - Current: Current Medications Discontinued Medications Amlodipine Besylate (Norvasc) 5 mg PO Q12HR PRN PRN Reason: Hypertension Last Admin: 10/11/19 16:17 Dose: 5 mg Documented by: Diphenhydramine HCl (Benadryl) 50 mg IVPUSH ONETIME ONE Stop: 10/09/19 13:29 Last Admin: 10/09/19 14:01 Dose: 50 mg Documented by: Diphenhydramine HCl (Benadryl) 50 mg PO BEDTIME PRN PRN Reason: Sleep Duloxetine HCl (Cymbalta) 30 mg PO BEDTIME [facility] Last Admin: 10/10/19 20:59 Dose: 30 mg Documented by: Duloxetine HCl (Cymbalta) 60 mg PO DAILY [facility] Last Admin: 10/11/19 08:19 Dose: 60 mg Documented by: Enoxaparin Sodium (Lovenox) 40 mg SUBCUT Q24H [facility] Last Admin: 10/11/19 15:12 Dose: 40 mg Documented by: Enoxaparin Sodium (Lovenox) Confirm Administered Dose 40 mg .ROUTE .STK-MED ONE Stop: 10/09/19 13:59 Last Admin: 10/09/19 14:07 Dose: Not Given Documented by: Gabapentin (Neurontin) 300 mg PO TID [facility] Last Admin: 10/11/19 15:12 Dose: 300 mg Documented by: Hydromorphone HCl (Dilaudid) 0.5 mg IVPUSH ONETIME ONE Stop: 10/09/19 10:58 Last Admin: 10/09/19 11:20 Dose: 0.5 mg Documented by: Hydroxyzine HCl (Atarax) 50 mg PO BEDTIME [facility] Last Admin: 10/10/19 20:59 Dose: 50 mg Documented by: Dextrose/Lactated Ringer's (Dextrose 5%-Lactated Ringers) 1,000 mls @ 999 mls/hr IV ASDIRECTED [facility] Last Admin: 10/09/19 10:28 Dose: 999 mls/hr Documented by: Thiamine HCl 100 mg/ Sodium (Chloride) 101 mls @ 202 mls/hr IV ONETIME ONE Stop: 10/09/19 10:11 Last Admin: 10/09/19 10:48 Dose: Not Given Documented by: Potassium Chloride 10 meq/ (Premix) 100 mls @ 100 mls/hr IV Q1H [facility] Stop: 10/09/19 16:44 Last Admin: 10/09/19 16:34 Dose: 100 mls/hr Documented by: Ceftriaxone Sodium 1 gm/ (Sodium Chloride) 100 mls @ 200 mls/hr IV ONETIME ONE Stop: 10/09/19 11:57 Last Admin: 10/09/19 12:10 Dose: 200 mls/hr Documented by: Sodium Chloride (Normal Saline) 1,000 mls @ 125 mls/hr IV ASDIRECTED [facility] Last Admin: 10/10/19 02:36 Dose: 125 mls/hr Documented by: Ceftriaxone Sodium 1 gm/ (Sodium Chloride) 100 mls @ 200 mls/hr IV Q24H [facility] Last Admin: 10/10/19 12:22 Dose: 200 mls/hr Documented by: Potassium Chloride/Dextrose/Sod Cl (D5 1/2 Ns W/ 20 Meq/L Kcl) 1,000 mls @ 75 mls/hr IV ASDIRECTED [facility] Last Admin: 10/10/19 22:56 Dose: 75 mls/hr Documented by: Magnesium Sulfate 4 gm/ Premix 50 mls @ 12.5 mls/hr IV ONETIME ONE Stop: 10/10/19 15:29 Last Admin: 10/10/19 11:24 Dose: 12.5 mls/hr Documented by: Ketorolac Tromethamine (Toradol) 30 mg IVPUSH Q6H PRN PRN Reason: Pain (moderate 4-6) Last Admin: 10/11/19 15:15 Dose: 30 mg Documented by: Labetalol HCl (Normodyne) 150 mg PO ONETIME ONE Stop: 10/10/19 01:30 Last Admin: 10/10/19 02:45 Dose: Not Given Documented by: Labetalol HCl (Normodyne) 200 mg PO ONETIME ONE Stop: 10/10/19 01:39 Last Admin: 10/10/19 02:45 Dose: Not Given Documented by: Levetiracetam (Keppra) 500 mg PO DAILY [facility] Last Admin: 10/11/19 08:19 Dose: 500 mg Documented by: Lorazepam (Ativan) 0 mg IVPUSH Q4H PRN; Protocol PRN Reason: Withdrawal Symptoms Last Admin: 10/10/19 06:01 Dose: 1 mg Documented by: Metoclopramide HCl (Reglan) 7.5 mg IVPUSH ONETIME ONE Stop: 10/09/19 10:38 Last Admin: 10/09/19 10:44 Dose: 7.5 mg Documented by: Metoprolol Succinate (Toprol Xl) 200 mg PO DAILY [facility] Metoprolol Succinate (Toprol Xl) 200 mg PO ONETIME ONE Stop: 10/10/19 01:42 Last Admin: 10/10/19 02:17 Dose: 200 mg Documented by: Metoprolol Succinate (Toprol Xl) 200 mg PO DAILY [facility] Last Admin: 10/11/19 08:19 Dose: 200 mg Documented by: Morphine Sulfate (Morphine) 2 mg IVPUSH Q2H PRN PRN Reason: Pain (severe 7-10) Stop: 10/10/19 13:11 Last Admin: 10/10/19 10:00 Dose: 2 mg Documented by: Morphine Sulfate (Morphine) Confirm Administered Dose 2 mg .ROUTE .STK-MED ONE Stop: 10/09/19 14:00 Last Admin: 10/09/19 14:07 Dose: Not Given Documented by: Nicotine (Habitrol) 21 mg TRDERM Q24H [facility] Last Admin: 10/11/19 15:13 Dose: 21 mg Documented by: Non-Formulary Medication (Interferon Beta-1a [Avonex]) 1 injection SQ FR [facility] Ondansetron HCl (Zofran Odt) 8 mg PO Q6H PRN PRN Reason: Nausea/Vomiting Ondansetron HCl (Zofran Odt) 4 mg PO Q6H PRN PRN Reason: Nausea\vomiting Pantoprazole Sodium (Protonix) 40 mg PO DAILY@0700 [facility] Last Admin: 10/11/19 08:13 Dose: 40 mg Documented by: Potassium Chloride (Klor-Con M20) 20 meq PO DAILY [facility] Last Admin: 10/11/19 08:19 Dose: 20 meq Documented by: Quetiapine Fumarate (Seroquel) 25 mg PO DAILY [facility] Last Admin: 10/11/19 08:19 Dose: 25 mg Documented by: Quetiapine Fumarate (Seroquel) 200 mg PO BEDTIME [facility] Last Admin: 10/10/19 21:00 Dose: 200 mg Documented by: Thiamine HCl (Vitamin B-1) Confirm Administered Dose 200 mg .ROUTE .STK-MED ONE Stop: 10/09/19 10:24 Last Admin: 10/09/19 10:26 Dose: Not Given Documented by: Thiamine HCl (Vitamin B-1) 100 mg IVPUSH ONETIME ONE Stop: 10/09/19 10:46 Last Admin: 10/09/19 10:46 Dose: 100 mg Documented by: Trimethoprim/Sulfamethoxazole (Septra Ds) 1 tab PO BID [facility] Stop: 10/12/19 21:01 Last Admin: 10/11/19 10:37 Dose: 1 tab Documented by: - Exam General: Reports: Alert, Oriented HEENT: Reports: Pupils Equal, Pupils Reactive, EOMI, Mucous Membr. Moist/[place] Neck: Reports: Supple Lungs: Reports: Clear to Auscultation, Normal Respiratory Effort Cardiovascular: Reports: Regular Rate, Regular Rhythm GI/Abdominal Exam: Normal Bowel Sounds, Soft, Non-Tender, No Organomegaly, No Distention, No Abnormal Bruit, No Mass, Pelvis Stable (Female) Exam: Normal External Exam, Normal Speculum Exam, Normal Bimanual Exam Rectal (Female) Exam: Normal Exam, Normal Rectal Tone Back Exam: Reports: Normal Inspection, Full Range of Motion Extremities: Normal Inspection, Normal Range of Motion, Non-Tender, No Pedal Edema, Normal Capillary Refill Skin: Reports: Warm, Dry, Intact Wound/Incisions: Reports: Healing Well Neurological: Reports: No New Focal Deficit Psy/Mental Status: Reports: Alert, Normal Affect, Normal Mood
== END 2019-10-11 19:07 | disposition home or self-care (01) | DRG 896 ==
LOC: JD.ED 09:51 → JD.ICU 11:40
PROVIDERS: ADMIT Pediatrics; ATTEND Pediatrics
DX: F10.230 Alcohol dependence with withdrawal, uncomplicated (principal); K85.20 Alcohol induced acute pancreatitis without necrosis or infection; F33.40 Major depressive disorder, recurrent, in remission, unspecified; B15.9 Hepatitis A without hepatic coma; E87.6 Hypokalemia; F10.220 Alcohol dependence with intoxication, uncomplicated; Z20.828 Contact with and (suspected) exposure to other viral communicable diseases; Y90.0 Blood alcohol level of less than 20 mg/100 ml; K29.20 Alcoholic gastritis without bleeding; F41.9 Anxiety disorder, unspecified; G35 Multiple sclerosis; B19.20 Unspecified viral hepatitis C without hepatic coma; F17.200 Nicotine dependence, unspecified, uncomplicated; I10 Essential (primary) hypertension; M19.90 Unspecified osteoarthritis, unspecified site; F43.10 Post-traumatic stress disorder, unspecified; Z88.8 Allergy status to other drugs, medicaments and biological substances; Z79.899 Other long term (current) drug therapy
CPT/HCPCS: 36415; 71045; 71045-26; 80048; 80053; 80306; 80307; 81001; 82150; 83690; 83735; 84132; 85025; 85027; 85610; 85652; 85730; 86140; 93005; 93010; 96365; 96367; 96368; 96375; 97162-GP; 99285; 99285-25; A9270-GY; J0696; J1170; J1200; J1650; J1885; J2060; J2270; J2765; J3411; J3475; J3480; J7030; J7050; J7121; U0002

== ENCOUNTER 2019-10-22 16:14 | Emergency (ER) | payer MEDICAID ==
[2019-10-22 16:23] VITALS: BP 154/141; PULSE 99
[2019-10-22] MEDS ORDERED: Metoclopramide 10 MG/2 ML SDV IVPUSH ONE (16:33)
[2019-10-22] MEDS ORDERED: LORazepam 2 MG/ML SDV IVPUSH ONE (16:33)
[2019-10-22] MEDS ORDERED: Thiamine 100 MG Tab PO ONE (16:33)
[2019-10-22] MEDS ORDERED: Folic Acid 1 MG Tab PO ONE (16:33)
[2019-10-22] MEDS ORDERED: Sodium Chloride 0.9% 10 ML Syringe FLUSH PRN (16:33)
[2019-10-22] MEDS ORDERED: Sodium Chloride 0.9% 1,000 ML IV ONE (16:33)
--- NOTE | 2019-10-22 17:05 | EDM.PDOCBH ---
ED HPI GENERAL MEDICAL PROBLEM - General Chief Complaint: Drug or Alcohol Abuse Stated Complaint: [facility] Time Seen by Provider: 10/22/19 16:20 Source of Information: Reports: Patient, Old Records, RN Notes Reviewed History Limitations: Reports: No Limitations - History of Present Illness INITIAL COMMENTS - FREE TEXT/NARRATIVE: Patient is a 49-year-old female who presents to the ED by [facility], for acute alcohol intoxication. The patient notes that she is "sick of drinking". She is complaining of generalized abdominal pain, but denies any so rt of nausea/vomiting/diarrhea, she states she does have a history of MS and pancreatitis. Patient notes that she was last admitted at this hospital on October 08, sobered up, and started drinking 3 days ago, she relates no real trigger again, just that she started drinking, she is quite tearful at presentation, and states that she would like to quit drinking again. She notes that she had her last drink at around 2 PM today, but did have about 6 shooters of vodka. Patient further denies any fever/chills, cough/shortness of breath, she was tested for COVID 2 weeks ago, and did have a negative result. Right Lower Abdominal Pain Score (Numeric/FACES): 7 - Related Data Allergies Allergy/AdvReac Type Severity Reaction Status Date / Time acyclovir Allergy Intermediate Other Verified 10/22/19 16:23 Home Meds: Home Meds Interferon Beta-1a [Avonex] 1 injection SQ FR 02/27/19 [History] QUEtiapine [SEROquel] 25 mg PO DAILY #7 tablet 03/01/19 [Rx] levETIRAcetam [Levetiracetam] 500 mg PO DAILY #14 tablet 03/01/19 [Rx] Metoprolol Succinate 200 mg PO DAILY 03/16/19 [History] Potassium Chloride 20 meq PO DAILY #30 tablet.er 04/07/19 [Rx] QUEtiapine [SEROquel] 200 mg PO BEDTIME 04/16/19 [History] Gabapentin [Neurontin] 300 mg PO TID 04/22/19 [History] Omeprazole 20 mg PO QAM 04/22/19 [History] hydrOXYzine pamoate [Hydroxyzine Pamoate] 50 mg PO BEDTIME 04/22/19 [History] DULoxetine [Cymbalta] 30 mg PO BEDTIME 07/10/19 [History] DULoxetine [Cymbalta] 60 mg PO DAILY 07/10/19 [History] Ondansetron [Zofran ODT] 4 mg PO Q6H PRN #20 tab.dis 09/29/19 [Rx] LORazepam [Ativan] 1 mg PO ASDIRECTED #12 tab 10/22/19 [Rx] Ondansetron [Zofran ODT] 4 mg PO Q8H #21 tab.dis 10/22/19 [Rx] Past Medical History HEENT History: Reports: Impaired Vision Other HEENT History: cornea transplant L eye Cardiovascular History: Reports: Hypertension Other Cardiovascular History: heart murmur Gastrointestinal History: Reports: Pancreatitis Other Gastrointestinal History: colitis Genitourinary History: Reports: Urinary Incontinence Other Genitourinary History: straight caths at times from MS SAND DRIER History: Reports: Fibroids Musculoskeletal History: Reports: Arthritis, Fracture Other Musculoskeletal History: Neck and back- Neurological History: Reports: Migraines, MS, Seizure Psychiatric History: Reports: Addiction, Depression, Mood Swings, PTSD - Infectious Disease History Infectious Disease History: Reports: Chicken Pox, Hepatitis A, Hepatitis C - Past Surgical History HEENT Surgical History: Reports: Eye Surgery, Oral Surgery, Tonsillectomy, Other (See Below) GI Surgical History: Reports: Appendectomy, Bariatric Procedure, Cholecystectomy, Hernia, Abdominal Female Surgical History: Reports: Breast Reduction, Section, Hysterectomy, Other (See Below) Musculoskeletal Surgical History: Reports: Other (See Below) Dermatological Surgical History: Reports: Plastic Surgical Reconstruction/Repair Social & Family History - Family History Family Medical History: Noncontributory Cardiac: Reports: Hypertension Neurological: Reports: MS Psychiatric: Reports: Anxiety, Depression Endocrine/Metabolic: Reports: Diabetes, type II Oncologic: Reports: Breast - Alcohol Use Alcohol Use History: Yes Days Per Week of Alcohol Use: 7 Number of Drinks Per Day: 6 Total Drinks Per Week: 42 Date of Last Drink: 10/22/19 Time of Last Drink: 14:00 (States that she drank 6 shooters of vodka last at 2 PM today) Alcohol Use in Last Twelve Months: Yes Alcohol Use Frequency: Daily - Living Situation & Occupation Living situation: Reports: , with Significant Other (Boyfriend) Occupation: Unemployed ED ROS GENERAL - Review of Systems Review Of Systems: Comprehensive ROS is negative, except as noted in HPI. ED EXAM, BEHAVIORAL HEALTH - Physical Exam Exam: See Below Exam Limited By: No Limitations General Appearance: Alert, WD/WN, No Apparent Distress Throat/Mouth: Normal Inspection, Normal Lips, Normal Teeth, Normal Gums, Normal Oropharynx, Normal Voice, No Airway Compromise Head: Atraumatic, Normocephalic Neck: Normal Inspection Respiratory/Chest: No Respiratory Distress, Lungs Clear, Normal Breath Sounds, No Accessory Muscle Use, Chest Non-Tender Cardiovascular: Normal Peripheral Pulses, Regular Rate, Rhythm, No Murmur GI/Abdominal: Normal Bowel Sounds, Soft, No Distention, No Mass, Tender (generalized) Extremities: Normal Inspection, Normal Capillary Refill Neurological: Alert, Normal Mood/Affect, Normal Cognition, Normal Reflexes, No Motor/Sensory Deficits, Oriented x 3 Psychiatric: Alert, Normal Affect, Normal Cognition, Normal Mood, Oriented, Tearful (when she talks about wanting to stop drinking) Skin Exam: Warm, Dry, Intact, Normal color, No rash COURSE, BEHAVIORAL HEALTH COMP - Course Vital Signs: Last Vital Signs Temp 97.4 F 10/22/19 16:19 Pulse 99 10/22/19 16:19 Resp 20 10/22/19 16:19 BP 154/141 H 10/22/19 16:19 Pulse Ox 96 10/22/19 16:19 Orders, Labs, Meds: Active Orders 24 hr Category Date Time Status Peripheral IV Care [RC] . DIRECTED Care 10/22/19 16:33 Active Lactated Ringers @ 150 MLS/HR(1000ml Bag) Med 10/22/19 18:30 Ordered Lactated Ringers [Ringers, Lactated] 1,000 ml IV ASDIRECTED Sodium Chloride 0.9% [Saline Flush] Med 10/22/19 16:33 Active 10 ml FLUSH ASDIRECTED PRN Peripheral IV Insertion Adult [OM.PC] Stat Oth 10/22/19 16:33 Ordered Medication Orders Lactated Ringer's (Ringers, Lactated) 1,000 mls @ 150 mls/hr IV ASDIRECTED EDILIA Last Admin: 10/22/19 18:22 Dose: 150 mls/hr Documented by: Sodium Chloride (Saline Flush) 10 ml FLUSH ASDIRECTED PRN PRN Reason: Keep Vein Open Last Admin: 10/22/19 17:09 Dose: 10 ml Documented by: DYLON Laboratory Tests 10/22/19 10/22/19 10/22/19 Range/Units 16:58 16:58 16:58 WBC 6.54 (3.98-10.04) K/mm3 RBC 3.52 L (3.98-5.22) M/mm3 Hgb 10.8 L (11.2-15.7) gm/dl Hct 33.9 L (34.1-44.9) % MCV 96.3 H (79.4-94.8) fl MCH 30.7 (25.6-32.2) pg MCHC 31.9 L (32.2-35.5) g/dl RDW Std Deviation 53.6 H (36.4-46.3) fL Plt Count 473 H D (182-369) K/mm3 MPV 8.3 L (9.4-12.3) fl Neut % (Auto) 60.4 (34.0-71.1) % Lymph % (Auto) 34.3 (19.3-51.7) % [place] % (Auto) 4.3 L (4.7-12.5) % Eos % (Auto) 0.5 L (0.7-5.8) Baso % (Auto) 0.3 (0.1-1.2) % Neut # (Auto) 3.96 (1.56-6.13) K/mm3 Lymph # (Auto) 2.24 (1.18-3.74) K/mm3 [place] # (Auto) 0.28 (0.24-0.36) K/mm3 Eos # (Auto) 0.03 L (0.04-0.36) K/mm3 Baso # (Auto) 0.02 (0.01-0.08) K/mm3 PT 10.3 (9.7-12.0) SECONDS INR 0.94 Sodium 145 (136-145) mEq/L Potassium 2.9 L D (3.5-5.1) mEq/L Chloride 107 (98-107) mEq/L Carbon Dioxide 24 (21-32) mEq/L Anion Gap 16.9 H (5-15) BUN 11 (7-18) mg/dL Creatinine 0.8 (0.55-1.02) mg/dL Est Cr Clr Drug Dosing 72.65 mL/min Estimated GFR (MDRD) > 60 (>60) mL/min BUN/Creatinine Ratio 13.8 L (14-18) Glucose 78 (74-106) mg/dL Calcium 8.3 L (8.5-10.1) mg/dL Magnesium 1.7 L (1.8-2.4) mg/dl Total Bilirubin 0.2 (0.2-1.0) mg/dL AST 115 H (15-37) U/L ALT 70 H (14-59) U/L Alkaline Phosphatase 111 (46-116) U/L Total Protein 6.8 (6.4-8.2) g/dl Albumin 3.0 L (3.4-5.0) g/dl Globulin 3.8 gm/dL Albumin/Globulin Ratio 0.8 L (1-2) Lipase (73-393) U/L Ethyl Alcohol 0.21 (0.00) gm% // Range/Units 16:58 WBC (3.98-10.04) K/mm3 RBC (3.98-5.22) M/mm3 Hgb (11.2-15.7) gm/dl Hct (34.1-44.9) % MCV (79.4-94.8) fl MCH (25.6-32.2) pg MCHC (32.2-35.5) g/dl RDW Std Deviation (36.4-46.3) fL Plt Count (182-369) K/mm3 MPV (9.4-12.3) fl Neut % (Auto) (34.0-71.1) % Lymph % (Auto) (19.3-51.7) % [place] % (Auto) (4.7-12.5) % Eos % (Auto) (0.7-5.8) Baso % (Auto) (0.1-1.2) % Neut # (Auto) (1.56-6.13) K/mm3 Lymph # (Auto) (1.18-3.74) K/mm3 [place] # (Auto) (0.24-0.36) K/mm3 Eos # (Auto) (0.04-0.36) K/mm3 Baso # (Auto) (0.01-0.08) K/mm3 PT (9.7-12.0) SECONDS INR Sodium (136-145) mEq/L Potassium (3.5-5.1) mEq/L Chloride (98-107) mEq/L Carbon Dioxide (21-32) mEq/L Anion Gap (5-15) BUN (7-18) mg/dL Creatinine (0.55-1.02) mg/dL Est Cr Clr Drug Dosing mL/min Estimated GFR (MDRD) (>60) mL/min BUN/Creatinine Ratio (14-18) Glucose (74-106) mg/dL Calcium (8.5-10.1) mg/dL Magnesium (1.8-2.4) mg/dl Total Bilirubin (0.2-1.0) mg/dL AST (15-37) U/L ALT (14-59) U/L Alkaline Phosphatase (46-116) U/L Total Protein (6.4-8.2) g/dl Albumin (3.4-5.0) g/dl Globulin gm/dL Albumin/Globulin Ratio (1-2) Lipase 414 H (73-393) U/L Ethyl Alcohol (0.00) gm% Medications Generic Name Dose Route Start Last Admin Trade Name Freq PRN Reason Stop Dose Admin Lactated Ringer's 1,000 mls @ 150 mls/hr 10/22/19 18:30 10/22/19 18:22 Ringers, Lactated IV 150 mls/hr ASDIRECTED EDILIA Administration Sodium Chloride 10 ml 10/22/19 16:33 10/22/19 17:09 Saline Flush FLUSH 10 ml ASDIRECTED PRN Administration Keep Vein Open Discontinued Medications Generic Name Dose Route Start Last Admin Trade Name Freq PRN Reason Stop Dose Admin Folic Acid 1 mg 10/22/19 16:33 10/22/19 17:08 Folic Acid PO 10/22/19 16:34 1 mg ONETIME ONE Administration Sodium Chloride 1,000 mls @ 999 mls/hr 10/22/19 16:33 10/22/19 17:06 Normal Saline IV 10/22/19 17:33 999 mls/hr ONETIME ONE Administration Lorazepam 2 mg 10/22/19 16:33 10/22/19 17:08 Ativan IVPUSH 10/22/19 16:34 2 mg ONETIME ONE Administration Metoclopramide HCl 10 mg 10/22/19 16:33 10/22/19 17:07 Reglan IVPUSH 10/22/19 16:34 10 mg ONETIME ONE Administration Potassium Chloride 40 meq 10/22/19 17:53 10/22/19 18:20 Klor-Con M20 PO 10/22/19 17:54 40 meq ONETIME ONE Administration Thiamine HCl 100 mg 10/22/19 16:33 10/22/19 17:08 Vitamin B-1 PO 10/22/19 16:34 100 mg ONETIME ONE Administration Discharge vs Psych Eval/Treatment:: 10/22/19 17:15 Patient presents to the ED for her acute alcohol intoxication. Have ordered general labs, IV fluids, 2 mg Ativan, 10 mg Reglan for initial management. Patient is expressing wanting to stop drinking alcohol again. We will sober her up, and see if she is still adamant about stopping drinking, when she is more sober. 10/22/19 17:54 Patient's laboratory evaluation has returned, CBC demonstrates no worrisome abnormalities, she is not anemic. Patient's potassium level is mildly low at 2.9, otherwise metabolic panel is essentially unremarkable, has slightly elevated transaminases, but due to recent alcoholism. Patient's lipase is 414, and blood alcohol level is 0.21. 10/22/19 18:09 I did talk with our hospitalist, and she believes the patient would be best served in an outpatient setting. 10/22/19 18:16 I was able to talk with Moni at [facility], and she thinks that she would be a candidate for their residential center. She will call to talk with the patient. Departure - Departure Time of Disposition: 20:14 Disposition: DC/Tfer to Other 70 Condition: Good Clinical Impression: Alcohol abuse - Discharge Information *PRESCRIPTION DRUG MONITORING PROGRAM REVIEWED*: Yes *COPY OF PRESCRIPTION DRUG MONITORING REPORT IN PATIENT JAKOB: No Prescriptions: LORazepam [Ativan] 1 mg PO ASDIRECTED #12 tab Ondansetron [Zofran ODT] 4 mg PO Q8H #21 tab.dis Instructions: Alcohol Abuse and Dependence Information, Adult Additional Instructions: You were evaluated in the ER today regarding your alcohol abuse. Laboratory evaluation demonstrated no sign of pancreatitis at today's visit, you were given some IV fluids, some IV medications, this seemed to help relieve most your symptoms. You are being discharged to [facility], into the residential program for alcohol detox. You were given a prescription for Ativan, please take 1 tab 3 times a day for the next 2 days, then twice daily for the next 2 days, then only daily until gone. You were given also a prescription for Zofran, please take 1 tab every 8 hours while awake for nausea. Please return to the ER at any time if symptoms change or worsen. Sepsis Event Note (ED) - Evaluation Sepsis Screening Result: No Definite Risk - Focused Exam Vital Signs: Vital Signs Temp Pulse Resp BP Pulse Ox 10/22/19 16:19 97.4 F 99 20 154/141 H 96 - My Orders Last 24 Hours: My Active Orders 10/22/19 16:33 Peripheral IV Care [RC] . DIRECTED Sodium Chloride 0.9% [Saline Flush] 10 ml FLUSH ASDIRECTED PRN Peripheral IV Insertion Adult [OM.PC] Stat 10/22/19 18:30 Lactated Ringers @ 150 MLS/HR(1000ml Bag) Lactated Ringers [Ringers, Lactated] 1,000 ml IV ASDIRECTED - Assessment/Plan Last 24 Hours: My Active Orders 10/22/19 16:33 Peripheral IV Care [RC] . DIRECTED Sodium Chloride 0.9% [Saline Flush] 10 ml FLUSH ASDIRECTED PRN Peripheral IV Insertion Adult [OM.PC] Stat 10/22/19 18:30 Lactated Ringers @ 150 MLS/HR(1000ml Bag) Lactated Ringers [Ringers, Lactated] 1,000 ml IV ASDIRECTED
[2019-10-22] MEDS ORDERED: Potassium Chloride 20 MEQ Tab.ER PO ONE (17:53)
[2019-10-22] MEDS ORDERED: Lactated Ringers 1,000 ML IV SCH (18:30)
== END 2019-10-22 20:52 | disposition other institution (70) ==
LOC: JD.ED 16:14
DX: F10.129 Alcohol abuse with intoxication, unspecified (principal); I10 Essential (primary) hypertension; F32.9 Major depressive disorder, single episode, unspecified; G35 Multiple sclerosis; R56.9 Unspecified convulsions; Z88.8 Allergy status to other drugs, medicaments and biological substances; Z79.899 Other long term (current) drug therapy; Y90.7 Blood alcohol level of 200-239 mg/100 ml
CPT/HCPCS: 36415; 80053; 80307; 83690; 83735; 85025; 85610; 96374; 96375; 99284; A9270; J2060; J2765; J7030; J7120

== ENCOUNTER 2019-10-27 13:31 | Emergency (ER) | payer MEDICAID ==
[2019-10-27 14:08] VITALS: BP 108/64; PULSE 75
--- NOTE | 2019-10-27 14:31 | EDM.PDOC ---
ED HPI GENERAL MEDICAL PROBLEM - General Chief Complaint: Lower Extremity Injury/Pain Stated Complaint: LUMP ON LEG Time Seen by Provider: 10/27/19 14:13 Source of Information: Reports: Patient, RN Notes Reviewed History Limitations: Reports: No Limitations - History of Present Illness INITIAL COMMENTS - FREE TEXT/NARRATIVE: Patient is a 49-year-old female who presents to the ED for evaluation of a lump on her right lower leg. Patient notes that this developed a few days ago, and she states that it has felt warm and is very tender to the touch. This is on the medial aspect of her mid right pantoja, and measures about 1.5 cm x 1 cm in diameter. Slight erythema noted to the area, no bruising or swelling, she denies any fever/chills, cough/shortness of breath, nausea/vomiting/diarrhea, she denies any trauma to this area. She states that the lump was getting a little bit bigger. Patient states that she is going to our CCU for alcohol management, and has been sober since she was seen in this ER last. - Related Data Allergies Allergy/AdvReac Type Severity Reaction Status Date / Time acyclovir Allergy Intermediate Other Verified 10/22/19 16:23 Home Meds: Home Meds Interferon Beta-1a [Avonex] 1 injection SQ FR 02/27/19 [History] QUEtiapine [SEROquel] 25 mg PO DAILY #7 tablet 03/01/19 [Rx] levETIRAcetam [Levetiracetam] 500 mg PO DAILY #14 tablet 03/01/19 [Rx] Metoprolol Succinate 200 mg PO DAILY 03/16/19 [History] Potassium Chloride 20 meq PO DAILY #30 tablet.er 04/07/19 [Rx] QUEtiapine [SEROquel] 200 mg PO BEDTIME 04/16/19 [History] Gabapentin [Neurontin] 300 mg PO TID 04/22/19 [History] Omeprazole 20 mg PO QAM 04/22/19 [History] hydrOXYzine pamoate [Hydroxyzine Pamoate] 50 mg PO BEDTIME 04/22/19 [History] DULoxetine [Cymbalta] 30 mg PO BEDTIME 07/10/19 [History] DULoxetine [Cymbalta] 60 mg PO DAILY 07/10/19 [History] Ondansetron [Zofran ODT] 4 mg PO Q6H PRN #20 tab.dis 09/29/19 [Rx] LORazepam [Ativan] 1 mg PO ASDIRECTED #12 tab 10/22/19 [Rx] Ondansetron [Zofran ODT] 4 mg PO Q8H #21 tab.dis 10/22/19 [Rx] Past Medical History HEENT History: Reports: Impaired Vision Other HEENT History: cornea transplant L eye Cardiovascular History: Reports: Hypertension Other Cardiovascular History: heart murmur Respiratory History: Reports: None Gastrointestinal History: Reports: Pancreatitis Other Gastrointestinal History: colitis Genitourinary History: Reports: Urinary Incontinence Other Genitourinary History: straight caths at times from MS [place]LL[place] History: Reports: Fibroids Musculoskeletal History: Reports: Arthritis, Fracture Other Musculoskeletal History: Neck and back- Neurological History: Reports: Migraines, MS, Seizure Psychiatric History: Reports: Addiction, Depression, Mood Swings, PTSD Hematologic History: Reports: Other (See Below) Other Hematologic History: Hep A and C Oncologic (Cancer) History: Reports: None - Infectious Disease History Infectious Disease History: Reports: Chicken Pox, Hepatitis A, Hepatitis C - Past Surgical History HEENT Surgical History: Reports: Eye Surgery, Oral Surgery, Tonsillectomy, Other (See Below) GI Surgical History: Reports: Appendectomy, Bariatric Procedure, Cholecystectomy, Hernia, Abdominal Female Surgical History: Reports: Breast Reduction, Section, Hysterectomy, Other (See Below) Musculoskeletal Surgical History: Reports: Other (See Below) Dermatological Surgical History: Reports: Plastic Surgical Reconstruction/Repair Social & Family History - Family History Family Medical History: Noncontributory Cardiac: Reports: Hypertension Neurological: Reports: MS Psychiatric: Reports: Anxiety, Depression Endocrine/Metabolic: Reports: Diabetes, type II Oncologic: Reports: Breast - Caffeine Use Caffeine Use: Reports: Coffee Other Caffeine Use: 3/day - Living Situation & Occupation Living situation: Reports: , with Significant Other (Boyfriend) Occupation: Unemployed Review of Systems - Review of Systems Review Of Systems: Comprehensive ROS is negative, except as noted in HPI. ED EXAM, GENERAL - Physical Exam Exam: See Below Exam Limited By: No Limitations General Appearance: Alert, WD/WN, No Apparent Distress, Anxious Respiratory/Chest: No Respiratory Distress, Lungs Clear, Normal Breath Sounds, No Accessory Muscle Use, Chest Non-Tender Cardiovascular: Normal Peripheral Pulses, Regular Rate, Rhythm, No Murmur Extremities: Normal Range of Motion, No Pedal Edema, Normal Capillary Refill, Redness (slight erythema to RLE, 1.5 x 1cm slightly tender lump to R medial anterior pantoja) Neurological: Alert, Oriented, Normal Cognition, No Motor/Sensory Deficits Psychiatric: Normal Affect, Normal Mood Skin Exam: Warm, Dry, Intact, No Rash, Erythema (slight erythema to area of concern on right lower extremity.) Course - Vital Signs Last Recorded V/S: Last Vital Signs Temp 97.1 F 10/27/19 14:04 Pulse 75 10/27/19 14:04 Resp 16 10/27/19 14:04 BP 108/64 10/27/19 14:04 Pulse Ox 97 10/27/19 14:04 - Re-Assessments/Exams Free Text/Narrative Re-Assessment/Exam: 10/27/19 14:31 Patient presents to the ED for the evaluation of her painful tender lump on her right lower extremity. She states that she is most worried about a blood clot, we will perform ultrasound on the area for evaluation. Otherwise she is asymptomatic, so no labs will be obtained at today's visit. 10/27/19 15:45 Ultrasound has been performed, and demonstrates no sign of a DVT within the right lower extremity, there is a 2.6 cm hypoechoic area within the medial right calf correlating with the area of the lump, possibly representing a small hematoma if the patient has had a previous injury. If no history of injury an MRI could be obtained to further evaluate. At this time I do believe patient's diagnosis is more in line with a hematoma, will discharge home with this information, and give her general conservative management, she should follow-up with her primary care provider for further imaging if she feels is appropriate. Departure - Departure Time of Disposition: 15:46 Disposition: Home, Self-Care 01 Condition: Good Clinical Impression: Hematoma of right lower leg - Discharge Information *PRESCRIPTION DRUG MONITORING PROGRAM REVIEWED*: No *COPY OF PRESCRIPTION DRUG MONITORING REPORT IN PATIENT JAKOB: No Instructions: Contusion, [id number] Referrals: Zabrina Verdin NP [Primary Care Provider] - Forms: ED Department Discharge Additional Instructions: You were evaluated in the ER today regarding your painful lump on your right lower leg. Ultrasound was obtained, demonstrates no sign of a DVT or blood clot, the area is more consistent with a hematoma or bruise. This is more likely the cause of the painful lump, although sometimes we do not believe that we have any sort of trauma to the area, we could have hit our leg on something obscure, developed a bruise/hematoma days down the road. If this lump seems to grow, or gets more worrisome for you, please follow-up with your primary care provider, for the possibility of MRI of the area for further evaluation. You may use 500 mg Tylenol or 600 mg ibuprofen every 6 hours as needed for further pain relief or discomfort. Do not exceed 4000 mg Tylenol or 3 200 mg ibuprofen in a 24-hour time span. Please return to the ER at any time if symptoms should change or worsen. Sepsis Event Note (ED) - Evaluation Sepsis Screening Result: No Definite Risk - Focused Exam Vital Signs: Vital Signs Temp Pulse Resp BP Pulse Ox 10/27/19 14:04 97.1 F 75 16 108/64 97
--- NOTE | 2019-10-27 15:43 | US ---
Right lower extremity deep venous ultrasound: Duplex and color Doppler evaluation was obtained of the right common femoral, proximal greater saphenous, superficial femoral, popliteal, posterior tibial and peroneal veins. Findings: Normal phasic flow, augmentation and compression is seen. Hypoechoic area is noted within the proximal right calf marked as area of the lump. This measures about 2.6 cm in greatest dimension. This is nonspecific regarding etiology but may represent an area of hematoma. Impression: 1. No evidence of deep venous thrombosis within right lower extremity. 2. 2.6 cm hypoechoic area within the medial right calf correlating to area of lump, possibly representing small hematoma if patient has had previous injury. If no history of injury, MRI could be obtained to further evaluate. Diagnostic code #3 This report was dictated in MDT
== END 2019-10-27 16:00 | disposition home or self-care (01) ==
LOC: JD.ED 13:31
DX: M79.81 Nontraumatic hematoma of soft tissue (principal); I10 Essential (primary) hypertension; G35 Multiple sclerosis; F32.9 Major depressive disorder, single episode, unspecified; R56.9 Unspecified convulsions; Z88.8 Allergy status to other drugs, medicaments and biological substances; Z79.899 Other long term (current) drug therapy
CPT/HCPCS: 93971-26-RT; 93971-RT; 99283-25

== ENCOUNTER 2019-10-31 10:42 | Emergency (ER) | payer MEDICAID ==
[2019-10-31] MEDS ORDERED: Sodium Chloride 0.9% 10 ML Syringe FLUSH PRN (11:15)
[2019-10-31] MEDS ORDERED: Metoclopramide 10 MG/2 ML SDV IVPUSH ONE (11:16)
[2019-10-31] MEDS ORDERED: Ketorolac 30 MG/ML SDV IVPUSH ONE (11:16)
[2019-10-31] MEDS ORDERED: Lactated Ringers 1,000 ML IV SCH (11:30)
--- NOTE | 2019-10-31 11:31 | EDM.PDOC ---
ED HPI GENERAL MEDICAL PROBLEM - General Chief Complaint: Drug or Alcohol Abuse Stated Complaint: [facility] Time Seen by Provider: 10/31/19 11:06 Source of Information: Reports: Patient History Limitations: Reports: No Limitations - History of Present Illness INITIAL COMMENTS - FREE TEXT/NARRATIVE: Patient is a 49-year-old female who presents to the emergency department with complaints of nausea, abdominal pain, and wanting to quit drinking. She has been seen frequently in this emergency department with similar complaints. The most recent visit for the symptoms was approximately 1 week ago on October 21. At that time she went to the [facility] residential crisis center. She states that she was there for a few days. She maintained sobriety for a total of 5 days. Started drinking again yesterday. States she has been drinking vodka and lemonade. Her last drink was around 9:00 this morning. She estimates that she went through a pint of vodka since last night. This morning she developed bilateral lower abdominal pain. This is typical for her when she starts drinking. She has not had any vomiting, however feels that she is nauseous. She denies any fever, chills, or diarrhea. Patient is requesting to for help stop drinking. She would like to go back to the residential crisis center if that is an option for her. Abdomen Pain Score (Numeric/FACES): 8 - Related Data Allergies Allergy/AdvReac Type Severity Reaction Status Date / Time acyclovir Allergy Intermediate Other Verified 10/31/19 10:47 Home Meds: Home Meds Interferon Beta-1a [Avonex] 1 injection SQ FR 02/27/19 [History] QUEtiapine [SEROquel] 25 mg PO DAILY #7 tablet 03/01/19 [Rx] Metoprolol Succinate 200 mg PO DAILY 03/16/19 [History] Potassium Chloride 20 meq PO DAILY #30 tablet.er 04/07/19 [Rx] QUEtiapine [SEROquel] 200 mg PO BEDTIME 04/16/19 [History] Gabapentin [Neurontin] 300 mg PO TID 04/22/19 [History] Omeprazole 20 mg PO QAM 04/22/19 [History] hydrOXYzine pamoate [Hydroxyzine Pamoate] 50 mg PO BEDTIME 04/22/19 [History] DULoxetine [Cymbalta] 30 mg PO BEDTIME 07/10/19 [History] DULoxetine [Cymbalta] 60 mg PO DAILY 07/10/19 [History] LORazepam [Ativan] 1 mg PO ASDIRECTED #12 tablet 10/31/19 [Rx] Ondansetron [Zofran ODT] 4 mg PO Q8H 3 Days #9 tab.dis 10/31/19 [Rx] Ondansetron [Zofran ODT] 4 mg PO Q8H PRN 10/31/19 [History] Past Medical History HEENT History: Reports: Impaired Vision Other HEENT History: cornea transplant L eye Cardiovascular History: Reports: Hypertension Other Cardiovascular History: heart murmur Respiratory History: Reports: None Gastrointestinal History: Reports: Pancreatitis Other Gastrointestinal History: colitis Genitourinary History: Reports: Urinary Incontinence Other Genitourinary History: straight caths at times from [place] [employer] History: Reports: Fibroids Musculoskeletal History: Reports: Arthritis, Fracture Other Musculoskeletal History: Neck and back- Neurological History: Reports: Migraines, MS, Seizure Psychiatric History: Reports: Addiction, Depression, Mood Swings, PTSD Hematologic History: Reports: Other (See Below) Other Hematologic History: Hep A and C Oncologic (Cancer) History: Reports: None - Infectious Disease History Infectious Disease History: Reports: Chicken Pox, Hepatitis A, Hepatitis C - Past Surgical History Head Surgeries/Procedures: Reports: None HEENT Surgical History: Reports: Eye Surgery, Oral Surgery, Tonsillectomy, Other (See Below) GI Surgical History: Reports: Appendectomy, Bariatric Procedure, Cholec ystectomy, Hernia, Abdominal Female Surgical History: Reports: Breast Reduction, Section, Hysterectomy, Other (See Below) Musculoskeletal Surgical History: Reports: Other (See Below) Dermatological Surgical History: Reports: Plastic Surgical Reconstruction/Repair Social & Family History - Family History Family Medical History: Noncontributory Cardiac: Reports: Hypertension Neurological: Reports: MS Psychiatric: Reports: Anxiety, Depression Endocrine/Metabolic: Reports: Diabetes, type II Oncologic: Reports: Breast - Tobacco Use Smoking Status *Q: Current Every Day Smoker Years of Tobacco use: 20 Packs/Tins Daily: 0.2 - Caffeine Use Caffeine Use: Reports: Soda Other Caffeine Use: 3/day - Alcohol Use Days Per Week of Alcohol Use: 7 Number of Drinks Per Day: 7 Total Drinks Per Week: 49 - Recreational Drug Use Recreational Drug Use: No - Living Situation & Occupation Living situation: Reports: , with Significant Other (Boyfriend) Occupation: Unemployed ED ROS GENERAL - Review of Systems Review Of Systems: See Below Constitutional: Reports: No Symptoms. Denies: Fever, Chills HEENT: Reports: No Symptoms Respiratory: Reports: No Symptoms. Denies: Shortness of Breath, Cough Cardiovascular: Reports: No Symptoms Endocrine: Reports: No Symptoms GI/Abdominal: Reports: Abdominal Pain, Nausea. Denies: Diarrhea, Vomiting : Reports: No Symptoms Musculoskeletal: Reports: No Symptoms Skin: Reports: No Symptoms Neurological: Reports: No Symptoms Psychiatric: Reports: No Symptoms Hematologic/Lymphatic: Reports: No Symptoms Immunologic: Reports: No Symptoms ED EXAM, GENERAL - Physical Exam Exam: See Below Exam Limited By: No Limitations General Appearance: Alert, Mild Distress Respiratory/Chest: No Respiratory Distress, Lungs Clear, Normal Breath Sounds, No Accessory Muscle Use, Chest Non-Tender Cardiovascular: Normal Peripheral Pulses, Regular Rate, Rhythm, No Edema, No Gallop, No JVD, No Murmur, No Rub GI/Abdominal: Normal Bowel Sounds, Soft, No Organomegaly, No Distention, No Abnormal Bruit, No Mass, Tender (bilateral lower abdomen). No: Guarding, Rigid, Rebound Neurological: Alert, Oriented, CN II-XII Intact, Normal Cognition, Normal Gait, Normal Reflexes, No Motor/Sensory Deficits Psychiatric: Normal Affect, Tearful Skin Exam: Warm, Dry, Intact, Normal Color, No Rash Course - Vital Signs Last Recorded V/S: Last Vital Signs Temp 98.4 F 10/31/19 10:48 Pulse 64 10/31/19 18:50 Resp 18 10/31/19 18:50 BP 155/102 H 10/31/19 18:50 Pulse Ox 95 10/31/19 18:50 - Orders/Labs/Meds Labs: Laboratory Tests 10/31/19 10/31/19 10/31/19 Range/Units 10:55 10:55 10:55 WBC 9.74 (3.98-10.04) K/mm3 RBC 4.52 (3.98-5.22) M/mm3 Hgb 14.0 D (11.2-15.7) gm/dl Hct 42.2 (34.1-44.9) % MCV 93.4 (79.4-94.8) fl MCH 31.0 (25.6-32.2) pg MCHC 33.2 (32.2-35.5) g/dl RDW Std Deviation 50.0 H (36.4-46.3) fL Plt Count 610 H D (182-369) K/mm3 MPV 8.7 L (9.4-12.3) fl Neut % (Auto) 62.9 (34.0-71.1) % Lymph % (Auto) 29.5 (19.3-51.7) % [place] % (Auto) 7.1 (4.7-12.5) % Eos % (Auto) 0.2 L (0.7-5.8) Baso % (Auto) 0.2 (0.1-1.2) % Neut # (Auto) 6.13 (1.56-6.13) K/mm3 Lymph # (Auto) 2.87 (1.18-3.74) K/mm3 [place] # (Auto) 0.69 H (0.24-0.36) K/mm3 Eos # (Auto) 0.02 L (0.04-0.36) K/mm3 Baso # (Auto) 0.02 (0.01-0.08) K/mm3 Manual Slide Review Abnormal smear Sodium 137 (136-145) mEq/L Potassium 2.5 L (3.5-5.1) mEq/L Chloride 99 (98-107) mEq/L Carbon Dioxide 23 (21-32) mEq/L Anion Gap 17.5 H (5-15) BUN 8 (7-18) mg/dL Creatinine 1.0 (0.55-1.02) mg/dL Est Cr Clr Drug Dosing 58.12 mL/min Estimated GFR (MDRD) 59 (>60) mL/min BUN/Creatinine Ratio 8.0 L (14-18) Glucose 99 (74-106) mg/dL Calcium 8.6 (8.5-10.1) mg/dL Magnesium 1.6 L (1.8-2.4) mg/dl Total Bilirubin 0.4 (0.2-1.0) mg/dL AST 92 H (15-37) U/L ALT 74 H (14-59) U/L Alkaline Phosphatase 169 H (46-116) U/L Total Protein 7.8 (6.4-8.2) g/dl Albumin 3.5 (3.4-5.0) g/dl Globulin 4.3 gm/dL Albumin/Globulin Ratio 0.8 L (1-2) Lipase 486 H (73-393) U/L Urine Color (Yellow) Urine Appearance (Clear) Urine pH (5.0-8.0) Ur Specific [place] (1.005-1.030) Urine Protein (Negative) Urine Glucose (UA) (Negative) Urine Ketones (Negative) Urine Occult Blood (Negative) Urine Nitrite (Negative) Urine Bilirubin (Negative) Urine Urobilinogen (0.2-1.0) Ur Leukocyte Esterase (Negative) Ethyl Alcohol 0.17 (0.00) gm% 10/31/19 10/31/19 Range/Units 13:00 17:49 WBC (3.98-10.04) K/mm3 RBC (3.98-5.22) M/mm3 Hgb (11.2-15.7) gm/dl Hct (34.1-44.9) % MCV (79.4-94.8) fl MCH (25.6-32.2) pg MCHC (32.2-35.5) g/dl RDW Std Deviation (36.4-46.3) fL Plt Count (182-369) K/mm3 MPV (9.4-12.3) fl Neut % (Auto) (34.0-71.1) % Lymph % (Auto) (19.3-51.7) % [place] % (Auto) (4.7-12.5) % Eos % (Auto) (0.7-5.8) Baso % (Auto) (0.1-1.2) % Neut # (Auto) (1.56-6.13) K/mm3 Lymph # (Auto) (1.18-3.74) K/mm3 [place] # (Auto) (0.24-0.36) K/mm3 Eos # (Auto) (0.04-0.36) K/mm3 Baso # (Auto) (0.01-0.08) K/mm3 Manual Slide Review Sodium 138 (136-145) mEq/L Potassium 4.2 D (3.5-5.1) mEq/L Chloride 105 (98-107) mEq/L Carbon Dioxide 23 (21-32) mEq/L Anion Gap 14.2 (5-15) BUN 7 (7-18) mg/dL Creatinine 1.0 (0.55-1.02) mg/dL Est Cr Clr Drug Dosing 58.12 mL/min Estimated GFR (MDRD) 59 (>60) mL/min BUN/Creatinine Ratio 7.0 L (14-18) Glucose 90 (74-106) mg/dL Calcium 8.2 L (8.5-10.1) mg/dL Magnesium (1.8-2.4) mg/dl Total Bilirubin (0.2-1.0) mg/dL AST (15-37) U/L ALT (14-59) U/L Alkaline Phosphatase (46-116) U/L Total Protein (6.4-8.2) g/dl Albumin (3.4-5.0) g/dl Globulin gm/dL Albumin/Globulin Ratio (1-2) Lipase (73-393) U/L Urine Color Yellow (Yellow) Urine Appearance Clear (Clear) Urine pH 7.0 (5.0-8.0) Ur Specific [place] 1.015 (1.005-1.030) Urine Protein Negative (Negative) Urine Glucose (UA) Negative (Negative) Urine Ketones Negative (Negative) Urine Occult Blood Negative (Negative) Urine Nitrite Negative (Negative) Urine Bilirubin Negative (Negative) Urine Urobilinogen 0.2 (0.2-1.0) Ur Leukocyte Esterase Negative (Negative) Ethyl Alcohol (0.00) gm% Meds: Medications Discontinued Medications Generic Name Dose Route Start Last Admin Trade Name Phil PRN Reason Stop Dose Admin Acetaminophen 975 mg 10/31/19 13:33 10/31/19 13:41 Tylenol PO 10/31/19 13:34 975 mg NOW ONE Administration Lactated Ringer's 1,000 mls @ 999 mls/hr 10/31/19 11:30 10/31/19 11:33 Ringers, Lactated IV 999 mls/hr ASDIRECTED EDILIA Administration Potassium Chloride 10 meq/ 100 mls @ 100 mls/hr 10/31/19 12:00 10/31/19 16:30 Premix IV 11/04/19 12:59 100 mls/hr ASDIRECTED EDILIA Administration Potassium Chloride Confirm 10/31/19 11:59 10/31/19 12:08 Kcl 10 Meq In Water 100 Ml Administered 10/31/19 12:00 Not Given Dose 100 mls @ as directed .ROUTE .STK-MED ONE Magnesium Sulfate 2 gm/ Premix 50 mls @ 25 mls/hr 10/31/19 12:06 10/31/19 12:14 IV 10/31/19 14:05 25 mls/hr ONETIME ONE Administration Sodium Chloride 1,000 mls @ 100 mls/hr 10/31/19 13:00 10/31/19 13:33 Normal Saline IV 100 mls/hr ASDIRECTED EDILIA Administration Ketorolac Tromethamine 30 mg 10/31/19 11:16 10/31/19 11:34 Toradol IVPUSH 10/31/19 11:17 30 mg ONETIME ONE Administration Lorazepam 0.5 mg 10/31/19 15:29 10/31/19 15:35 Ativan IVPUSH 10/31/19 15:30 0.5 mg ONETIME ONE Administration Metoclopramide HCl 7.5 mg 10/31/19 11:16 10/31/19 11:34 Reglan IVPUSH 10/31/19 11:17 7.5 mg ONETIME ONE Administration Potassium Chloride 40 meq 10/31/19 11:48 10/31/19 11:55 Klor-Con M20 PO 10/31/19 11:49 40 meq ONETIME ONE Administration Sodium Chloride 10 ml 10/31/19 11:15 10/31/19 11:37 Saline Flush FLUSH 10 ml ASDIRECTED PRN Administration Keep Vein Open Thiamine HCl 100 mg 10/31/19 11:53 10/31/19 12:04 Vitamin B-1 IVPUSH 10/31/19 11:54 100 mg ONETIME ONE Administration - Re-Assessments/Exams Free Text/Narrative Re-Assessment/Exam: 10/31/19 12:41 Hematology was significant for platelet count elevated at 610, potassium low at 2.5, anion gap elevated at 17.5, magnesium low at 1.6, AST elevated at 92, ALT elevated at 74, alk phos elevated 169, lipase 486, blood alcohol 0.17. I have ordered oral KCl 40 mEq, as KCl 10 mEq IV x5 bags. Patient does have a mild pancreatitis, however this is consistent with her alcohol usage. She is not having significant left upper quadrant tenderness. Plan will be to replace her potassium and then recheck the level 1 hour after the last K rider bag was completed. If this is at a satisfactory level, we will contact the [facility] to see if they will accept her for admission. 10/31/19 16:30 Spoke with Ann, the on-call for [facility]. She accepted the patient for transfer to the [facility] crisis center. Patient still has 1 more bag of KCl 10 mEq to finish. After that we will recheck her potassium level. Plan will be to discharge to the [facility] with prescriptions for Ativan and Zofran. 10/31/19 1830 repeat KCl was 4.2. We will discharge the patient to [facility]. Prescriptions have been sent electronically to [facility]. Discharge instructions as documented. Departure - Departure Time of Disposition: 18:31 Disposition: Home, Self-Care 01 Condition: Good Clinical Impression: Hypokalemia, Alcohol dependence, binge pattern - Discharge Information *PRESCRIPTION DRUG MONITORING PROGRAM REVIEWED*: Yes *COPY OF PRESCRIPTION DRUG MONITORING REPORT IN PATIENT JAKOB: No Prescriptions: LORazepam [Ativan] 1 mg PO ASDIRECTED #12 tablet Ondansetron [Zofran ODT] 4 mg PO Q8H 3 Days #9 tab.dis Instructions: Alcohol Use Disorder Referrals: Zabrina Verdin NP [Primary Care Provider] - Additional Instructions: You were seen in the emergency department today with a request of getting help to stop drinking. Blood work was completed in the ER. Your blood alcohol level was 0.17. Your potassium was also found to be low. While in the ER, you received IV fluids, Toradol and Tylenol for pain, Reglan for nausea and a dose of Ativan. He also received IV and oral replacement of your potassium. Prior to discharging from the ER, your potassium was rechecked and was in a normal range. Arrangements have been made for you to go to the [facility] crisis happy. A prescription for Zofran and Ativan has been sent to [facility] and [facility]. This will be given to you by the staff at the [facility] crisis center. You may also continue your home medications as previously prescribed. Recommend that you abstain from drinking and follow the treatment plan as set in place by [facility]. Return to the ER as needed. Sepsis Event Note (ED) - Evaluation Sepsis Screening Result: No Definite Risk
[2019-10-31] MEDS ORDERED: Potassium Chloride 20 MEQ Tab.ER PO ONE (11:48)
[2019-10-31] MEDS ORDERED: Thiamine 200 MG/2 ML MDV IVPUSH ONE (11:53)
[2019-10-31] MEDS: Potassium Chloride 10 MEQ in Premix Bag 1 BAG IV SCH ×5 (11:55→16:30)
[2019-10-31] MEDS ORDERED: Potassium Chloride 100 ML ONE (11:59)
[2019-10-31] MEDS ORDERED: Magnesium Sulfate/Water 2 GM in Premix Bag 1 BAG IV ONE (12:06)
[2019-10-31] MEDS ORDERED: Sodium Chloride 0.9% 1,000 ML IV SCH (13:00)
[2019-10-31] MEDS ORDERED: Acetaminophen 325 MG Tab PO ONE (13:33)
[2019-10-31] MEDS ORDERED: LORazepam 2 MG/ML SDV IVPUSH ONE (15:29)
[2019-10-31 18:54] VITALS: BP 155/102; PULSE 64
== END 2019-10-31 18:43 | disposition home or self-care (01) ==
LOC: JD.ED 10:42
DX: E87.6 Hypokalemia (principal); F10.20 Alcohol dependence, uncomplicated; F50.81 Binge eating disorder; I10 Essential (primary) hypertension; G43.909 Migraine, unspecified, not intractable, without status migrainosus; F32.9 Major depressive disorder, single episode, unspecified; F43.10 Post-traumatic stress disorder, unspecified; F17.210 Nicotine dependence, cigarettes, uncomplicated; Z90.49 Acquired absence of other specified parts of digestive tract; Z90.710 Acquired absence of both cervix and uterus; Z98.890 Other specified postprocedural states; Z88.8 Allergy status to other drugs, medicaments and biological substances; Z79.899 Other long term (current) drug therapy
CPT/HCPCS: 36415; 80048; 80053; 80307; 81003; 83690; 83735; 85025; 96365; 96366; 96367; 96368; 96375; 99284; A9270; J1885; J2060; J2765; J3411; J3475; J3480; J7030; J7120

== ENCOUNTER 2019-11-11 05:44 | Emergency (ER) | payer MEDICAID ==
[2019-11-11 05:54] VITALS: BP 136/109; PULSE 121
[2019-11-11] MEDS ORDERED: Thiamine 100 MG in Sodium Chloride 0.9% 100 ML IV ONE (06:08)
[2019-11-11] MEDS ORDERED: Ondansetron 4 MG/2 ML SDV IVPUSH ONE ×2 (06:08→07:04)
[2019-11-11] MEDS ORDERED: Lactated Ringers 1,000 ML IV ONE ×3 (06:08→09:49)
--- NOTE | 2019-11-11 06:11 | EDM.PDOC ---
<Beck Castellanos Barron - Last Filed: 11/11/19 07:07> ED HPI GENERAL MEDICAL PROBLEM - General Chief Complaint: Drug or Alcohol Abuse Stated Complaint: [facility] Time Seen by Provider: 11/11/19 06:05 - History of Present Illness INITIAL COMMENTS - FREE TEXT/NARRATIVE: 49-year-old female returns to the emergency room, brought in by EMS, with nausea and vomiting. It was reported to EMS that the patient has been drinking all night and now is developed significant nausea and vomiting. Patient tells me she is trying to slow down and is only had a traveler for the last couple of days. But she has significant nausea and vomiting as well as lower abdominal discomfort. This patient has multiple visits to this emergency room for various alcoholic complaints. Little less than a month ago she was admitted for detox and possible pancreatitis. She states she is established with [facility] and with Christine. - Related Data Allergies Allergy/AdvReac Type Severity Reaction Status Date / Time acyclovir Allergy Intermediate Other Verified 11/11/19 05:49 Home Meds: Home Meds Interferon Beta-1a [Avonex] 1 injection SQ FR 02/27/19 [History] QUEtiapine [SEROquel] 25 mg PO DAILY #7 tablet 03/01/19 [Rx] Metoprolol Succinate 200 mg PO DAILY 03/16/19 [History] Potassium Chloride 20 meq PO DAILY #30 tablet.er 04/07/19 [Rx] QUEtiapine [SEROquel] 200 mg PO BEDTIME 04/16/19 [History] Gabapentin [Neurontin] 300 mg PO TID 04/22/19 [History] Omeprazole 20 mg PO QAM 04/22/19 [History] hydrOXYzine pamoate [Hydroxyzine Pamoate] 50 mg PO BEDTIME 04/22/19 [History] DULoxetine [Cymbalta] 30 mg PO BEDTIME 07/10/19 [History] DULoxetine [Cymbalta] 60 mg PO DAILY 07/10/19 [History] LORazepam [Ativan] 1 mg PO ASDIRECTED #12 tablet 10/31/19 [Rx] Ondansetron [Zofran ODT] 4 mg PO Q8H 3 Days #9 tab.dis 10/31/19 [Rx] Ondansetron [Zofran ODT] 4 mg PO Q8H PRN 10/31/19 [History] Past Medical History HEENT History: Reports: Impaired Vision Other HEENT History: cornea transplant L eye Cardiovascular History: Reports: Hypertension Other Cardiovascular History: heart murmur Respiratory History: Reports: None Gastrointestinal History: Reports: Pancreatitis Other Gastrointestinal History: colitis Genitourinary History: Reports: Urinary Incontinence Other Genitourinary History: straight caths at times from [place] [employer] History: Reports: Fibroids, Musculoskeletal History: Reports: Arthritis, Fracture Other Musculoskeletal History: Neck and back- Neurological History: Reports: Migraines, MS, Seizure Psychiatric History: Reports: Addiction, Depression, Mood Swings, PTSD Hematologic History: Reports: Other (See Below) Other Hematologic History: Hep A and C Oncologic (Cancer) History: Reports: None - Infectious Disease History Infectious Disease History: Reports: Hepatitis A, Hepatitis C - Past Surgical History Head Surgeries/Procedures: Reports: None HEENT Surgical History: Reports: Eye Surgery, Oral Surgery, Tonsillectomy, Other (See Below) GI Surgical History: Reports: Appendectomy, Bariatric Procedure, Cholecystectomy, Hernia, Abdominal Female Surgical History: Reports: Breast Reduction, Section, Hysterectomy Musculoskeletal Surgical History: Reports: Other (See Below) Dermatological Surgical History: Reports: Plastic Surgical Reconstruction/Repair Social & Family History - Family History Family Medical History: Noncontributory Cardiac: Reports: Hypertension Neurological: Reports: MS Psychiatric: Reports: Anxiety, Depression Endocrine/Metabolic: Reports: Diabetes, type II Oncologic: Reports: Breast - Tobacco Use Smoking Status *Q: Current Every Day Smoker Years of Tobacco use: 30 Packs/Tins Daily: 0.1 - Caffeine Use Caffeine Use: Reports: Soda Other Caffeine Use: 3/day - Alcohol Use Days Per Week of Alcohol Use: 7 Number of Drinks Per Day: 16 Total Drinks Per Week: 112 - Recreational Drug Use Recreational Drug Use: No - Living Situation & Occupation Living situation: Reports: , with Significant Other (Boyfriend) Occupation: Unemployed ED ROS GENERAL - Review of Systems Review Of Systems: See Below Constitutional: Reports: No Symptoms HEENT: Reports: No Symptoms Respiratory: Reports: No Symptoms Cardiovascular: Reports: No Symptoms GI/Abdominal: Reports: Abdominal Pain, Nausea, Vomiting. Denies: Constipation : Reports: No Symptoms Musculoskeletal: Reports: No Symptoms Skin: Reports: No Symptoms Neurological: Reports: Other ED EXAM, GENERAL - Physical Exam Exam: See Below Exam Limited By: Intoxication General Appearance: Anxious, Other (Probably acute intoxication) Head: Atraumatic, Normocephalic Neck: Normal Inspection, Supple, Non-Tender, Full Range of Motion. No: Lymphadenopathy (L), Lymphadenopathy (R) Respiratory/Chest: No Respiratory Distress, Lungs Clear, Normal Breath Sounds Cardiovascular: Regular Rate, Rhythm, No Edema, No Murmur GI/Abdominal: Normal Bowel Sounds, Soft, Other (She has bilateral lower quadrant tenderness does not seem to have upper abdominal discomfort with palpation no rigidity rebound or guarding noted) Back Exam: Normal Inspection. No: CVA Tenderness (L), CVA Tenderness (R) Extremities: Normal Inspection, No Pedal Edema Neurological: Alert, Oriented Psychiatric: Anxious (Hurried speech) Lymphatic: No Adenopathy Course - Re-Assessments/Exams Free Text/Narrative Re-Assessment/Exam: 11/11/19 07:07 Labs ordered abdominal x-rays ordered change of shift further care and disposition per Dr. Taylor Departure - Departure Disposition: Home, Self-Care 01 Clinical Impression: Alcohol intoxication Qualifiers: Complication of substance-induced condition: uncomplicated Qualified Code(s): F10.920 - Alcohol use, unspecified with intoxication, uncomplicated Abdominal pain Qualifiers: Abdominal location: generalized Qualified Code(s): R10.84 - Generalized abdominal pain - Discharge Information Referrals: PCP,None [Primary Care Provider] - Additional Instructions: Avoid further alcohol. Other clear liquids and bland diet as tolerated. See your regular medical provider as needed. Follow up with [facility] as needed. Sepsis Event Note (ED) - Evaluation Sepsis Screening Result: No Definite Risk <Indra Taylor - Last Filed: 11/11/19 16:20> ED HPI GENERAL MEDICAL PROBLEM - General Source of Information: Reports: Patient Course - Vital Signs Last Recorded V/S: Last Vital Signs Temp 97.7 F 11/11/19 05:49 Pulse 121 H 11/11/19 05:49 Resp 17 11/11/19 05:49 BP 136/109 H 11/11/19 05:49 Pulse Ox 100 11/11/19 05:49 - Orders/Labs/Meds Orders: Active Orders 24 hr Category Date Time Status DRUG SCREEN, URINE [URCHEM] Stat Lab 11/11/19 06:09 Ordered UA RFX MILAD AND CULT IF INDIC [URIN] Stat Lab 11/11/19 06:09 Ordered Labs: Laboratory Tests 11/11/19 11/11/19 Range/Units 05:53 05:53 WBC 10.06 H (3.98-10.04) K/mm3 RBC 4.07 (3.98-5.22) M/mm3 Hgb 12.5 D (11.2-15.7) gm/dl Hct 39.5 (34.1-44.9) % MCV 97.1 H D (79.4-94.8) fl MCH 30.7 (25.6-32.2) pg MCHC 31.6 L (32.2-35.5) g/dl RDW Std Deviation 52.4 H (36.4-46.3) fL Plt Count 497 H D (182-369) K/mm3 MPV 9.1 L (9.4-12.3) fl Neut % (Auto) 68.0 (34.0-71.1) % Lymph % (Auto) 25.9 (19.3-51.7) % [place] % (Auto) 5.5 (4.7-12.5) % Eos % (Auto) 0.2 L (0.7-5.8) Baso % (Auto) 0.2 (0.1-1.2) % Neut # (Auto) 6.84 H (1.56-6.13) K/mm3 Lymph # (Auto) 2.61 (1.18-3.74) K/mm3 [place] # (Auto) 0.55 H (0.24-0.36) K/mm3 Eos # (Auto) 0.02 L (0.04-0.36) K/mm3 Baso # (Auto) 0.02 (0.01-0.08) K/mm3 Manual Slide Review Normal smear Sodium 139 (136-145) mEq/L Potassium 3.7 (3.5-5.1) mEq/L Chloride 101 (98-107) mEq/L Carbon Dioxide 21 (21-32) mEq/L Anion Gap 20.7 H (5-15) BUN 11 (7-18) mg/dL Creatinine 1.0 (0.55-1.02) mg/dL Est Cr Clr Drug Dosing 58.12 mL/min Estimated GFR (MDRD) 59 (>60) mL/min BUN/Creatinine Ratio 11.0 L (14-18) Glucose 114 H (74-106) mg/dL Calcium 8.7 (8.5-10.1) mg/dL Total Bilirubin 0.1 L (0.2-1.0) mg/dL AST 84 H (15-37) U/L ALT 48 (14-59) U/L Alkaline Phosphatase 106 (46-116) U/L Total Protein 7.6 (6.4-8.2) g/dl Albumin 3.3 L (3.4-5.0) g/dl Globulin 4.3 gm/dL Albumin/Globulin Ratio 0.8 L (1-2) Lipase 414 H (73-393) U/L Ethyl Alcohol 0.13 (0.00) gm% Meds: Medications Discontinued Medications Generic Name Dose Route Start Last Admin Trade Name Freq PRN Reason Stop Dose Admin Hydromorphone HCl 0.5 mg 11/11/19 08:44 11/11/19 09:00 Dilaudid IVPUSH 11/11/19 08:45 0.5 mg ONETIME ONE Administration Hydromorphone HCl 0.5 mg 11/11/19 09:49 11/11/19 09:56 Dilaudid IVPUSH 11/11/19 09:50 0.5 mg ONETIME ONE Administration Lactated Ringer's 1,000 mls @ 999 mls/hr 11/11/19 06:08 11/11/19 06:16 Ringers, Lactated IV 11/11/19 07:08 999 mls/hr .BOLUS ONE Administration Thiamine HCl 100 mg/ Sodium 101 mls @ 202 mls/hr 11/11/19 06:08 11/11/19 06:16 Chloride IV 11/11/19 06:09 202 mls/hr ONETIME ONE Administration Lactated Ringer's 1,000 mls @ 150 mls/hr 11/11/19 06:15 Ringers, Lactated IV ASDIRECTED EDILIA Lactated Ringer's 1,000 mls @ 999 mls/hr 11/11/19 07:53 11/11/19 07:57 Ringers, Lactated IV 11/11/19 08:53 999 mls/hr .BOLUS ONE Administration Lactated Ringer's 1,000 mls @ 999 mls/hr 11/11/19 09:49 11/11/19 09:55 Ringers, Lactated IV 11/11/19 10:49 999 mls/hr .BOLUS ONE Administration Ondansetron HCl 4 mg 11/11/19 06:08 11/11/19 06:16 Zofran IVPUSH 11/11/19 06:09 4 mg ONETIME ONE Administration Ondansetron HCl 4 mg 11/11/19 07:04 11/11/19 07:55 Zofran IVPUSH 11/11/19 07:05 4 mg ONETIME ONE Administration - Re-Assessments/Exams Free Text/Narrative Re-Assessment/Exam: 11/11/19 16:18. Did assume care from Dr Castellanos at change of shift, I agree with his hx and exam as documented. Have given further meds and fluids, discharge instr. as documented. Departure - Departure Time of Disposition: 10:50 Condition: Fair Sepsis Event Note (ED) - Focused Exam Vital Signs: Vital Signs Temp Pulse Resp BP Pulse Ox 11/11/19 05:49 97.7 F 121 H 17 136/109 H 100
[2019-11-11] MEDS ORDERED: Lactated Ringers 1,000 ML IV SCH (06:15)
[2019-11-11] MEDS ORDERED: HYDROmorphone 0.5 MG/0.5 ML Syringe IVPUSH ONE ×2 (08:44→09:49)
--- NOTE | 2019-11-11 09:51 | CR ---
Abdomen: Supine view of the abdomen was obtained as well as upright study. Prior abdominal surgery is noted. Scattered gas within colon and small bowel is seen which appears within normal limits. Calcifications are seen within the pelvis compatible with phleboliths. No free air is seen. Impression: 1. Findings as noted above. 2. Nothing acute is suspected. Diagnostic code #2 Study was dictated in MDT
== END 2019-11-11 10:55 | disposition home or self-care (01) ==
LOC: JD.ED 05:44
DX: F10.120 Alcohol abuse with intoxication, uncomplicated (principal); R10.31 Right lower quadrant pain; R10.32 Left lower quadrant pain; R11.2 Nausea with vomiting, unspecified; I10 Essential (primary) hypertension; F32.9 Major depressive disorder, single episode, unspecified; F43.10 Post-traumatic stress disorder, unspecified; G43.909 Migraine, unspecified, not intractable, without status migrainosus; F17.210 Nicotine dependence, cigarettes, uncomplicated; Z88.8 Allergy status to other drugs, medicaments and biological substances; Z79.899 Other long term (current) drug therapy
CPT/HCPCS: 36415; 74019; 80053; 80307; 83690; 85025; 96361; 96365; 96375; 96376; 99284; J1170; J2405; J3411; J7050; J7120; 99283

== ENCOUNTER 2019-11-11 17:51 | Emergency (ER) | payer MEDICAID ==
[2019-11-11 17:55] VITALS: BP 152/110; PULSE 115
== END 2019-11-11 19:32 | disposition left against medical advice (07) ==
LOC: JD.ED 17:51
DX: Z53.21 Procedure and treatment not carried out due to patient leaving prior to being seen by health care provider (principal)

== ENCOUNTER 2019-11-12 12:35 | Emergency (ER) | payer MEDICAID ==
[2019-11-12] MEDS ORDERED: LORazepam 2 MG/ML SDV IV ONE (13:02)
[2019-11-12] MEDS ORDERED: Ondansetron 4 MG/2 ML SDV IVPUSH ONE (13:03)
[2019-11-12] MEDS ORDERED: Thiamine 200 MG/2 ML MDV IVPUSH ONE (13:03)
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
[2019-11-12] MEDS ORDERED: Dextrose 5%-Lactated Ringers 1,000 ML IV SCH (13:15)
[2019-11-12] MEDS ORDERED: HYDROmorphone 0.5 MG/0.5 ML Syringe IVPUSH ONE ×2 (13:20→14:33)
[2019-11-12] MEDS ORDERED: Ketorolac 30 MG/ML SDV IVPUSH ONE (13:20)
--- NOTE | 2019-11-12 14:24 | CR ---
Right ribs: 3 views of the right ribs were obtained. Comparison: No prior right rib study. Surgical clips seen within the upper abdomen. No discrete fracture or other bony abnormality is appreciated. Impression: 1. No discrete right-sided rib abnormality is appreciated. 2. Nondisplaced fracture could easily be missed. Diagnostic code #2 This report was dictated in MDT
[2019-11-12 15:44] VITALS: BP 136/110; PULSE 119
== END 2019-11-12 15:41 ==
LOC: JD.ED 12:35
DX: F10.220 Alcohol dependence with intoxication, uncomplicated (principal); S80.02XA Contusion of left knee, initial encounter; S80.01XA Contusion of right knee, initial encounter; S29.9XXA Unspecified injury of thorax, initial encounter; B19.20 Unspecified viral hepatitis C without hepatic coma; I10 Essential (primary) hypertension; F32.9 Major depressive disorder, single episode, unspecified; G35 Multiple sclerosis; Z79.899 Other long term (current) drug therapy; Z88.8 Allergy status to other drugs, medicaments and biological substances; Y04.0XXA Assault by unarmed brawl or fight, initial encounter
CPT/HCPCS: 36415; 71100; 80053; 80306; 80307; 83690; 83735; 85025; 85610; 85730; 86803; 93005; 96361; 96374; 96375; 96376; 99285; J1170; J1885; J2060; J2405; J3411; J7121; 93010; 99284

== ENCOUNTER 2019-11-23 12:32 | Emergency (ER) | payer MEDICAID ==
[2019-11-23] MEDS ORDERED: Sodium Chloride 0.9% 10 ML Syringe FLUSH PRN (13:15)
[2019-11-23] MEDS ORDERED: Sodium Chloride 0.9% 1,000 ML IV ONE ×3 (13:15→18:29)
[2019-11-23] MEDS ORDERED: Metoclopramide 10 MG/2 ML SDV IVPUSH ONE (13:15)
[2019-11-23] MEDS ORDERED: Thiamine 100 MG Tab PO ONE (13:15)
[2019-11-23] MEDS ORDERED: Folic Acid 1 MG Tab PO ONE (13:15)
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
[2019-11-23] MEDS ORDERED: Ketorolac 30 MG/ML SDV IVPUSH ONE (16:08)
[2019-11-23] MEDS ORDERED: cefTRIAXone 1 GM in Sodium Chloride 0.9% 100 ML IV ONE (16:48)
[2019-11-23] MEDS ORDERED: LORazepam 2 MG/ML SDV IVPUSH ONE (17:14)
[2019-11-23] MEDS ORDERED: Dextrose 5%-Lactated Ringers 1,000 ML IV SCH ×2 (18:15→18:28)
[2019-11-23] MEDS ORDERED: Dextrose 5%-0.9% NaCl 1,000 ML IV SCH (18:29)
[2019-11-23 21:22] VITALS: BP 114/87; PULSE 92
== END 2019-11-23 21:10 | disposition other institution (70) ==
LOC: JD.ED 12:32
DX: F10.129 Alcohol abuse with intoxication, unspecified (principal); N30.01 Acute cystitis with hematuria; I10 Essential (primary) hypertension; F32.9 Major depressive disorder, single episode, unspecified; Y90.8 Blood alcohol level of 240 mg/100 ml or more; Z88.8 Allergy status to other drugs, medicaments and biological substances; Z79.899 Other long term (current) drug therapy
CPT/HCPCS: 36415; 80053; 80307; 81001; 83735; 85025; 85610; 87086; 87088; 87186; 96361; 96365; 96375; 99284; A9270; J0696; J1885; J2060; J2765; J7030; J7050

== ENCOUNTER 2019-12-03 12:42 | Emergency (ER) | payer MEDICAID ==
--- NOTE | 2019-12-03 12:46 | EDM.PDOC ---
ED HPI GENERAL MEDICAL PROBLEM - General Chief Complaint: Drug or Alcohol Abuse Stated Complaint: [facility] Time Seen by Provider: 12/03/19 12:46 - History of Present Illness INITIAL COMMENTS - FREE TEXT/NARRATIVE: 49-year-old female sent in by her fringe weaver for commitment for chronic alcoholism. Patient has chronic alcoholism and drinks a significant amount of vodka. Her fringe weaver is committing her and needs to find a place for her for potential detox and rehabilitation. At this point the patient has some abdominal discomfort and is mostly nauseated. The patient really wants to quit drinking however she is intoxicated at this point. Patient denies any other problems at this point patient has a significant past medical history of hypertension has a known heart murmur she has had intermittent bouts of pancreatitis and colitis. She suffers from multiple sclerosis and has urinary issues at times incontinence and other times she has to do self-catheterization. She has had addiction problems with alcohol and methamphetamine in the past she has had seizures the nature and cause of the seizures is not well understood by me at this time and she has had problems with migraines the patient has a history of hepatitis a and to see her hepatitis C has not been treated yet. Past surgical history remarkable for bariatric cyst surgery she is also had a cholecystectomy and appendectomy - Related Data Allergies Allergy/AdvReac Type Severity Reaction Status Date / Time acyclovir Allergy Severe Other Verified 12/03/19 12:49 Home Meds: Home Meds Interferon Beta-1a [Avonex] 1 injection SQ FR 02/27/19 [History] QUEtiapine [SEROquel] 25 mg PO DAILY #7 tablet 03/01/19 [Rx] Potassium Chloride 20 meq PO DAILY #30 tablet.er 04/07/19 [Rx] QUEtiapine [SEROquel] 200 mg PO BEDTIME 04/16/19 [History] Gabapentin [Neurontin] 300 mg PO TID 04/22/19 [History] hydrOXYzine pamoate [Hydroxyzine Pamoate] 50 mg PO BEDTIME 04/22/19 [History] DULoxetine [Cymbalta] 30 mg PO DAILY 07/10/19 [History] DULoxetine [Cymbalta] 60 mg PO BEDTIME 07/10/19 [History] ClonazePAM [KlonoPIN] 0.5 mg PO BID 11/12/19 [History] Metoprolol Tartrate 100 mg PO DAILY 11/12/19 [History] Naltrexone 50 mg PO DAILY 11/12/19 [History] busPIRone [Buspar] 10 mg PO TID 11/12/19 [History] Cefdinir [Omnicef] 300 mg PO BID 7 Days #14 cap 11/23/19 [Rx] LORazepam [Ativan] 1 mg PO ASDIRECTED #12 tab 11/23/19 [Rx] Ondansetron [Zofran ODT] 4 mg PO Q8H PRN #15 tab.dis 11/23/19 [Rx] Past Medical History HEENT History: Reports: Impaired Vision Other HEENT History: cornea transplant L eye Cardiovascular History: Reports: Hypertension Other Cardiovascular History: heart murmur Respiratory History: Reports: None Gastrointestinal History: Reports: Pancreatitis (History of recurrent alcohol induced pancreatitis.) Other Gastrointestinal History: colitis Genitourinary History: Reports: Urinary Incontinence Other Genitourinary History: straight caths at times from MS [employer] History: Reports: Fibroids, Musculoskeletal History: Reports: Arthritis, Fracture Other Musculoskeletal History: Neck and back- Neurological History: Reports: Migraines, MS, Seizure Psychiatric History: Reports: Addiction, Depression, Mood Swings, PTSD, Other (See Below) (Chronic alcohol abuse and addiction street of methamphetamine use in the remote past) Hematologic History: Reports: Other (See Below) Other Hematologic History: Hep A and C Oncologic (Cancer) History: Reports: None - Infectious Disease History Infectious Disease History: Reports: Hepatitis A, Hepatitis C - Past Surgical History Head Surgeries/Procedures: Reports: None HEENT Surgical History: Reports: Eye Surgery, Oral Surgery, Tonsillectomy, Other (See Below) GI Surgical History: Reports: Appendectomy, Bariatric Procedure, Cholecystectomy, Hernia, Abdominal Female Surgical History: Reports: Breast Reduction, Section, Hysterectomy Musculoskeletal Surgical History: Reports: Other (See Below) Dermatological Surgical History: Reports: Plastic Surgical Reconstruction/Repair Social & Family History - Family History Family Medical History: Noncontributory Cardiac: Reports: Hypertension Neurological: Reports: MS Psychiatric: Reports: Anxiety, Depression Endocrine/Metabolic: Reports: Diabetes, type II Oncologic: Reports: Breast - Caffeine Use Caffeine Use: Reports: None Other Caffeine Use: 3/day - Living Situation & Occupation Living situation: Reports: , with Significant Other (Boyfriend) Occupation: Unemployed [facility] [employer] GENERAL - Review of Systems Review Of Systems: See Below Constitutional: Reports: No Symptoms HEENT: Reports: No Symptoms Respiratory: Reports: No Symptoms Cardiovascular: Reports: No Symptoms GI/Abdominal: Reports: Abdominal Pain, Nausea, Vomiting. Denies: Constipation, Diarrhea : Reports: No Symptoms Musculoskeletal: Reports: No Symptoms Skin: Reports: No Symptoms Neurological: Reports: No Symptoms Psychiatric: Reports: Anxiety. Denies: Mood Lability, Suicidal Ideation Hematologic/Lymphatic: Reports: No Symptoms Immunologic: Reports: No Symptoms ED EXAM, GENERAL - Physical Exam Exam: See Below Exam Limited By: No Limitations General Appearance: Alert, No Apparent Distress Eye Exam: Bilateral Eye: EOMI, Normal Inspection, PERRL Ears: Normal External Exam, Normal Canal, Hearing Grossly Normal, Normal TMs Nose: Normal Inspection, Normal Mucosa, No Blood Throat/Mouth: Normal Inspection, Normal Lips, Normal Oropharynx, Normal Voice, No Airway Compromise Head: Atraumatic, Normocephalic Neck: Normal Inspection, Supple, Non-Tender, Full Range of Motion. No: Lymphadenopathy (L), Lymphadenopathy (R) Respiratory/Chest: No Respiratory Distress, Lungs Clear, Normal Breath Sounds Cardiovascular: Regular Rate, Rhythm, No Edema, Systolic Murmur GI/Abdominal: Normal Bowel Sounds, Soft, Other (Mild discomfort with palpation however she is quite nauseated at this point) Back Exam: Normal Inspection. No: CVA Tenderness (L), CVA Tenderness (R) Extremities: Normal Inspection, No Pedal Edema Neurological: Other (Intoxicated) Course - Vital Signs Last Recorded V/S: Last Vital Signs Temp 35.5 C L 12/03/19 14:01 Pulse 96 12/03/19 14:01 Resp 18 12/03/19 14:01 BP 160/118 H 12/03/19 14:01 Pulse Ox 99 12/03/19 14:01 - Orders/Labs/Meds Orders: Active Orders 24 hr Category Date Time Status EKG Documentation Completion [RC] STAT Care 12/03/19 12:50 Active Abdomen Pelvis w Cont [CT] Stat Exams 12/03/19 15:33 Stop Req Folic Acid Med 12/03/19 13:30 Active 1 mg IV DAILY Medication Orders Folic Acid (Folic Acid) 1 mg IV DAILY [facility] Last Admin: 12/03/19 14:03 Dose: 1 mg Documented by: DAVE Labs: Laboratory Tests 12/03/19 12/03/19 12/03/19 Range/Units 13:10 13:10 13:10 WBC 7.15 (3.98-10.04) K/mm3 RBC 3.85 L (3.98-5.22) M/mm3 Hgb 11.6 (11.2-15.7) gm/dl Hct 37.1 (34.1-44.9) % MCV 96.4 H (79.4-94.8) fl MCH 30.1 (25.6-32.2) pg MCHC 31.3 L (32.2-35.5) g/dl RDW Std Deviation 48.6 H (36.4-46.3) fL Plt Count 405 H (182-369) K/mm3 MPV 9.5 (9.4-12.3) fl Neut % (Auto) 57.6 (34.0-71.1) % Lymph % (Auto) 37.3 (19.3-51.7) % [place] % (Auto) 4.6 L (4.7-12.5) % Eos % (Auto) 0.1 L (0.7-5.8) Baso % (Auto) 0.3 (0.1-1.2) % Neut # (Auto) 4.11 (1.56-6.13) K/mm3 Lymph # (Auto) 2.67 (1.18-3.74) K/mm3 [place] # (Auto) 0.33 (0.24-0.36) K/mm3 Eos # (Auto) 0.01 L (0.04-0.36) K/mm3 Baso # (Auto) 0.02 (0.01-0.08) K/mm3 PT 10.5 (9.7-11.7) SECONDS INR 0.98 Sodium 140 (136-145) mEq/L Potassium 3.4 L (3.5-5.1) mEq/L Chloride 103 (98-107) mEq/L Carbon Dioxide 25 (21-32) mEq/L Anion Gap 15.4 H (5-15) BUN 6 L (7-18) mg/dL Creatinine 0.9 (0.55-1.02) mg/dL Est Cr Clr Drug Dosing 64.58 mL/min Estimated GFR (MDRD) > 60 (>60) mL/min BUN/Creatinine Ratio 6.7 L (14-18) Glucose 103 (74-106) mg/dL Calcium 8.4 L (8.5-10.1) mg/dL Magnesium (1.8-2.4) mg/dl Total Bilirubin 0.2 (0.2-1.0) mg/dL GGT 163 H (5-55) U/L AST 52 H (15-37) U/L ALT 51 (14-59) U/L Alkaline Phosphatase 109 (46-116) U/L Total Protein 7.1 (6.4-8.2) g/dl Albumin 3.2 L (3.4-5.0) g/dl Globulin 3.9 gm/dL Albumin/Globulin Ratio 0.8 L (1-2) TSH 3rd Generation 1.370 (0.358-3.74) uIU/mL Urine Color (Yellow) Urine Appearance (Clear) Urine pH (5.0-8.0) Ur Specific [place] (1.005-1.030) Urine Protein (Negative) Urine Glucose (UA) (Negative) Urine Ketones (Negative) Urine Occult Blood (Negative) Urine Nitrite (Negative) Urine Bilirubin (Negative) Urine Urobilinogen (0.2-1.0) Ur Leukocyte Esterase (Negative) Salicylates (2.8-20) mg/dL Urine Opiates Screen (PDXPDN=862) Ur Buprenorphine Scrn (CUTOFF=10) Ur Oxycodone Screen (YIG6MJ=494) Urine Methadone Screen (GUCJBN=639) Ur Propoxyphene Screen (WWAUKN=051) Acetaminophen 10 (10-30) ug/mL Ur Barbiturates Screen (UFJVKV=242) Ur Tricyclics Screen (LATPOT=131) Ur Phencyclidine Scrn (CUTOFF=25) Ur Amphetamine Screen (ZTXQMF=151) U Methamphetamines Scrn (ZLUQTZ=385) U Benzodiazepines Scrn (FVPEHA=890) U Cocaine Metab Screen (PGIAGN=354) U Marijuana (THC) Screen (CUTOFF=50) Ethyl Alcohol 0.24 (0.00) gm% COVID-19 (ROSAURA) (NEGATIVE) 12/03/19 12/03/19 12/03/19 Range/Units 13:10 13:10 14:15 WBC (3.98-10.04) K/mm3 RBC (3.98-5.22) M/mm3 Hgb (11.2-15.7) gm/dl Hct (34.1-44.9) % MCV (79.4-94.8) fl MCH (25.6-32.2) pg MCHC (32.2-35.5) g/dl RDW Std Deviation (36.4-46.3) fL Plt Count (182-369) K/mm3 MPV (9.4-12.3) fl Neut % (Auto) (34.0-71.1) % Lymph % (Auto) (19.3-51.7) % [place] % (Auto) (4.7-12.5) % Eos % (Auto) (0.7-5.8) Baso % (Auto) (0.1-1.2) % Neut # (Auto) (1.56-6.13) K/mm3 Lymph # (Auto) (1.18-3.74) K/mm3 [place] # (Auto) (0.24-0.36) K/mm3 Eos # (Auto) (0.04-0.36) K/mm3 Baso # (Auto) (0.01-0.08) K/mm3 PT (9.7-11.7) SECONDS INR Sodium (136-145) mEq/L Potassium (3.5-5.1) mEq/L Chloride (98-107) mEq/L Carbon Dioxide (21-32) mEq/L Anion Gap (5-15) BUN (7-18) mg/dL Creatinine (0.55-1.02) mg/dL Est Cr Clr Drug Dosing mL/min Estimated GFR (MDRD) (>60) mL/min BUN/Creatinine Ratio (14-18) Glucose (74-106) mg/dL Calcium (8.5-10.1) mg/dL Magnesium 1.8 (1.8-2.4) mg/dl Total Bilirubin (0.2-1.0) mg/dL GGT (5-55) U/L AST (15-37) U/L ALT (14-59) U/L Alkaline Phosphatase (46-116) U/L Total Protein (6.4-8.2) g/dl Albumin (3.4-5.0) g/dl Globulin gm/dL Albumin/Globulin Ratio (1-2) TSH 3rd Generation (0.358-3.74) uIU/mL Urine Color Yellow (Yellow) Urine Appearance Clear (Clear) Urine pH 7.0 (5.0-8.0) Ur Specific [place] 1.015 (1.005-1.030) Urine Protein Negative (Negative) Urine Glucose (UA) Negative (Negative) Urine Ketones Negative (Negative) Urine Occult Blood Negative (Negative) Urine Nitrite Negative (Negative) Urine Bilirubin Negative (Negative) Urine Urobilinogen 0.2 (0.2-1.0) Ur Leukocyte Esterase Negative (Negative) Salicylates 1.8 L (2.8-20) mg/dL Urine Opiates Screen (DBCLRR=969) Ur Buprenorphine Scrn (CUTOFF=10) Ur Oxycodone Screen (BND8XR=356) Urine Methadone Screen (QWCUSY=660) Ur Propoxyphene Screen (YKNHVN=124) Acetaminophen (10-30) ug/mL Ur Barbiturates Screen (DJAKZS=630) Ur Tricyclics Screen (BBOJNK=138) Ur Phencyclidine Scrn (CUTOFF=25) Ur Amphetamine Screen (XLJZTP=460) U Methamphetamines Scrn (YXHJZS=558) U Benzodiazepines Scrn (LDARFS=474) U Cocaine Metab Screen (APIMTK=492) U Marijuana (THC) Screen (CUTOFF=50) Ethyl Alcohol (0.00) gm% COVID-19 (ROSAURA) (NEGATIVE) 12/03/19 12/03/19 Range/Units 14:15 17:00 WBC (3.98-10.04) K/mm3 RBC (3.98-5.22) M/mm3 Hgb (11.2-15.7) gm/dl Hct (34.1-44.9) % MCV (79.4-94.8) fl MCH (25.6-32.2) pg MCHC (32.2-35.5) g/dl RDW Std Deviation (36.4-46.3) fL Plt Count (182-369) K/mm3 MPV (9.4-12.3) fl Neut % (Auto) (34.0-71.1) % Lymph % (Auto) (19.3-51.7) % [place] % (Auto) (4.7-12.5) % Eos % (Auto) (0.7-5.8) Baso % (Auto) (0.1-1.2) % Neut # (Auto) (1.56-6.13) K/mm3 Lymph # (Auto) (1.18-3.74) K/mm3 [place] # (Auto) (0.24-0.36) K/mm3 Eos # (Auto) (0.04-0.36) K/mm3 Baso # (Auto) (0.01-0.08) K/mm3 PT (9.7-11.7) SECONDS INR Sodium (136-145) mEq/L Potassium (3.5-5.1) mEq/L Chloride (98-107) mEq/L Carbon Dioxide (21-32) mEq/L Anion Gap (5-15) BUN (7-18) mg/dL Creatinine (0.55-1.02) mg/dL Est Cr Clr Drug Dosing mL/min Estimated GFR (MDRD) (>60) mL/min BUN/Creatinine Ratio (14-18) Glucose (74-106) mg/dL Calcium (8.5-10.1) mg/dL Magnesium (1.8-2.4) mg/dl Total Bilirubin (0.2-1.0) mg/dL GGT (5-55) U/L AST (15-37) U/L ALT (14-59) U/L Alkaline Phosphatase (46-116) U/L Total Protein (6.4-8.2) g/dl Albumin (3.4-5.0) g/dl Globulin gm/dL Albumin/Globulin Ratio (1-2) TSH 3rd Generation (0.358-3.74) uIU/mL Urine Color (Yellow) Urine Appearance (Clear) Urine pH (5.0-8.0) Ur Specific [place] (1.005-1.030) Urine Protein (Negative) Urine Glucose (UA) (Negative) Urine Ketones (Negative) Urine Occult Blood (Negative) Urine Nitrite (Negative) Urine Bilirubin (Negative) Urine Urobilinogen (0.2-1.0) Ur Leukocyte Esterase (Negative) Salicylates (2.8-20) mg/dL Urine Opiates Screen Negative (ZTIIHP=423) Ur Buprenorphine Scrn Negative (CUTOFF=10) Ur Oxycodone Screen Negative (ZOH5IJ=266) Urine Methadone Screen Negative (HTLGXD=522) Ur Propoxyphene Screen Negative (YOIQWC=890) Acetaminophen (10-30) ug/mL Ur Barbiturates Screen Negative (PWTXDJ=949) Ur Tricyclics Screen Negative (FAUZSI=724) Ur Phencyclidine Scrn Negative (CUTOFF=25) Ur Amphetamine Screen Negative (GFACMZ=557) U Methamphetamines Scrn Negative (YWXSPW=147) U Benzodiazepines Scrn Negative (PUBEOE=491) U Cocaine Metab Screen Negative (VKLKZU=660) U Marijuana (THC) Screen Negative (CUTOFF=50) Ethyl Alcohol (0.00) gm% COVID-19 (ROSAURA) Negative (NEGATIVE) Meds: Medications Generic Name Dose Route Start Last Admin Trade Name Freq PRN Reason Stop Dose Admin Folic Acid 1 mg 12/03/19 13:30 12/03/19 14:03 Folic Acid IV 1 mg DAILY EDILIA Administration Discontinued Medications Generic Name Dose Route Start Last Admin Trade Name Freq PRN Reason Stop Dose Admin Al Hydroxide/Mg Hydroxide 30 0 ml 12/03/19 17:11 12/03/19 17:16 ml/ Lidocaine HCl 15 ml PO 12/03/19 17:12 45 ml ONETIME ONE Administration Diatrizoate Meglum/Diatrizoate Sod 90 ml 12/03/19 17:02 Gastrografin 37% PO 12/03/19 17:03 ONETIME ONE Folic Acid 1 mg 12/04/19 13:18 Folic Acid IV 12/04/19 13:19 ONETIME ONE Hydromorphone HCl 0.5 mg 12/03/19 15:26 12/03/19 15:46 Dilaudid IVPUSH 12/03/19 15:27 0.5 mg ONETIME ONE Administration Hydromorphone HCl 0.25 mg 12/03/19 16:34 12/03/19 16:53 Dilaudid IVPUSH 12/03/19 16:35 0.25 mg ONETIME ONE Administration Hydromorphone HCl 0.5 mg 12/03/19 17:48 Dilaudid IVPUSH 12/03/19 17:49 ONETIME ONE Lactated Ringer's 2,000 mls @ 999 mls/hr 12/03/19 13:16 12/03/19 14:25 Ringers, Lactated IV 12/03/19 15:16 999 mls/hr .BOLUS ONE Infusion Magnesium Sulfate 2 gm/ Premix 50 mls @ 25 mls/hr 12/03/19 14:25 12/03/19 14:32 IV 12/03/19 16:24 25 mls/hr ONETIME ONE Administration Iopamidol 100 ml 12/03/19 17:02 Isovue-300 (61%) IVPUSH 12/03/19 17:03 ONETIME ONE Lorazepam 1 mg 12/03/19 15:26 12/03/19 15:46 Ativan IVPUSH 12/03/19 15:27 1 mg ONETIME ONE Administration Lorazepam 1 mg 12/03/19 17:24 12/03/19 17:29 Ativan IVPUSH 12/03/19 17:25 1 mg ONETIME ONE Administration Ondansetron HCl 4 mg 12/03/19 13:16 12/03/19 13:22 Zofran IVPUSH 12/03/19 13:17 4 mg ONETIME ONE Administration Ondansetron HCl 4 mg 12/03/19 14:47 12/03/19 14:58 Zofran IVPUSH 12/03/19 14:48 4 mg ONETIME ONE Administration Pantoprazole Sodium 40 mg 12/03/19 17:12 12/03/19 17:19 Protonix Iv IVPUSH 12/03/19 17:13 40 mg ONETIME ONE Administration Potassium Chloride 40 meq 12/03/19 14:25 12/03/19 14:31 Klor-Con M20 PO 12/03/19 14:26 40 meq ONETIME ONE Administration Sodium Chloride 10 ml 12/03/19 17:02 12/03/19 17:19 Saline Flush FLUSH 12/03/19 17:03 10 ml ONETIME ONE Administration Thiamine HCl 100 mg 12/03/19 13:18 12/03/19 13:32 Vitamin B-1 IVPUSH 12/03/19 13:19 100 mg ONETIME ONE Administration - Re-Assessments/Exams Free Text/Narrative Re-Assessment/Exam: 12/03/19 17;50 We are fortunate to find a bed for Юлия at [facility] in [place]. Dr. Evans in the emergency room excepting and he will further evaluate as to if she can go to psychiatry or if she needs to go to medical for detox. The patient has had a history of seizures in the past with alcohol withdrawal however she has had times where she did have seizures. Patient is quite anxious at this time she was given some Ativan. The patient also has some upper abdominal discomfort most consistent with dyspepsia the patient received 40 mg of Protonix a GI cocktail and was given a little bit of Dilaudid for this. For anxiety we have given her a couple doses of Ativan. Departure - Departure Time of Disposition: 17:52 Disposition: DC/Tfer to [facility] Clinical Impression: Alcohol intoxication Qualifiers: Complication of substance-induced condition: uncomplicated Qualified Code(s): F10.920 - Alcohol use, unspecified with intoxication, uncomplicated - Discharge Information Referrals: Zabrina Verdin NP [Primary Care Provider] - Sepsis Event Note (ED) - Focused Exam Vital Signs: Vital Signs Temp Pulse Resp BP Pulse Ox 12/03/19 14:01 35.5 C L 96 18 160/118 H 99 12/03/19 12:46 36.0 C L 66 18 145/97 H 93 L - My Orders Last 24 Hours: My Active Orders 12/03/19 12:50 EKG Documentation Completion [RC] STAT 12/03/19 13:30 Folic Acid 1 mg IV DAILY 12/03/19 15:33 Abdomen Pelvis w Cont [CT] Stat - Assessment/Plan Last 24 Hours: My Active Orders 12/03/19 12:50 EKG Documentation Completion [RC] STAT 12/03/19 13:30 Folic Acid 1 mg IV DAILY 12/03/19 15:33 Abdomen Pelvis w Cont [CT] Stat
[2019-12-03] MEDS ORDERED: Lactated Ringers 2,000 ML IV ONE (13:16)
[2019-12-03] MEDS ORDERED: Ondansetron 4 MG/2 ML SDV IVPUSH ONE ×2 (13:16→14:47)
[2019-12-03] MEDS ORDERED: Thiamine 200 MG/2 ML MDV IVPUSH ONE (13:18)
[2019-12-03] MEDS ORDERED: Folic Acid 50 MG/10 ML MDV IV SCH (13:30)
[2019-12-03 13:47] LABS: ACETAMINOPHEN 10 ug/mL (10-30)
[2019-12-03 14:02] VITALS: BP 160/118; PULSE 96
[2019-12-03] MEDS ORDERED: Potassium Chloride 20 MEQ Tab.ER PO ONE (14:25)
[2019-12-03] MEDS ORDERED: Magnesium Sulfate/Water 2 GM in Premix Bag 1 BAG IV ONE (14:25)
[2019-12-03] MEDS ORDERED: HYDROmorphone 0.5 MG/0.5 ML Syringe IVPUSH ONE ×3 (15:26→17:48)
[2019-12-03] MEDS ORDERED: LORazepam 2 MG/ML SDV IVPUSH ONE ×2 (15:26→17:24)
[2019-12-03] MEDS ORDERED: Iopamidol 612 MG/ML 100 ML Bottle IVPUSH ONE (17:02)
[2019-12-03] MEDS ORDERED: Sodium Chloride 0.9% 10 ML Syringe FLUSH ONE (17:02)
[2019-12-03] MEDS ORDERED: Diatrizoate Meglumine/Diatrizoate Sodium 37% 120 ML Bottle PO ONE (17:02)
[2019-12-03] MEDS ORDERED: Alum Hydrox/Mag Hydrox/Simeth 30 ML, Lidocaine 2% 15 ML PO ONE ×2 (17:11)
[2019-12-03] MEDS ORDERED: Pantoprazole 40 MG Vial IVPUSH ONE (17:12)
[2019-12-04] MEDS ORDERED: Folic Acid 50 MG/10 ML MDV IV ONE (13:18)
== END 2019-12-03 18:00 ==
LOC: JD.ED 12:42
DX: F10.920 Alcohol use, unspecified with intoxication, uncomplicated (principal); F32.9 Major depressive disorder, single episode, unspecified; M19.90 Unspecified osteoarthritis, unspecified site; I10 Essential (primary) hypertension; Z88.3 Allergy status to other anti-infective agents; Z79.899 Other long term (current) drug therapy
CPT/HCPCS: 36415; 80053; 80306; 80307; 81003; 82977; 83735; 84443; 85025; 85610; 87635; 93005; 96361; 96365; 96366; 96375; 96376; 99285; A9270; C9113; J1170; J2060; J2405; J3411; J3475; J7120; Q9963; U0002

== ENCOUNTER 2020-02-03 10:04 | Emergency (ER) | payer MEDICAID ==
[2020-02-03] MEDS ORDERED: Sodium Chloride 0.9% 10 ML Syringe FLUSH PRN (11:05)
[2020-02-03] MEDS ORDERED: Ondansetron 4 MG/2 ML SDV IVPUSH ONE (11:07)
[2020-02-03] MEDS ORDERED: HYDROmorphone 0.5 MG/0.5 ML Syringe IVPUSH ONE ×2 (11:07→13:04)
[2020-02-03] MEDS ORDERED: LORazepam 2 MG/ML SDV IVPUSH ONE (11:08)
[2020-02-03] MEDS ORDERED: Sodium Chloride 0.9% 1,000 ML IV STA (11:09)
--- NOTE | 2020-02-03 14:20 | EDM.PDOCBH ---
ED HPI GENERAL MEDICAL PROBLEM - General Chief Complaint: Drug or Alcohol Abuse Stated Complaint: [facility] Time Seen by Provider: 02/03/20 11:01 Source of Information: Reports: Patient History Limitations: Reports: No Limitations - History of Present Illness INITIAL COMMENTS - FREE TEXT/NARRATIVE: Patient is a 50-year-old female presenting to the emergency department with complaints of nausea, vomiting, and abdominal pain. This is a recurrent issue for her each time that she consumes alcohol. Patient states that she has been sober for the last 2 months since she went through treatment in [facility]. She had a relapse last evening. States she drank a small bottle of vodka as well as to shots of fireball this morning. She complains of lower abdominal pain as well as a couple episodes of vomiting. She denies any hematochezia or hematemesis. She plans to follow-up with [facility] or go to the residential crisis center today. Abdominal Pain Score (Numeric/FACES): 7 - Related Data Allergies Allergy/AdvReac Type Severity Reaction Status Date / Time acyclovir Allergy Severe Other Verified 02/03/20 10:12 Home Meds: Home Meds Interferon Beta-1a [Avonex] 1 injection SQ FR 02/27/19 [History] Potassium Chloride 20 meq PO DAILY #30 tablet.er 04/07/19 [Rx] QUEtiapine [SEROquel] 200 mg PO BEDTIME 04/16/19 [History] Gabapentin [Neurontin] 300 mg PO TID 04/22/19 [History] hydrOXYzine pamoate [Hydroxyzine Pamoate] 50 mg PO BEDTIME 04/22/19 [History] DULoxetine [Cymbalta] 30 mg PO DAILY 07/10/19 [History] DULoxetine [Cymbalta] 60 mg PO BEDTIME 07/10/19 [History] ClonazePAM [KlonoPIN] 0.5 mg PO BID 11/12/19 [History] Metoprolol Tartrate 100 mg PO DAILY 11/12/19 [History] Naltrexone 50 mg PO DAILY 11/12/19 [History] busPIRone [Buspar] 10 mg PO TID 11/12/19 [History] Ondansetron [Zofran ODT] 4 mg PO Q8H PRN #15 tab.dis 11/23/19 [Rx] Nitrofurantoin Monohyd/M-Cryst [Macrobid 100 mg Capsule] 100 mg PO BID #10 capsule 02/03/20 [Rx] QUEtiapine [SEROquel] 25 mg PO ASDIRECTED 02/03/20 [History] Past Medical History HEENT History: Reports: Impaired Vision Other HEENT History: cornea transplant L eye Cardiovascular History: Reports: Hypertension Other Cardiovascular History: heart murmur Respiratory History: Reports: None Gastrointestinal History: Reports: Pancreatitis Other Gastrointestinal History: colitis Genitourinary History: Reports: Urinary Incontinence Other Genitourinary History: straight caths at times from [place] PATTERNMAKER History: Reports: Fibroids, Musculoskeletal History: Reports: Arthritis, Fracture Other Musculoskeletal History: Neck and back- Neurological History: Reports: Migraines, MS, Seizure Psychiatric History: Reports: Addiction, Depression, Mood Swings, PTSD, Other (See Below) Hematologic History: Reports: Other (See Below) Other Hematologic History: Hep A and C Immunologic History: Reports: None Oncologic (Cancer) History: Reports: None - Infectious Disease History Infectious Disease History: Reports: Hepatitis A, Hepatitis C - Past Surgical History Head Surgeries/Procedures: Reports: None HEENT Surgical History: Reports: Eye Surgery, Oral Surgery, Tonsillectomy, Other (See Below) GI Surgical History: Reports: Appendectomy, Bariatric Procedure, Cholecystectomy, Hernia, Abdominal Female Surgical History: Reports: Breast Reduction, Section, Hysterectomy Musculoskeletal Surgical History: Reports: Other (See Below) Dermatological Surgical History: Reports: Plastic Surgical Reconstruction/Repair Social & Family History - Family History Family Medical History: Noncontributory Cardiac: Reports: Hypertension Neurological: Reports: MS Psychiatric: Reports: Anxiety, Depression Endocrine/Metabolic: Reports: Diabetes, type II Oncologic: Reports: Breast - Tobacco Use Tobacco Use Status *Q: Current Every Day Tobacco User Years of Tobacco use: 33 Packs/Tins Daily: 0.1 - Caffeine Use Caffeine Use: Reports: Coffee Other Caffeine Use: 3/day - Recreational Drug Use Recreational Drug Use: Yes Recreational Drug Type: Reports: Codiene, Dilaudid, Methamphetamine, Other (see below) Other Recreational Drug Type: pt states she used to abuse lots of pain killers - Living Situation & Occupation Living situation: Reports: , with Significant Other (Boyfriend) Occupation: Unemployed ED ROS GENERAL - Review of Systems Review Of Systems: See Below Constitutional: Reports: No Symptoms. Denies: Fever, Chills HEENT: Reports: No Symptoms Respiratory: Reports: No Symptoms Cardiovascular: Reports: No Symptoms Endocrine: Reports: No Symptoms GI/Abdominal: Reports: Abdominal Pain (bilateral lower abdomen), Nausea, Vomiting. Denies: Diarrhea : Reports: No Symptoms Musculoskeletal: Reports: No Symptoms Skin: Reports: No Symptoms Neurological: Reports: No Symptoms Psychiatric: Reports: No Symptoms Hematologic/Lymphatic: Reports: No Symptoms Immunologic: Reports: No Symptoms ED EXAM, BEHAVIORAL HEALTH - Physical Exam Exam: See Below General Appearance: Alert, WD/WN, Mild Distress Respiratory/Chest: No Respiratory Distress, Lungs Clear, Normal Breath Sounds, No Accessory Muscle Use, Chest Non-Tender Cardiovascular: Normal Peripheral Pulses, Regular Rate, Rhythm, No Edema, No Gallop, No JVD, No Murmur, No Rub GI/Abdominal: Normal Bowel Sounds, Soft, No Organomegaly, No Distention, No Abnormal Bruit, No Mass, Tender (bilateral lower abdomen). No: Guarding, Rigid Neurological: Alert, Normal Mood/Affect, CN II-XII Intact, Normal Cognition, Normal Gait, Normal Reflexes, No Motor/Sensory Deficits, Oriented x 3 Psychiatric: Alert, Normal Affect, Normal Cognition, Normal Mood, Oriented COURSE, BEHAVIORAL HEALTH COMP - Course Vital Signs: Last Vital Signs Temp 97.2 F 02/03/20 14:31 Pulse 109 H 02/03/20 14:31 Resp 16 02/03/20 14:31 BP 139/126 H 02/03/20 14:31 Pulse Ox 94 L 02/03/20 14:31 Orders, Labs, Meds: Laboratory Tests 02/03/20 02/03/20 02/03/20 Range/Units 11:50 11:50 11:50 WBC 6.74 (3.98-10.04) K/mm3 RBC 4.32 (3.98-5.22) M/mm3 Hgb 12.3 (11.2-15.7) gm/dl Hct 39.8 (34.1-44.9) % MCV 92.1 D (79.4-94.8) fl MCH 28.5 (25.6-32.2) pg MCHC 30.9 L (32.2-35.5) g/dl RDW Std Deviation 48.7 H (36.4-46.3) fL Plt Count 370 H (182-369) K/mm3 MPV 9.5 (9.4-12.3) fl Neut % (Auto) 43.5 (34.0-71.1) % Lymph % (Auto) 50.6 (19.3-51.7) % [place] % (Auto) 5.2 (4.7-12.5) % Eos % (Auto) 0.6 L (0.7-5.8) Baso % (Auto) 0.1 (0.1-1.2) % Neut # (Auto) 2.93 (1.56-6.13) K/mm3 Lymph # (Auto) 3.41 (1.18-3.74) K/mm3 [place] # (Auto) 0.35 (0.24-0.36) K/mm3 Eos # (Auto) 0.04 (0.04-0.36) K/mm3 Baso # (Auto) 0.01 (0.01-0.08) K/mm3 Sodium 145 (136-145) mEq/L Potassium 3.7 (3.5-5.1) mEq/L Chloride 108 H (98-107) mEq/L Carbon Dioxide 28 (21-32) mEq/L Anion Gap 12.7 (5-15) BUN 6 L (7-18) mg/dL Creatinine 1.0 (0.55-1.02) mg/dL Est Cr Clr Drug Dosing 57.47 mL/min Estimated GFR (MDRD) 58 (>60) mL/min BUN/Creatinine Ratio 6.0 L (14-18) Glucose 94 (74-106) mg/dL Calcium 8.8 (8.5-10.1) mg/dL Total Bilirubin 0.3 (0.2-1.0) mg/dL AST 149 H (15-37) U/L ALT 94 H (14-59) U/L Alkaline Phosphatase 121 H (46-116) U/L C-Reactive Protein <0.2 (<1.0) mg/dL Total Protein 7.1 (6.4-8.2) g/dl Albumin 3.2 L (3.4-5.0) g/dl Globulin 3.9 gm/dL Albumin/Globulin Ratio 0.8 L (1-2) Lipase 275 (73-393) U/L Urine Color (Yellow) Urine Appearance (Clear) Urine pH (5.0-8.0) Ur Specific Crane (1.005-1.030) Urine Protein (Negative) Urine Glucose (UA) (Negative) Urine Ketones (Negative) Urine Occult Blood (Negative) Urine Nitrite (Negative) Urine Bilirubin (Negative) Urine Urobilinogen (0.2-1.0) Ur Leukocyte Esterase (Negative) Urine RBC (0-5) /hpf Urine WBC (0-5) /hpf Urine WBC Clumps (NOT SEEN) /hpf Ur Squamous Epith Cells (0-5) /hpf Urine Bacteria (FEW) /hpf Urine Mucus (FEW) /hpf Ethyl Alcohol 0.26 (0.00) gm% 02/02/ Range/Units 13:10 WBC (3.98-10.04) K/mm3 RBC (3.98-5.22) M/mm3 Hgb (11.2-15.7) gm/dl Hct (34.1-44.9) % MCV (79.4-94.8) fl MCH (25.6-32.2) pg MCHC (32.2-35.5) g/dl RDW Std Deviation (36.4-46.3) fL Plt Count (182-369) K/mm3 MPV (9.4-12.3) fl Neut % (Auto) (34.0-71.1) % Lymph % (Auto) (19.3-51.7) % [place] % (Auto) (4.7-12.5) % Eos % (Auto) (0.7-5.8) Baso % (Auto) (0.1-1.2) % Neut # (Auto) (1.56-6.13) K/mm3 Lymph # (Auto) (1.18-3.74) K/mm3 [place] # (Auto) (0.24-0.36) K/mm3 Eos # (Auto) (0.04-0.36) K/mm3 Baso # (Auto) (0.01-0.08) K/mm3 Sodium (136-145) mEq/L Potassium (3.5-5.1) mEq/L Chloride (98-107) mEq/L Carbon Dioxide (21-32) mEq/L Anion Gap (5-15) BUN (7-18) mg/dL Creatinine (0.55-1.02) mg/dL Est Cr Clr Drug Dosing mL/min Estimated GFR (MDRD) (>60) mL/min BUN/Creatinine Ratio (14-18) Glucose (74-106) mg/dL Calcium (8.5-10.1) mg/dL Total Bilirubin (0.2-1.0) mg/dL AST (15-37) U/L ALT (14-59) U/L Alkaline Phosphatase (46-116) U/L C-Reactive Protein (<1.0) mg/dL Total Protein (6.4-8.2) g/dl Albumin (3.4-5.0) g/dl Globulin gm/dL Albumin/Globulin Ratio (1-2) Lipase (73-393) U/L Urine Color Yellow (Yellow) Urine Appearance Cloudy H (Clear) Urine pH 7.0 (5.0-8.0) Ur Specific Crane 1.015 (1.005-1.030) Urine Protein Negative (Negative) Urine Glucose (UA) Negative (Negative) Urine Ketones Negative (Negative) Urine Occult Blood Trace-intact H (Negative) Urine Nitrite Positive H (Negative) Urine Bilirubin Negative (Negative) Urine Urobilinogen 0.2 (0.2-1.0) Ur Leukocyte Esterase 3+ H (Negative) Urine RBC 0-5 (0-5) /hpf Urine WBC 50-75 H (0-5) /hpf Urine WBC Clumps Few (NOT SEEN) /hpf Ur Squamous Epith Cells 0-5 (0-5) /hpf Urine Bacteria Many H (FEW) /hpf Urine Mucus Not seen (FEW) /hpf Ethyl Alcohol (0.00) gm% Medications Discontinued Medications Generic Name Dose Route Start Last Admin Trade Name Freq PRN Reason Stop Dose Admin Hydromorphone HCl 0.5 mg 02/03/20 11:07 02/03/20 12:16 Dilaudid IVPUSH 02/03/20 11:08 0.5 mg ONETIME ONE Administration Hydromorphone HCl 0.5 mg 02/03/20 13:04 02/03/20 13:19 Dilaudid IVPUSH 02/03/20 13:05 0.5 mg ONETIME ONE Administration Sodium Chloride 1,000 mls @ 999 mls/hr 02/03/20 11:09 02/03/20 12:16 Normal Saline IV 02/03/20 12:09 999 mls/hr NOW STA Administration Lorazepam 0.5 mg 02/03/20 11:08 Ativan IVPUSH 02/03/20 11:09 ONETIME ONE Ondansetron HCl 4 mg 02/03/20 11:07 02/03/20 12:16 Zofran IVPUSH 02/03/20 11:08 4 mg ONETIME ONE Administration Sodium Chloride 10 ml 02/03/20 11:05 02/03/20 12:37 Saline Flush FLUSH 10 ml ASDIRECTED PRN Administration Keep Vein Open Medical Clearance: Patient is a 50-year-old female presenting to the emergency department with complaints of acute lower abdominal pain after having a binge of alcohol consumption last evening. Patient states she has a history of pancreatitis and thinks that that is what is occurring today. Patient has been seen in this emergency department on a number of occasions for similar complaints as this happens frequently after binge drinking. She had been sober for 2 months up until last evening. She complains of lower abdominal pain as well as some nausea with a few episodes of vomiting. She has no left upper quadrant or epigastric tenderness. Patient would like to go to the [facility] crisis center today if that is an option for her. She does have an open case to [facility] currently. 02/03/20 1310 Hematology was significant for an AST elevated at 149, ALT 94, alkaline phosphatase 121. Lipase was normal at 275. She has not been able to provide us with a urine sample thus far. Her pain is improved but she still has some abdominal pain I have ordered another dose of Dilaudid 0.5 mg. We will contact [facility] to visit with her regarding possible admission to the [facility] crisis center. 02/03/20 14:20 Janette from [facility] was here to evaluate the patient for possible admission to the residential crisis center. Patient has declined going to the residential crisis center as they do not allow smoking. Arrangements have been made for her to have closer follow-up services within her home. Patient is comfortable going home at this time. Guidelines will give her a ride home and plan to follow-up with services in the home. Discharge instructions as documented. 02/03/20 22:47 Patient had provided a urinalysis sample prior to discharge. On review of the chart, it appears that she does have a urinary tract infection as evidenced by positive nitrates and 3+ leukocyte esterase. Attempted to contact the patient to notify her and started on antibiotic, however there was no answer. Her voicemail box is full. I will attempt to contact her again tomorrow. I have sent a prescription for Macrobid 100 mg twice daily for 5 days to [facility]. Urine has been sent for culture. 02/04/20 11:34 attempted to call pt again regarding UTI. No answer and VM box is full. 02/04/20 15:47 Attempted to contact pt again. No answer. Called patients mother, Corinne, and asked if she can have pt call us. She will attempt to contact that patient. Departure - Departure Time of Disposition: 14:19 Disposition: Home, Self-Care 01 Condition: Good Clinical Impression: Alcohol abuse - Discharge Information *PRESCRIPTION DRUG MONITORING PROGRAM REVIEWED*: No *COPY OF PRESCRIPTION DRUG MONITORING REPORT IN PATIENT JAKOB: No Prescriptions: Nitrofurantoin Monohyd/M-Cryst [Macrobid 100 mg Capsule] 100 mg PO BID #10 capsule Instructions: Alcohol Use Disorder Referrals: Zabrina Verdin NP [Primary Care Provider] - Forms: ED Department Discharge Additional Instructions: You were seen in emergency department today for abdominal pain and vomiting after having a relapse in alcohol use. Work-up included blood work and urinalysis. Results of your work-up to be overall normal. While in the ER, you received IV fluids, Zofran for nausea, and Dilaudid for pain. This did improve your symptoms. You declined going to the residential crisis center today, however you will be having follow-up services with [facility] in your home. Recommend that you abstain from drinking alcohol and follow the treatment plan as set forth by [facility]. Return to ER as needed. Sepsis Event Note (ED) - Evaluation Sepsis Screening Result: No Definite Risk
[2020-02-03 14:32] VITALS: BP 139/126; PULSE 109
== END 2020-02-03 14:37 | disposition home or self-care (01) ==
LOC: JD.ED 10:04
DX: F10.10 Alcohol abuse, uncomplicated (principal); Y90.8 Blood alcohol level of 240 mg/100 ml or more; F17.210 Nicotine dependence, cigarettes, uncomplicated; I10 Essential (primary) hypertension; F32.9 Major depressive disorder, single episode, unspecified; G35 Multiple sclerosis; Z88.8 Allergy status to other drugs, medicaments and biological substances; Z79.899 Other long term (current) drug therapy
CPT/HCPCS: 36415; 80053; 80307; 81001; 83690; 85025; 86140; 87086; 87088; 87184; 87186; 96374; 96375; 96376; 99284; J1170; J2405; J7030

== ENCOUNTER 2023-08-14 18:41 | Emergency (ER) | payer SELFPAY ==
[2023-08-14] MEDS: Indomethacin 25 MG Cap PO ONE (22:10)
[2023-08-14] MEDS: Cephalexin 500 MG Cap PO ONE (22:11)
[2023-08-15 01:34] VITALS: BP 160/112; PULSE 92
== END 2023-08-14 22:31 | disposition home or self-care (01) ==
LOC: JD.ED 18:41
DX: M25.472 Effusion, left ankle (principal); M10.9 Gout, unspecified; I10 Essential (primary) hypertension; Z90.49 Acquired absence of other specified parts of digestive tract; Z90.710 Acquired absence of both cervix and uterus; Z79.899 Other long term (current) drug therapy; Z88.8 Allergy status to other drugs, medicaments and biological substances
CPT/HCPCS: 73610; 99283; A9270

== ENCOUNTER 2023-09-23 08:30 | Inpatient (IN) | payer SELFPAY ==
[2023-09-23 11:28] LABS: APPEARANCE,URINE SLT CLOUDY (Clear); BILIRUBIN,URINE NEGATIVE (Negative); COLOR,URINE YELLOW (Yellow); GLUCOSE,URINE NEGATIVE (Negative); KETONES,URINE NEGATIVE (Negative); LEUKOCYTE ESTERASE,URINE 2+ (Negative); NITRITE,URINE NEGATIVE (Negative); OCCULT BLOOD,URINE TRACE-LYSED (Negative); PH,URINE 6.5 (5.0-8.0); PROTEIN,URINE 1+ (Negative); UROBILINOGEN,URINE 0.2 (0.2-1.0)
[2023-09-23] MEDS: Lactated Ringers 1,000 ML IV ONE (11:41)
[2023-09-23] MEDS: Ketorolac 30 MG/ML SDV IVPUSH ONE (11:44)
[2023-09-23] MEDS: Sodium Chloride 0.9% 10 ML Syringe FLUSH PRN (11:44)
[2023-09-23] MEDS: Ondansetron 4 MG/2 ML SDV IVPUSH ONE (11:45)
[2023-09-23 11:48] LABS: BASOPHILS PERCENT AUTO 0.2 % (0.0-1.0); EOSINOPHILS PERCENT AUTO 0.1 % (0.0-6.0); HEMATOCRIT 42.8 % (37.0-47.0); IMMATURE GRAN ABSOLUTE AUTO 0.06 K/mm3 (0.00-0.05); IMMATURE GRAN PERCENT AUTO 0.4 % (0.0-0.4); LYMPHOCYTES ABSOLUTE AUTO 2.2 K/mm3 (1.0-4.8); LYMPHOCYTES PERCENT AUTO 15.5 % (24.0-44.0); MEAN CORPUSCULAR VOLUME 79.9 fl (83.0-99.0); MEAN PLATELET VOLUME 9.3 fl (9.4-12.3); MONOCYTES ABSOLUTE AUTO 0.6 K/mm3 (0.0-0.8); NEUTROPHILS ABSOLUTE AUTO 11.3 K/mm3 (1.8-7.7); NEUTROPHILS PERCENT AUTO 79.8 % (41.0-71.0); PLATELET COUNT,PLT 485 K/mm3 (150-400); RED BLOOD CELL COUNT 5.36 M/mm3 (4.10-5.30); WHITE BLOOD CELL COUNT,WBC 14.19 K/mm3 (3.9-11.3)
[2023-09-23 12:06] LABS: AMPHETAMINES SCREEN, URINE PRESUMPTIVE POSITIVE (CUTOFF=500); BARBITURATE SCREEN,URINE NEGATIVE (CUTOFF=200); BENZODIAZEPINES SCREEN,URINE NEGATIVE (CUTOFF=150); BUPRENORPHINE SCREEN,URINE NEGATIVE (CUTOFF=10); METHADONE SCREEN, URINE NEGATIVE (CUTOFF=200); METHAMPHETAMINES SCREEN, URINE NEGATIVE (CUTOFF=500); OXYCODONE SCREEN,URINE NEGATIVE (CUT0FF=100); THC SCREEN,URINE 20 NG/ML PRESUMPTIVE POSITIVE (CUTOFF=50)
[2023-09-23 12:06] LABS: A/G RATIO 0.8 (1-2); ALBUMIN 4.1 g/dl (3.4-5.0); ANION GAP 19.8 (5-15); BILIRUBIN TOTAL 1.1 mg/dL (0.2-1.0); BUN/CREATININE RATIO 12.7 (14-18); CREATININE 1.1 mg/dL (0.55-1.02); EST CRCL DRUG DOSING (CG) 54.73 mL/min; ETHANOL BLOOD MEDICAL 0.01 gm% (0.00); MAGNESIUM 1.7 mg/dL (1.8-2.4); POTASSIUM,K 2.8 mEq/L (3.5-5.1); PROTEIN TOTAL,TP 9.3 g/dl (6.4-8.2)
[2023-09-23 12:09] LABS: BACTERIA,URINE MODERATE /hpf (FEW); MUCUS,URINE NOT SEEN /hpf (FEW); RBC,URINE 0-5 /hpf (0-5)
[2023-09-23] MEDS ORDERED: Naloxone 0.4 MG/ML SDV IVPUSH PRN (12:31)
[2023-09-23] MEDS: Sodium Chloride 0.9% 1,000 ML IV SCH ×2 (13:12→16:01)
[2023-09-23] MEDS: Potassium Chloride 10 MEQ in Premix Bag 1 BAG IV SCH (13:12)
[2023-09-23] MEDS: fentaNYL 100 MCG/2 ML SDV IVPUSH ONE (13:13)
[2023-09-23] MEDS ORDERED: Ibuprofen 400 MG Tab PO PRN (13:43)
[2023-09-23] MEDS ORDERED: Morphine 2 MG/ML SYRINGE IVPUSH PRN (13:43)
[2023-09-23] MEDS ORDERED: Ondansetron 4 MG/2 ML SDV IV PRN (13:43)
[2023-09-23] MEDS ORDERED: Potassium Chloride 10 MEQ in Premix Bag 1 BAG IV SCH (14:00)
[2023-09-23] MEDS ORDERED: traMADol 50 MG Tab PO PRN (14:01)
[2023-09-23 14:17] LABS: HEMOGLOBIN A1C 5.4 %
[2023-09-23 14:54] LABS: INR 0.96; PROTHROMBIN TIME 10.3 SECONDS (9.7-12.0)
[2023-09-23 15:32] LABS: ANION GAP 13.9 (5-15); BUN/CREATININE RATIO 11.5 (14-18); CALCIUM 8.9 mg/dL (8.5-10.1); CREATININE 1.3 mg/dL (0.55-1.02); EST CRCL DRUG DOSING (CG) 46.31 mL/min; POTASSIUM,K 3.9 mEq/L (3.5-5.1)
[2023-09-23] MEDS: Acetaminophen/HYDROcodone 325-5 MG Tab PO PRN (15:52)
[2023-09-23] MEDS: busPIRone 5 MG Tab PO SCH (15:52)
[2023-09-23] MEDS: Ondansetron 4 MG Tab.DIS PO ONE (16:02)
[2023-09-23] MEDS: Magnesium Sulfate/Water 2 GM in Premix Bag 1 BAG IV ONE (16:52)
[2023-09-23] MEDS: Gabapentin 300 MG Cap PO SCH (16:57)
[2023-09-23] MEDS: Methocarbamol 500 MG Tab PO PRN (18:43)
[2023-09-23] MEDS: ClonazePAM 0.5 MG Tab PO PRN (20:21)
[2023-09-23] MEDS: hydrOXYzine HCl 50 MG Tab PO SCH (20:21)
[2023-09-23] MEDS: QUEtiapine 25 MG Tab PO SCH (20:22)
[2023-09-23] MEDS: DULoxetine 30 MG Cap PO SCH (20:22)
[2023-09-23] MEDS: QUEtiapine 100 MG Tab PO SCH (20:22)
[2023-09-24 05:44] LABS: BUN/CREATININE RATIO 16.4 (14-18); CALCIUM 8.8 mg/dL (8.5-10.1); CREATININE 1.4 mg/dL (0.55-1.02); EST CRCL DRUG DOSING (CG) 39.67 mL/min
[2023-09-24 06:08] LABS: BASOPHILS PERCENT AUTO 0.5 % (0.0-1.0); EOSINOPHILS ABSOLUTE AUTO 0.1 K/mm3 (0.0-0.4); EOSINOPHILS PERCENT AUTO 1.1 % (0.0-6.0); HEMATOCRIT 36.8 % (37.0-47.0); HEMOGLOBIN 12.2 gm/dl (12.0-16.0); IMMATURE GRAN ABSOLUTE AUTO 0.01 K/mm3 (0.00-0.05); IMMATURE GRAN PERCENT AUTO 0.2 % (0.0-0.4); LYMPHOCYTES ABSOLUTE AUTO 1.9 K/mm3 (1.0-4.8); LYMPHOCYTES PERCENT AUTO 30.7 % (24.0-44.0); MEAN CORPUSCULAR HEMOGLOBIN 28.6 pg (28.0-32.0); MEAN CORPUSCULAR HGB CONC 33.2 g/dl (32.0-36.0); MEAN CORPUSCULAR VOLUME 86.4 fl (83.0-99.0); MEAN PLATELET VOLUME 10.9 fl (9.4-12.3); MONOCYTES ABSOLUTE AUTO 0.6 K/mm3 (0.0-0.8); MONOCYTES PERCENT AUTO 9.7 % (0.0-8.0); NEUTROPHILS ABSOLUTE AUTO 3.5 K/mm3 (1.8-7.7); NEUTROPHILS PERCENT AUTO 57.8 % (41.0-71.0); PLATELET COUNT,PLT 231 K/mm3 (150-400); RED BLOOD CELL COUNT 4.26 M/mm3 (4.10-5.30); WHITE BLOOD CELL COUNT,WBC 6.09 K/mm3 (3.9-11.3)
[2023-09-24 06:50] LABS: SLIDE REVIEW NORMAL SMEAR
[2023-09-24] MEDS: Metoprolol Tartrate 100 MG Tab PO SCH (09:57)
[2023-09-24] MEDS: DULoxetine 30 MG Cap PO SCH (09:57)
[2023-09-24] MEDS: Nicotine 14 MG/24 Hr Patch TRDERM SCH (09:57)
[2023-09-24] MEDS ORDERED: Morphine 2 MG/ML SYRINGE IVPUSH PRN ×2 (11:10→18:00)
[2023-09-24] MEDS: Acetaminophen/Butalbital/Caffeine 325-50-40 MG Tab PO ONE (20:41)
[2023-09-25 04:47] LABS: BASOPHILS PERCENT AUTO 0.5 % (0.0-1.0); EOSINOPHILS ABSOLUTE AUTO 0.1 K/mm3 (0.0-0.4); EOSINOPHILS PERCENT AUTO 1.2 % (0.0-6.0); HEMATOCRIT 32.8 % (37.0-47.0); HEMOGLOBIN 10.3 gm/dl (12.0-16.0); IMMATURE GRAN ABSOLUTE AUTO 0.02 K/mm3 (0.00-0.05); IMMATURE GRAN PERCENT AUTO 0.3 % (0.0-0.4); LYMPHOCYTES ABSOLUTE AUTO 1.5 K/mm3 (1.0-4.8); MEAN CORPUSCULAR HEMOGLOBIN 28.4 pg (28.0-32.0); MEAN CORPUSCULAR HGB CONC 31.4 g/dl (32.0-36.0); MEAN CORPUSCULAR VOLUME 90.4 fl (83.0-99.0); MEAN PLATELET VOLUME 9.7 fl (9.4-12.3); MONOCYTES ABSOLUTE AUTO 0.5 K/mm3 (0.0-0.8); MONOCYTES PERCENT AUTO 8.5 % (0.0-8.0); NEUTROPHILS ABSOLUTE AUTO 3.6 K/mm3 (1.8-7.7); NEUTROPHILS PERCENT AUTO 63.5 % (41.0-71.0); PLATELET COUNT,PLT 270 K/mm3 (150-400); RED BLOOD CELL COUNT 3.63 M/mm3 (4.10-5.30); WHITE BLOOD CELL COUNT,WBC 5.74 K/mm3 (3.9-11.3)
[2023-09-25 05:12] LABS: ANION GAP 10.5 (5-15); BUN/CREATININE RATIO 17.5 (14-18); CALCIUM 8.3 mg/dL (8.5-10.1); CREATININE 1.2 mg/dL (0.55-1.02); EST CRCL DRUG DOSING (CG) 46.28 mL/min; POTASSIUM,K 3.5 mEq/L (3.5-5.1)
[2023-09-25] MEDS: cefTRIAXone 1 GM in Sodium Chloride 0.9% 100 ML IV ONE (11:16)
[2023-09-25] MEDS: Acetaminophen/Butalbital/Caffeine 325-50-40 MG Tab PO PRN (11:35)
[2023-09-25] MEDS: Acetaminophen/HYDROcodone 325-10 MG Tab PO PRN (14:58)
[2023-09-26 04:51] LABS: BASOPHILS PERCENT AUTO 0.5 % (0.0-1.0); EOSINOPHILS ABSOLUTE AUTO 0.2 K/mm3 (0.0-0.4); EOSINOPHILS PERCENT AUTO 2.3 % (0.0-6.0); HEMATOCRIT 33.9 % (37.0-47.0); HEMOGLOBIN 10.5 gm/dl (12.0-16.0); IMMATURE GRAN ABSOLUTE AUTO 0.02 K/mm3 (0.00-0.05); IMMATURE GRAN PERCENT AUTO 0.3 % (0.0-0.4); LYMPHOCYTES ABSOLUTE AUTO 2.5 K/mm3 (1.0-4.8); LYMPHOCYTES PERCENT AUTO 38.4 % (24.0-44.0); MEAN CORPUSCULAR HEMOGLOBIN 28.5 pg (28.0-32.0); MEAN CORPUSCULAR VOLUME 91.9 fl (83.0-99.0); MEAN PLATELET VOLUME 9.5 fl (9.4-12.3); MONOCYTES ABSOLUTE AUTO 0.5 K/mm3 (0.0-0.8); MONOCYTES PERCENT AUTO 7.7 % (0.0-8.0); NEUTROPHILS ABSOLUTE AUTO 3.3 K/mm3 (1.8-7.7); NEUTROPHILS PERCENT AUTO 50.8 % (41.0-71.0); PLATELET COUNT,PLT 256 K/mm3 (150-400); RED BLOOD CELL COUNT 3.69 M/mm3 (4.10-5.30)
[2023-09-26 05:20] LABS: ANION GAP 14.1 (5-15); BUN/CREATININE RATIO 19.2 (14-18); CALCIUM 8.3 mg/dL (8.5-10.1); CREATININE 1.2 mg/dL (0.55-1.02); EST CRCL DRUG DOSING (CG) 46.28 mL/min; POTASSIUM,K 4.1 mEq/L (3.5-5.1)
[2023-09-26] MEDS: Polyethylene Glycol 3350 Powder 17 GM Packet PO PRN (09:46)
[2023-09-26] MEDS: Lidocaine 4% 1 each Patch TOP PRN (09:46)
[2023-09-26 13:49] VITALS: BP 115/81; PULSE 55
== END 2023-09-26 13:05 | disposition home or self-care (01) | DRG 683 ==
LOC: EEVIPCON 08:30 → JD.ED 08:30 → JD.MS 13:43
PROVIDERS: ADMIT Student in an Organized Health Care Education/Training Program; ATTEND Student in an Organized Health Care Education/Training Program
DX: N17.9 Acute kidney failure, unspecified (principal); E87.1 Hypo-osmolality and hyponatremia; S32.019A Unspecified fracture of first lumbar vertebra, initial encounter for closed fracture; E87.20 Acidosis, unspecified; M54.50 Low back pain, unspecified; G89.29 Other chronic pain; I10 Essential (primary) hypertension; F41.9 Anxiety disorder, unspecified; F32.A Depression, unspecified; E87.6 Hypokalemia; F10.20 Alcohol dependence, uncomplicated; F43.10 Post-traumatic stress disorder, unspecified; M19.90 Unspecified osteoarthritis, unspecified site; F15.90 Other stimulant use, unspecified, uncomplicated; F12.90 Cannabis use, unspecified, uncomplicated; G35 Multiple sclerosis; E83.42 Hypomagnesemia; R73.9 Hyperglycemia, unspecified; N30.90 Cystitis, unspecified without hematuria; G43.909 Migraine, unspecified, not intractable, without status migrainosus; B96.20 Unspecified Escherichia coli [E. coli] as the cause of diseases classified elsewhere; F17.210 Nicotine dependence, cigarettes, uncomplicated; Z88.8 Allergy status to other drugs, medicaments and biological substances; Z79.899 Other long term (current) drug therapy; Z90.49 Acquired absence of other specified parts of digestive tract; Z90.89 Acquired absence of other organs; Z90.710 Acquired absence of both cervix and uterus; Z98.890 Other specified postprocedural states; Y04.2XXA Assault by strike against or bumped into by another person, initial encounter
CPT/HCPCS: 36415; 70160; 70160-26; 72100; 72100-26; 72131; 72131-26; 80048; 80053; 80306; 80307; 81001; 83036; 83690; 83735; 85025; 85610; 87086; 87088; 87186; 93005; 94760; 94761; 96361; 96374; 96375; 97110-GP; 97161-GP; 99284; 99285-25; A9270-GY; G0433; J0696; J1885; J2405; J3010; J3475; J3480; J3490; J7030; J7120